=== PATIENT | male | born 1935 | race Caucasian/White ===

== ENCOUNTER → 2019-07-27 | Outpatient (CLI) | payer MEDICARE, OTHER ==
--- NOTE | 2019-07-27 12:46 | ECHOF ---
Referral Reason:R01.1 Cardiac murmur MEASUREMENTS -------- HEIGHT: 160.0 cm WEIGHT: 90.7 kg BP: IVSd: 1.3 cm (0.6 - 1.1) LVIDd: 4.1 cm (3.9 - 5.3) LVPWd: 1.5 cm (0.6 - 1.1) IVSs: 1.9 cm LVIDs: 2.5 cm LVPWs: 1.8 cm LAESV Index (A-L): 28.82 ml/m Ao Diam: 3.0 cm (2.0 - 3.7) AV Cusp: 1.6 cm (1.5 - 2.6) LA Diam: 2.7 cm (2.7 - 3.8) MV EXCURSION: 18.395 mm (> 18.000) MV EF SLOPE: 61 mm/s (70 - 150) EPSS: 2.1 cm MV E Yemi: 0.64 m/s MV DecT: 215 ms MV A Yemi: 0.82 m/s MV E/A Ratio: 0.79 AV maxP.52 mmHg AV meanP.79 mmHg AR PHT: 673 ms RAP: 15.00 mmHg RVSP: 44.89 mmHg TAPSE: 27.20 mm FINDINGS -------- Sinus rhythm. This was a technically good study. The left ventricular size is normal. There is mild concentric left ventricular hypertrophy. Overa ll left ventricular systolic function is normal with, an EF between 55 - 60 %. The diastolic fillin g pattern is normal for the age of the patient 11.29. The right ventricle is normal in size. The right ventricular systolic function is normal. The left atrial size is normal. Normal LA size by volume 22+/-6 ml/m2. The right atrial size is normal. Aortic valve is trileaflet and is mildly thickened. Trace amount of aortic regurgitation. There is mild aortic stenosis present. Peak/mean gradient across the Aortic Valve is 23.52mmHg / 11.79mmH g. The mitral valve is normal. The mitral valve leaflets are mildly thickened. Mild mitral regurgita tion is present. The tricuspid valve appears structurally normal. Mild tricuspid regurgitation present. There is m ild pulmonary hypertension. The right ventricular systolic pressure, as measured by Doppler, is 44. 89mmHg. There is no pulmonic regurgitation present. The aortic root size is normal. The inferior vena cava is mildly dilated. The pulmonary veins were not recorded. There is no pericardial effusion. CONCLUSIONS -------- 1. Sinus rhythm. 2. This was a technically good study. 3. The left ventricular size is normal. 4. There is mild concentric left ventricular hypertrophy. 5. Overall left ventricular systolic function is normal with, an EF between 55 - 60 %. 6. The diastolic filling pattern is normal for the age of the patient 11.29 7. The right ventricle is normal in size. 8. The right ventricular systolic function is normal. 9. The left atrial size is normal. 10. Normal LA size by volume 22+/-6 ml/m2. 11. The right atrial size is normal. 12. Aortic valve is trileaflet and is mildly thickened. 13. Trace amount of aortic regurgitation. 14. There is mild aortic stenosis present. 15. Peak/mean gradient across the Aortic Valve is 23.52mmHg / 11.79mmHg. 16. The mitral valve is normal. 17. The mitral valve leaflets are mildly thickened. 18. Mild mitral regurgitation is present. 19. The tricuspid valve appears structurally normal. 20. Mild tricuspid regurgitation present. 21. There is mild pulmonary hypertension. 22. The right ventricular systolic pressure, as measured by Doppler, is 44.89mmHg. 23. There is no pulmonic regurgitation present. 24. The aortic root size is normal. 25. The inferior vena cava is mildly dilated. 26. The pulmonary veins were not recorded. 27. There is no pericardial effusion. BRUSH HAND: Swapna Black RDCS
== END | disposition home or self-care (01) ==
LOC: RADECHMAIN 11:02
PROVIDERS: ATTEND Family Medicine
DX: I08.1 Rheumatic disorders of both mitral and tricuspid valves (principal); I27.20 Pulmonary hypertension, unspecified
CPT/HCPCS: 93306

== ENCOUNTER 2020-08-02 13:48 | Inpatient (IN) | payer MEDICARE, OTHER ==
--- NOTE | 2020-08-02 14:06 | ED ---
General Adult HPI - General Stated complaint: Chest Pain Time Seen by Provider: 08/02/20 13:57 Source: patient, EMS, RN notes reviewed, old records reviewed Limitations: no limitations - History of Present Illness Initial comments: 85-year-old presenting for evaluation chest discomfort. Patient's had been outside doing some yard work, he developed a substernal chest pressure and pain to his bilateral shoulders. He has no known history of coronary artery disease. He is a nondiabetic. No history of hypertension. He has remote history of tobacco use. He states that about a month ago he had a similar episode to this that was relieved with rest. He went to his primary care physician today and w as given aspirin and nitroglycerin. He was transported to the emergency department with concern for ischemic chest pain. He was given a second nitroglycerin by EMS and has had complete resolution in his symptoms at the time of my evaluation. No cough no dyspnea, no chest pain or chest discomfort at the time my evaluation. He states he was diaphoretic at the time of onset. - Related Data Allergies Allergy/AdvReac Type Severity Reaction Status Date / Time Unable to Assess Allergy Verified 08/02/20 14:00 Review of Systems ROS Statement: Those systems with pertinent positive or pertinent negative responses have been documented in the HPI. ROS Other: All systems not noted in ROS Statement are negative. Past Medical History Past Medical History: Cancer Additional Past Medical History / Comment(s): prostate CA History of Any Multi-Drug Resistant Organisms: None Reported Additional Past Surgical History / Comment(s): prostate removed Past Psychological History: No Psychological Hx Reported Smoking Status: Never smoker Past Alcohol Use History: Occasional Past Drug Use History: None Reported General Exam Limitations: no limitations General appearance: alert, in no apparent distress Head exam: Present: atraumatic, normocephalic Eye exam: Present: normal appearance, PERRL ENT exam: Present: normal exam Neck exam: Present: normal inspection. Absent: tenderness, meningismus Respiratory exam: Present: normal lung sounds bilaterally, respiratory distress Cardiovascular Exam: Present: regular rate, normal rhythm GI/Abdominal exam: Present: soft. Absent: distended, tenderness, guarding, rebound Extremities exam: Present: normal inspection, normal capillary refill. Absent: pedal edema Neurological exam: Present: alert, oriented X3, CN II-XII intact. Absent: motor sensory deficit Psychiatric exam: Present: normal affect, normal mood Skin exam: Present: warm, dry, intact. Absent: cyanosis, diaphoretic Course Vital Signs 08/02/20 08/02/20 13:49 14:51 Pulse Rate 103 H 90 Respiratory 18 18 Rate Blood Pressure 121/66 130/75 O2 Sat by Pulse 98 97 Oximetry - Reevaluation(s) Reevaluation #1: 08/02/20 15:17 Patient reevaluated, chest pain-free, no symptoms. EKG Findings - EKG Comments: EKG Findings:: EKG: Sinus tachycardia with PAC, right bundle branch block, T- wave inversion in the inferior leads, PVC no ST segment elevation. Rate of 105, NH interval 178, QRS duration 146, QTC 507 Medical Decision Making - Medical Decision Making 85 yo male presenting with typical chest pain. EKG showing sinus rhythm with right bundle, ST segment depression, no ST segment elevation. Patient is completely chest pain-free at the time my evaluation. He remains chest pain- free while in the emergency department. Chest x-ray is negative for focal pneumonia, question some Easler atelectasis. Patient has a stable hemoglobin, normal electrolytes, normal kidney function. His initial troponin is 1.9. He does admit to some intermittent episodes of chest pain over the past several months. He has no known history of coronary artery disease. Patient had been given aspirin nitroglycerin by EMS, he started on heparin in the emergency department. He started on a beta michel and statin. I discussed case with cardiology, Dr. Mccullough. As well as admitting physician Dr. Ryan. Echo has been ordered. - Lab Data Result diagrams: 08/02/20 14:10 08/02/20 14:10 Lab Results 08/02/20 08/02/20 08/02/20 Range/Units 14:10 14:10 14:10 WBC 12.3 H (3.8-10.6) k/uL RBC 5.17 (4.30-5.90) m/uL Hgb 16.3 (13.0-17.5) gm/dL Hct 47.5 (39.0-53.0) % MCV 91.9 (80.0-100.0) fL MCH 31.5 (25.0-35.0) pg MCHC 34.3 (31.0-37.0) g/dL RDW 15.8 H (11.5-15.5) % Plt Count 215 (150-450) k/uL Neutrophils % 89 % Lymphocytes % 5 % Monocytes % 5 % Eosinophils % 0 % Basophils % 0 % Neutrophils # 11.0 H (1.3-7.7) k/uL Lymphocytes # 0.6 L (1.0-4.8) k/uL Monocytes # 0.6 (0-1.0) k/uL Eosinophils # 0.0 (0-0.7) k/uL Basophils # 0.0 (0-0.2) k/uL PT 10.4 (9.0-12.0) sec INR 1.0 (<1.2) APTT 25.3 (22.0-30.0) sec Sodium 133 L (137-145) mmol/L Potassium 4.7 (3.5-5.1) mmol/L Chloride 102 (98-107) mmol/L Carbon Dioxide 22 (22-30) mmol/L Anion Gap 9 mmol/L BUN 18 (9-20) mg/dL Creatinine 0.98 (0.66-1.25) mg/dL Est GFR (CKD-EPI)AfAm 81 (>60 ml/min/1.73 sqM) Est GFR (CKD-EPI)NonAf 70 (>60 ml/min/1.73 sqM) Glucose 138 H (74-99) mg/dL Calcium 10.0 (8.4-10.2) mg/dL Magnesium 2.2 (1.6-2.3) mg/dL Total Bilirubin 0.6 (0.2-1.3) mg/dL AST 60 H (17-59) U/L ALT 25 (4-49) U/L Alkaline Phosphatase 69 (38-126) U/L Troponin I (0.000-0.034) ng/mL Total Protein 6.4 (6.3-8.2) g/dL Albumin 4.1 (3.5-5.0) g/dL 08/02/20 Range/Units 14:10 WBC (3.8-10.6) k/uL RBC (4.30-5.90) m/uL Hgb (13.0-17.5) gm/dL Hct (39.0-53.0) % MCV (80.0-100.0) fL MCH (25.0-35.0) pg MCHC (31.0-37.0) g/dL RDW (11.5-15.5) % Plt Count (150-450) k/uL Neutrophils % % Lymphocytes % % Monocytes % % Eosinophils % % Basophils % % Neutrophils # (1.3-7.7) k/uL Lymphocytes # (1.0-4.8) k/uL Monocytes # (0-1.0) k/uL Eosinophils # (0-0.7) k/uL Basophils # (0-0.2) k/uL PT (9.0-12.0) sec INR (<1.2) APTT (22.0-30.0) sec Sodium (137-145) mmol/L Potassium (3.5-5.1) mmol/L Chloride (98-107) mmol/L Carbon Dioxide (22-30) mmol/L Anion Gap mmol/L BUN (9-20) mg/dL Creatinine (0.66-1.25) mg/dL Est GFR (CKD-EPI)AfAm (>60 ml/min/1.73 sqM) Est GFR (CKD-EPI)NonAf (>60 ml/min/1.73 sqM) Glucose (74-99) mg/dL Calcium (8.4-10.2) mg/dL Magnesium (1.6-2.3) mg/dL Total Bilirubin (0.2-1.3) mg/dL AST (17-59) U/L ALT (4-49) U/L Alkaline Phosphatase (38-126) U/L Troponin I 1.910 H* (0.000-0.034) ng/mL Total Protein (6.3-8.2) g/dL Albumin (3.5-5.0) g/dL Critical Care Time Critical Care Time: Yes Total Critical Care Time: 35 Disposition Clinical Impression: Acute non-ST elevation myocardial infarction (NSTEMI) Disposition: ADMITTED IP TO THIS [facility] Condition: Stable Is patient prescribed a controlled substance at d/c from ED?: No Referrals: Henrik Perez MD [Primary Care Provider] - 1-2 days Decision to Admit Reason: Admit from EC Decision Date: 08/02/20 Decision Time: 15:18
[2020-08-02 14:22] LABS: Basophils % (A) 0 %; Eosinophils % (A) 0 %; HCT 47.5 % (39.0-53.0); HGB 16.3 gm/dL (13.0-17.5); Lymphocytes # (A) 0.6 k/uL (1.0-4.8); Lymphocytes % (A) 5 %; MCH 31.5 pg (25.0-35.0); MCHC 34.3 g/dL (31.0-37.0); MCV 91.9 fL (80.0-100.0); Mean Platelet Volume 9.1; Monocytes # (A) 0.6 k/uL (0-1.0); Monocytes % (A) 5 %; Neutrophils % (A) 89 %; Platelet Count 215 k/uL (150-450); RBC 5.17 m/uL (4.30-5.90); RDW 15.8 % (11.5-15.5); WBC 12.3 k/uL (3.8-10.6)
[2020-08-02 14:32] LABS: Partial Thromboplastin Time 25.3 sec (22.0-30.0); Prothrombin Time 10.4 sec (9.0-12.0)
[2020-08-02 14:38] LABS: Albumin 4.1 g/dL (3.5-5.0); Magnesium 2.2 mg/dL (1.6-2.3); Potassium 4.7 mmol/L (3.5-5.1); Total Bilirubin 0.6 mg/dL (0.2-1.3); Total Protein 6.4 g/dL (6.3-8.2)
--- NOTE | 2020-08-02 15:05 | XR ---
EXAMINATION TYPE: XR chest 1V portable DATE OF EXAM: 08/02/2020 CLINICAL HISTORY: Chest pain TECHNIQUE: Portable upright view of the chest COMPARISON: 10/25/2012 chest radiograph FINDINGS: The cardiomediastinal silhouette is within normal limits for size. Pulmonary vasculature i s normal. There is airspace opacity of the right infrahilar lung base. No pleural effusion or pneumot horax. The osseous structures are intact. IMPRESSION: Airspace opacity of the right infrahilar lung base. Findings may represent atelectasis or consolidation.
[2020-08-02] MEDS ORDERED: NITROGLYCERIN OINT 1 INCH/GM PACKET TOPICAL STA (15:09)
[2020-08-02] MEDS ORDERED: HEPARIN SODIUM,PORCINE 5,000 UNIT/ML 1 ML VIAL IV PRN (15:09)
[2020-08-02] MEDS ORDERED: HEPARIN SODIUM,PORCINE 5,000 UNIT/ML 1 ML VIAL IV ONE (15:09)
[2020-08-02] MEDS ORDERED: NITROGLYCERIN SL TABS 0.4 MG TAB SUBLINGUAL PRN (15:13)
[2020-08-02] MEDS ORDERED: MORPHINE SULFATE 2 MG/ML SYRINGE IVP PRN (15:13)
[2020-08-02] MEDS: HEPARIN SOD,PORK IN 0.45% NACL 25,000 UNIT in 0.45% NACL 1 250ML.BAG IV SCH (15:34)
[2020-08-02] MEDS: ATORVASTATIN 40 MG TAB PO SCH (19:57)
[2020-08-02] MEDS: METOPROLOL TARTRATE 25 MG TAB PO SCH (19:57)
--- NOTE | 2020-08-02 22:18 | P.HPIM ---
History of Present Illness H&P Date: 08/02/20 Chief Complaint: Chest pain History of presenting complaint: This is a 85-year-old patient of Dr. Henrik Perez. In rather good health. Patient after breakfast when DrAbby below the lease. Then came back again the lawnmower. Started getting a chest heaviness went up to his arms. Decided to go back in the house. Started forgetting unwell. Symptoms last for 2 hours. No dizziness or lightheadedness. Cobb totally weak and rundown. Clammy perspiration. Decided to come in. No prior cardiac history. Fairly active. Had a similar episode about 2 months ago. Improved with rest. Admitted with unstable angina Review of systems: GEN.: Tired EYES: None HEENT: None NECK: None RESPIRATORY: None CARDIOVASCULAR: [As above GASTROINTESTINAL: None GENITOURINARY: None MUSCULOSKELETAL: None LYMPHATICS: None HEMATOLOGICAL: None PSYCHIATRY: None NEUROLOGICAL: None Past medical history to include: Prostate cancer treated with surgery Social history: Retired salesperson. Lives with his . Drinks beer occasionally. Stopped smoking 10 years ago. Family history: Reviewed, noncontributory to presentation Physical examination: VITAL SIGNS: 97.9, 82, 18, 124/65, 96% room air GENERAL: BMI 25.6, laying in bed, comfortable. EYES: Pupils equal. Conjunctiva normal. HEENT: External appearance of nose and ears normal, oral cavity grossly normal. NECK: JVD not raised; masses not palpable. HEART: First and second heart sounds are normal; no edema. LUNGS: Respiratory rate normal; clear to auscultation. ABDOMEN: Soft, nontender, liver spleen not palpable, no masses palpable. PSYCH: Alert and oriented x3; mood and affect normal. MUSCULAR skeletal: Evidence of OA NEUROLOGICAL: Cranial nerves grossly intact; no facial asymmetry, power and sensation grossly intact. LYMPHATICS: No lymph nodes palpable in the axilla and neck INVESTIGATIONS, reviewed in the clinical context: White count 12.3 hemoglobin 13.3 platelets 215 potassium 4.7 creatinine 0.98 Troponin I 1.9, 12.4, 23.3 EKG tracing personally reviewed by me-sinus rhythm, PVC, ST segment depression from leads V2 through V6 and somein 1 and aVL. Chest x-ray film personally reviewed by me-questionable infiltrate in the right base Assessment: -Acute non-ST elevation myocardial infarction -Leukocytosis from acute IA. No clinical evidence of infection -Mild hyponatremia -IV heparin monitoring Plan: Patient started IV heparin. Aspirin. Lipitor. Lopressor. Cardiology was consulted. For cardiac catheterization. Care was discussed with the patient. Past Medical History Past Medical History: Cancer Additional Past Medical History / Comment(s): prostate CA History of Any Multi-Drug Resistant Organisms: None Reported Additional Past Surgical History / Comment(s): prostate removed Past Anesthesia/Blood Transfusion Reactions: No Reported Reaction Smoking Status: Former smoker - Past Family History Mother Family Medical History: No Reported History Father Family Medical History: No Reported History Medications and Allergies Home Medications Medication Instructions Recorded Confirmed Type Aspirin 324 mg PO ONCE PRN 08/02/20 08/02/20 History Aspirin EC [Ecotrin Low Dose] 81 mg PO DAILY 08/02/20 08/02/20 History Calcium/Vitamin D(Unknown Dose) 1 tab PO DAILY 08/02/20 08/02/20 History Multivitamins, Thera [Multivitamin 1 tab PO DAILY 08/02/20 08/02/20 History (formulary)] Allergies Allergy/AdvReac Type Severity Reaction Status Date / Time doxycycline [From Vibramycin] Allergy Unknown Verified 08/02/20 15:23 Physical Exam Vitals: Vital Signs Temp Pulse Pulse Resp BP BP Pulse Ox 08/02/20 19:59 97.9 F 82 18 124/65 96 08/02/20 17:37 98.0 F 84 18 138/60 95 08/02/20 15:45 76 18 120/69 100 08/02/20 14:51 90 18 130/75 97 08/02/20 13:49 103 H 18 121/66 98 Intake and Output 08/02/20 08/02/20 08/02/20 06:59 14:59 22:59 Intake Total 296 Balance 296 Intake: IV 60 .9@20 60 Oral 236 Other: Voiding Method Toilet Weight 92.986 kg 92.986 kg Results CBC & Chem 7: 08/02/20 14:10 08/02/20 14:10 Labs: Abnormal Lab Results - Last 24 Hours (Table) 08/02/20 08/02/20 08/02/20 Range/Units 14:10 14:10 14:10 WBC 12.3 H (3.8-10.6) k/uL RDW 15.8 H (11.5-15.5) % Neutrophils # 11.0 H (1.3-7.7) k/uL Lymphocytes # 0.6 L (1.0-4.8) k/uL APTT (22.0-30.0) sec Sodium 133 L (137-145) mmol/L Glucose 138 H (74-99) mg/dL AST 60 H (17-59) U/L Troponin I 1.910 H* (0.000-0.034) ng/mL 08/02/20 08/02/20 08/02/20 Range/Units 17:18 20:10 21:15 WBC (3.8-10.6) k/uL RDW (11.5-15.5) % Neutrophils # (1.3-7.7) k/uL Lymphocytes # (1.0-4.8) k/uL APTT 46.9 H (22.0-30.0) sec Sodium (137-145) mmol/L Glucose (74-99) mg/dL AST (17-59) U/L Troponin I 12.400 H* 23.300 H* (0.000-0.034) ng/mL Thrombosis Risk Factor Assmnt - Choose All That Apply Any of the Below Risk Factors Present?: No Each Risk Factor Represents 3 Points: Age 75 years or older Other congenital or acquired thrombophilia - If yes, enter type in comment: No Thrombosis Risk Factor Assessment Total Risk Factor Score: 3 Thrombosis Risk Factor Assessment Level: Moderate Risk
[2020-08-03] MEDS ORDERED: ALPRAZolam 0.25 MG TAB PO PRN (07:27)
[2020-08-03] MEDS ORDERED: ALPRAZolam 0.5 MG TAB PO PRN (07:27)
[2020-08-03] MEDS ORDERED: ATORVASTATIN 80 MG TAB PO STA (07:27)
[2020-08-03] MEDS: ASPIRIN 325 MG TAB PO SCH (07:55)
[2020-08-03] MEDS: METOPROLOL TARTRATE 25 MG TAB PO SCH ×2 (07:55→20:31)
[2020-08-03] MEDS: SODIUM CHLORIDE 0.9% 1,000 ML in EMPTY BAG 1 BAG IV ONE ×2 (07:56→10:26)
[2020-08-03 08:22] LABS: Anisocytosis Slight; Basophils % (A) 0 %; Eosinophils # (A) 0.2 k/uL (0-0.7); Eosinophils % (A) 2 %; HCT 47.5 % (39.0-53.0); HGB 15.8 gm/dL (13.0-17.5); Lymphocytes # (A) 1.8 k/uL (1.0-4.8); Lymphocytes % (A) 20 %; MCH 31.1 pg (25.0-35.0); MCHC 33.2 g/dL (31.0-37.0); MCV 93.7 fL (80.0-100.0); Mean Platelet Volume 9.1; Monocytes # (A) 0.8 k/uL (0-1.0); Monocytes % (A) 9 %; Neutrophils # (A) 6.1 k/uL (1.3-7.7); Neutrophils % (A) 68 %; Platelet Count 231 k/uL (150-450); RBC 5.07 m/uL (4.30-5.90); RDW 17.3 % (11.5-15.5); WBC 9.1 k/uL (3.8-10.6)
[2020-08-03 08:46] LABS: Cholesterol 206 mg/dL (<200); HDL Cholesterol 48 mg/dL (40-60); LDL Cholesterol,Calculated 118 mg/dL (0-99); Triglycerides 199 mg/dL (<150)
[2020-08-03] MEDS ORDERED: IV FLUID CONTINUATION 1,000 ML IV ONE (09:00)
[2020-08-03] MEDS ORDERED: VERAPAMIL 2.5 MG/ML 2 ML AMP ONE (09:01)
[2020-08-03] MEDS ORDERED: LIDOCAINE 1% INJ 10MG/ML (20 ML MDV) ONE (09:02)
[2020-08-03] MEDS ORDERED: MIDAZOLAM 2 MG/2 ML VIAL IV ONE (09:13)
[2020-08-03] MEDS ORDERED: LIDOCAINE 1% INJ 10MG/ML (20 ML MDV) SQ ONE (09:24)
[2020-08-03] MEDS ORDERED: HEPARIN SODIUM 1,000 UN/ML (10ML VL) ONE (09:25)
[2020-08-03] MEDS ORDERED: VERAPAMIL SYRINGE (5 MG/10 ML) INTRAARTER ONE (09:26)
[2020-08-03] MEDS ORDERED: HEPARIN SODIUM 1,000 UN/ML (10ML VL) IV ONE (09:27)
[2020-08-03] MEDS ORDERED: IOPAMIDOL-370 125ML BTL INJ ONE (09:48)
[2020-08-03] MEDS ORDERED: RX INFO: IV CONTRAST WAS GIVEN 1 EACH MISC MISCELLANE PRN (09:59)
--- NOTE | 2020-08-03 10:07 | P.CRDCN ---
History of Present Illness Consult date: 08/03/20 History of present illness: This is a 85-year-old gentleman with no significant past medical history is admitted now with complaints of chest heaviness radiating to both shoulders. He claims about 2 months ago, he had an episode of chest pain that lasted an hour or so but subsided with rest. Yesterday he was working in his lawn when he started having chest heaviness radiating to both arms. There is some sweating . The symptoms lasted about 2 hours and finally he went to see primary care physician who sent him to the hospital. His EKG showed right bundle branch block without any acute ST-T changes. His cardiac enzymes showed elevated troponin of 1.9. Patient was initiated on beta blockers, heparin and nitrates and was admitted to the hospital. Patient remained asymptomatic since admission. However his troponins went up to 25. Patient is advised to have a cardiac catheterization. Further recommendations depend on findings in the cardiac cath. No history of any previous myocardial infarctions Review of Systems As per the chart Past Medical History Past Medical History: Cancer Additional Past Medical History / Comment(s): prostate CA History of Any Multi-Drug Resistant Organisms: None Reported Additional Past Surgical History / Comment(s): prostate removed Past Anesthesia/Blood Transfusion Reactions: No Reported Reaction Smoking Status: Former smoker - Past Family History Mother Family Medical History: No Reported History Father Family Medical History: No Reported History Medications and Allergies Home Medications Medication Instructions Recorded Confirmed Type Aspirin 324 mg PO ONCE PRN 08/02/20 08/02/20 History Aspirin EC [Ecotrin Low Dose] 81 mg PO DAILY 08/02/20 08/02/20 History Calcium/Vitamin D(Unknown Dose) 1 tab PO DAILY 08/02/20 08/02/20 History Multivitamins, Thera [Multivitamin 1 tab PO DAILY 08/02/20 08/02/20 History (formulary)] Allergies Allergy/AdvReac Type Severity Reaction Status Date / Time doxycycline [From Vibramycin] Allergy Unknown Verified 08/02/20 15:23 Physical Exam Vitals: Vital Signs Temp Pulse Pulse Resp BP BP Pulse Ox 08/03/20 08:15 98.0 F 84 18 123/55 98 08/03/20 04:00 97.9 F 66 16 100/50 96 08/02/20 23:09 82 16 111/64 96 08/02/20 19:59 97.9 F 82 18 124/65 96 08/02/20 17:37 98.0 F 84 18 138/60 95 08/02/20 15:45 76 18 120/69 100 08/02/20 14:51 90 18 130/75 97 08/02/20 13:49 103 H 18 121/66 98 Intake and Output 08/02/20 08/03/20 08/03/20 22:59 06:59 14:59 Intake Total 296 80 913.601 Output Total 450 Balance 296 80 463.601 Intake: IV 60 150 .9@20 60 Intake, IV Titration 80 763.601 Amount Heparin Sod,Pork in 0.45% 80 163.601 NaCl 25,000 unit In 0.45 % NaCl 1 250ml.bag @ 10. 75 UNITS/KG/HR 9.996 mls/ hr IV .Q24H [facility] Rx#: [id number] Sodium Chloride 0.9% 1, 600 000 ml In Empty Bag 1 bag @ 1 ML/KG/HR 89.4 mls/hr IV .[id number] ONE Rx#: [id number] Oral 236 Output: Urine 450 Other: Voiding Method Toilet Toilet # Voids 2 1 Weight 92.986 kg 89.4 kg GENERAL EXAM: Patient is alert and oriented and doesn't appear to be in any acute distress HEENT: Normocephalic. Normal reaction of pupils, equal size, normal range of extraocular motion. No erythema or exudates in the throat. NECK: No masses, no nuchal rigidity. CHEST: No chest wall deformity. LUNGS: Equal air entry with no crackles or wheeze. HEART: S1 and S2 normal . Systolic murmur in the aortic area ABDOMEN: No hepatosplenomegaly, normal bowel sounds, no guarding or rigidity. SKIN: No rashes CENTRAL NERVOUS SYSTEM: No focal deficits. EXTREMITIES: No cyanosis, clubbing or edema. Results 08/03/20 07:55 08/02/20 14:10 Cardiac Enzymes 08/02/20 08/02/20 08/02/20 Range/Units 14:10 14:10 17:18 AST 60 H (17-59) U/L Troponin I 1.910 H* 12.400 H* (0.000-0.034) ng/mL 08/02/20 Range/Units 20:10 AST (17-59) U/L Troponin I 23.300 H* (0.000-0.034) ng/mL Coagulation 08/02/20 08/02/20 08/03/20 Range/Units 14:10 21:15 07:55 PT 10.4 (9.0-12.0) sec APTT 25.3 46.9 H 30.8 H (22.0-30.0) sec Lipids 08/03/20 Range/Units 07:55 Triglycerides 199 H (<150) mg/dL Cholesterol 206 H (<200) mg/dL HDL Cholesterol 48 (40-60) mg/dL CBC 08/02/20 08/03/20 Range/Units 14:10 07:55 WBC 12.3 H 9.1 (3.8-10.6) k/uL RBC 5.17 5.07 (4.30-5.90) m/uL Hgb 16.3 15.8 (13.0-17.5) gm/dL Hct 47.5 47.5 (39.0-53.0) % Plt Count 215 231 (150-450) k/uL Comprehensive Metabolic Panel 08/02/20 Range/Units 14:10 Sodium 133 L (137-145) mmol/L Potassium 4.7 (3.5-5.1) mmol/L Chloride 102 (98-107) mmol/L Carbon Dioxide 22 (22-30) mmol/L BUN 18 (9-20) mg/dL Creatinine 0.98 (0.66-1.25) mg/dL Glucose 138 H (74-99) mg/dL Calcium 10.0 (8.4-10.2) mg/dL AST 60 H (17-59) U/L ALT 25 (4-49) U/L Alkaline Phosphatase 69 (38-126) U/L Total Protein 6.4 (6.3-8.2) g/dL Albumin 4.1 (3.5-5.0) g/dL Current Medications Generic Name Dose Route Start Last Admin Trade Name Freq PRN Reason Stop Dose Admin Alprazolam 0.25 mg 08/03/20 07:27 Alprazolam 0.25 Mg Tab PO Q6HR PRN Mild Anxiety Alprazolam 0.5 mg 08/03/20 07:27 Alprazolam 0.5 Mg Tab PO Q6HR PRN Moderate Anxiety Aspirin 325 mg 08/03/20 09:00 08/03/20 07:55 Aspirin 325 Mg Tab PO 325 mg DAILY LESLEE Administration Atorvastatin Calcium 40 mg 08/02/20 21:00 08/02/20 19:57 Atorvastatin 40 Mg Tab PO 40 mg HS LESLEE Administration Heparin Sodium (Porcine) 0 unit 08/02/20 15:09 Heparin Sodium,Porcine 5,000 Unit/Ml 1 Ml Vial IV PER PROTOCOL PRN Low PTT Protocol Heparin Sodium/Sodium Chloride 250 mls @ 9.996 mls/hr 08/02/20 15:15 08/03/20 07:56 25,000 unit/ Sodium Chloride IV 0 units/kg/hr .Q24H LESLEE 0 mls/hr Titration Protocol 10.75 UNITS/KG/HR Sodium Chloride 1,000 ml/ IV 1,000 mls @ 89.4 mls/hr 08/03/20 07:27 08/03/20 07:56 Solution IV 08/03/20 18:38 89.4 mls/hr .[id number] ONE Administration 1 ML/KG/HR Sodium Chloride 1,000 mls @ 50 mls/hr 08/03/20 10:00 Saline 0.9% IV .Q20H LESLEE Metoprolol Tartrate 25 mg 08/02/20 21:00 08/03/20 07:55 Metoprolol Tartrate 25 Mg Tab PO 25 mg BID LESLEE Administration Miscellaneous Information 1 each 08/03/20 09:59 Rx Info: Iv Contrast Was Given 1 Each Misc MISCELLANE 08/05/20 09:59 DAILY PRN Per Protocol Morphine Sulfate 2 mg 08/02/20 15:13 Morphine Sulfate 2 Mg/Ml Syringe IVP Q5M PRN Chest Pain Nitroglycerin 0.4 mg 08/02/20 15:13 Nitroglycerin Sl Tabs 0.4 Mg Tab SUBLINGUAL Q5M PRN Chest Pain Intake and Output 08/02/20 08/03/20 08/03/20 22:59 06:59 14:59 Intake Total 296 80 913.601 Output Total 450 Balance 296 80 463.601 Intake: IV 60 150 .9@20 60 Intake, IV Titration 80 763.601 Amount Heparin Sod,Pork in 0.45% 80 163.601 NaCl 25,000 unit In 0.45 % NaCl 1 250ml.bag @ 10. 75 UNITS/KG/HR 9.996 mls/ hr IV .Q24H [facility] Rx#: [id number] Sodium Chloride 0.9% 1, 600 000 ml In Empty Bag 1 bag @ 1 ML/KG/HR 89.4 mls/hr IV .[id number] ONE Rx#: [id number] Oral 236 Output: Urine 450 Other: Voiding Method Toilet Toilet # Voids 2 1 Weight 92.986 kg 89.4 kg 08/03/20 07:55 08/02/20 14:10 EKG Interpretations (text) Sinus rhythm with a right bundle branch block and nonspecific ST-T changes Assessment and Plan (1) Acute non-ST elevation myocardial infarction (NSTEMI) Current Visit: Yes Status: Acute Code(s): I21.4 - NON-ST ELEVATION (NSTEMI) MYOCARDIAL INFARCTION SNOMED Code(s): 730073135 Plan: Continue current medical therapy. Proceed with cardiac catheterization. Echocardiogram
--- NOTE | 2020-08-03 10:11 | P.CARDCATH ---
Date of Procedure: 08/03/20 Preoperative Diagnosis: Non-STEMI Postoperative Diagnosis: Severe triple-vessel disease Procedure(s) Performed: Left heart catheterization without left ventriculography Description of Procedure: HISTORY: This is a 85-year-old gentleman was admitted to the hospital with a non-STEMI. Troponin went up to 25. Advised to have a cardiac catheterization for definitive diagnosis CONSENT:I have discussed the risks, benefits and alternative therapies for the above-mentioned procedure and for both sedation/analgesia as well as necessary blood product administration, if indicated, as they pertain to this patient. The patient has indicated understanding and acceptance of the risks and procedures discussed. PROCEDURE: Patient was brought to the lab in a fasting state. Patient was given some IV sedation. The right wrist is infiltrated with lidocaine and right radial artery was entered using Seldinger technique. A 6-Maltese catheter was left in place and selective coronary arteriography was performed. Patient tolerated the procedure well. TR band was applied for hemostasis. No immediate complications were noted and patient was transferred to cardiac stepdown unit in a stable condition Conscious Sedation: Versed 0.5mg Fentanyl [] g Duration 22 minutes HEMODYNAMICS: The aortic pressure is about 90 to 100 systolic. The left ventricle end-diastolic pressure is 20-20 5V and there is a mild gradient across the aortic valve of about 10 mm SELECTIVE CORONARY ARTERIOGRAPHY: LEFT MAIN: Short and free of any significant occlusive disease THE LEFT ANTERIOR DESCENDING CORONARY ARTERY: . This is a moderate caliber vessel with a diffuse disease with areas of about 80-90% stenosis involving the proximal and mid segments. There is also diagonal branch which has ostial 95% stenosis THE LEFT CIRCUMFLEX AND IS CORONARY ARTERY: . This is a good caliber vessel with about 95% stenosis in midportion followed by another 80% stenosis. This is off of the first OM branch. There are collaterals to the RCA which is being filled all the way to the proximal portion THE RIGHT CORONARY ARTERY: . This is totally occluded proximally LEFT VENTRICULOGRAPHY: . Not performed FINAL IMPRESSION: , Triple-vessel disease with total occlusion of the RCA with critical lesions involving the proximal and mid LAD and also mid circumflex and the ostium of the diagonal PLAN: Films were reviewed with Dr. Rodas. His felt that we should get surgical opinion regarding bypass surgery. If he were felt to be not a good candidate for surgery, stent placement of the LAD and circumflex to be considered PROGNOSIS: Guarded
[2020-08-03] MEDS: SODIUM CHLORIDE 0.9% 1,000 ML IV SCH (10:27)
[2020-08-03] MEDS ORDERED: MD COMMUNICATION TO PHARMACY 1 EACH MISC PO ONE (10:56)
--- NOTE | 2020-08-03 11:24 | P.GSCN ---
History of Present Illness Consult date: 08/03/20 Reason for Consult: Severe triple vessel coronary artery disease Requesting physician: Lisha Mccullough History of present illness: This is an 85-year-old active gentleman who follows with Dr. Perez on an outpatient basis, but only occasionally. His only previous medical history is prostate cancer with prostatectomy many years ago, and previous tobacco dependence. He has unknown family history as he was not raised by his natural parents. Apparently he has been having intermittent periods of chest heaviness with radiation to both arms with activity and relieved with rest over the last few months. He did present to his primary care approximately a month ago and was started on aspirin and given sublingual nitroglycerin. Yesterday he was doing yard work and again experienced chest heaviness with radiation to both arms, diaphoresis and nausea. He sat down and used his sublingual nitro, however this time the pain did not resolve and so he presented to [facility] emergency room for evaluation. EKG demonstrated sinus tach with PACs and right bundle branch block. Troponins were elevated at 1.9 eventually elevating to 23.3 and he was ruled in for non-STEMI. Chest x-ray demonstrated some a telectasis in the right base. WBC 12.3, hemoglobin 16.3, creatinine 0.98, AST 60. The patient was started on IV heparin and admitted for evaluation and treatment. He was seen by cardiology and was recommended to undergo heart catheterization which was completed today and which demonstrated severe triple- vessel coronary artery disease with proximal and mid LAD stenosis 80-90%, ostial diagonal stenosis 95%, mid circumflex stenosis 95%, and complete occlusion of the proximal right coronary artery. Due to these findings Dr. Vasquez from cardiothoracic surgery was consulted for surgical revascularization recommendations. Review of Systems Review systems was completed and is negative except as noted - Cardiovascular Reports as per HPI, Reports chest pain - Gastrointestinal Reports as per HPI, Reports nausea Past Medical History Past Medical History: Coronary Artery Disease (CAD), Cancer, Hyperlipidemia, Myocardial Infarction ([place]) Additional Past Medical History / Comment(s): prostate CA History of Any Multi-Drug Resistant Organisms: None Reported Past Surgical History: Prostate Surgery, Tonsillectomy Additional Past Surgical History / Comment(s): prostate removed Past Anesthesia/Blood Transfusion Reactions: No Reported Reaction Past Psychological History: No Psychological Hx Reported Smoking Status: Former smoker Past Alcohol Use History: Occasional Additional Past Alcohol Use History / Comment(s): Consumes 3-4 beers a week Past Drug Use History: None Reported - Past Family History Mother Family Medical History: No Reported History Father Family Medical History: No Reported History Additional Family Medical History / Comment(s): Unsure family history as the patient was not raised by his biological parents Medications and Allergies Home Medications Medication Instructions Recorded Confirmed Type Aspirin 324 mg PO ONCE PRN 08/02/20 08/02/20 History Aspirin EC [Ecotrin Low Dose] 81 mg PO DAILY 08/02/20 08/02/20 History Calcium/Vitamin D(Unknown Dose) 1 tab PO DAILY 08/02/20 08/02/20 History Multivitamins, Thera [Multivitamin 1 tab PO DAILY 08/02/20 08/02/20 History (formulary)] Allergies Allergy/AdvReac Type Severity Reaction Status Date / Time doxycycline [From Vibramycin] Allergy Unknown Verified 08/02/20 15:23 Surgical - Exam Vital Signs Pulse Resp BP Pulse Ox 103 H 18 121/66 98 08/02/20 13:49 08/02/20 13:49 08/02/20 13:49 08/02/20 13:49 - General well developed, well nourished, no distress, no pain - Eyes PERRL, normal ocular movement - ENT no hearing loss - Neck no masses, no bruits, trachea midline - Respiratory Lungs sounds clear bilaterally. Respirations even, nonlabored. Currently on room air with oxygen saturation 98%. No chest wall deformities. No cyanosis present. - Cardiovascular S1, S2 present. Regular rate and rhythm, sinus rhythm on telemetry. Palpable peripheral pulses bilaterally. No edema present. No calf pain or tenderness no reji. No varicosities noted. - Abdomen Abdomen: soft, non tender, bowel sounds - Genitourinary Deferred - Rectum Deferred - Integumentary no rash, no growths, no abnormal pigmentation - Neurologic normal coordination, normal sensation - Musculoskeletal normal gait, normal posture - Psychiatric oriented to time, oriented to person, oriented to place, speech is normal, memory intact Results - Labs 08/03/20 07:55 08/02/20 14:10 Abnormal Lab Results - Last 24 Hours (Table) 08/02/20 08/02/20 08/02/20 Range/Units 14:10 14:10 14:10 WBC 12.3 H (3.8-10.6) k/uL RDW 15.8 H (11.5-15.5) % Neutrophils # 11.0 H (1.3-7.7) k/uL Lymphocytes # 0.6 L (1.0-4.8) k/uL APTT (22.0-30.0) sec Sodium 133 L (137-145) mmol/L Glucose 138 H (74-99) mg/dL AST 60 H (17-59) U/L Troponin I 1.910 H* (0.000-0.034) ng/mL Triglycerides (<150) mg/dL Cholesterol (<200) mg/dL LDL Cholesterol, Calc (0-99) mg/dL 08/02/20 08/02/20 08/02/20 Range/Units 17:18 20:10 21:15 WBC (3.8-10.6) k/uL RDW (11.5-15.5) % Neutrophils # (1.3-7.7) k/uL Lymphocytes # (1.0-4.8) k/uL APTT 46.9 H (22.0-30.0) sec Sodium (137-145) mmol/L Glucose (74-99) mg/dL AST (17-59) U/L Troponin I 12.400 H* 23.300 H* (0.000-0.034) ng/mL Triglycerides (<150) mg/dL Cholesterol (<200) mg/dL LDL Cholesterol, Calc (0-99) mg/dL 08/03/20 08/03/20 08/03/20 Range/Units 07:55 07:55 07:55 WBC (3.8-10.6) k/uL RDW 17.3 H (11.5-15.5) % Neutrophils # (1.3-7.7) k/uL Lymphocytes # (1.0-4.8) k/uL APTT 30.8 H (22.0-30.0) sec Sodium (137-145) mmol/L Glucose (74-99) mg/dL AST (17-59) U/L Troponin I (0.000-0.034) ng/mL Triglycerides 199 H (<150) mg/dL Cholesterol 206 H (<200) mg/dL LDL Cholesterol, Calc 118 H (0-99) mg/dL Diabetes panel 08/02/20 08/03/20 Range/Units 14:10 07:55 Sodium 133 L (137-145) mmol/L Potassium 4.7 (3.5-5.1) mmol/L Chloride 102 (98-107) mmol/L Carbon Dioxide 22 (22-30) mmol/L BUN 18 (9-20) mg/dL Creatinine 0.98 (0.66-1.25) mg/dL Glucose 138 H (74-99) mg/dL Calcium 10.0 (8.4-10.2) mg/dL AST 60 H (17-59) U/L ALT 25 (4-49) U/L Alkaline Phosphatase 69 (38-126) U/L Total Protein 6.4 (6.3-8.2) g/dL Albumin 4.1 (3.5-5.0) g/dL Triglycerides 199 H (<150) mg/dL HDL Cholesterol 48 (40-60) mg/dL Calcium panel 08/02/20 Range/Units 14:10 Calcium 10.0 (8.4-10.2) mg/dL Albumin 4.1 (3.5-5.0) g/dL Pituitary panel 08/02/20 Range/Units 14:10 Sodium 133 L (137-145) mmol/L Potassium 4.7 (3.5-5.1) mmol/L Chloride 102 (98-107) mmol/L Carbon Dioxide 22 (22-30) mmol/L BUN 18 (9-20) mg/dL Creatinine 0.98 (0.66-1.25) mg/dL Glucose 138 H (74-99) mg/dL Calcium 10.0 (8.4-10.2) mg/dL Adrenal panel 08/02/20 Range/Units 14:10 Sodium 133 L (137-145) mmol/L Potassium 4.7 (3.5-5.1) mmol/L Chloride 102 (98-107) mmol/L Carbon Dioxide 22 (22-30) mmol/L BUN 18 (9-20) mg/dL Creatinine 0.98 (0.66-1.25) mg/dL Glucose 138 H (74-99) mg/dL Calcium 10.0 (8.4-10.2) mg/dL Total Bilirubin 0.6 (0.2-1.3) mg/dL AST 60 H (17-59) U/L ALT 25 (4-49) U/L Alkaline Phosphatase 69 (38-126) U/L Total Protein 6.4 (6.3-8.2) g/dL Albumin 4.1 (3.5-5.0) g/dL - Imaging Chest x-ray: report reviewed, image reviewed EKG: image reviewed Additional studies: Heart catheterization films reviewed Assessment and Plan Assessment: 1. Multivessel coronary artery disease, non-STEMI this admission 2. Hyperlipidemia, cholesterol 206, LDL 118, triglycerides 199 3. Previous tobacco dependence 4. History of prostate cancer status post prostatectomy Plan: The patient was seen and examined at the bedside. Chart/diagnostics were reviewed. The case was discussed with Dr. Vasquez who will see the patient and review his heart catheterization films. The usual perioperative course of open heart surgery was discussed in detail with the patient and his , risks and benefits were reviewed, all questions were answered. At this point the patient is unsure if he truly want surgery despite knowing the significance of coronary artery disease, however he is agreeable to preoperative testing and evaluation by Dr. Vasquez. Preoperative testing was initiated. Currently the patient is having no pain and is in no distress. Recommend continuing aspirin, statin, beta michel therapy. Heparin IV to be restarted after right radial artery hemostasis. More recommendations to follow once Dr. Vasquez has evaluated the patient and preoperative testing has been completed. Thank you Dr. Mccullough for this consult. We look forward to working with you in the care of your patient Time with Patient: Greater than 30
[2020-08-03 11:40] LABS: Albumin 4.1 g/dL (3.5-5.0); Calcium 10.1 mg/dL (8.4-10.2); Magnesium 2.1 mg/dL (1.6-2.3); Potassium 5.1 mmol/L (3.5-5.1); Total Protein 6.5 g/dL (6.3-8.2)
--- NOTE | 2020-08-03 13:01 | US ---
EXAMINATION TYPE: US carotid duplex BILAT DATE OF EXAM: 08/03/2020 COMPARISON: NONE CLINICAL HISTORY: Pre-Op Cardiac Surgery. Pre-Op EXAM MEASUREMENTS: RIGHT: Peak Systolic Velocity (PSV) cm/sec ----- Right CCA: 60.1 ----- Right ICA: 512.3 ----- Right ECA: 130.7 ICA/CCA ratio: 8.5 RIGHT: End Diastole cm/sec ----- Right CCA: 4.3 ----- Right ICA: 101.9 ----- Right ECA: 0.0 LEFT: Peak Systolic Velocity (PSV) cm/sec ----- Left CCA: 70.2 ----- Left ICA: 66.9 ----- Left ECA: 71.4 ICA/CCA ratio: 1.0 LEFT: End Diastole cm/sec ----- Left CCA: 10.9 ----- Left ICA: 10.9 ----- Left ECA: 0.0 VERTEBRALS (direction of flow): Right Vertebral: Antegrade Left Vertebral: Antegrade Rhythm: Normal Significant stenosis/elevated velocities within right ICA with abnormal ratio report called to willa gonzalez's nurse. IMPRESSION: 1. Markedly abnormal appearance of the right carotid artery ratio suggestive of a severe to critica l stenosis. Correlate clinically. Extensive atherosclerotic plaque. Criteria for Assigning % of Stenosis / Diameter reduction (Estimation based on the indirect measurements of the internal carotid artery velocities (ICA PSV). 1. Normal (no stenosis)=ICA PSV < 125 cm/s: ratio < 2.0: ICA EDV<40 cm/s. 2. Less than 50% stenosis=ICA PSV < 125 cm/s: ratio < 2.0: ICA EDV<40 cm/s. 3. 50 to 69% stenosis=ICA PSV of 125 to 230 cm/s: ration 2.0 ? 4.0: ICA EDV 40-100 cm/s. 4. Greater than 70% stenosis to near occlusion= ICA PSV > 230 cm/s: ratio > 4.0: ICA EDV > 100 cm/s. 5. Near occlusion= ICA PSV velocities may be low or undetectable: variable ratio and ICA EDV. 6. Total occlusion=unable to detect flow.
--- NOTE | 2020-08-03 16:00 | ECHOF ---
Referral Reason:NSTEMI MEASUREMENTS -------- HEIGHT: 190.5 cm WEIGHT: 89.4 kg BP: 100/50 RVIDd: 3.4 cm (< 3.3) IVSd: 1.4 cm (0.6 - 1.1) LVIDd: 5.5 cm (3.9 - 5.3) LVPWd: 1.5 cm (0.6 - 1.1) IVSs: 1.9 cm LVIDs: 4.4 cm LVPWs: 1.8 cm LA Diam: 4.5 cm (2.7 - 3.8) LAESV Index (A-L): 29.64 ml/m Ao Diam: 3.3 cm (2.0 - 3.7) AV Cusp: 1.7 cm (1.5 - 2.6) MV EXCURSION: 20.304 mm (> 18.000) MV EF SLOPE: 60 mm/s (70 - 150) EPSS: 2.9 cm MV E Yemi: 0.92 m/s MV DecT: 200 ms MV A Yemi: 0.91 m/s MV E/A Ratio: 1.01 AV maxP.61 mmHg AV meanP.04 mmHg AR PHT: 519 ms RAP: 5.00 mmHg RVSP: 36.55 mmHg FINDINGS -------- Sinus rhythm. This was a technically good study. The left ventricular size is normal. There is moderate concentric left ventricular hypertrophy. O verall left ventricular systolic function is mild-moderately impaired with, an EF between 40 - 45 %. Apical anterior LV wall motion is hypokinetic. Apical lateral LV wall motion is hypokinetic. The right ventricle is mildly enlarged. LA is midly dilated 29-33ml/m2. The right atrium is normal in size. Interatrial and interventricular septum intact. There is mild aortic valve sclerosis. There is mild aortic regurgitation. There is mild aortic st enosis present. Peak/mean gradient across the Aortic Valve is 16.61mmHg / 7.04mmHg. The mitral valve leaflets are mildly thickened. Mild mitral annular calcification present. Mild m itral regurgitation is present. Mild tricuspid regurgitation present. There is mild pulmonary hypertension. The right ventricular systolic pressure, as measured by Doppler, is 36.55mmHg. The pulmonic valve was not well visualized. The aortic root size is normal. Normal inferior vena cava with normal inspiratory collapse consistent with estimated right atrial pre ssure of 5 mmHg. There is no pericardial effusion. CONCLUSIONS -------- 1. The left ventricular size is normal. 2. There is moderate concentric left ventricular hypertrophy. 3. Overall left ventricular systolic function is mild-moderately impaired with, an EF between 40 - 45 %. 4. Apical anterior LV wall motion is hypokinetic. 5. Apical lateral LV wall motion is hypokinetic. 6. The right ventricle is mildly enlarged. 7. LA is midly dilated 29-33ml/m2. 8. There is mild aortic valve sclerosis. 9. There is mild aortic regurgitation. 10. There is mild aortic stenosis present. 11. Peak/mean gradient across the Aortic Valve is 16.61mmHg / 7.04mmHg. 12. The mitral valve leaflets are mildly thickened. 13. Mild mitral annular calcification present. 14. Mild mitral regurgitation is present. 15. Mild tricuspid regurgitation present. 16. There is mild pulmonary hypertension. 17. The right ventricular systolic pressure, as measured by Doppler, is 36.55mmHg. 18. There is no pericardial effusion. CELLOPHANE BATH MIXER: Sunita Meadows RDCS
[2020-08-03 18:37] LABS: Hepatitis A Antibody IgM Non-Reactive (Non-Reactive); Hepatitis B Core IgM Non-Reactive (Non-Reactive); Hepatitis B Surface Antigen Non-Reactive (Non-Reactive); Hepatitis C IgG Antibody Non-Reactive (Non-Reactive)
[2020-08-03] MEDS: ATORVASTATIN 40 MG TAB PO SCH (20:31)
[2020-08-03] MEDS: HEPARIN SOD,PORK IN 0.45% NACL 25,000 UNIT in 0.45% NACL 1 250ML.BAG IV SCH (20:33)
--- NOTE | 2020-08-03 21:43 | P.PN ---
Progress Note - Text Progress Note Date: 08/03/20 Chief Complaint: Chest pain History of presenting complaint: This is a 85-year-old patient of Dr. Henrik Perez. In rather good health. Patient after breakfast when DrAbby below the lease. Then came back again the lawnmower. Started getting a chest heaviness went up to his arms. Decided to go back in the house. Started forgetting unwell. Symptoms last for 2 hours. No dizziness or lightheadedness. [place] totally weak and rundown. Clammy perspiration. Decided to come in. No prior cardiac history. Fairly active. Had a similar episode about 2 months ago. Improved with rest. Admitted with non-ST elevation MN Today-underwent cardiac catheterization. SIGNIFICANT CAD. Cardiothoracic team consulted. Laying in bed. at the bedside. Currently no chest pain. On IV heparin. Review of systems: Was done for constitutional, cardiovascular, GI, pulmonary. relevant finding as above Active Medications Alprazolam (Alprazolam 0.25 Mg Tab) 0.25 mg PO Q6HR PRN PRN Reason: Mild Anxiety Alprazolam (Alprazolam 0.5 Mg Tab) 0.5 mg PO Q6HR PRN PRN Reason: Moderate Anxiety Aspirin (Aspirin 325 Mg Tab) 325 mg PO DAILY [facility] Last Admin: 08/03/20 07:55 Dose: 325 mg Documented by: Atorvastatin Calcium (Atorvastatin 40 Mg Tab) 40 mg PO HS [facility] Last Admin: 08/03/20 20:31 Dose: 40 mg Documented by: Heparin Sodium (Porcine) (Heparin Sodium,Porcine 5,000 Unit/Ml 1 Ml Vial) 0 unit IV PER PROTOCOL PRN; Protocol PRN Reason: Low PTT Heparin Sodium/Sodium Chloride (25,000 unit/ Sodium Chloride) 250 mls @ 9.996 mls/hr IV .Q24H [facility]; Protocol Last Admin: 08/03/20 20:33 Dose: 10.75 units/kg/hr, 9.996 mls/hr Documented by: Sodium Chloride (Saline 0.9%) 1,000 mls @ 50 mls/hr IV .Q20H [facility] Last Admin: 08/03/20 10:27 Dose: Not Given Documented by: Metoprolol Tartrate (Metoprolol Tartrate 25 Mg Tab) 25 mg PO BID [facility] Last Admin: 08/03/20 20:31 Dose: 25 mg Documented by: Miscellaneous Information (Rx Info: Iv Contrast Was Given 1 Each Misc) 1 each MISCELLANE DAILY PRN PRN Reason: Per Protocol Stop: 08/05/20 09:59 Morphine Sulfate (Morphine Sulfate 2 Mg/Ml Syringe) 2 mg IVP Q5M PRN PRN Reason: Chest Pain Nitroglycerin (Nitroglycerin Sl Tabs 0.4 Mg Tab) 0.4 mg SUBLINGUAL Q5M PRN PRN Reason: Chest Pain Physical examination: VITAL SIGNS: 98, 65, 18, 102/59, 98% room air GENERAL: laying in bed, comfortable. EYES: Pupils equal. Conjunctiva normal. NECK: JVD not raised; masses not palpable. HEART: First and second heart sounds are normal; no edema. LUNGS: Respiratory rate normal; clear to auscultation. ABDOMEN: Soft, nontender, liver spleen not palpable, no masses palpable. PSYCH: Alert and oriented x3; mood and affect normal. MUSCULAR skeletal: Evidence of OA INVESTIGATIONS, reviewed in the clinical context: White count 9.1 hemoglobin 15.8 potassium 5.1 creatinine 1.07 LDL 118 2-D echo-wall motion abnormality, EF 40-45%, moderate concentric LVH Carotid Doppler showing right carotid artery severe to critical stenosis Admission testing White count 12.3 hemoglobin 13.3 platelets 215 potassium 4.7 creatinine 0.98 Troponin I 1.9, 12.4, 23.3 EKG tracing personally reviewed by me-sinus rhythm, PVC, ST segment depression from leads V2 through V6 and somein 1 and aVL. Chest x-ray film personally reviewed by me-questionable infiltrate in the right base Assessment: -Acute non-ST elevation myocardial infarction -Ischemic cardiomyopathy from systolic dysfunction EF 40- 45% -Severe triple-vessel coronary artery disease per cardiac catheterization -Leukocytosis from acute MN. No clinical evidence of infection -Mild hyponatremia -IV heparin monitoring -Significant stenosis of the right carotid artery Plan: Patient remains on IV heparin. Being evaluated by cardiothoracic team. Other medications to continue. Discussed with the patient and .
[2020-08-03 22:41] LABS: Appearance,Urine Clear (Clear); Bilirubin,Urine Negative (Negative); Blood,Urine Negative (Negative); Color,Urine Yellow; Glucose,Urine (UA) Negative (Negative); Ketones,Urine Negative (Negative); Leukocyte Esterase,Urine Small (Negative); Mucus,Urine Rare /hpf; Nitrite,Urine Negative (Negative); Protein,Urine Negative (Negative); RBC,Urine <1 /hpf (0-5); Specific Gravity,Urine 1.026 (1.001-1.035); Squamous Epithelial Cell,Urine <1 /hpf (0-4); Urobilinogen,Urine <2.0 mg/dL (<2.0); WBC,Urine 2 /hpf (0-5)
[2020-08-03 23:29] LABS: Hemoglobin A1C 5.3 % (4.0-6.0)
[2020-08-04 04:09] LABS: Calcium 9.2 mg/dL (8.4-10.2); Potassium 4.3 mmol/L (3.5-5.1)
[2020-08-04 04:52] LABS: Basophils % (A) 0 %; Eosinophils # (A) 0.3 k/uL (0-0.7); Eosinophils % (A) 4 %; HGB 14.3 gm/dL (13.0-17.5); Lymphocytes # (A) 1.9 k/uL (1.0-4.8); Lymphocytes % (A) 26 %; MCH 29.2 pg (25.0-35.0); MCHC 31.7 g/dL (31.0-37.0); Mean Platelet Volume 9.3; Monocytes # (A) 0.6 k/uL (0-1.0); Monocytes % (A) 9 %; Neutrophils # (A) 4.4 k/uL (1.3-7.7); Neutrophils % (A) 59 %; Platelet Count 184 k/uL (150-450); RBC 4.89 m/uL (4.30-5.90); RDW 13.9 % (11.5-15.5); WBC 7.5 k/uL (3.8-10.6)
[2020-08-04] MEDS: ASPIRIN 325 MG TAB PO SCH (07:56)
[2020-08-04] MEDS: METOPROLOL TARTRATE 25 MG TAB PO SCH ×2 (07:56→20:25)
[2020-08-04] MEDS: SODIUM CHLORIDE 0.9% 1,000 ML IV SCH (07:57)
--- NOTE | 2020-08-04 09:39 | P.PN ---
Subjective Progress Note Date: 08/04/20 Principal diagnosis: Multivessel coronary artery disease, non-STEMI this admission, hyperlipidemia discovered this admission, critical right internal carotid artery stenosis per carotid Doppler, ischemic cardiomyopathy with EF 40-45%. Previous medical history of previous tobacco dependence, moderate COPD with preoperative FEV1 59% of predicted, history of prostate cancer status post prostatectomy. The patient is currently ambulating in his room in no acute distress. Denies chest pain or shortness of breath. Remains in normal sinus rhythm and hemodynamically stable. Currently on IV heparin. Was seen and examined yesterday by Dr. Vasquez, patient did have reported critical right internal carotid artery stenosis on carotid Doppler Objective - Vital Signs Vital signs: Vital Signs Temp 97.5 F L 08/04/20 08:00 Pulse 85 08/04/20 08:00 Resp 18 08/04/20 08:00 BP 128/61 08/04/20 08:00 Pulse Ox 96 08/04/20 08:00 Intake & Output 08/03/20 08/04/20 08/04/20 18:59 06:59 18:59 Intake Total 1383.601 275.136 960 Output Total 450 Balance 933.601 275.136 960 Weight 90.8 kg Intake: IV 150 Intake, IV Titration 763.601 75.136 600 Amount Heparin Sod,Pork in 0.45% 163.601 75.136 NaCl 25,000 unit In 0.45 % NaCl 1 250ml.bag @ 10. 75 UNITS/KG/HR 9.996 mls/ hr IV .Q24H [facility] Rx#: [id number] Sodium Chloride 0.9% 1, 600 000 ml @ 50 mls/hr IV . Q20H [facility] Rx#:[id number] Sodium Chloride 0.9% 1, 600 000 ml In Empty Bag 1 bag @ 1 ML/KG/HR 89.4 mls/hr IV .[id number] [facility] Rx#: [id number] Oral 470 200 360 Output: Urine 450 Other: Voiding Method Toilet Toilet # Voids 1 1 - Constitutional General appearance: Present: cooperative, no acute distress - Respiratory Details: Lungs sounds clear bilaterally. Respirations even, nonlabored. Currently on room air with oxygen saturation 96%. Able to achieve 2000 mL on his incentive spirometry. - Cardiovascular Details: S1, S2 present. Regular rate and rhythm, sinus rhythm on telemetry. Palpable peripheral pulses bilaterally. No edema present. No calf pain or tenderness noted. - Gastrointestinal Gastrointestinal Comment(s): Abdomen soft, nontender, nondistended. Active bowel sounds present 4 quad rants. Tolerating diet. - Genitourinary Genitourinary Comment(s): Continues to void - Integumentary Integumentary Comment(s): Skin is warm and dry with evidence of good perfusion - Neurologic Neurologic: Present: CNII-XII intact - Musculoskeletal Musculoskeletal: Present: gait normal, strength equal bilaterally - Psychiatric Psychiatric: Present: A&O x's 3, appropriate affect, intact judgment & insight - Allied health notes Allied health notes reviewed: nursing - Labs CBC & Chem 7: 08/04/20 03:37 08/04/20 03:37 Labs: Abnormal Lab Results - Last 24 Hours (Table) 08/03/20 08/03/20 08/04/20 Range/Units 07:55 Unknown 03:37 APTT (22.0-30.0) sec Sodium 134 L (137-145) mmol/L Glucose 105 H (74-99) mg/dL AST 166 H (17-59) U/L Troponin I (0.000-0.034) ng/mL Ur Leukocyte Esterase Small H (Negative) Urine Mucus Rare H (None) /hpf 08/04/20 08/04/20 Range/Units 03:37 03:37 APTT 36.1 H (22.0-30.0) sec Sodium (137-145) mmol/L Glucose (74-99) mg/dL AST (17-59) U/L Troponin I 8.330 H* (0.000-0.034) ng/mL Ur Leukocyte Esterase (Negative) Urine Mucus (None) /hpf Microbiology - Last 24 Hours (Table) 08/03/20 17:55 Nasal Screen MRSA/MSSA - Preliminary Nasal Swab Assessment and Plan Assessment: 1. Multivessel coronary artery disease, non-STEMI this admission 2. Hyperlipidemia, cholesterol 206, LDL 118, triglycerides 199 3. Critical right internal carotid artery stenosis per carotid Doppler 4. Ischemic cardiomyopathy with EF 40-45% 5. Previous tobacco dependence 6. Moderate COPD with preoperative FEV1 59% of predicted 7. History of prostate cancer status post prostatectomy Plan: 1. We will obtain a CTA of the extra and intracerebral vessels tomorrow to more clearly evaluate carotid stenosis 2. Continue to maximize medical management with aspirin, statin, beta michel therapy 3. Continue preoperative teaching 4. Increase activity, ambulate in hallway as tolerated 5. STS risk score calculated, patient considered high risk, will be discussed with the patient by Dr. Vasquez 6. More recommendations to follow Seen and examined and agree with above Time with Patient: Greater than 30
--- NOTE | 2020-08-04 13:33 | P.PN ---
Subjective This is a pleasant 85-year-old male admitted to the hospital with a non-ST elevated myocardial infarction, peak troponin was 25. He underwent cardiac catheterization yesterday revealing left main free of significant disease, LAD with diffuse disease of 80-90% involving the proximal and mid segments, diagonal branch with an ostial 95% stenosis, circumflex with a 95% mid stenosis followed by an 80% stenosis distally, the RCA is totally occluded proximally. He has been recommended to undergo bypass grafting. The patient is seen and examined sitting up in bed in no acute distress. He has had no symptoms of chest discomfort, shortness of breath, dizziness or palpitations. He has been seen by CT surgery and is currently pending further workup of right carotid stenosis before they can give a full recommendation. Blood pressure 116/69 heart rate 87 afebrile maintaining oxygen saturation on room air. Laboratory data reviewed, CBC unremarkable, sodium 134, potassium 4.3, creatinine 0.99. Currently maintained on aspirin 325 mg daily, atorvastatin 40 mg daily, metoprolol 25 mg twice a day and heparin infusion. Echocardiogram reveals impaired LV systolic function with ejection fraction 40-45%, apical anterior and apical lateral wall motion hypokinesia, mild aortic stenosis with a mean gradient of 7 mmHg, mild MR and mild TR. Carotid Doppler reveals markedly abnormal appearance of the right carotid artery suggestive of severe to critical stenosis. GENERAL: Well-appearing, well-nourished and in no acute distress. NECK: Supple without JVD or thyromegaly. LUNGS: Breath sounds clear to auscultation bilaterally. Respiration equal and unlabored. No wheezes, rales or rhonchi. HEART: Regular rate and rhythm with systolic ejection murmur at the base, no rubs or gallops. S1 and S2 heard. EXTREMITIES: Normal range of motion, no edema. No clubbing or cyanosis. Peripheral pulses intact. ASSESSMENT Acute non-ST elevated myocardial infarction Ischemic cardiomyopathy Dyslipidemia Peripheral vascualr disease Regular alcohol use Former nicotine dependence PLAN Decrease aspirin to 81 mg daily. Increase atorvastatin to 80 mg daily. Initiate small dose of lisinopril 2.5 mg daily and assess for blood pressure tolerance. Continue heparin infusion. Further recommendations to follow based upon clinical course and CT surgery recommendation. Nurse Practitioner note has been reviewed, I agree with a documented findings a nd plan of care. Patient was seen and examined. Objective - Vital Signs Vital signs: Vital Signs Temp 98.1 F 08/04/20 11:29 Pulse 87 08/04/20 11:29 Resp 18 08/04/20 11:29 BP 116/69 08/04/20 11:29 Pulse Ox 97 08/04/20 11:29 Intake & Output 08/03/20 08/04/20 08/04/20 18:59 06:59 18:59 Intake Total 1383.601 548.358 4279.977 Output Total 450 Balance 933.601 788.408 5479.977 Weight 90.8 kg Intake: IV 150 Intake, IV Titration 763.601 75.136 693.977 Amount Heparin Sod,Pork in 0.45% 163.601 75.136 93.977 NaCl 25,000 unit In 0.45 % NaCl 1 250ml.bag @ 10. 75 UNITS/KG/HR 9.996 mls/ hr IV .Q24H [facility] Rx#: [id number] Sodium Chloride 0.9% 1, 600 000 ml @ 50 mls/hr IV . Q20H [facility] Rx#:[id number] Sodium Chloride 0.9% 1, 600 000 ml In Empty Bag 1 bag @ 1 ML/KG/HR 89.4 mls/hr IV .[id number] [facility] Rx#: [id number] Oral 470 200 360 Output: Urine 450 Other: Voiding Method Toilet Toilet # Voids 1 1 - Labs CBC & Chem 7: 08/04/20 03:37 08/04/20 03:37 Labs: Abnormal Lab Results - Last 24 Hours (Table) 08/03/20 08/04/20 08/04/20 Range/Units Unknown 03:37 03:37 APTT (22.0-30.0) sec Sodium 134 L (137-145) mmol/L Troponin I 8.330 H* (0.000-0.034) ng/mL Ur Leukocyte Esterase Small H (Negative) Urine Mucus Rare H (None) /hpf 08/04/20 08/04/20 Range/Units 03:37 10:37 APTT 36.1 H 47.1 H (22.0-30.0) sec Sodium (137-145) mmol/L Troponin I (0.000-0.034) ng/mL Ur Leukocyte Esterase (Negative) Urine Mucus (None) /hpf Microbiology - Last 24 Hours (Table) 08/03/20 17:55 Nasal Screen MRSA/MSSA - Preliminary Nasal Swab
[2020-08-04] MEDS: HEPARIN SOD,PORK IN 0.45% NACL 25,000 UNIT in 0.45% NACL 1 250ML.BAG IV SCH (15:55)
--- NOTE | 2020-08-04 16:08 | P.PN ---
Progress Note - Text Progress Note Date: 08/04/20 Chief Complaint: Chest pain History of presenting complaint: This is a 85-year-old patient of Dr. Henrik Perez. In rather good health. Patient after breakfast when DrAbby below the lease. Then came back again the lawnmower. Started getting a chest heaviness went up to his arms. Decided to go back in the house. Started forgetting unwell. Symptoms last for 2 hours. No dizziness or lightheadedness. Slemp totally weak and rundown. Clammy perspiration. Decided to come in. No prior cardiac history. Fairly active. Had a similar episode about 2 months ago. Improved with rest. Admitted with non-ST elevation IL. Cardiac catheterization showed severe coronary artery disease. Today-laying in bed. On IV heparin. No chest pain. Did tolerate diet. Review of systems: Was done for constitutional, cardiovascular, GI, pulmonary. relevant finding as above Active Medications Alprazolam (Alprazolam 0.25 Mg Tab) 0.25 mg PO Q6HR PRN PRN Reason: Mild Anxiety Alprazolam (Alprazolam 0.5 Mg Tab) 0.5 mg PO Q6HR PRN PRN Reason: Moderate Anxiety Aspirin (Aspirin 81 Mg) 81 mg PO DAILY [facility] Atorvastatin Calcium (Atorvastatin 80 Mg Tab) 80 mg PO HS [facility] Heparin Sodium (Porcine) (Heparin Sodium,Porcine 5,000 Unit/Ml 1 Ml Vial) 0 unit IV PER PROTOCOL PRN; Protocol PRN Reason: Low PTT Heparin Sodium/Sodium Chloride (25,000 unit/ Sodium Chloride) 250 mls @ 9.996 mls/hr IV .Q24H [facility] [place]; Protocol Last Admin: 08/04/20 15:55 Dose: 13.75 units/kg/hr, 12.786 mls/hr Documented by: Sodium Chloride (Saline 0.9%) 1,000 mls @ 50 mls/hr IV .Q20H [facility] [place] Last Admin: 08/04/20 07:57 Dose: 50 mls/hr Documented by: Lisinopril (Lisinopril 2.5 Mg Tab) 2.5 mg PO DAILY [facility] [place] Last Admin: 08/04/20 14:51 Dose: Not Given Documented by: Metoprolol Tartrate (Metoprolol Tartrate 25 Mg Tab) 25 mg PO BID [facility] [place] Last Admin: 08/04/20 07:56 Dose: 25 mg Documented by: Miscellaneous Information (Rx Info: Iv Contrast Was Given 1 Each Misc) 1 each MISCELLANE DAILY PRN PRN Reason: Per Protocol Stop: 08/05/20 09:59 Morphine Sulfate (Morphine Sulfate 2 Mg/Ml Syringe) 2 mg IVP Q5M PRN PRN Reason: Chest Pain Nitroglycerin (Nitroglycerin Sl Tabs 0.4 Mg Tab) 0.4 mg SUBLINGUAL Q5M PRN PRN Reason: Chest Pain Physical examination: VITAL SIGNS: 98, 62, 16, 103/44, 95% room air GENERAL: lpropped up in bed, comfortable. EYES: Pupils equal. Conjunctiva normal. NECK: JVD not raised; masses not palpable. HEART: First and second heart sounds are normal; no edema. LUNGS: Respiratory rate normal; clear to auscultation. ABDOMEN: Soft, nontender, liver spleen not palpable, no masses palpable. PSYCH: Alert and oriented x3; mood and affect normal. MUSCULAR skeletal: Evidence of OA INVESTIGATIONS, reviewed in the clinical context: white count 7.5 hemoglobin 14.3 potassium 4.3 creatinine 0.99 LDL 118 2-D echo-wall motion abnormality, EF 40-45%, moderate concentric LVH Carotid Doppler showing right carotid artery severe to critical stenosis Admission testing White count 12.3 hemoglobin 13.3 platelets 215 potassium 4.7 creatinine 0.98 Troponin I 1.9, 12.4, 23.3 EKG tracing personally reviewed by me-sinus rhythm, PVC, ST segment depression from leads V2 through V6 and somein 1 and aVL. Chest x-ray film personally reviewed by me-questionable infiltrate in the right base Assessment: -Acute non-ST elevation myocardial infarction -Ischemic cardiomyopathy from systolic dysfunction EF 40- 45% -Severe triple-vessel coronary artery disease per cardiac catheterization-being evaluated for cardiothoracic surgery. -Leukocytosis from acute IL. No clinical evidence of infection -Mild hyponatremia -IV heparin monitoring -Significant stenosis of the right carotid artery Plan: continue IV heparin. Being evaluated by cardiothoracic team. CT angiogram of the carotids to evaluate better. Discussed with patient.
[2020-08-04] MEDS: ATORVASTATIN 80 MG TAB PO SCH (20:25)
[2020-08-05 08:18] LABS: Albumin 3.9 g/dL (3.5-5.0); Calcium 9.4 mg/dL (8.4-10.2); Total Protein 6.1 g/dL (6.3-8.2)
[2020-08-05 08:19] LABS: Basophils % (A) 0 %; Eosinophils # (A) 0.3 k/uL (0-0.7); Eosinophils % (A) 3 %; Lymphocytes # (A) 1.6 k/uL (1.0-4.8); Lymphocytes % (A) 18 %; MCH 29.4 pg (25.0-35.0); Mean Platelet Volume 9.7; Monocytes # (A) 0.6 k/uL (0-1.0); Monocytes % (A) 8 %; Neutrophils # (A) 5.9 k/uL (1.3-7.7); Neutrophils % (A) 69 %; Platelet Count 197 k/uL (150-450); RBC 5.11 m/uL (4.30-5.90); RDW 14.1 % (11.5-15.5); WBC 8.5 k/uL (3.8-10.6)
[2020-08-05] MEDS: ASPIRIN 81 MG PO SCH (08:23)
[2020-08-05] MEDS: METOPROLOL TARTRATE 25 MG TAB PO SCH ×2 (08:23→20:12)
--- NOTE | 2020-08-05 09:34 | CT ---
EXAMINATION TYPE: CT angio neck DATE OF EXAM: 08/05/2020 HISTORY: right ICA stenosis on carotid dopplers, preop CABG COMPARISON: Ultrasound carotids 08/03/2020. CT DLP: 537.2 mGycm. Automated Exposure Control for Dose Reduction was Utilized. TECHNIQUE: CTA scan of the neck is performed with IV Contrast, patient injected with 65 mL of Isovue 370, axial images are obtained, coronal and sagittal reformatted images are reviewed. Three-D recons tructed images are created on an independent workstation and reviewed. Stenosis measured utilizing NA SCET criteria. FINDINGS: Carotid/Vascular Structures: Left-sided cartilage with classic branching pattern. There is no visualized aneurysm or dissection of the arteries of the neck. There is calcified plaque at the right carotid bulb, with short segment 72% stenosis of the origin of the right internal carotid artery utilizing NASCET criteria. There is calcified and noncalcified connie que at the left carotid bulb with no significant stenosis. The left vertebral artery at the level of C3 demonstrates 48% stenosis utilizing NASCET criteria, wit h no associated calcified plaque. No significant stenosis of the right vertebral artery. The vertebro basilar system is codominant. Other: Tiny calcification within an otherwise unremarkable right parotid gland. Lung apices demonstra te a few right upper lobe 2 mm pulmonary nodules (401:19). Degenerative changes of the spine. Mastoid air cells are clear. No cervical lymphadenopathy. IMPRESSION: Utilizing NASCET criteria: 1. 72% stenosis of the origin of the right internal carotid artery due to calcified plaque. 2. Stenosis of the left vertebral artery is just below hemodynamically significant cut off at 48%. 3. 2 mm pulmonary nodules of the right upper lobe. Per Fleischner 2017 guidelines, if the patient is low risk no additional follow-up is needed. If the patient is high risk, optional CT scan can be perf ormed in one year.
--- NOTE | 2020-08-05 11:59 | P.PN ---
Subjective This is a pleasant 85-year-old male admitted to the hospital with a non-ST elevated myocardial infarction, peak troponin was 25. He underwent cardiac catheterization yesterday revealing left main free of significant disease, LAD with diffuse disease of 80-90% involving the proximal and mid segments, diagonal branch with an ostial 95% stenosis, circumflex with a 95% mid stenosis followed by an 80% stenosis distally, the RCA is totally occluded proximally. He has been recommended to undergo bypass grafting. The patient is seen and examined sitting up in bed in no acute distress. He has had no symptoms of chest discomfort, shortness of breath, dizziness or palpitations. He has been seen by CT surgery and is currently pending further workup of right carotid stenosis before they can give a full recommendation. Blood pressure 116/69 heart rate 87 afebrile maintaining oxygen saturation on room air. Laboratory data reviewed, CBC unremarkable, sodium 134, potassium 4.3, creatinine 0.99. Currently maintained on aspirin 325 mg daily, atorvastatin 40 mg daily, metoprolol 25 mg twice a day and heparin infusion. Echocardiogram reveals impaired LV systolic function with ejection fraction 40-45%, apical anterior and apical lateral wall motion hypokinesia, mild aortic stenosis with a mean gradient of 7 mmHg, mild MR and mild TR. Carotid Doppler reveals markedly abnormal appearance of the right carotid artery suggestive of severe to critical stenosis. 08/05/2020 Patient is seen and examined sitting up in bed in no acute distress. He denies symptoms of chest pain, shortness of breath, dizziness or palpitations. He un derwent a CT of his neck this morning revealing 72% stenosis of the origin of the right internal carotid artery due to a calcified plaque, stenosis of the left vertebral artery just below hemodynamically significant cut off at 48% and a 2 mm pulmonary nodule at the right upper lobe noted. Blood pressure 143/68 heart rate 78 afebrile maintaining oxygen saturation on room air. Laboratory data reviewed, CBC unremarkable, sodium 135, potassium 4.0, creatinine 0.9. Currently maintained on heparin infusion, atorvastatin 80 mg daily, aspirin 81 mg daily, lisinopril 2.5 mg daily and metoprolol 25 mg twice a day. GENERAL: Well-appearing, well-nourished and in no acute distress. NECK: Supple without JVD or thyromegaly. LUNGS: Breath sounds clear to auscultation bilaterally. Respiration equal and unlabored. No wheezes, rales or rhonchi. HEART: Regular rate and rhythm with systolic ejection murmur at the base, no rubs or gallops. S1 and S2 heard. EXTREMITIES: Normal range of motion, no edema. No clubbing or cyanosis. Peripheral pulses intact. ASSESSMENT Acute non-ST elevated myocardial infarction Ischemic cardiomyopathy Dyslipidemia Peripheral vascualr disease Regular alcohol use Former nicotine dependence PLAN Will await opinion from CT surgery. Continue heparin infusion pending their recommendations. Nurse Practitioner note has been reviewed, I agree with a documented findings and plan of care. Patient was seen and examined. Objective - Vital Signs Vital signs: Vital Signs Temp 97.7 F 08/05/20 04:16 Pulse 78 08/05/20 04:16 Resp 16 08/05/20 04:16 BP 143/68 08/05/20 04:16 Pulse Ox 95 08/05/20 04:16 Intake & Output 08/04/20 08/05/20 08/05/20 18:59 06:59 18:59 Intake Total 1532.366 250 Balance 1532.366 250 Weight 91.6 kg Intake: Intake, IV Titration 752.366 250 Amount Heparin Sod,Pork in 0.45% 152.366 NaCl 25,000 unit In 0.45 % NaCl 1 250ml.bag @ 10. 75 UNITS/KG/HR 9.996 mls/ hr IV .Q24H [facility] Rx#: [id number] Sodium Chloride 0.9% 1, 600 250 000 ml @ 50 mls/hr IV . Q20H [facility] Rx#:[id number] Oral 780 Other: Voiding Method Toilet # Voids 3 1 1 - Labs CBC & Chem 7: 08/05/20 07:27 08/05/20 07:27 Labs: Abnormal Lab Results - Last 24 Hours (Table) 08/04/20 08/05/20 08/05/20 Range/Units 10:37 07:27 07:27 APTT 47.1 H 50.5 H (22.0-30.0) sec Sodium 135 L (137-145) mmol/L Total Protein 6.1 L (6.3-8.2) g/dL Microbiology - Last 24 Hours (Table) 08/03/20 17:55 Nasal Screen MRSA/MSSA - Final Nasal Swab
[2020-08-05] MEDS: SODIUM CHLORIDE 0.9% 1,000 ML IV SCH ×2 (15:26→22:17)
--- NOTE | 2020-08-05 15:41 | CT ---
EXAMINATION TYPE: CT chest wo con DATE OF EXAM: 08/05/2020 COMPARISON: CT of the neck 08/05/2020 HISTORY: eval ascending aorta CT DLP: 550.6 mGycm. Automated Exposure Control for Dose Reduction was Utilized. TECHNIQUE: CT scan of the thorax is performed without IV contrast. FINDINGS: Lack of contrast could compromise sensitivity of the exam. Metallic densities are noted at the aortic root, diameter of the ascending aorta is 4.1 cm. There are coronary calcifications. Proxim al descending aorta is 3.6 cm. LUNGS: The lungs are grossly clear, there is no concerning parenchymal mass or nodule identified, sub pleural nodularity identified in prior CT the right upper lobe again noted, there is motion on the ex am. There are small pleural effusions and associated atelectasis. The tracheobronchial tree is pat ent. MEDIASTINUM: Lack of IV contrast is noted to limit evaluation for mediastinal and especially hilar ad enopathy. There are no definitive greater than 1 cm hilar or mediastinal lymph nodes. No cardiomega ly or pericardial effusion is seen. Pulmonary artery measures 3.1 cm, correlate for pulmonary artery hypertension OTHER: Contrast excretion in the renal collecting systems likely due to prior contrast study, exophyt ic cystic foci present at the level of the right kidney. Low dense focus within the left lobe liver m easures 12 mm and is indeterminate. IMPRESSION: Aortic aneurysm. There are metallic densities present at the aortic root, ascending aorta , probable calcification. Correlate for pulmonary artery hypertension. Small pleural effusions. Addit ional findings above.
--- NOTE | 2020-08-05 16:42 | P.PN ---
<Swapna Velez - Last Filed: 08/05/20 16:41> Subjective Progress Note Date: 08/05/20 Principal diagnosis: Multivessel coronary artery disease, non-STEMI this admission, hyperlipidemia discovered this admission, critical right internal carotid artery stenosis per carotid Doppler, ischemic cardiomyopathy with EF 40-45%. Previous medical history of previous tobacco dependence, moderate COPD with preoperative FEV1 59% of predicted, history of prostate cancer status post prostatectomy. The patient is currently ambulating in his room in no acute distress. Denies chest pain or shortness of breath. Remains in normal sinus rhythm and hemodynamically stable. Currently on IV heparin. Had CTA of the neck this morning demonstrating 72% stenosis at the origin of the right internal carotid artery with heavy plaque calcification Objective - Vital Signs Vital signs: Vital Signs Temp 98.2 F 08/05/20 11:09 Pulse 59 L 08/05/20 11:09 Resp 16 08/05/20 11:09 BP 100/59 08/05/20 11:09 Pulse Ox 97 08/05/20 11:09 Intake & Output 08/04/20 08/05/20 08/05/20 18:59 06:59 18:59 Intake Total 1532.366 250 Balance 1532.366 250 Weight 91.6 kg 91.6 kg Intake: Intake, IV Titration 752.366 250 Amount Heparin Sod,Pork in 0.45% 152.366 NaCl 25,000 unit In 0.45 % NaCl 1 250ml.bag @ 10. 75 UNITS/KG/HR 9.996 mls/ hr IV .Q24H [facility] Rx#: [id number] Sodium Chloride 0.9% 1, 600 250 000 ml @ 50 mls/hr IV . Q20H [facility] Rx#:[id number] Oral 780 Other: Voiding Method Toilet # Voids 3 1 1 - Constitutional General appearance: Present: cooperative, no acute distress - Respiratory Details: Lungs sounds clear bilaterally. Respirations even, nonlabored. Currently on room air with oxygen saturation 96%. Able to achieve 2000 mL on his incentive spirometry. - Cardiovascular Details: S1, S2 present. Regular rate and rhythm, sinus rhythm on telemetry. Palpable peripheral pulses bilaterally. No edema present. No calf pain or tenderness noted. - Gastrointestinal Gastrointestinal Comment(s): Abdomen soft, nontender, nondistended. Active bowel sounds present 4 quadrants. Tolerating diet. - Genitourinary Genitourinary Comment(s): Continues to void - Integumentary Integumentary Comment(s): Skin is warm and dry with evidence of good perfusion - Neurologic Neurologic: Present: CNII-XII intact - Musculoskeletal Musculoskeletal: Present: gait normal, strength equal bilaterally - Psychiatric Psychiatric: Present: A&O x's 3, appropriate affect, intact judgment & insight - Allied health notes Allied health notes reviewed: nursing - Labs CBC & Chem 7: 08/05/20 07:27 08/05/20 07:27 Labs: Abnormal Lab Results - Last 24 Hours (Table) 08/05/20 08/05/20 Range/Units 07:27 07:27 APTT 50.5 H (22.0-30.0) sec Sodium 135 L (137-145) mmol/L Total Protein 6.1 L (6.3-8.2) g/dL Microbiology - Last 24 Hours (Table) 08/03/20 17:55 Nasal Screen MRSA/MSSA - Final Nasal Swab - Imaging and Cardiology CTA of the neck reviewed Assessment and Plan Assessment: 1. Multivessel coronary artery disease, non-STEMI this admission 2. Hyperlipidemia, cholesterol 206, LDL 118, triglycerides 199 3. Critical right internal carotid artery stenosis per carotid Doppler, 72% stenosis at the origin of the right internal carotid artery per CTA of the neck 4. Ischemic cardiomyopathy with EF 40-45% 5. Previous tobacco dependence 6. Moderate COPD with preoperative FEV1 59% of predicted 7. History of prostate cancer status post prostatectomy Plan: 1. CT of chest ordered to eval ascending aorta for clampability 2. Continue to maximize medical management with aspirin, statin, beta michel therapy 3. Continue preoperative teaching 4. Increase activity, ambulate in hallway as tolerated 5. STS risk score calculated, patient considered high risk 6. More recommendations to follow Seen and examined and agree with above Time with Patient: Greater than 30 <Queenie Vasquez - Last Filed: 08/06/20 14:53> Objective - Vital Signs Vital signs: Vital Signs Temp 97.8 F 08/06/20 08:05 Pulse 79 08/06/20 08:05 Resp 18 08/06/20 08:48 BP 116/63 08/06/20 08:05 Pulse Ox 96 08/06/20 04:00 Intake & Output 1008/06/20 08/06/20 18:59 06:59 18:59 Intake Total 530 120 Balance 530 120 Weight 91.6 kg 91.2 kg Intake: IV 40 .9@20 40 Intake, IV Titration 250 Amount Heparin Sod,Pork in 0.45% 250 NaCl 25,000 unit In 0.45 % NaCl 1 250ml.bag @ 10. 75 UNITS/KG/HR 9.996 mls/ hr IV .Q24H [facility] Rx#: [id number] Oral 240 120 Other: Voiding Method Toilet # Voids 1 2 1 # Bowel Movements 0 - Labs CBC & Chem 7: 08/05/20 07:27 08/05/20 07:27 Labs: Abnormal Lab Results - Last 24 Hours (Table) 08/06/20 Range/Units 07:58 APTT 49.2 H (22.0-30.0) sec Assessment and Plan Plan: Significant Ascending Aortic Calcifications precluding clamping. Plan for Off- pump CABG on with increased risk in view of age and atherosclerotic burden . Queenie Vasquez MD
--- NOTE | 2020-08-05 17:14 | P.PN ---
Progress Note - Text Progress Note Date: 08/05/20 Chief Complaint: Chest pain History of presenting complaint: This is a 85-year-old patient of Dr. Henrik Perez. In rather good health. Patient after breakfast when DrAbby below the lease. Then came back again the lawnmower. Started getting a chest heaviness went up to his arms. Decided to go back in the house. Started forgetting unwell. Symptoms last for 2 hours. No dizziness or lightheadedness. [place] totally weak and rundown. Clammy perspiration. Decided to come in. No prior cardiac history. Fairly active. Had a similar episode about 2 months ago. Improved with rest. Admitted with non-ST elevation ME. Cardiac catheterization showed severe coronary artery disease. Today-comfortable. No chest pain or short of breath. at the bedside.. Review of systems: Was done for constitutional, cardiovascular, GI, pulmonary. relevant finding as above Active Medications Alprazolam (Alprazolam 0.25 Mg Tab) 0.25 mg PO Q6HR PRN PRN Reason: Mild Anxiety Alprazolam (Alprazolam 0.5 Mg Tab) 0.5 mg PO Q6HR PRN PRN Reason: Moderate Anxiety Aspirin (Aspirin 81 Mg) 81 mg PO DAILY [facility] Last Admin: 08/05/20 08:23 Dose: 81 mg Documented by: Atorvastatin Calcium (Atorvastatin 80 Mg Tab) 80 mg PO HS [facility] Last Admin: 08/04/20 20:25 Dose: 80 mg Documented by: Heparin Sodium (Porcine) (Heparin Sodium,Porcine 5,000 Unit/Ml 1 Ml Vial) 0 unit IV PER PROTOCOL PRN; Protocol PRN Reason: Low PTT Heparin Sodium/Sodium Chloride (25,000 unit/ Sodium Chloride) 250 mls @ 9.996 mls/hr IV .Q24H [facility]; Protocol Last Admin: 08/04/20 15:55 Dose: 13.75 units/kg/hr, 12.786 mls/hr Documented by: Sodium Chloride (Saline 0.9%) 1,000 mls @ 50 mls/hr IV .Q20H [facility] Last Admin: 08/05/20 15:26 Dose: Not Given Documented by: Lisinopril (Lisinopril 2.5 Mg Tab) 2.5 mg PO DAILY [facility] Last Admin: 08/05/20 08:23 Dose: 2.5 mg Documented by: Metoprolol Tartrate (Metoprolol Tartrate 25 Mg Tab) 25 mg PO BID [facility] Last Admin: 08/05/20 08:23 Dose: 25 mg Documented by: Morphine Sulfate (Morphine Sulfate 2 Mg/Ml Syringe) 2 mg IVP Q5M PRN PRN Reason: Chest Pain Nitroglycerin (Nitroglycerin Sl Tabs 0.4 Mg Tab) 0.4 mg SUBLINGUAL Q5M PRN PRN Reason: Chest Pain Physical examination: VITAL SIGNS: 98.2, 59, 16, 100/59, 97% room air GENERAL: Propped up in bed, comfortable. EYES: Pupils equal. Conjunctiva normal. NECK: JVD not raised; masses not palpable. HEART: First and second heart sounds are normal; no edema. LUNGS: Respiratory rate normal; clear to auscultation. ABDOMEN: Soft, nontender, liver spleen not palpable, no masses palpable. PSYCH: Alert and oriented x3; mood and affect normal. MUSCULAR skeletal: Evidence of OA INVESTIGATIONS, reviewed in the clinical context: White count 8.5 hemoglobin 15 potassium 4 creatinine 0.9 Admission testing White count 12.3 hemoglobin 13.3 platelets 215 potassium 4.7 creatinine 0.98 Troponin I 1.9, 12.4, 23.3 EKG tracing personally reviewed by me-sinus rhythm, PVC, ST segment depression from leads V2 through V6 and somein 1 and aVL. Chest x-ray film personally reviewed by me-questionable infiltrate in the right base LDL 118 2-D echo-wall motion abnormality, EF 40-45%, moderate concentric LVH Carotid Doppler showing right carotid artery severe to critical stenosis Assessment: -Acute non-ST elevation myocardial infarction -Ischemic cardiomyopathy from systolic dysfunction EF 40- 45% -Severe triple-vessel coronary artery disease per cardiac catheterization-being evaluated for cardiothoracic surgery. -Leukocytosis from acute ME. No clinical evidence of infection -Mild hyponatremia -IV heparin monitoring -Significant stenosis of the right carotid artery -Ascending aortic aneurysm 4.1 cm Plan: continue IV heparin. Continue current medication treatment plan. Awake plan from CTS regarding surgery.
[2020-08-05] MEDS: HEPARIN SOD,PORK IN 0.45% NACL 25,000 UNIT in 0.45% NACL 1 250ML.BAG IV SCH (17:27)
[2020-08-05] MEDS: ATORVASTATIN 80 MG TAB PO SCH (20:12)
[2020-08-06] MEDS ORDERED: MD COMMUNICATION TO PHARMACY 1 EACH MISC PO ONE (07:28)
--- NOTE | 2020-08-06 08:41 | P.PN ---
Subjective Progress Note Date: 08/06/20 Principal diagnosis: Multivessel coronary artery disease, non-STEMI this admission, hyperlipidemia discovered this admission, right internal carotid artery stenosis 72% per CTA of the neck, ischemic cardiomyopathy with EF 40-45%. Previous medical history of previous tobacco dependence, moderate COPD with preoperative FEV1 59% of predicted, history of prostate cancer status post prostatectomy. The patient is currently sitting up eating breakfast in no acute distress. Denies chest pain or shortness of breath. Remains in normal sinus rhythm and hemodynamically stable. Currently on IV heparin. Had CTA of the neck demonstrating 72% stenosis at the origin of the right internal carotid artery with heavy plaque calcification. Objective - Vital Signs Vital signs: Vital Signs Temp 97.8 F 08/06/20 08:16 Pulse 79 08/06/20 08:16 Resp 17 08/06/20 08:16 BP 116/63 08/06/20 08:16 Pulse Ox 96 08/06/20 04:00 Intake & Output 08/05/20 08/06/20 08/06/20 18:59 06:59 18:59 Intake Total 530 Balance 530 Weight 91.6 kg 91.2 kg Intake: IV 40 .9@20 40 Intake, IV Titration 250 Amount Heparin Sod,Pork in 0.45% 250 NaCl 25,000 unit In 0.45 % NaCl 1 250ml.bag @ 10. 75 UNITS/KG/HR 9.996 mls/ hr IV .Q24H [facility] Rx#: [id number] Oral 240 Other: Voiding Method Toilet # Voids 1 2 # Bowel Movements 0 - Constitutional General appearance: Present: cooperative, no acute distress - Respiratory Details: Lungs sounds clear bilaterally. Respirations even, nonlabored. Currently on room air with oxygen saturation 96%. Able to achieve 1500 mL on his incentive spirometry. - Cardiovascular Details: S1, S2 present. Regular rate and rhythm, sinus rhythm on telemetry. Palpable peripheral pulses bilaterally. No edema present. No calf pain or tenderness noted. - Gastrointestinal Gastrointestinal Comment(s): Abdomen soft, nontender, nondistended. Active bowel sounds present 4 quadrants. Tolerating diet. - Genitourinary Genitourinary Comment(s): Continues to void - Integumentary Integumentary Comment(s): Skin is warm and dry with evidence of good perfusion - Neurologic Neurologic: Present: CNII-XII intact - Musculoskeletal Musculoskeletal: Present: gait normal, strength equal bilaterally - Psychiatric Psychiatric: Present: A&O x's 3, appropriate affect, intact judgment & insight - Allied health notes Allied health notes reviewed: nursing - Labs CBC & Chem 7: 08/05/20 07:27 08/05/20 07:27 Assessment and Plan Assessment: 1. Multivessel coronary artery disease, non-STEMI this admission 2. Hyperlipidemia, cholesterol 206, LDL 118, triglycerides 199 3. Right internal carotid artery stenosis 72% stenosis at the origin of the right internal carotid artery per CTA of the neck 4. Ischemic cardiomyopathy with EF 40-45% 5. Previous tobacco dependence 6. Moderate COPD with preoperative FEV1 59% of predicted 7. History of prostate cancer status post prostatectomy Plan: 1. CT of chest ordered to eval ascending aorta for clampability-ascending aorta appears unclampable 2. Continue to maximize medical management with aspirin, statin, beta michel therapy, IV heparin 3. Continue preoperative teaching 4. Increase activity, ambulate in hallway as tolerated 5. Our plan is for myocardial revascularization with extracorporeal membrane ox ygenation on standby, left internal mammary artery and endoscopic vein harvesting with intraoperative transesophageal echocardiogram on , 08/08/[address] Vasquez. 6. Pulmonology consulted for preoperative clearance 7. Will complete 5 m walk test. 8. Medical management of other comorbidities per primary care service 9. More recommendations to follow Seen and examined and agree with above Time with Patient: Greater than 30
[2020-08-06] MEDS: ASPIRIN 81 MG PO SCH (09:47)
[2020-08-06] MEDS: METOPROLOL TARTRATE 25 MG TAB PO SCH ×2 (09:48→20:51)
--- NOTE | 2020-08-06 12:17 | P.PN ---
Subjective This is a pleasant 85-year-old male admitted to the hospital with a non-ST elevated myocardial infarction, peak troponin was 25. He underwent cardiac catheterization yesterday revealing left main free of significant disease, LAD with diffuse disease of 80-90% involving the proximal and mid segments, diagonal branch with an ostial 95% stenosis, circumflex with a 95% mid stenosis followed by an 80% stenosis distally, the RCA is totally occluded proximally. He has been recommended to undergo bypass grafting. The patient is seen and examined getting ready to take a shower. He denies chest pain, shortness of breath, dizziness or palpitations. He is scheduled to undergo bypass grafting . Blood pressure 116/63 heart rate 79 afebrile maintaining oxygen saturation on room air. GENERAL: Well-appearing, well-nourished and in no acute distress. NECK: Supple without JVD or thyromegaly. LUNGS: Breath sounds clear to auscultation bilaterally. Respiration equal and unlabored. No wheezes, rales or rhonchi. HEART: Regular rate and rhythm with systolic ejection murmur at the base, no rubs or gallops. S1 and S2 heard. EXTREMITIES: Normal range of motion, no edema. No clubbing or cyanosis. Peripheral pulses intact. ASSESSMENT Acute non-ST elevated myocardial infarction Ischemic cardiomyopathy Dyslipidemia Peripheral vascualr disease Regular alcohol use Former nicotine dependence PLAN Continue current medical regimen. Plan is for bypass grafting on . Nurse Practitioner note has been reviewed, I agree with a documented findings and plan of care. Patient was seen and examined. Objective - Vital Signs Vital signs: Vital Signs Temp 97.8 F 08/06/20 08:05 Pulse 79 08/06/20 08:05 Resp 18 08/06/20 08:48 BP 116/63 08/06/20 08:05 Pulse Ox 96 08/06/20 04:00 Intake & Output 08/05/20 08/06/20 08/06/20 18:59 06:59 18:59 Intake Total 530 120 Balance 530 120 Weight 91.6 kg 91.2 kg Intake: IV 40 .9@20 40 Intake, IV Titration 250 Amount Heparin Sod,Pork in 0.45% 250 NaCl 25,000 unit In 0.45 % NaCl 1 250ml.bag @ 10. 75 UNITS/KG/HR 9.996 mls/ hr IV .Q24H [facility] Rx#: [id number] Oral 240 120 Other: Voiding Method Toilet # Voids 1 2 1 # Bowel Movements 0 - Labs CBC & Chem 7: 08/05/20 07:27 08/05/20 07:27 Labs: Abnormal Lab Results - Last 24 Hours (Table) 08/06/20 Range/Units 07:58 APTT 49.2 H (22.0-30.0) sec
--- NOTE | 2020-08-06 16:30 | CONS ---
CONSULTATION PULMONARY/CRITICAL CARE CONSULTATION: DATE OF SERVICE: 08/06/2020 REASON FOR CONSULTATION: Preoperative pulmonary clearance. This is an 85-year-old male who apparently presented to the emergency room on August 02 complaining of chest pain and chest discomfort. The patient was outside doing some yard work when he developed some substernal chest pressure and pain to his bilateral shoulders. No prior history of coronary artery disease. He is nondiabetic. No history of hypertension. He does have a history of significant tobacco use of more than 60 years. The patient apparently had a similar episode, according to the ER doctor, a month prior which seemed to settle down just with rest. He was transferred to the hospital, arrived via EMS, received aspirin and nitroglycerin, and was evaluated by Cardiology and found to have significant three-vessel coronary artery disease. Hence, surgical consultation and our consultation were initiated. The patient denies any shortness of breath, chest tightness, cough, wheezing or phlegm production. He denies hemoptysis. He states he has no history of any lung issues. He did smoke heavily for many years. ALLERGIES: DOXYCYCLINE. HOME MEDICATIONS: Home medications included multivitamins, calcium and aspirin. SOCIAL HISTORY: Positive for more than 60 years of tobacco use. He quit about 10 years ago or so. He smoked a pack a day at least. Denies a prior history of COPD. He denies any significant alcohol use or illicit drug use. His other medical history includes prostate cancer and prostatectomy. FAMILY HISTORY: Noncontributory. Parents were healthy. REVIEW OF SYSTEMS: CONSTITUTIONAL: Negative. NEUROLOGIC: Negative. HEENT: Negative. CARDIOVASCULAR: Chest pain. PULMONARY: Negative. GI: Negative. : Negative. RHEUMATOLOGIC: Negative. IMMUNOLOGIC: Negative. ENDOCRINOLOGIC: Negative. DERMATOLOGIC: Negative. PHYSICAL EXAMINATION: VITAL SIGNS: Current vital signs include temperature 97.8, heart rate 79, respiratory rate 17, blood pressure 116/63, mean 80, and saturations are 96% to 97% on room air. GENERAL APPEARANCE: Appears in no acute distress. HEENT: Examination is grossly unremarkable. Mucous membranes are moist. No supplemental oxygen. NECK: Supple. Full range of motion. No adenopathy. Neck veins are flat. CARDIOVASCULAR: Examination reveals regular rhythm and rate. Heart rate 79. S1, S2 normal. No S3, S4 or murmur. LUNGS: Lungs reveal mostly clear breath sounds. No wheezes, rhonchi or crackles. ABDOMEN: Soft. Bowel sounds are heard. EXTREMITIES: Intact. No cyanosis, clubbing or edema. SKIN: Without rash. NEUROLOGIC: Neurologic examination is brief but nonfocal. LABS: Reviewed. From August 05, white count 8.5, hemoglobin 15, hematocrit 47.0, platelet count normal. PTT was 49.2. Sodium 135. Potassium, chloride and CO2 all normal. Anion gap normal. BUN and creatinine were normal. His troponin included a troponin level of 23.3 and 8.330. His total cholesterol was 206. His hepatitis serology was negative. His urine was negative. Microbiology is negative. This included a nasal screen for MRSA. The patient had a chest CT that showed aortic aneurysm. There were metallic densities present at the aortic root, ascending aorta, probably calcifications. There may be evidence of pulmonary arterial or hypertension. There were small pleural effusions. Current medications are reviewed. Everything seems to be appropriate. In addition, the patient's lung function was noted. His FEV1 was greater than 2 L. He should do well with surgery. ASSESSMENT: 1. Severe triple-vessel coronary disease, with anticipated bypass grafting on of this week. 2. No evidence of significant chronic obstructive pulmonary disease, even though the patient smoked for more than 60 years, based on bedside spirometry. 3. History of prostate cancer. PLAN: The patient should do well. Today I explained my role in the process. He understands that we would be the ones trying to get him off of life support machine as soon as possible after surgery and also follow along and make sure his lungs are healthy throughout the process. His bedside spirometry showed an FEV1 that was greater than 2 L. His operative risk based on the FEV1 alone would be extremely low to negligible. No additional recommendations are made. MMODL / IJN: [id number] / MTDD
[2020-08-06] MEDS: HEPARIN SOD,PORK IN 0.45% NACL 25,000 UNIT in 0.45% NACL 1 250ML.BAG IV SCH (17:35)
[2020-08-06] MEDS: SODIUM CHLORIDE 0.9% 1,000 ML IV SCH (19:08)
[2020-08-06] MEDS: ATORVASTATIN 80 MG TAB PO SCH (20:51)
[2020-08-06] MEDS: MUPIROCIN 2% OINT 22 GM TUBE TOPICAL SCH (20:51)
--- NOTE | 2020-08-06 23:06 | P.PN ---
Progress Note - Text Progress Note Date: 08/06/20 Chief Complaint: Chest pain History of presenting complaint: This is a 85-year-old patient of Dr. Henrik Perez. In rather good health. Patient after breakfast when DrAbby below the lease. Then came back again the lawnmower. Started getting a chest heaviness went up to his arms. Decided to go back in the house. Started forgetting unwell. Symptoms last for 2 hours. No dizziness or lightheadedness. Bradley totally weak and rundown. Clammy perspiration. Decided to come in. No prior cardiac history. Fairly active. Had a similar episode about 2 months ago. Improved with rest. Admitted with non-ST elevation SC. Cardiac catheterization showed severe coronary artery disease. Today-sitting up. Comfortable. No chest pain or shortness of breath. Tolerating a diet. Awaiting bypass. Review of systems: Was done for constitutional, cardiovascular, GI, pulmonary. relevant finding as above Active Medications Alprazolam (Alprazolam 0.25 Mg Tab) 0.25 mg PO Q6HR PRN PRN Reason: Mild Anxiety Alprazolam (Alprazolam 0.5 Mg Tab) 0.5 mg PO Q6HR PRN PRN Reason: Moderate Anxiety Aspirin (Aspirin 81 Mg) 81 mg PO DAILY [facility] Last Admin: 08/06/20 09:47 Dose: 81 mg Documented by: Aspirin (Aspirin 325 Mg Tab) 325 mg PO ONCE ONE Stop: 08/08/20 05:01 Atorvastatin Calcium (Atorvastatin 80 Mg Tab) 80 mg PO HS [facility] Last Admin: 08/06/20 20:51 Dose: 80 mg Documented by: Atorvastatin Calcium (Atorvastatin 10 Mg Tab) 10 mg PO ONCE ONE Stop: 08/08/20 05:01 Calcium Chloride (Calcium Chloride 100 Mg/Ml 10 Ml Syringe) 1,000 mg IVP ONCE ONE Stop: 08/08/20 05:01 Chlorhexidine Gluconate (Chlorhexidine Gluconate 15 Ml Cup) 15 ml MUCOUS MEM ONCE ONE Stop: 08/08/20 05:01 Heparin Sodium (Porcine) (Heparin Sodium 1,000 Un/Ml (10ml Vl)) 10,000 unit IV ONCE ONE Stop: 08/08/20 05:01 Heparin Sodium (Porcine) (Heparin Sodium,Porcine 30 Ml 1,000 Unit/Ml Vial) 30,000 unit IV ONCE ONE Stop: 08/08/20 05:01 Heparin Sodium (Porcine) (Heparin Sodium,Porcine 30 Ml 1,000 Unit/Ml Vial) 30,000 unit IV ONCE ONE Stop: 08/08/20 05:01 Heparin Sodium (Porcine) (Heparin Sodium,Porcine 30 Ml 1,000 Unit/Ml Vial) 30,000 unit IV ONCE ONE Stop: 08/08/20 05:01 Sodium Chloride (Saline 0.9%) 1,000 mls @ 50 mls/hr IV .Q20H [facility] Last Admin: 08/06/20 19:08 Dose: Not Given Documented by: Heparin Sodium (Porcine) 5,000 (unit/ Sodium Chloride) 501 mls @ 0 mls/hr IV ONCE ONE Stop: 08/08/20 05:01 Protamine Sulfate 250 mg/ IV (Solution) 25 mls @ 0 mls/hr IV ONCE ONE Stop: 08/08/20 05:01 Nitroglycerin/Dextrose 50 mg/ (IV Solution) 250 mls @ 1.5 mls/hr IV .Q24H [facility]; Protocol Albumin Human 50 ml/ IV (Solution) 50 mls @ 100 mls/hr IVPB ONCE ONE Stop: 08/08/20 05:29 Albumin Human 50 ml/ IV (Solution) 50 mls @ 100 mls/hr IVPB ONCE ONE Stop: 08/08/20 05:29 Clevidipine 25 mg/ IV Solution 50 mls @ 2 mls/hr IV .Q24H [facility]; Protocol Phenylephrine HCl 40 mg/ (Sodium Chloride) 254 mls @ 0 mls/hr IV .Q0M ONE; Protocol Stop: 08/08/20 05:01 Albumin Human 500 ml/ IV (Solution) 500 mls @ 250 mls/hr IVPB ONCE ONE Stop: 08/08/20 06:59 Albumin Human 500 ml/ IV (Solution) 500 mls @ 250 mls/hr IVPB ONCE ONE Stop: 08/08/20 06:59 Albumin Human 500 ml/ IV (Solution) 500 mls @ 250 mls/hr IVPB ONCE ONE Stop: 08/08/20 06:59 Albumin Human 500 ml/ IV (Solution) 500 mls @ 250 mls/hr IVPB ONCE ONE Stop: 08/08/20 06:59 Albumin Human 500 ml/ IV (Solution) 500 mls @ 250 mls/hr IVPB ONCE ONE Stop: 08/08/20 06:59 Albumin Human 500 ml/ IV (Solution) 500 mls @ 250 mls/hr IVPB ONCE ONE Stop: 08/08/20 06:59 Norepinephrine Bitartrate 4 mg (/ Sodium Chloride) 254 mls @ 0 mls/hr IV .Q0M [facility] Propofol 1,000 mg/ IV Solution 100 mls @ 0 mls/hr IV .Q0M PRN; Protocol PRN Reason: Per Protocol Lactated Ringer's (Lactated Ringers) 1,000 mls @ 10 mls/hr IV .Q24H [facility] Cefazolin Sodium 2 gm/ Sodium (Chloride) 30 mls @ 60 mls/hr IVPB ONCE ONE Stop: 08/08/20 05:29 Cefazolin Sodium 1,000 mg/ (Sodium Chloride) 1,000 mls @ 999 mls/hr IRRIGATION ONCE ONE Stop: 08/08/20 06:00 Cefazolin Sodium 2,000 mg/ (Sodium Chloride) 30 mls @ 999 mls/hr IVPB ONCE ONE Stop: 08/08/20 05:01 Potassium Chloride 110 meq/Magnesium Sulfate 16 meq/Sodium Bicarbonate 40 ml/Lidocaine HCl 100 mg/ Dextrose /Water 1,109 mls @ 0 mls/hr IV .Q0M [facility] Potassium Chloride 25 meq/Sodium Chloride 27 meq/Magnesium Sulfate 16 meq/Sodium Bicarbonate 40 ml/Lidocaine HCl 100 mg/ Dextrose /Water 1,077.3 mls @ 0 mls/hr IV .Q0M [facility] Tranexamic Acid 2,000 mg/ (Sodium Chloride) 200 mls @ 0 mls/hr IV .Q0M ONE; Protocol Stop: 08/08/20 05:01 Papaverine HCl 360 mg/ Sodium (Chloride) 102 mls @ 0 mls/hr IV ONCE ONE Stop: 08/08/20 05:01 Insulin Human Regular 100 unit (/ Sodium Chloride) 100 mls @ 0 mls/hr IV .Q0M [facility]; Protocol Magnesium Sulfate (Magnesium Sulfate Syg 4.06 Meq/Ml Syringe) 16.24 meq IV ONCE ONE Stop: 08/08/20 05:01 Mannitol (Mannitol 25% 12.5 Gm/50 Ml Vial) 12.5 gm IV ONCE ONE Stop: 08/08/20 05:01 Mannitol (Mannitol 25% 12.5 Gm/50 Ml Vial) 12.5 gm IV ONCE ONE Stop: 08/08/20 05:01 Metoprolol Tartrate (Metoprolol Tartrate 25 Mg Tab) 25 mg PO BID [facility] Last Admin: 08/06/20 20:51 Dose: 25 mg Documented by: Metoprolol Tartrate (Metoprolol Tartrate 12.5 Mg Tab) 12.5 mg PO ONCE ONE Stop: 08/08/20 05:01 Morphine Sulfate (Morphine Sulfate 2 Mg/Ml Syringe) 2 mg IVP Q5M PRN PRN Reason: Chest Pain Mupirocin (Mupirocin 2% Oint 22 Gm Tube) 1 applic TOPICAL BID [facility] Last Admin: 08/06/20 20:51 Dose: 1 applic Documented by: Nitroglycerin (Nitroglycerin Sl Tabs 0.4 Mg Tab) 0.4 mg SUBLINGUAL Q5M PRN PRN Reason: Chest Pain Nitroglycerin/Dextrose (Nitroglycerin-D5w Pmx 25 Mg/250 Ml Btl) 1 mg IV ONCE ONE Stop: 08/08/20 05:01 Phenylephrine HCl (Phenylephrine 10 Mg/Ml Vial) 0 mg IV ONCE ONE Stop: 08/08/20 05:01 Protamine Sulfate (Protamine Sulfate 10 Mg/Ml 25 Ml Vial) 250 mg IV ONCE ONE Stop: 08/08/20 05:01 Sodium Bicarbonate (Sodium Bicarb 8.4% 50 Ml Syr (1 Meq/Ml)) 50 ml IV ONCE ONE Stop: 08/08/20 05:01 Physical examination: VITAL SIGNS: 97.4, 60, 16, 108/55, 97% room air GENERAL: Sitting of the side of the bed, eating his lunch EYES: Pupils equal. Conjunctiva normal. NECK: JVD not raised; masses not palpable. HEART: First and second heart sounds are normal; no edema. LUNGS: Respiratory rate normal; clear to auscultation. ABDOMEN: Soft, nontender, liver spleen not palpable, no masses palpable. PSYCH: Alert and oriented x3; mood and affect normal. MUSCULAR skeletal: Evidence of OA INVESTIGATIONS, reviewed in the clinical context: White count 8.5 hemoglobin 15 potassium 4 creatinine 0.9 COVID 19 P/Cr-not detected Admission testing White count 12.3 hemoglobin 13.3 platelets 215 potassium 4.7 creatinine 0.98 Troponin I 1.9, 12.4, 23.3 EKG tracing personally reviewed by me-sinus rhythm, PVC, ST segment depression from leads V2 through V6 and somein 1 and aVL. Chest x-ray film personally reviewed by me-questionable infiltrate in the right base LDL 118 2-D echo-wall motion abnormality, EF 40-45%, moderate concentric LVH Carotid Doppler showing right carotid artery severe to critical stenosis Assessment: -Acute non-ST elevation myocardial infarction -Ischemic cardiomyopathy from systolic dysfunction EF 40- 45% -Severe triple-vessel coronary artery disease per cardiac catheterization- pending coronary bypass this -Leukocytosis from acute SC. No clinical evidence of infection -Mild hyponatremia -IV heparin monitoring -Significant stenosis of the right carotid artery -Ascending aortic aneurysm 4.1 cm Plan: continue IV heparin. Discussed with the patient and . Continue current medications..
[2020-08-07 08:11] LABS: Anisocytosis Slight; Basophils % (A) 0 %; Eosinophils # (A) 0.2 k/uL (0-0.7); Eosinophils % (A) 2 %; HCT 43.1 % (39.0-53.0); HGB 14.8 gm/dL (13.0-17.5); Lymphocytes # (A) 1.2 k/uL (1.0-4.8); Lymphocytes % (A) 16 %; MCH 32.6 pg (25.0-35.0); MCHC 34.3 g/dL (31.0-37.0); MCV 95.2 fL (80.0-100.0); Mean Platelet Volume 9.7; Monocytes # (A) 0.6 k/uL (0-1.0); Monocytes % (A) 8 %; Neutrophils # (A) 5.4 k/uL (1.3-7.7); Neutrophils % (A) 71 %; Platelet Count 181 k/uL (150-450); RBC 4.53 m/uL (4.30-5.90); RDW 18.7 % (11.5-15.5); WBC 7.6 k/uL (3.8-10.6)
[2020-08-07 08:17] LABS: Albumin 3.9 g/dL (3.5-5.0); Calcium 9.5 mg/dL (8.4-10.2); Magnesium 1.9 mg/dL (1.6-2.3); Potassium 4.4 mmol/L (3.5-5.1); Prothrombin Time 10.7 sec (9.0-12.0); Total Bilirubin 1.2 mg/dL (0.2-1.3); Total Protein 6.2 g/dL (6.3-8.2)
[2020-08-07] MEDS ORDERED: MAGNESIUM SULFATE-D5W PMX 1 GM in DEXTROSE/WATER 1 100ML.BAG IVPB ONE (08:28)
[2020-08-07] MEDS: ASPIRIN 81 MG PO SCH (09:04)
[2020-08-07] MEDS: METOPROLOL TARTRATE 25 MG TAB PO SCH ×2 (09:04→20:51)
[2020-08-07] MEDS: SODIUM CHLORIDE 0.9% 1,000 ML IV SCH (09:08)
--- NOTE | 2020-08-07 09:40 | P.PN ---
Subjective Progress Note Date: 08/07/20 Principal diagnosis: Multivessel coronary artery disease, non-STEMI this admission, hyperlipidemia discovered this admission, right internal carotid artery stenosis 72% per CTA of the neck, ischemic cardiomyopathy with EF 40-45%. Previous medical history of previous tobacco dependence, moderate COPD with preoperative FEV1 59% of predicted, history of prostate cancer status post prostatectomy. The patient is currently sitting up in bed on the cardiac stepdown unit in no acute distress. Denies chest pain or shortness of breath. Remains in normal sinus rhythm and hemodynamically stable. Ambulatory in the hallway without difficulty. No new concerns. Feels ready for surgery tomorrow Objective - Vital Signs Vital signs: Vital Signs Temp 97.9 F 08/07/20 07:25 Pulse 97 08/07/20 07:25 Resp 17 08/07/20 07:25 BP 119/59 08/07/20 07:25 Pulse Ox 93 L 08/07/20 04:00 Intake & Output 08/06/20 08/07/20 08/07/20 18:59 06:59 18:59 Intake Total 600 240 240 Balance 600 240 240 Weight 90.3 kg Intake: Oral 600 240 240 Other: Voiding Method Toilet # Voids 1 2 # Bowel Movements 0 - Constitutional General appearance: Present: cooperative, no acute distress - Respiratory Details: Lungs sounds clear bilaterally. Respirations even, nonlabored. Currently on room air with oxygen saturation 93%. Able to achieve 1500 mL on his incentive spirometry. - Cardiovascular Details: S1, S2 present. Regular rate and rhythm, sinus rhythm on telemetry. Palpable peripheral pulses bilaterally. No edema present. No calf pain or tenderness noted. - Gastrointestinal Gastrointestinal Comment(s): Abdomen soft, nontender, nondistended. Active bowel sounds present 4 quadrants. Tolerating diet. - Genitourinary Genitourinary Comment(s): Continues to void - Integumentary Integumentary Comment(s): Skin is warm and dry with evidence of good perfusion - Neurologic Neurologic: Present: CNII-XII intact - Musculoskeletal Musculoskeletal: Present: gait normal, strength equal bilaterally - Psychiatric Psychiatric: Present: A&O x's 3, appropriate affect, intact judgment & insight - Allied health notes Allied health notes reviewed: nursing - Labs CBC & Chem 7: 08/07/20 07:31 08/07/20 07:31 Labs: Abnormal Lab Results - Last 24 Hours (Table) 08/07/20 08/07/20 08/07/20 Range/Units 07:31 07:31 07:31 RDW 18.7 H (11.5-15.5) % Sodium 136 L (137-145) mmol/L Total Protein 6.2 L (6.3-8.2) g/dL Crossmatch See Detail Assessment and Plan Assessment: 1. Multivessel coronary artery disease, non-STEMI this admission 2. Hyperlipidemia, cholesterol 206, LDL 118, triglycerides 199 3. Right internal carotid artery stenosis 72% stenosis at the origin of the right internal carotid artery per CTA of the neck 4. Ischemic cardiomyopathy with EF 40-45% 5. Previous tobacco dependence 6. Moderate COPD with preoperative FEV1 59% of predicted 7. History of prostate cancer status post prostatectomy Plan: 1. CT of chest ordered to eval ascending aorta for clampability-ascending aorta appears unclampable 2. Continue to maximize medical management with aspirin, statin, beta michel therapy 3. Continue preoperative teaching 4. Increase activity, ambulate in hallway as tolerated 5. Our plan is for myocardial revascularization with extracorporeal membrane oxygenation on , left internal mammary artery and endoscopic vein harvesting with intraoperative transesophageal echocardiogram on , 08/08/[address] Vasquez. 6. 5 m walk test completed by cardiac rehab, #1 5.66 seconds, #2 4.69 seconds, #3 4.56 seconds 7. STS risk score recalculated with latest CTA findings, mortality risk less than previous but still considered moderate to high risk, this was discussed with the patient and his by Dr. Vasquez 8. Medical management of other comorbidities per primary care service 9. More recommendations to follow Seen and examined and agree with above Time with Patient: Greater than 30
--- NOTE | 2020-08-07 10:13 | P.ARTDOP ---
Arterial Doppler LOWER EXTREMITY ARTERIAL DOPPLER: DATE OF SERVICE: 08/03/2020 Reason for study: Preop CABG. Doppler waveforms: Multiphasic bilaterally throughout. Pulse volume recording: []. Pressure gradients: Mild gradient above the ankle on the left. Ankle-brachial indices: Greater than 1 on the right and 0.8 on the left.. Toe brachial indices: 0.65 on the right, 116 on the left Impression: The right side is normal. There may be some mild left SFA disease but perfusion is excellent..
--- NOTE | 2020-08-07 10:14 | P.VSCSTY ---
Greater Saphenous Vein Mapping This is bilateral lower extremity greater saphenous vein mapping. Date of service: 08/03/2020 Vein quality and ultrasound appearance: We see no intraluminal thrombus or wall changes. Vein size groin right : 5.6 x 6.5 groin left: 6.2 x 6.7 High thigh right: 4.8 x 4.5 high thigh left: 5.5 x 4.9 Mid thigh right: 4.4 x 5.0 mid thigh left: 4.4 x 4.6 Above-knee right: 4.8 x 5.4 above- knee left: 5 x 4.8 Below knee right: 3.2 x 4.2 below-knee left: 2.4 x 2.0 Mid calf right: 2.9 x 2.8 mid calf left: 2.9 x 2.8 Ankle right: 2.4 x 2.2 ankle left: 2.5 x 2.1 Impression: Usable bilateral greater saphenous vein.
[2020-08-07] MEDS: MUPIROCIN 2% OINT 22 GM TUBE TOPICAL SCH ×2 (10:16→20:51)
--- NOTE | 2020-08-07 10:35 | P.PN ---
Subjective This is a pleasant 85-year-old male admitted to the hospital with a non-ST elevated myocardial infarction, peak troponin was 25. He underwent cardiac catheterization yesterday revealing left main free of significant disease, LAD with diffuse disease of 80-90% involving the proximal and mid segments, diagonal branch with an ostial 95% stenosis, circumflex with a 95% mid stenosis followed by an 80% stenosis distally, the RCA is totally occluded proximally. He has been recommended to undergo bypass grafting tomorrow. He is seen and examined laying in bed in no acute distress. He has no symptoms of chest pain, shortness of breath, dizziness or palpitations. Blood pressure 119 heart rate 97 afebrile maintaining oxygen saturation on room air. GENERAL: Well-appearing, well-nourished and in no acute distress. NECK: Supple without JVD or thyromegaly. LUNGS: Breath sounds clear to auscultation bilaterally. Respiration equal and unlabored. No wheezes, rales or rhonchi. HEART: Regular rate and rhythm with systolic ejection murmur at the base, no rubs or gallops. S1 and S2 heard. EXTREMITIES: Normal range of motion, no edema. No clubbing or cyanosis. Peripheral pulses intact. ASSESSMENT Acute non-ST elevated myocardial infarction Ischemic cardiomyopathy Dyslipidemia Peripheral vascualr disease Regular alcohol use Former nicotine dependence PLAN Continue current medical regimen. Heparin infusion has been stopped per Dr. Vasquez. Plan is for bypass grafting on . Nurse Practitioner note has been reviewed, I agree with a documented findings and plan of care. Patient was seen and examined. Objective - Vital Signs Vital signs: Vital Signs Temp 97.9 F 08/07/20 07:25 Pulse 97 08/07/20 07:25 Resp 17 08/07/20 07:25 BP 119/59 08/07/20 07:25 Pulse Ox 93 L 08/07/20 04:00 Intake & Output 08/06/20 08/07/20 08/07/20 18:59 06:59 18:59 Intake Total 600 240 240 Balance 600 240 240 Weight 90.3 kg Intake: Oral 600 240 240 Other: Voiding Method Toilet # Voids 1 2 # Bowel Movements 0 - Labs CBC & Chem 7: 08/07/20 07:31 08/07/20 07:31 Labs: Abnormal Lab Results - Last 24 Hours (Table) 08/07/20 08/07/20 08/07/20 Range/Units 07:31 07:31 07:31 RDW 18.7 H (11.5-15.5) % Sodium 136 L (137-145) mmol/L Total Protein 6.2 L (6.3-8.2) g/dL Crossmatch See Detail
--- NOTE | 2020-08-07 13:00 | P.PN ---
Subjective Progress Note Date: 08/07/20 Principal diagnosis: Non-ST segment elevation myocardial infarction The patient is seen today 08/07/2020 in follow-up on the selective care unit. He is awake and alert in no acute distress. Denies any chest pain, palpitations lightheadedness or dizziness. No shortness of breath, cough or congestion. Maintaining good O2 saturation in the 90s on room air. He's been afebrile. Hemodynamically stable. White count 7.6. Hemoglobin 14.8. Sodium 136. Potassium 4.4. Creatinine 0.91. Objective - Vital Signs Vital signs: Vital Signs Temp 97.9 F 08/07/20 07:25 Pulse 97 08/07/20 07:25 Resp 17 08/07/20 07:25 BP 119/59 08/07/20 07:25 Pulse Ox 93 L 08/07/20 04:00 Intake & Output 08/06/20 08/07/20 08/07/20 18:59 06:59 18:59 Intake Total 600 240 240 Balance 600 240 240 Weight 90.3 kg Intake: Oral 600 240 240 Other: Voiding Method Toilet # Voids 1 2 # Bowel Movements 0 - Exam GENERAL EXAM: Alert, active, very pleasant 85-year-old gentleman, on room air, comfortable in no apparent distress. HEAD: Normocephalic. EYES: Normal reaction of pupils, equal size. NOSE: Clear with pink turbinates. THROAT: No erythema or exudates. NECK: No masses, no JVD. CHEST: No chest wall deformity. LUNGS: Equal air entry with no crackles, wheeze, rhonchi or dullness. CVS: S1 and S2 normal with no audible murmur, regular rhythm. ABDOMEN: No hepatosplenomegaly, normal bowel sounds, no guarding or rigidity. SPINE: No scoliosis or deformity SKIN: No rashes CENTRAL NERVOUS SYSTEM: No focal deficits, tone is normal in all 4 extremities. EXTREMITIES: There is no peripheral edema. No clubbing, no cyanosis. Peripheral pulses are intact. - Labs CBC & Chem 7: 08/07/20 07:31 08/07/20 07:31 Labs: Abnormal Lab Results - Last 24 Hours (Table) 08/07/20 08/07/20 08/07/20 Range/Units 07:31 07:31 07:31 RDW 18.7 H (11.5-15.5) % Sodium 136 L (137-145) mmol/L Total Protein 6.2 L (6.3-8.2) g/dL Crossmatch See Detail Assessment and Plan Assessment: 1 Non-ST segment elevation myocardial infarction, multivessel coronary artery disease 2 Ischemic cardiomyopathy, ejection fraction 40-45% 3 Previous history of chronic tobacco dependence 4 Moderate COPD, FEV1 value 59% of predicted 5 Carotid stenosis involving the right internal carotid with 72% stenosis 6 History of prostate cancer status post prostatectomy Plan: The patient was seen and evaluated by Dr. Sloan Plan is for coronary revascularization in the a.m. Again educated regarding the importance of the incentive spirometer Increase activity as tolerated We'll continue to follow and make further recommendations based on his clinical status I, the cosigning physician, performed a history & physical examination of the patient. Lungs sounds are clear. Maintaining good O2 saturations in the 90s on room air. I discussed the assessment and plan of care with my nurse practitioner, Tona Roe. I attest to the above note as dictated by her.
--- NOTE | 2020-08-07 18:46 | P.PN ---
Progress Note - Text Progress Note Date: 08/07/20 Chief Complaint: Chest pain History of presenting complaint: This is a 85-year-old patient of Dr. Henrik Perez. In rather good health. Patient after breakfast when DrAbby below the lease. Then came back again the lawnmower. Started getting a chest heaviness went up to his arms. Decided to go back in the house. Started forgetting unwell. Symptoms last for 2 hours. No dizziness or lightheadedness. [place] totally weak and rundown. Clammy perspiration. Decided to come in. No prior cardiac history. Fairly active. Had a similar episode about 2 months ago. Improved with rest. Admitted with non-ST elevation ME. Cardiac catheterization showed severe coronary artery disease. Today-No new issues. No chest pain. Comfortable. at the bedside. Review of systems: Was done for constitutional, cardiovascular, GI, pulmonary. relevant finding as above Active Medications Alprazolam (Alprazolam 0.25 Mg Tab) 0.25 mg PO Q6HR PRN PRN Reason: Mild Anxiety Alprazolam (Alprazolam 0.5 Mg Tab) 0.5 mg PO Q6HR PRN PRN Reason: Moderate Anxiety Aspirin (Aspirin 81 Mg) 81 mg PO DAILY [facility] Last Admin: 08/07/20 09:04 Dose: 81 mg Documented by: Aspirin (Aspirin 325 Mg Tab) 325 mg PO ONCE ONE Stop: 08/08/20 05:01 Atorvastatin Calcium (Atorvastatin 80 Mg Tab) 80 mg PO HS [facility] Last Admin: 08/06/20 20:51 Dose: 80 mg Documented by: Atorvastatin Calcium (Atorvastatin 10 Mg Tab) 10 mg PO ONCE ONE Stop: 08/08/20 05:01 Calcium Chloride (Calcium Chloride 100 Mg/Ml 10 Ml Syringe) 1,000 mg IVP ONCE ONE Stop: 08/08/20 05:01 Chlorhexidine Gluconate (Chlorhexidine Gluconate 15 Ml Cup) 15 ml MUCOUS MEM ONCE ONE Stop: 08/08/20 05:01 Heparin Sodium (Porcine) (Heparin Sodium 1,000 Un/Ml (10ml Vl)) 10,000 unit IV ONCE ONE Stop: 08/08/20 05:01 Heparin Sodium (Porcine) (Heparin Sodium,Porcine 30 Ml 1,000 Unit/Ml Vial) 30,000 unit IV ONCE ONE Stop: 08/08/20 05:01 Heparin Sodium (Porcine) (Heparin Sodium,Porcine 30 Ml 1,000 Unit/Ml Vial) 30,000 unit IV ONCE ONE Stop: 08/08/20 05:01 Heparin Sodium (Porcine) (Heparin Sodium,Porcine 30 Ml 1,000 Unit/Ml Vial) 30,000 unit IV ONCE ONE Stop: 08/08/20 05:01 Sodium Chloride (Saline 0.9%) 1,000 mls @ 50 mls/hr IV .Q20H [facility] Last Admin: 08/07/20 09:08 Dose: Not Given Documented by: Heparin Sodium (Porcine) 5,000 (unit/ Sodium Chloride) 501 mls @ 0 mls/hr IV ONCE ONE Stop: 08/08/20 05:01 Protamine Sulfate 250 mg/ IV (Solution) 25 mls @ 0 mls/hr IV ONCE ONE Stop: 08/08/20 05:01 Nitroglycerin/Dextrose 50 mg/ (IV Solution) 250 mls @ 1.5 mls/hr IV .Q24H [facility]; Protocol Albumin Human 50 ml/ IV (Solution) 50 mls @ 100 mls/hr IVPB ONCE ONE Stop: 08/08/20 05:29 Albumin Human 50 ml/ IV (Solution) 50 mls @ 100 mls/hr IVPB ONCE ONE Stop: 08/08/20 05:29 Clevidipine 25 mg/ IV Solution 50 mls @ 2 mls/hr IV .Q24H [facility]; Protocol Phenylephrine HCl 40 mg/ (Sodium Chloride) 254 mls @ 0 mls/hr IV .Q0M ONE; Protocol Stop: 08/08/20 05:01 Albumin Human 500 ml/ IV (Solution) 500 mls @ 250 mls/hr IVPB ONCE ONE Stop: 08/08/20 06:59 Albumin Human 500 ml/ IV (Solution) 500 mls @ 250 mls/hr IVPB ONCE ONE Stop: 08/08/20 06:59 Albumin Human 500 ml/ IV (Solution) 500 mls @ 250 mls/hr IVPB ONCE ONE Stop: 08/08/20 06:59 Albumin Human 500 ml/ IV (Solution) 500 mls @ 250 mls/hr IVPB ONCE ONE Stop: 08/08/20 06:59 Albumin Human 500 ml/ IV (Solution) 500 mls @ 250 mls/hr IVPB ONCE ONE Stop: 08/08/20 06:59 Albumin Human 500 ml/ IV (Solution) 500 mls @ 250 mls/hr IVPB ONCE ONE Stop: 08/08/20 06:59 Norepinephrine Bitartrate 4 mg (/ Sodium Chloride) 254 mls @ 0 mls/hr IV .Q0M [facility] Propofol 1,000 mg/ IV Solution 100 mls @ 0 mls/hr IV .Q0M PRN; Protocol PRN Reason: Per Protocol Lactated Ringer's (Lactated Ringers) 1,000 mls @ 10 mls/hr IV .Q24H [facility] Cefazolin Sodium 2 gm/ Sodium (Chloride) 30 mls @ 60 mls/hr IVPB ONCE ONE Stop: 08/08/20 05:29 Cefazolin Sodium 1,000 mg/ (Sodium Chloride) 1,000 mls @ 999 mls/hr IRRIGATION ONCE ONE Stop: 08/08/20 06:00 Cefazolin Sodium 2,000 mg/ (Sodium Chloride) 30 mls @ 999 mls/hr IVPB ONCE ONE Stop: 08/08/20 05:01 Potassium Chloride 110 meq/Magnesium Sulfate 16 meq/Sodium Bicarbonate 40 ml/Lidocaine HCl 100 mg/ Dextrose /Water 1,109 mls @ 0 mls/hr IV .Q0M [facility] Potassium Chloride 25 meq/Sodium Chloride 27 meq/Magnesium Sulfate 16 meq/Sodium Bicarbonate 40 ml/Lidocaine HCl 100 mg/ Dextrose /Water 1,077.3 mls @ 0 mls/hr IV .Q0M [facility] Tranexamic Acid 2,000 mg/ (Sodium Chloride) 200 mls @ 0 mls/hr IV .Q0M ONE; Protocol Stop: 08/08/20 05:01 Papaverine HCl 360 mg/ Sodium (Chloride) 102 mls @ 0 mls/hr IV ONCE ONE Stop: 08/08/20 05:01 Insulin Human Regular 100 unit (/ Sodium Chloride) 100 mls @ 0 mls/hr IV .Q0M [facility]; Protocol Magnesium Sulfate (Magnesium Sulfate Syg 4.06 Meq/Ml Syringe) 16.24 meq IV ONCE ONE Stop: 08/08/20 05:01 Mannitol (Mannitol 25% 12.5 Gm/50 Ml Vial) 12.5 gm IV ONCE ONE Stop: 08/08/20 05:01 Mannitol (Mannitol 25% 12.5 Gm/50 Ml Vial) 12.5 gm IV ONCE ONE Stop: 08/08/20 05:01 Metoprolol Tartrate (Metoprolol Tartrate 25 Mg Tab) 25 mg PO BID [facility] Last Admin: 08/07/20 09:04 Dose: 25 mg Documented by: Metoprolol Tartrate (Metoprolol Tartrate 12.5 Mg Tab) 12.5 mg PO ONCE ONE Stop: 08/08/20 05:01 Mupirocin (Mupirocin 2% Oint 22 Gm Tube) 1 applic TOPICAL BID [facility] Last Admin: 08/07/20 10:16 Dose: 1 applic Documented by: Nitroglycerin (Nitroglycerin Sl Tabs 0.4 Mg Tab) 0.4 mg SUBLINGUAL Q5M PRN PRN Reason: Chest Pain Nitroglycerin/Dextrose (Nitroglycerin-D5w Pmx 25 Mg/250 Ml Btl) 1 mg IV ONCE ONE Stop: 08/08/20 05:01 Phenylephrine HCl (Phenylephrine 10 Mg/Ml Vial) 0 mg IV ONCE ONE Stop: 08/08/20 05:01 Protamine Sulfate (Protamine Sulfate 10 Mg/Ml 25 Ml Vial) 250 mg IV ONCE ONE Stop: 08/08/20 05:01 Sodium Bicarbonate (Sodium Bicarb 8.4% 50 Ml Syr (1 Meq/Ml)) 50 ml IV ONCE ONE Stop: 08/08/20 05:01 Physical examination: VITAL SIGNS: 97.8, 70, 18, 112/52, 96% room air GENERAL: Sitting of the side of the bed, comfortable EYES: Pupils equal. Conjunctiva normal. NECK: JVD not raised; masses not palpable. HEART: First and second heart sounds are normal; no edema. LUNGS: Respiratory rate normal; clear to auscultation. ABDOMEN: Soft, nontender, liver spleen not palpable, no masses palpable. PSYCH: Alert and oriented x3; mood and affect normal. MUSCULAR skeletal: Evidence of OA INVESTIGATIONS, reviewed in the clinical context: White count 7.6 hemoglobin 14.8 potassium 4.4 creatinine 0.91 COVID 19 P/Cr-not detected Admission testing White count 12.3 hemoglobin 13.3 platelets 215 potassium 4.7 creatinine 0.98 Troponin I 1.9, 12.4, 23.3 EKG tracing personally reviewed by me-sinus rhythm, PVC, ST segment depression from leads V2 through V6 and somein 1 and aVL. Chest x-ray film personally reviewed by me-questionable infiltrate in the right base LDL 118 2-D echo-wall motion abnormality, EF 40-45%, moderate concentric LVH Carotid Doppler showing right carotid artery severe to critical stenosis Assessment: -Acute non-ST elevation myocardial infarction -Ischemic cardiomyopathy from systolic dysfunction EF 40- 45% -Severe triple-vessel coronary artery disease per cardiac catheterization- pending coronary bypass this -Leukocytosis from acute ME. No clinical evidence of infection -Mild hyponatremia -IV heparin monitoring -Significant stenosis of the right carotid artery -Ascending aortic aneurysm 4.1 cm Plan: continue IV heparin. . Continue current medications.. Coronary bypass scheduled for tomorrow.
[2020-08-07] MEDS: ATORVASTATIN 80 MG TAB PO SCH (20:51)
[2020-08-08 04:40] LABS: Glucose,Whole Blood 103 mg/dL (75-99)
[2020-08-08] MEDS ORDERED: TRANEXAMIC ACID 2,000 MG in SODIUM CHLORIDE 0.9% 80 ML IV ONE (05:00)
[2020-08-08] MEDS ORDERED: CLEVIDIPINE BUTYRATE 25 MG in EMPTY BAG 1 BAG IV SCH ×2 (05:00→13:44)
[2020-08-08] MEDS ORDERED: ASPIRIN 325 MG TAB PO ONE (05:00)
[2020-08-08] MEDS ORDERED: CALCIUM CHLORIDE 100 MG/ML 10 ML SYRINGE IVP ONE (05:00)
[2020-08-08] MEDS ORDERED: PHENYLEPHRINE 40 MG in SODIUM CHLORIDE 0.9% 250 ML IV ONE (05:00)
[2020-08-08] MEDS ORDERED: SODIUM BICARB 8.4% 50 ML SYR (1 MEQ/ML) IV ONE (05:00)
[2020-08-08] MEDS ORDERED: LACTATED RINGERS 1,000 ML IV SCH (05:00)
[2020-08-08] MEDS ORDERED: ALBUMIN HUMAN 25% 50 ML in EMPTY BAG 1 BAG IVPB ONE (05:00)
[2020-08-08] MEDS ORDERED: DEXTROSE 5% IN WATER 1,000 ML with POTASSIUM CHLORIDE 25 MEQ, SODIUM CHLORIDE 2.5MEQ/ML... IV SCH ×6 (05:00)
[2020-08-08] MEDS ORDERED: PAPAVERINE 360 MG in SODIUM CHLORIDE 0.9% 90 ML IV ONE ×2 (05:00→10:04)
[2020-08-08] MEDS ORDERED: MAGNESIUM SULFATE SYG 4.06 MEQ/ML SYRINGE IV ONE (05:00)
[2020-08-08] MEDS ORDERED: ceFAZolin 2,000 MG in SODIUM CHLORIDE 0.9% 30 ML IVPB ONE (05:00)
[2020-08-08] MEDS ORDERED: NITROGLYCERIN-D5W PMX 25 MG/250 ML BTL IV ONE (05:00)
[2020-08-08] MEDS ORDERED: PROTAMINE SULFATE 10 MG/ML 25 ML VIAL IV ONE (05:00)
[2020-08-08] MEDS ORDERED: ALBUMIN HUMAN 5% 500 ML in EMPTY BAG 1 BAG IVPB ONE ×6 (05:00)
[2020-08-08] MEDS ORDERED: ceFAZolin 2 GM in SODIUM CHLORIDE 0.9% 30 ML IVPB ONE (05:00)
[2020-08-08] MEDS ORDERED: NOREPINEPHRINE 4 MG in SODIUM CHLORIDE 0.9% 250 ML IV SCH (05:00)
[2020-08-08] MEDS ORDERED: MANNITOL 25% 12.5 GM/50 ML VIAL IV ONE ×2 (05:00)
[2020-08-08] MEDS ORDERED: DEXTROSE 5% IN WATER 1,000 ML with POTASSIUM CHLORIDE 110 MEQ, MAGNESIUM SULFATE 16 MEQ... IV SCH ×5 (05:00)
[2020-08-08] MEDS ORDERED: ATORVASTATIN 10 MG TAB PO ONE (05:00)
[2020-08-08] MEDS ORDERED: PHENYLEPHRINE 10 MG/ML VIAL IV ONE (05:00)
[2020-08-08] MEDS ORDERED: CHLORHEXIDINE GLUCONATE 15 ML CUP MUCOUS MEM ONE (05:00)
[2020-08-08] MEDS ORDERED: HEPARIN SODIUM,PORCINE 5,000 UNIT in SODIUM CHLORIDE 0.9% 500 ML 500 ML IV ONE (05:00)
[2020-08-08] MEDS ORDERED: HEPARIN SODIUM 1,000 UN/ML (10ML VL) IV ONE (05:00)
[2020-08-08] MEDS ORDERED: NITROGLYCERIN-D5W PMX 50 MG in DEXTROSE/WATER 1 250ML.BAG IV SCH ×2 (05:00→13:44)
[2020-08-08] MEDS ORDERED: METOPROLOL TARTRATE 12.5 MG TAB PO ONE (05:00)
[2020-08-08] MEDS ORDERED: PROTAMINE SULFATE 250 MG in EMPTY BAG 1 BAG IV ONE (05:00)
[2020-08-08] MEDS ORDERED: ceFAZolin 1,000 MG in SODIUM CHLORIDE 0.9% IRRIGATIO 1,000 ML IRRIGATION ONE (05:00)
[2020-08-08] MEDS ORDERED: INSULIN REGULAR 100 UNIT in SODIUM CHLORIDE 0.9% 100 ML IV SCH ×2 (05:00→14:30)
[2020-08-08] MEDS ORDERED: IV FLUID CONTINUATION 1,000 ML IV ONE (05:48)
[2020-08-08] MEDS ORDERED: NITROGLYCERIN-D5W PMX 50 MG/250 ML BOTTLE IV ONE (07:37)
[2020-08-08] MEDS ORDERED: ceFAZolin 1,000 MG VIAL ONE (07:37)
[2020-08-08] MEDS ORDERED: CALCIUM CHLORIDE 100 MG/ML 10 ML SYRINGE ONE (07:37)
[2020-08-08] MEDS ORDERED: fentaNYL (PF) 50 MCG/ML 2 ML AMP ONE (07:37)
[2020-08-08] MEDS ORDERED: VECURONIUM 10 MG VIAL IV ONE (07:37)
[2020-08-08] MEDS ORDERED: ePHEDrine SULFATE/0.9% NACL/PF 50 MG/5 ML SYRINGE IV ONE (07:37)
[2020-08-08] MEDS ORDERED: AMIODARONE 50 MG/ML 3 ML VIAL IV ONE (07:37)
[2020-08-08] MEDS ORDERED: PHENYLEPHRINE-0.9% NACL SYG 1 MG/10 ML SYRINGE ONE (07:37)
[2020-08-08] MEDS ORDERED: fentaNYL (PF) 50 MCG/ML 50 ML VIAL ONE (07:37)
[2020-08-08] MEDS ORDERED: HEPARIN SODIUM,PORCINE 10,000 UNIT/ML 1 ML VIAL ONE (07:37)
[2020-08-08] MEDS ORDERED: SODIUM CHLORIDE 0.9% IRRIG 1,000 ML BTL IRRIGATION ONE (07:37)
[2020-08-08] MEDS ORDERED: SODIUM CHLORIDE 0.9% 100 ML BAG ONE (07:37)
[2020-08-08] MEDS ORDERED: MIDAZOLAM 2 MG/2 ML VIAL ONE (07:37)
[2020-08-08] MEDS ORDERED: ELECTROLYTE-R (PH 7.4) 1,000 ML IV.SOLN IV ONE (07:37)
[2020-08-08] MEDS ORDERED: PROPOFOL 10 MG/ML 20 ML VIAL IV ONE (07:37)
--- NOTE | 2020-08-08 08:34 | P.ANPRN ---
Procedure Note - Anesthesia - Invasive Line Right Arterial Line Time Out Performed: Yes Date of Procedure: 08/08/20 Time of Procedure: 07:00 Location of Patient: Phase I Preparation: Sterile Prep, Sterile Dressing Arterial Line Location: Radial Ultrasound Used: No Purpose - Visualization and Identification of Vasculature: No Needle Guage: 20 Narrative: Right radial arterial line placement by SALES CONTRACT ADMINISTRATOR Right Central Line Date of Procedure: 08/08/20 Time of Procedure: 07:12 Location of Patient: Phase I Preparation: Sterile Prep, Sterile Dressing Ultrasound Used: Yes Purpose - Visualization and Identification of Vasculature: Yes Needle Guage: 18 Image Stored and Saved: Yes Narrative: Central line placement per sterile protocol utilized. Right IJ identified on u/s and found to be patent. 1% lidocaine 5 ml for local. 18 g needle under u/s guidance into RIJ. Venous blood obtained. Wire passed and visualized on u/s. Catheter over wire w/o difficulty. Sutured in place and dressing applied. Right [place] Alexx Date of Procedure: 08/08/20 Time of Procedure: 07:22 Location of Patient: Phase I Preparation: Sterile Prep, Sterile Dressing Narrative: SWAN had ports flushed and balloon tested. Advanced to 20 cm and balloon inflated. SWAN advanced until RV and then PA waveform obtained. Balloon deflated and SWAN secured at 45 cm
[2020-08-08 09:03] LABS: ABG Base Excess 0.2 mmol/L; ABG Glucose Whole Blood 93 mg/dL (75-99); ABG HCO3 25 mmol/L (21-25); ABG Hematocrit 41 % (34.0-46.0); ABG Lactic Acid Whole Blood 0.9 mmol/L (0.5-1.6); ABG PCO2 42 mmHg (35-45); ABG PH 7.39 (7.35-7.45); ABG PO2 261 mmHg (83-108); ABG Potassium Whole Blood 4.5 mmol/L (3.4-4.5); ABG Sodium Whole Blood 137 mmol/L (135-146); ABG TCO2 27 mmol/L (19-24)
[2020-08-08] MEDS ORDERED: SODIUM CHLORIDE 0.9% 500 ML 500 ML with HEPARIN SODIUM,PORCINE 5,000 UNIT IV ONE ×2 (10:04)
[2020-08-08] MEDS ORDERED: ceFAZolin 1,000 MG in SODIUM CHLORIDE 0.9% 1,000 ML IRRIGATION ONE (10:05)
[2020-08-08 10:48] LABS: ABG Glucose Whole Blood 114 mg/dL (75-99); ABG HCO3 26 mmol/L (21-25); ABG Hematocrit 38 % (34.0-46.0); ABG Oxygen Saturation 98.5 % (94-97); ABG PCO2 64 mmHg (35-45); ABG PH 7.22 (7.35-7.45); ABG PO2 144 mmHg (83-108); ABG Potassium Whole Blood 4.5 mmol/L (3.4-4.5); ABG Sodium Whole Blood 137 mmol/L (135-146); ABG TCO2 28 mmol/L (19-24)
[2020-08-08 11:19] LABS: ABG Base Excess -3.1 mmol/L; ABG Glucose Whole Blood 118 mg/dL (75-99); ABG HCO3 25 mmol/L (21-25); ABG Hematocrit 38 % (34.0-46.0); ABG Lactic Acid Whole Blood 0.9 mmol/L (0.5-1.6); ABG Oxygen Saturation 98.6 % (94-97); ABG PCO2 60 mmHg (35-45); ABG PH 7.23 (7.35-7.45); ABG PO2 145 mmHg (83-108); ABG Potassium Whole Blood 4.4 mmol/L (3.4-4.5); ABG Sodium Whole Blood 138 mmol/L (135-146); ABG TCO2 27 mmol/L (19-24)
[2020-08-08] MEDS ORDERED: AMIODARONE 360 MG in DEXTROSE 5% IN WATER 200 ML IV ONE ×2 (12:00)
[2020-08-08] MEDS ORDERED: AMIODARONE 300 MG in DEXTROSE 5% IN WATER 250 ML IV PRN ×2 (13:44)
[2020-08-08] MEDS ORDERED: BENZOCAINE/MENTHOL LOZENG 1 EACH LOZENGE MUCOUS MEM PRN (13:44)
[2020-08-08] MEDS ORDERED: METOCLOPRAMIDE 5 MG/ML 2 ML VIAL IVP PRN (13:44)
[2020-08-08] MEDS ORDERED: ONDANSETRON 4 MG/2 ML VIAL IVP PRN (13:44)
[2020-08-08] MEDS ORDERED: hydrALAZINE HCL 20 MG/ML 1 ML VIAL IVP PRN (13:44)
[2020-08-08] MEDS ORDERED: Phosphorus Replacement Protoco 1 EACH MISC MISCELLANE PRN (13:44)
[2020-08-08] MEDS ORDERED: AMIODARONE 360 MG in DEXTROSE 5% IN WATER 200 ML IV PRN ×2 (13:44)
[2020-08-08] MEDS ORDERED: Potassium Replacement Protocol 1 EACH MISC MISCELLANE PRN (13:44)
[2020-08-08] MEDS ORDERED: Magnesium Replacement Protocol 1 EACH MISC MISCELLANE PRN (13:44)
[2020-08-08] MEDS ORDERED: CALCIUM GLUCONATE 2 GM in SODIUM CHLORIDE 0.9% 100 ML IVPB PRN (13:44)
[2020-08-08] MEDS ORDERED: MORPHINE SULFATE 2 MG/ML SYRINGE IVP PRN (13:44)
[2020-08-08] MEDS ORDERED: IPRATROPIUM-ALBUTEROL 3 ML NEB INHALATION PRN (13:44)
[2020-08-08] MEDS ORDERED: ALBUMIN HUMAN 5% 250 ML IVPB ONE (13:51)
[2020-08-08] MEDS ORDERED: ASPIRIN 300 MG SUPP RECTAL ONE (14:00)
[2020-08-08] MEDS ORDERED: DEXMEDETOMIDINE/0.9% NACL(PMX) 400 MCG in EMPTY BAG 1 BAG IV SCH (14:00)
[2020-08-08] MEDS: METOPROLOL TARTRATE 25 MG TAB PO SCH ×2 (14:06→20:26)
--- NOTE | 2020-08-08 14:20 | P.ANPRN ---
Procedure Note - Anesthesia - COY Intraop Pre Bypass COY Intraop - Anesthesia Indication: CABG Date of Procedure: 08/08/20 Pre-operative Diagnosis: CAD, MR, AI, Post-operative Diagnosis: Same Surgeon: Queenie Vasquez Left Ventricle: EF 40% Hypokinesis inferior, inferoseptal, anteroseptal and anterior bertrand Ejection Fraction: Other (EF 40%) Regional Wall Motion Abnormalities: Other (Hypokinesis inferior, inferoseptal, anteroseptal and anterior bertrand) Left Ventricle Hypertrophy: Yes R. Ventricle Function: Normal Anatomy: Trileaflet Aortic Stenosis: Mild Aortic Regurgitation: Mild Mitral Stenosis: None Mitral Regurgitation: Mild Tricuspid Stenosis: None Tricuspid Regurgitation: Trace Pulmonic Stenosis: None Pulmonic Regurgitation: None R. Atrial Dilation: No R. Atrial PFO: No L. Atrial Dilation: Yes Aortic Dissection: No Aortic Calcification: Severe Plural Effusion: None - COY Intraop Post Bypass COY Intraop Post Bypass Procedure Performed: Off pumb CABG Left Ventricle: EF 50% Ejection Fraction: Normal Regional Wall Motion Abnormalities: Other (inferior and inferoseptal hypokinesis) R. Ventricle Function: Normal Aortic Valve: Unchanged Mitral Valve: Unchanged Tricuspid: Unchanged Pulmonic: Unchanged Aortic Dissection: No
[2020-08-08 14:38] LABS: Glucose,Whole Blood 129 mg/dL (75-99)
[2020-08-08] MEDS: MILRINONE-D5W PMX 20 MG in DEXTROSE/WATER 1 100ML.BAG IV SCH ×2 (14:40→22:40)
[2020-08-08] MEDS: PHENYLEPHRINE 40 MG in SODIUM CHLORIDE 0.9% 250 ML IV SCH (14:40)
[2020-08-08] MEDS: SODIUM CHLORIDE 0.9% 1,000 ML IV SCH (14:44)
[2020-08-08 15:00] LABS: Albumin 3.7 g/dL (3.5-5.0); Calcium 9.3 mg/dL (8.4-10.2); Magnesium 2.3 mg/dL (1.6-2.3); Potassium 3.9 mmol/L (3.5-5.1); Total Bilirubin 1.2 mg/dL (0.2-1.3); Total Protein 5.4 g/dL (6.3-8.2)
[2020-08-08 15:02] LABS: INR 1.2 (<1.2); Partial Thromboplastin Time 29.4 sec (22.0-30.0); Prothrombin Time 12.3 sec (9.0-12.0)
[2020-08-08 15:03] LABS: Basophils % (A) 0 %; Eosinophils # (A) 0.1 k/uL (0-0.7); Eosinophils % (A) 1 %; HCT 35.5 % (39.0-53.0); Lymphocytes # (A) 1.2 k/uL (1.0-4.8); Lymphocytes % (A) 8 %; MCH 29.3 pg (25.0-35.0); MCV 91.5 fL (80.0-100.0); Mean Platelet Volume 10.5; Monocytes # (A) 0.7 k/uL (0-1.0); Monocytes % (A) 5 %; Neutrophils # (A) 12.5 k/uL (1.3-7.7); Neutrophils % (A) 86 %; Platelet Count 143 k/uL (150-450); RBC 3.88 m/uL (4.30-5.90); RDW 14.1 % (11.5-15.5); WBC 14.6 k/uL (3.8-10.6)
[2020-08-08 15:05] LABS: HGB 11.4 gm/dL (13.0-17.5)
[2020-08-08 15:05] LABS: ABG Base Excess -1.6 mmol/L; ABG HCO3 24 mmol/L (21-25); ABG PCO2 44 mmHg (35-45); ABG PH 7.35 (7.35-7.45); ABG PO2 245 mmHg (83-108); ABG TCO2 25 mmol/L (19-24)
--- NOTE | 2020-08-08 15:05 | XR ---
EXAMINATION TYPE: XR chest 1V portable DATE OF EXAM: 08/08/2020 COMPARISON: 08/02/2020 HISTORY: Postop TECHNIQUE: Single frontal view of the chest is obtained. FINDINGS: ET tube approximately 3 cm above igor. NG tube seen extending into the abdomen. [place] z catheter tip overlying proximal pulmonary outflow tract. No sizable pneumothorax. Diffuse interstit ial pattern with bilateral effusions and consolidation. A questionable left-sided chest tube and medi astinal drain. Postoperative changes noted. IMPRESSION: 1. Postoperative changes with findings suggestive of CHF.
[2020-08-08 15:10] LABS: Allen Test Performed? no
[2020-08-08 15:14] LABS: Glucose,Whole Blood 122 mg/dL (75-99)
[2020-08-08 15:53] LABS: Ionized Calcium 5.2 mg/dL (4.5-5.3)
[2020-08-08] MEDS ORDERED: IPRATROPIUM-ALBUTEROL 3 ML NEB INHALATION SCH (16:00)
[2020-08-08 16:07] LABS: Glucose,Whole Blood 132 mg/dL (75-99)
--- NOTE | 2020-08-08 16:47 | PN ---
PROGRESS NOTE This is a patient who was admitted back on August 02. He came with a pcr-CL-[id number]- elevation myocardial infarction. Catheterization revealed three-vessel coronary artery disease. Today he underwent bypass grafting. He had a 2-vessel bypass. Today is postoperative day number zero. Currently, he is on the SIMV mode rate of 12, tidal volume 600, FiO2 of 50%, PEEP of 5. PSV is 5. His blood gases were 245 for a pO2, 44 for pCO2 and a pH of 7.35. Those gases were done on 100%. The FiO2 was reduced to 50%. In addition, he is on a PEEP of 5. I reviewed his drips. He is on propofol at 20 mcg/kg per minute, saline at 50 mL/hour, nitroglycerin at 5 mcg/minute, Kenny- Synephrine at 0.4 mcg/kg per minute, Primacor 0.2 mcg/kg per minute and insulin drip at [address] Vasquez was the surgeon. He is resting comfortably. I have not had chance to look at the post-OR x-rays yet. PHYSICAL EXAMINATION: VITAL SIGNS: Current vital signs are reviewed. Temperature is 97.7, heart rate 87, respiratory rate is 12, blood pressure 127/76, saturations are 96%. GENERAL APPEARANCE: Appears in no acute distress. Currently sedated on propofol. HEENT: Examination is grossly unremarkable. NECK: Supple. Full range of motion. No adenopathy. CARDIOVASCULAR: Examination reveals distant heart sounds. Heart rate in the mid 70s. S1, S2 normal. LUNGS: A few scattered rhonchi. No wheezes or crackles. ABDOMEN: Soft. Bowel sounds are heard. EXTREMITIES are intact. No cyanosis, clubbing or edema. SKIN: Without rash. NEUROLOGIC: Neurologic examination cannot be adequately assessed. LABS/IMAGING: Reviewed. White count 14.6, hemoglobin 0.4, hematocrit 35.5, platelet count 143,000. PT and INR were 12.3 and 1.2. Blood gases have been noted. Sodium, potassium, chloride and CO2 all normal. Anion gap 8. BUN and creatinine were 18 and 0.95. Most recent glucose was 122, total protein 5.4. Chest x-ray shows an endotracheal tube about 3 cm above the tracheal igor. There is an NG tube. Catheter tips and chest tubes are noted. ASSESSMENT: 1. Postoperative day #0, status post off-pump two-vessel bypass grafting. 2. Routine postoperative ventilator management. 3. History of ipj-KE-gucucxi-elevation myocardial infarction. 4. Multivessel coronary artery disease. 5. Ischemic cardiomyopathy with an ejection fraction of 40% to 45%. 6. Previous history of chronic tobacco dependence. 7. Chronic obstructive pulmonary disease, mild. 8. 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 9. History of prostate cancer, status post prostatectomy. PLAN: The patient is doing well. No additional recommendations are made. Will continue to follow. The FiO2 was reduced from 100% to 50%. Hopefully get the patient moving towards weaning and extubation. He is on a number of drips currently, including propofol at 20 mcg/kg per minute, nitroglycerin at 5 mcg/minute, Kenny-synephrine at 0.4 mcg/kg per minute, Primacor 0.2 mcg/kg per minute, insulin at 1 unit/hour and 0.9 at 50 mL/hour. Additional recommendations and suggestions are forthcoming. Critical care time 30 minutes. MMODL / IJN: [id number] / EMILIA
[2020-08-08 16:55] LABS: ABG Base Excess -2.8 mmol/L; ABG HCO3 24 mmol/L (21-25); ABG Oxygen Saturation 96.9 % (94-97); ABG PCO2 49 mmHg (35-45); ABG PO2 89 mmHg (83-108); ABG TCO2 25 mmol/L (19-24)
[2020-08-08 16:58] LABS: Allen Test Performed? no
[2020-08-08] MEDS: ACETAMINOPHEN IV (For NPO) 1,000 MG in EMPTY BAG 1 BAG IVPB SCH ×2 (17:13→23:03)
[2020-08-08 17:28] LABS: Glucose,Whole Blood 150 mg/dL (75-99)
[2020-08-08] MEDS ORDERED: AMIODARONE 300 MG in DEXTROSE 5% IN WATER 250 ML IV SCH ×2 (18:00)
[2020-08-08 18:16] LABS: Glucose,Whole Blood 149 mg/dL (75-99)
[2020-08-08] MEDS: POTASSIUM CHLORIDE 10 MEQ in WATER FOR INJECTION 1 100ML.BAG IVPB SCH ×2 (18:18→19:43)
[2020-08-08] MEDS: KETOROLAC 15 MG/ML 1 ML VIAL IVP SCH ×2 (18:18→23:27)
[2020-08-08 18:54] LABS: Basophils % (A) 0 %; Eosinophils % (A) 0 %; HCT 33.3 % (39.0-53.0); HGB 10.7 gm/dL (13.0-17.5); Lymphocytes # (A) 0.4 k/uL (1.0-4.8); Lymphocytes % (A) 3 %; MCH 29.7 pg (25.0-35.0); MCHC 32.2 g/dL (31.0-37.0); MCV 92.2 fL (80.0-100.0); Mean Platelet Volume 10.9; Monocytes # (A) 0.6 k/uL (0-1.0); Monocytes % (A) 6 %; Neutrophils # (A) 10.5 k/uL (1.3-7.7); Neutrophils % (A) 90 %; Platelet Count 156 k/uL (150-450); RBC 3.61 m/uL (4.30-5.90); RDW 14.2 % (11.5-15.5); WBC 11.7 k/uL (3.8-10.6)
[2020-08-08 19:07] LABS: Glucose,Whole Blood 138 mg/dL (75-99)
--- NOTE | 2020-08-08 19:44 | OP ---
OPERATIVE REPORT DATE OF SURGERY: 08/08/2020. SURGEON: Dr. Queenie Vasquez. ASSISTANTS: 1. ANNABELLA Worley. 2. Adrianne Corona. 3. ANNABELLA Hogue. PREOPERATIVE DIAGNOSES: 1. Qat-HO-lcosrdusn myocardial infarction. 2. Moderate left ventricular dysfunction. 3. Obesity. 4. Moderate carotid stenosis. 5. Calcified ascending aorta. POSTOPERATIVE DIAGNOSES: 1. Cla-YJ-idgpakojx myocardial infarction. 2. Moderate left ventricular dysfunction. 3. Obesity. 4. Moderate carotid stenosis. 5. Calcified ascending aorta. 6. Very friable tissues. PROCEDURE: 1. Off-pump double coronary artery bypass grafting using the left internal mammary artery to the left anterior descending artery, reverse saphenous vein graft connected to the aorta using the Passport device connected distally to the posterior descending artery. 2. Endoscopic harvesting of the left greater saphenous vein. 3. Intraoperative graft flow measurements using the Confidex-Stim system. 4. Intraoperative transesophageal echocardiogram and epiaortic scanning. INDICATION FOR SURGERY: This patient is an 85-year-old gentleman who presented several days ago and was taken to the bundle tier and labeler and was found to have an occluded RCA collateralized from the left side. He had significant disease in his proximal LAD and moderate disease in the groove circumflex artery beyond the takeoff of the first obtuse marginal artery. His ejection fraction was estimated at around 40%. The patient was cooled off and preoperative testing on duplex ultrasound raised the suspicion of severe right internal carotid artery stenosis. A CTA of the neck was made and that showed that the right ICA stenosis was actually not as severe and estimated at around 70%. However, we completed the test with a CT chest that showed several patchy calcifications of the ascending aorta, precluding any plan for clamping. Plan is to proceed with a beating heart strategy to bypass his LAD, posterior descending artery and distal circumflex artery. The increased risks by STS calculation were discussed with him and his family. They understood it and agreed to proceed. DESCRIPTION OF THE PROCEDURE: With the patient in supine position, right internal jugular [place]-Alexx catheter and right radial arterial line were placed. Cardiac index was 2. PA pressure was 50/20. Subsequently general endotracheal anesthesia was induced uneventfully. A Osorio catheter was inserted. The chest, abdomen and both lower extremities were prepped and draped using ChloraPrep. Ioban was used to cover the skin. Patient received 2 grams of cefazolin intravenously. We started a milrinone drip at this point to improve hemodynamics and help decompress the heart. Transesophageal echocardiogram showed anterior hypokinesia and severe inferior hypokinesia with mild mitral valve regurgitation. The lateral wall had good function. Midline sternotomy was performed and the bone was profusely bleeding and was moderately osteoporotic. The left hemisternum was elevated and left internal mammary artery was harvested in a somewhat skeletonized fashion. The patient was given 5000 units of heparin. The mammary artery was transected distally after being clipped and had an excellent pulsatile flow in it and was around 2 mm in diameter. The left pleura was intentionally opened in this process and was drained with a 19-[place]zer[place] Bucky drain. The right pleura remained intact. In the same setting, the left greater saphenous vein was harvested endoscopically from groin to above the ankle level. The leg incisions were closed over a drain. The vein was repaired on the back table and all the branches tied. The vein appeared to be of reasonable quality, around 4 mm in diameter. Mediastinal fat was transected between 2 ties. Epiaortic scanning confirmed the preoperative findings of severe aortic wall disease. No protruding atheromas. Pericardium was opened in an inverted T-fashion and a pericardial cradle was created. Findings included a calcified aorta and an enlarged heart with visible diffuse calcific coronary artery disease. The Acrobat system along with the Mister/blower were used to perform the surgery on the beating heart. Initial attempt to put an Xpose device on the apex resulted in major sloughing of the epicardial fat, as the tissues were very friable. I used a sling tied to the posterior pericardium for exposure. The patient was given heparin to achieve an AC above 250 seconds. The heparin was supplemented every 20 minutes if needed. The first distal anastomosis was between the left internal mammary artery and the mid to distal aspect of the left anterior descending artery which was opened deep, and the epicardial fat was around 1.7 mm in diameter with wall disease. It accepted a 1.5 mm shunt, had profuse flow in it using Prolene 7-0 in continuous fashion. The mammary veins on either side of the pedicle were affixed to the epicardium. Graft flow measurements at this point revealed excellent flow parameters at 50 mL/minute, pulsatility index of 2.2, and diastolic filling of 78%, showing an excellent functioning graft. At this point, attention was moved to exposing the inferior wall. The patient was very irritable and he had one episode of ventricular fibrillation that required one single DCC and regained stable hemodynamics very quickly with no change in his EKG. The COY had showed improved anterior wall function. We temporized a bit and I gave the patient amiodarone before re-exposing the inferior wall and the PDA which was a diffusely diseased vessel. A spot in its proximal aspect was selected. A piece of vein was measured to length and was loaded on the Passport device and was deployed on the anterior aspect of the very proximal aspect of the aorta where there was a soft wall. That proximal anastomosis was hemostatic. There was excellent flow from the distal end of the vein. Subsequently, the second distal anastomosis between the vein and the posterior descending artery which was opened accepted the 1.5 mm shunt using Prolene 7- 0 in continuous fashion that was performed. Graft flow measurements also revealed excellent parameters. The flow was 163 mL/minute, pulsatility index of 1.2, and diastolic filling of 60%, showing an excellent functioning graft. At this point, the plan was to proceed and see if we could bypass the distal circumflex artery. The sloughed epicardial area over the apex and the upper anterolateral wall was profusely bleeding with venous blood. There was no way we could expose this enlarged heart adequately without endangering and jeopardizing further all this area of friable tissue. With two good functioning grafts to the anterior wall and the inferior wall and a patent first obtuse marginal artery and a potentially stentable main circumflex artery leading to the distal circumflex artery, the decision was made in the circumstances to leave that vessel. With that, half-dose protamine was given. Pericardial fat was approximated over the heart and aorta. Subsequently the sternum was closed using 6 [id number] pineal cables after interposing Fibrillar between the sternal edges. Thorough irrigation with cefazolin followed. The rest of the closure proceeded in layers. COY showed improved anterior and mildly improved inferior wall function. However, there was still some residual inferior hypokinesia. The patient was transferred to the ICU in stable condition on low-dose Primacor and Levophed. His PA pressure was 30/20, mean arterial pressure of 74, normal sinus rhythm at 86 with normal EKG. Patient received 500 mL of Cell Saver blood and did not receive any blood bank product. MMODL / IJN: [id number] / AFTABD
[2020-08-08 20:01] LABS: Glucose,Whole Blood 133 mg/dL (75-99)
[2020-08-08 20:09] LABS: Basophils % (A) 0 %; Eosinophils % (A) 0 %; HCT 32.7 % (39.0-53.0); HGB 10.8 gm/dL (13.0-17.5); Lymphocytes # (A) 0.3 k/uL (1.0-4.8); Lymphocytes % (A) 3 %; MCH 30.2 pg (25.0-35.0); MCV 91.5 fL (80.0-100.0); Monocytes # (A) 0.7 k/uL (0-1.0); Monocytes % (A) 7 %; Neutrophils # (A) 9.2 k/uL (1.3-7.7); Neutrophils % (A) 89 %; Platelet Count 147 k/uL (150-450); RBC 3.57 m/uL (4.30-5.90); WBC 10.4 k/uL (3.8-10.6)
[2020-08-08] MEDS: ALBUMIN HUMAN 5% 250 ML in EMPTY BAG 1 BAG IVPB PRN (20:18)
[2020-08-08] MEDS: ATORVASTATIN 80 MG TAB PO SCH (20:26)
[2020-08-08] MEDS: IPRATROPIUM-ALBUTEROL 3 ML NEB INHALATION SCH ×2 (20:57)
[2020-08-08 21:05] LABS: Glucose,Whole Blood 126 mg/dL (75-99)
[2020-08-08] MEDS: MUPIROCIN 2% OINT 22 GM TUBE NASAL SCH (21:09)
[2020-08-08] MEDS: HEPARIN SODIUM,PORCINE 5,000 UNIT/ML 1 ML VIAL SQ SCH (21:19)
[2020-08-08 22:05] LABS: Glucose,Whole Blood 127 mg/dL (75-99)
[2020-08-08 23:10] LABS: Glucose,Whole Blood 116 mg/dL (75-99)
[2020-08-08 23:57] LABS: Glucose,Whole Blood 115 mg/dL (75-99)
[2020-08-09] MEDS: ALBUMIN HUMAN 5% 250 ML in EMPTY BAG 1 BAG IVPB PRN ×2 (00:55→06:19)
[2020-08-09 01:03] LABS: Glucose,Whole Blood 114 mg/dL (75-99)
[2020-08-09] MEDS ORDERED: HYDROcodone/APAP 5-325MG 1 EACH TAB PO PRN (01:26)
[2020-08-09 01:56] LABS: Glucose,Whole Blood 110 mg/dL (75-99)
[2020-08-09 02:57] LABS: Glucose,Whole Blood 109 mg/dL (75-99)
[2020-08-09] MEDS: HYDROcodone/APAP 5-325MG 1 EACH TAB PO PRN ×2 (03:22→04:07)
[2020-08-09 03:51] LABS: Anisocytosis Slight; Basophils % (A) 0 %; Eosinophils % (A) 0 %; HCT 31.5 % (39.0-53.0); HGB 10.8 gm/dL (13.0-17.5); Lymphocytes # (A) 0.8 k/uL (1.0-4.8); Lymphocytes % (A) 7 %; MCH 31.9 pg (25.0-35.0); MCHC 34.2 g/dL (31.0-37.0); MCV 93.1 fL (80.0-100.0); Mean Platelet Volume 10.7; Monocytes # (A) 0.8 k/uL (0-1.0); Monocytes % (A) 7 %; Neutrophils # (A) 9.6 k/uL (1.3-7.7); Neutrophils % (A) 85 %; Platelet Count 179 k/uL (150-450); RBC 3.39 m/uL (4.30-5.90); RDW 16.7 % (11.5-15.5); WBC 11.3 k/uL (3.8-10.6)
[2020-08-09 03:55] LABS: Ionized Calcium 4.8 mg/dL (4.5-5.3)
[2020-08-09 04:05] LABS: Glucose,Whole Blood 107 mg/dL (75-99)
[2020-08-09 04:15] LABS: Albumin 3.5 g/dL (3.5-5.0); Calcium 8.5 mg/dL (8.4-10.2); Magnesium 1.9 mg/dL (1.6-2.3); Potassium 4.9 mmol/L (3.5-5.1); Total Bilirubin 1.3 mg/dL (0.2-1.3); Total Protein 5.2 g/dL (6.3-8.2)
[2020-08-09] MEDS: PHENYLEPHRINE 40 MG in SODIUM CHLORIDE 0.9% 250 ML IV SCH ×3 (04:33→22:08)
[2020-08-09 05:05] LABS: Glucose,Whole Blood 105 mg/dL (75-99)
[2020-08-09] MEDS: MAGNESIUM SULFATE-D5W PMX 1 GM in DEXTROSE/WATER 1 100ML.BAG IVPB SCH ×2 (05:07→06:14)
[2020-08-09] MEDS: KETOROLAC 15 MG/ML 1 ML VIAL IVP SCH ×4 (05:43→23:20)
[2020-08-09 06:12] LABS: Glucose,Whole Blood 115 mg/dL (75-99)
[2020-08-09 06:58] LABS: Glucose,Whole Blood 124 mg/dL (75-99)
--- NOTE | 2020-08-09 08:19 | XR ---
EXAMINATION TYPE: XR chest 1V portable DATE OF EXAM: 08/09/2020 COMPARISON: Prior chest x-ray 08/08/2020 HISTORY: Postop cardiac surgery, abnormal chest x-ray, extubated TECHNIQUE: Single frontal view of the chest is obtained. FINDINGS: This been interval removal of endotracheal and orogastric tubes. Left-sided chest tube, ri ght jugular central venous catheter remain in place, suspect is a median sternal drain. Heart is enla rged. Lung volumes are low and the patient is rotated. Interstitium is prominent, suspect underlying mixed airspace disease. No evident pneumothorax. IMPRESSION: Expiratory exam, correlate for interstitial edema and congestive failure, atelectasis, d ifficult to exclude pneumonia. Follow-up is suggested.
[2020-08-09 08:43] LABS: Glucose,Whole Blood 118 mg/dL (75-99)
[2020-08-09] MEDS: IPRATROPIUM-ALBUTEROL 3 ML NEB INHALATION SCH ×4 (08:44→20:44)
[2020-08-09 08:45] VITALS: BMI 26.0
[2020-08-09] MEDS ORDERED: PANTOPRAZOLE 40 MG/10 ML VIAL IVP SCH (09:00)
[2020-08-09] MEDS ORDERED: MAGNESIUM HYDROXIDE 2,400 MG/10 ML CUP PO PRN (09:00)
[2020-08-09] MEDS ORDERED: bisacodyL 10 MG SUPP RECTAL PRN (09:00)
--- NOTE | 2020-08-09 09:15 | P.PN ---
Subjective Progress Note Date: 08/09/20 Principal diagnosis: Non-ST segment elevation myocardial infarction The patient is seen today 08/09/2020 in follow-up in the intensive care unit. This is a very pleasant 85-year-old gentleman who was admitted with a non-ST segment elevation myocardial infarction. He is found to have significant coronary artery disease and had undergone an off-pump double coronary artery bypass surgery using the LUCERO to the LAD and reverse saphenous vein graft to the distal posterior descending artery. This is postoperative day #1. He was successfully extubated within 3 hours after leaving the OR. He is currently sitting up in a chair at the bedside. Awake and alert in no acute distress. Maintaining O2 saturation in the 90s on 7 L high flow nasal cannula. He is afebrile. Current blood pressure 121/44, PA pressures 32/17, CVP 15. Chest x- ray reveals evidence of some mild fluid volume overload, atelectasis. He is currently receiving 0.9 normal saline at 50 MLS per hour. He is on Kenny- Synephrine at 0.7 mcg/kg/m. Insulin drip is off. He remains on bronchodilators. Working well with the incentive spirometer. Maintaining a regular rhythm. White count 11.3. Hemoglobin 10.8. Sodium 134. Potassium 4.9. Creatinine 1.13. Objective - Vital Signs Vital signs: Vital Signs Temp 98.6 F 08/09/20 08:00 Pulse 85 08/09/20 08:00 Resp 18 08/09/20 08:00 BP 111/57 08/09/20 08:00 Pulse Ox 94 L 08/09/20 08:00 Intake & Output 08/08/20 08/09/20 08/09/20 18:59 06:59 18:59 Intake Total 6529.086 9961.134 198.21 Output Total 3732 1295 125 Balance -2639.537 249.134 73.21 Weight 94.5 kg 94.5 kg Intake: IV 376 770 150 .9@20 540 100 CO/CI 370 230 50 Intake, IV Titration 716.463 374.134 48.21 Amount ACETAMINOPHEN IV (For NPO 100 ) 1,000 mg In Empty Bag 1 bag @ 400 mls/hr IVPB Q6HR [facility] Rx#:[id number] Albumin Human 5% 250 ml @ 250 0 mls/hr IVPB .[facility] Rx#:[id number] Insulin Regular 100 unit 5.067 7.238 In Sodium Chloride 0.9% 100 ml @ Per Protocol IV .Q0M [facility] Rx#:[id number] Milrinone-D5w Pmx 20 mg 54.990 23.31 In Dextrose/Water 1 100ml .bag @ 0.2 MCG/KG/MIN 5.4 mls/hr IV .[id number] [facility] Rx#:[id number] Nitroglycerin-D5w Pmx 50 24.9 mg In Dextrose/Water 1 250ml.bag @ 5 MCG/MIN 1.5 mls/hr IV .Q24H [facility] Rx#: [id number] Phenylephrine 40 mg In 0.686 161.906 Sodium Chloride 0.9% 250 ml @ 0.7 MCG/KG/MIN 24. 003 mls/hr IV .[id number] [facility] Rx#:[id number] Potassium Chloride 10 meq 100 100 In Water For Injection 1 100ml.bag @ 100 mls/hr IVPB Q1H [facility] Rx#: [id number] Sodium Chloride 0.9% 1, 150 50 000 ml @ 50 mls/hr IV . Q20H [facility] Rx#:[id number] ceFAZolin 2 gm In Sodium 100 Chloride 0.9% 50 ml @ 100 mls/hr IVPB Q8HR [facility] Rx# :[id number] propofoL 1,000 mg In 10.71 Empty Bag 1 bag @ Titrate IV .Q0M [facility] Rx#: [id number] Tube Feeding 400 Output: Chest Tube Drainage 660 870 65 L Plueral 410 620 60 Mediastinal x2 250 250 5 Urine 1872 425 60 Estimated Blood Loss 1200 Other: Voiding Method Indwelling Catheter Indwelling Catheter Indwelling Catheter # Bowel Movements 0 ABP, PAP, CO, CI - Last Documented Arterial Blood Pressure 121/44 Pulmonary Artery Pressure 32/17 Cardiac Output 7.3 Cardiac Index 3.3 - Exam GENERAL EXAM: Alert, very pleasant 85-year-old gentleman, on 7 L high flow nasal cannula, comfortable in no apparent distress. HEAD: Normocephalic. EYES: Normal reaction of pupils, equal size. NOSE: Clear with pink turbinates. THROAT: No erythema or exudates. NECK: No masses, no JVD. CHEST: Sternal dressing dry and intact. Her are in place. Chest tubes secured in place LUNGS: Equal air entry with crackles in the bilateral posterior bases. CVS: S1 and S2 normal with no audible murmur, regular rhythm. ABDOMEN: No hepatosplenomegaly, normal bowel sounds, no guarding or rigidity. SPINE: No scoliosis or deformity SKIN: No rashes CENTRAL NERVOUS SYSTEM: No focal deficits, tone is normal in all 4 extremities. EXTREMITIES: There is trace peripheral edema. No clubbing, no cyanosis. Peripheral pulses are intact. - Labs CBC & Chem 7: 08/09/20 03:50 08/09/20 03:40 Labs: Abnormal Lab Results - Last 24 Hours (Table) 08/07/20 08/08/20 08/08/20 Range/Units 07:31 09:08 10:53 WBC (3.8-10.6) k/uL RBC (4.30-5.90) m/uL Hgb (13.0-17.5) gm/dL Hct (39.0-53.0) % RDW (11.5-15.5) % Plt Count (150-450) k/uL Neutrophils # (1.3-7.7) k/uL Lymphocytes # (1.0-4.8) k/uL PT (9.0-12.0) sec INR (<1.2) ABG pH 7.22 L (7.35-7.45) ABG pCO2 64 H (35-45) mmHg ABG pO2 261 H 144 H (83-108) mmHg ABG HCO3 26 H (21-25) mmol/L ABG Total CO2 27 H 28 H (19-24) mmol/L ABG O2 Saturation 100.0 H 98.5 H (94-97) % ABG Glucose 114 H (75-99) mg/dL Hemoglobin 12.4 L (13.0-17.5) gm/dL Sodium (137-145) mmol/L BUN (9-20) mg/dL Glucose (74-99) mg/dL POC Glucose (mg/dL) (75-99) mg/dL Alkaline Phosphatase (38-126) U/L Total Protein (6.3-8.2) g/dL Arterial Blood Glucose 114 H (75-99) mg/dL Crossmatch See Detail 08/08/20 08/08/20 08/08/20 Range/Units 11:24 14:31 14:31 WBC 14.6 H (3.8-10.6) k/uL RBC 3.88 L (4.30-5.90) m/uL Hgb 11.4 L D (13.0-17.5) gm/dL Hct 35.5 L (39.0-53.0) % RDW (11.5-15.5) % Plt Count 143 L (150-450) k/uL Neutrophils # 12.5 H (1.3-7.7) k/uL Lymphocytes # (1.0-4.8) k/uL PT 12.3 H (9.0-12.0) sec INR 1.2 H (<1.2) ABG pH 7.23 L (7.35-7.45) ABG pCO2 60 H (35-45) mmHg ABG pO2 145 H (83-108) mmHg ABG HCO3 (21-25) mmol/L ABG Total CO2 27 H (19-24) mmol/L ABG O2 Saturation 98.6 H (94-97) % ABG Glucose 118 H (75-99) mg/dL Hemoglobin 12.5 L (13.0-17.5) gm/dL Sodium (137-145) mmol/L BUN (9-20) mg/dL Glucose (74-99) mg/dL POC Glucose (mg/dL) (75-99) mg/dL Alkaline Phosphatase (38-126) U/L Total Protein (6.3-8.2) g/dL Arterial Blood Glucose 118 H (75-99) mg/dL Crossmatch 08/08/20 08/08/20 08/08/20 Range/Units 14:31 14:32 14:57 WBC (3.8-10.6) k/uL RBC (4.30-5.90) m/uL Hgb (13.0-17.5) gm/dL Hct (39.0-53.0) % RDW (11.5-15.5) % Plt Count (150-450) k/uL Neutrophils # (1.3-7.7) k/uL Lymphocytes # (1.0-4.8) k/uL PT (9.0-12.0) sec INR (<1.2) ABG pH (7.35-7.45) ABG pCO2 (35-45) mmHg ABG pO2 245 H (83-108) mmHg ABG HCO3 (21-25) mmol/L ABG Total CO2 25 H (19-24) mmol/L ABG O2 Saturation 100.0 H (94-97) % ABG Glucose (75-99) mg/dL Hemoglobin (13.0-17.5) gm/dL Sodium (137-145) mmol/L BUN (9-20) mg/dL Glucose 128 H (74-99) mg/dL POC Glucose (mg/dL) 129 H (75-99) mg/dL Alkaline Phosphatase (38-126) U/L Total Protein 5.4 L (6.3-8.2) g/dL Arterial Blood Glucose (75-99) mg/dL Crossmatch 08/08/20 08/08/20 08/08/20 Range/Units 15:03 15:56 16:54 WBC (3.8-10.6) k/uL RBC (4.30-5.90) m/uL Hgb (13.0-17.5) gm/dL Hct (39.0-53.0) % RDW (11.5-15.5) % Plt Count (150-450) k/uL Neutrophils # (1.3-7.7) k/uL Lymphocytes # (1.0-4.8) k/uL PT (9.0-12.0) sec INR (<1.2) ABG pH 7.30 L (7.35-7.45) ABG pCO2 49 H (35-45) mmHg ABG pO2 (83-108) mmHg ABG HCO3 (21-25) mmol/L ABG Total CO2 25 H (19-24) mmol/L ABG O2 Saturation (94-97) % ABG Glucose (75-99) mg/dL Hemoglobin (13.0-17.5) gm/dL Sodium (137-145) mmol/L BUN (9-20) mg/dL Glucose (74-99) mg/dL POC Glucose (mg/dL) 122 H 132 H (75-99) mg/dL Alkaline Phosphatase (38-126) U/L Total Protein (6.3-8.2) g/dL Arterial Blood Glucose (75-99) mg/dL Crossmatch 08/08/20 08/08/20 08/08/20 Range/Units 17:22 18:10 18:50 WBC 11.7 H (3.8-10.6) k/uL RBC 3.61 L (4.30-5.90) m/uL Hgb 10.7 L (13.0-17.5) gm/dL Hct 33.3 L (39.0-53.0) % RDW (11.5-15.5) % Plt Count (150-450) k/uL Neutrophils # 10.5 H (1.3-7.7) k/uL Lymphocytes # 0.4 L (1.0-4.8) k/uL PT (9.0-12.0) sec INR (<1.2) ABG pH (7.35-7.45) ABG pCO2 (35-45) mmHg ABG pO2 (83-108) mmHg ABG HCO3 (21-25) mmol/L ABG Total CO2 (19-24) mmol/L ABG O2 Saturation (94-97) % ABG Glucose (75-99) mg/dL Hemoglobin (13.0-17.5) gm/dL Sodium (137-145) mmol/L BUN (9-20) mg/dL Glucose (74-99) mg/dL POC Glucose (mg/dL) 150 H 149 H (75-99) mg/dL Alkaline Phosphatase (38-126) U/L Total Protein (6.3-8.2) g/dL Arterial Blood Glucose (75-99) mg/dL Crossmatch 08/08/20 08/08/20 08/08/20 Range/Units 18:58 19:59 20:00 WBC (3.8-10.6) k/uL RBC 3.57 L (4.30-5.90) m/uL Hgb 10.8 L (13.0-17.5) gm/dL Hct 32.7 L (39.0-53.0) % RDW (11.5-15.5) % Plt Count 147 L (150-450) k/uL Neutrophils # 9.2 H (1.3-7.7) k/uL Lymphocytes # 0.3 L (1.0-4.8) k/uL PT (9.0-12.0) sec INR (<1.2) ABG pH (7.35-7.45) ABG pCO2 (35-45) mmHg ABG pO2 (83-108) mmHg ABG HCO3 (21-25) mmol/L ABG Total CO2 (19-24) mmol/L ABG O2 Saturation (94-97) % ABG Glucose (75-99) mg/dL Hemoglobin (13.0-17.5) gm/dL Sodium (137-145) mmol/L BUN (9-20) mg/dL Glucose (74-99) mg/dL POC Glucose (mg/dL) 138 H 133 H (75-99) mg/dL Alkaline Phosphatase (38-126) U/L Total Protein (6.3-8.2) g/dL Arterial Blood Glucose (75-99) mg/dL Crossmatch 08/08/20 08/08/20 08/08/20 Range/Units 21:02 22:03 23:07 WBC (3.8-10.6) k/uL RBC (4.30-5.90) m/uL Hgb (13.0-17.5) gm/dL Hct (39.0-53.0) % RDW (11.5-15.5) % Plt Count (150-450) k/uL Neutrophils # (1.3-7.7) k/uL Lymphocytes # (1.0-4.8) k/uL PT (9.0-12.0) sec INR (<1.2) ABG pH (7.35-7.45) ABG pCO2 (35-45) mmHg ABG pO2 (83-108) mmHg ABG HCO3 (21-25) mmol/L ABG Total CO2 (19-24) mmol/L ABG O2 Saturation (94-97) % ABG Glucose (75-99) mg/dL Hemoglobin (13.0-17.5) gm/dL Sodium (137-145) mmol/L BUN (9-20) mg/dL Glucose (74-99) mg/dL POC Glucose (mg/dL) 126 H 127 H 116 H (75-99) mg/dL Alkaline Phosphatase (38-126) U/L Total Protein (6.3-8.2) g/dL Arterial Blood Glucose (75-99) mg/dL Crossmatch 08/08/20 08/09/20 08/09/20 Range/Units 23:56 01:01 01:53 WBC (3.8-10.6) k/uL RBC (4.30-5.90) m/uL Hgb (13.0-17.5) gm/dL Hct (39.0-53.0) % RDW (11.5-15.5) % Plt Count (150-450) k/uL Neutrophils # (1.3-7.7) k/uL Lymphocytes # (1.0-4.8) k/uL PT (9.0-12.0) sec INR (<1.2) ABG pH (7.35-7.45) ABG pCO2 (35-45) mmHg ABG pO2 (83-108) mmHg ABG HCO3 (21-25) mmol/L ABG Total CO2 (19-24) mmol/L ABG O2 Saturation (94-97) % ABG Glucose (75-99) mg/dL Hemoglobin (13.0-17.5) gm/dL Sodium (137-145) mmol/L BUN (9-20) mg/dL Glucose (74-99) mg/dL POC Glucose (mg/dL) 115 H 114 H 110 H (75-99) mg/dL Alkaline Phosphatase (38-126) U/L Total Protein (6.3-8.2) g/dL Arterial Blood Glucose (75-99) mg/dL Crossmatch 08/09/20 08/09/20 08/09/20 Range/Units 02:55 03:40 03:50 WBC 11.3 H (3.8-10.6) k/uL RBC 3.39 L (4.30-5.90) m/uL Hgb 10.8 L (13.0-17.5) gm/dL Hct 31.5 L (39.0-53.0) % RDW 16.7 H (11.5-15.5) % Plt Count (150-450) k/uL Neutrophils # 9.6 H (1.3-7.7) k/uL Lymphocytes # 0.8 L (1.0-4.8) k/uL PT (9.0-12.0) sec INR (<1.2) ABG pH (7.35-7.45) ABG pCO2 (35-45) mmHg ABG pO2 (83-108) mmHg ABG HCO3 (21-25) mmol/L ABG Total CO2 (19-24) mmol/L ABG O2 Saturation (94-97) % ABG Glucose (75-99) mg/dL Hemoglobin (13.0-17.5) gm/dL Sodium 134 L (137-145) mmol/L BUN 21 H (9-20) mg/dL Glucose 109 H (74-99) mg/dL POC Glucose (mg/dL) 109 H (75-99) mg/dL Alkaline Phosphatase 36 L (38-126) U/L Total Protein 5.2 L (6.3-8.2) g/dL Arterial Blood Glucose (75-99) mg/dL Crossmatch 08/09/20 08/09/20 08/09/20 Range/Units 04:03 05:03 06:11 WBC (3.8-10.6) k/uL RBC (4.30-5.90) m/uL Hgb (13.0-17.5) gm/dL Hct (39.0-53.0) % RDW (11.5-15.5) % Plt Count (150-450) k/uL Neutrophils # (1.3-7.7) k/uL Lymphocytes # (1.0-4.8) k/uL PT (9.0-12.0) sec INR (<1.2) ABG pH (7.35-7.45) ABG pCO2 (35-45) mmHg ABG pO2 (83-108) mmHg ABG HCO3 (21-25) mmol/L ABG Total CO2 (19-24) mmol/L ABG O2 Saturation (94-97) % ABG Glucose (75-99) mg/dL Hemoglobin (13.0-17.5) gm/dL Sodium (137-145) mmol/L BUN (9-20) mg/dL Glucose (74-99) mg/dL POC Glucose (mg/dL) 107 H 105 H 115 H (75-99) mg/dL Alkaline Phosphatase (38-126) U/L Total Protein (6.3-8.2) g/dL Arterial Blood Glucose (75-99) mg/dL Crossmatch 08/09/20 08/09/20 Range/Units 06:54 08:32 WBC (3.8-10.6) k/uL RBC (4.30-5.90) m/uL Hgb (13.0-17.5) gm/dL Hct (39.0-53.0) % RDW (11.5-15.5) % Plt Count (150-450) k/uL Neutrophils # (1.3-7.7) k/uL Lymphocytes # (1.0-4.8) k/uL PT (9.0-12.0) sec INR (<1.2) ABG pH (7.35-7.45) ABG pCO2 (35-45) mmHg ABG pO2 (83-108) mmHg ABG HCO3 (21-25) mmol/L ABG Total CO2 (19-24) mmol/L ABG O2 Saturation (94-97) % ABG Glucose (75-99) mg/dL Hemoglobin (13.0-17.5) gm/dL Sodium (137-145) mmol/L BUN (9-20) mg/dL Glucose (74-99) mg/dL POC Glucose (mg/dL) 124 H 118 H (75-99) mg/dL Alkaline Phosphatase (38-126) U/L Total Protein (6.3-8.2) g/dL Arterial Blood Glucose (75-99) mg/dL Crossmatch Assessment and Plan Assessment: 1 Non-ST segment elevation myocardial infarction, multivessel coronary artery disease. Status post off-pump coronary artery bypass grafting utilizing a LUCERO to the LAD and a reverse saphenous vein graft to the distal PDA. Postoperative day #1 2 Ischemic cardiomyopathy, ejection fraction 40-45% 3 Previous history of chronic tobacco dependence 4 Moderate COPD, FEV1 value 59% of predicted 5 Carotid stenosis involving the right internal carotid with 72% stenosis 6 History of prostate cancer status post prostatectomy Plan: The patient was seen and evaluated by Dr. Sloan Chest x-ray and labs reviewed, chest tubes remain in place Was successfully extubated yesterday within 3 hours of leaving the OR Again educated regarding the importance of the incentive spirometer Titrate down the FiO2 as tolerated Increase activity as tolerated Continue bronchodilators We'll continue to follow and make further recommendations based on his clinical status Critical care time 36 minutes I, the cosigning physician, performed a history & physical examination of the patient. Lungs sounds with crackles in the bilateral posterior bases. Maintaining good O2 saturations in the 90s on 7 L high flow nasal cannula. I discussed the assessment and plan of care with my nurse practitioner, Tona Roe. I attest to the above note as dictated by her. Time with Patient: Greater than 30
--- NOTE | 2020-08-09 09:36 | P.PN ---
Subjective Progress Note Date: 08/09/20 Principal diagnosis: Multivessel coronary artery disease, calcified ascending aorta, non-STEMI this admission, hyperlipidemia discovered this admission, right internal carotid omayra ry stenosis 72% per CTA of the neck, ischemic cardiomyopathy with EF 40-45%. Past medical history significant for previous tobacco dependence, moderate chronic obstructive pulmonary disease with preoperative FEV1 59% of predicted, obesity, history of prostate cancer status post prostatectomy. POD #1 off pump double coronary artery bypass grafting using the left internal mammary artery to the left anterior descending coronary artery, a reverse greater saphenous vein graft connected to the aorta using the PAS-port device and connected distally to the posterior descending coronary artery. Endoscopic harvesting of the left greater saphenous vein. Intraoperative graft flow measurement using the Medi_Stim system, intraoperative transesophageal echocardiogram and epi-aortic scanning. Postoperative acute blood loss anemia, expected, dilutional. The patient was seen in follow-up today on 08/09/2020 at his bedside in the intensive care unit. He is awake, alert and oriented 3 and is in no acute distress. His night nurse reports that he did have a 2 second episode of vasovagal this morning after an episode of coughing. Currently he denies any complaints of shortness of breath and is complaining of some minimal surgical type pain to his chest tube insertion sites. Current hemodynamics show a cardiac output 7.3, cardiac index 3.3, PA pressures 29/14, CVP 14 mmHg and blood pressure 107/51. Bedside telemetry showing normal sinus rhythm heart rate 80 BPM. Primacor drip remains infusing at 0.1 mcg/kg/m, and Kenny-Synephrine drip is at 0.9 mcg/kg/m. He was successfully extubated at 5:08 PM yesterday 08/08/2020 and current oxygen saturation are 95% on 7 L high flow oxygen. He is achieving 4993-7388 mL on his incentive spirometry with encouragement. T-max temperature in the last 24 hours is 100.2F and is currently 98.6F. Mediastinal and left pleural chest tubes remain in place to low continuous wall suction -20 cm H2O. No air leaks present. Draining thin serosanguineous drainage. Mediastinal chest tubes drained 70 mL output in the last 8 hours and 500 mL output since surgery. Left pleural chest tubes drained 540 mL output in the last 8 hour and 1070 mL output since surgery. The patient's bedside nurse reports that once the patient ambulated this morning developed about 300 mL from his left pleural chest tube. Objective - Vital Signs Vital signs: Vital Signs Temp 98.6 F 08/09/20 08:00 Pulse 85 08/09/20 08:00 Resp 18 08/09/20 08:00 BP 111/57 08/09/20 08:00 Pulse Ox 94 L 08/09/20 08:00 Intake & Output 08/08/20 08/09/20 08/09/20 18:59 06:59 18:59 Intake Total 2736.027 0113.134 198.21 Output Total 3732 1295 125 Balance -2639.537 249.134 73.21 Weight 94.5 kg 94.5 kg Intake: IV 376 770 150 .9@20 540 100 CO/CI 370 230 50 Intake, IV Titration 716.463 374.134 48.21 Amount ACETAMINOPHEN IV (For NPO 100 ) 1,000 mg In Empty Bag 1 bag @ 400 mls/hr IVPB Q6HR [facility] Rx#:[id number] Albumin Human 5% 250 ml @ 250 0 mls/hr IVPB .STK-MED ONE Rx#:[id number] Insulin Regular 100 unit 5.067 7.238 In Sodium Chloride 0.9% 100 ml @ Per Protocol IV .Q0M [facility] Rx#:[id number] Milrinone-D5w Pmx 20 mg 54.990 23.31 In Dextrose/Water 1 100ml .bag @ 0.2 MCG/KG/MIN 5.4 mls/hr IV .[id number] [facility] Rx#:[id number] Nitroglycerin-D5w Pmx 50 24.9 mg In Dextrose/Water 1 250ml.bag @ 5 MCG/MIN 1.5 mls/hr IV .Q24H [facility] Rx#: [id number] Phenylephrine 40 mg In 0.686 161.906 Sodium Chloride 0.9% 250 ml @ 0.7 MCG/KG/MIN 24. 003 mls/hr IV .[id number] [facility] Rx#:[id number] Potassium Chloride 10 meq 100 100 In Water For Injection 1 100ml.bag @ 100 mls/hr IVPB Q1H [facility] Rx#: [id number] Sodium Chloride 0.9% 1, 150 50 000 ml @ 50 mls/hr IV . Q20H [facility] Rx#:[id number] ceFAZolin 2 gm In Sodium 100 Chloride 0.9% 50 ml @ 100 mls/hr IVPB Q8HR [facility] Rx# :[id number] propofoL 1,000 mg In 10.71 Empty Bag 1 bag @ Titrate IV .Q0M [facility] Rx#: [id number] Tube Feeding 400 Output: Chest Tube Drainage 660 870 65 L Plueral 410 620 60 Mediastinal x2 250 250 5 Urine 1872 425 60 Estimated Blood Loss 1200 Other: Voiding Method Indwelling Catheter Indwelling Catheter # Bowel Movements 0 ABP, PAP, CO, CI - Last Documented Arterial Blood Pressure 121/44 Pulmonary Artery Pressure 32/17 Cardiac Output 7.3 Cardiac Index 3.3 - Constitutional General appearance: Present: cooperative, no acute distress, obese - EENT Eyes: Present: PERRLA, normal appearance. Absent: scleral icterus ENT: Present: hearing grossly normal - Neck Details: Neck is supple, no JVD, no lymphadenopathy. - Respiratory Details: Lung sounds essentially clear throughout, diminished to his bilateral bases. No wheezes, rhonchi or crackles. Respirations are symmetrical and nonlabored. Oxygen saturation is 95% on 7 L high flow nasal cannula. Achieving 5957-4818 mL on his incentive spirometry. Mediastinal chest tubes drained 70 mL output in the last 8 hours and 500 mL output since surgery. Left pleural chest tubes drained 540 mL output in the last 8 hour and 1070 mL output since surgery. - Cardiovascular Details: Regular rhythm and rate. S1 and S2 present, negative for S3, gallop or murmur. Sternum is stable. Bedside telemetry showing normal sinus rhythm heart rate 80 BPM. Right IJ cordis and [place]-Alexx catheter in place with current hemodynamic showing a cardiac output of 7.3, cardiac index 3.3, PA pressures 29/14 and CVP 14 mmHg. Right radial arterial line remains in place and functioning. Knee- high ADALID hose and sequential compression devices in place to his bilateral lower extremities. Heart hugger is in place and he is demonstrating appropriate use. - Gastrointestinal Gastrointestinal Comment(s): Abdomen is soft, nontender and nondistended. Hypoactive bowel sounds present in all 4 abdominal quadrants. No guarding or rigidity. No organomegaly appreciated. Tolerating oral intake. - Genitourinary Genitourinary Comment(s): Osorio catheter for accurate I&O. Draining clear pardeep urine with 240 mL output in the last 8 hours. - Integumentary Integumentary Comment(s): Skin is warm and dry. No clubbing or cyanosis is present. Midline sternal incision is clean, dry and approximated. No drainage or redness is present. Dressing is clean, dry and intact. Left lower extremity EVH site is clean, dry and approximated. No drainage or redness present. - Neurologic Neurologic: Present: CNII-XII intact - Musculoskeletal Musculoskeletal: Present: gait normal, generalized weakness, strength equal bilaterally - Psychiatric Psychiatric: Present: A&O x's 3, appropriate affect, intact judgment & insight - Allied health notes Allied health notes reviewed: nursing - Labs CBC & Chem 7: 08/09/20 03:50 08/09/20 03:40 Labs: Abnormal Lab Results - Last 24 Hours (Table) 08/07/20 08/08/20 08/08/20 Range/Units 07:31 09:08 10:53 WBC (3.8-10.6) k/uL RBC (4.30-5.90) m/uL Hgb (13.0-17.5) gm/dL Hct (39.0-53.0) % RDW (11.5-15.5) % Plt Count (150-450) k/uL Neutrophils # (1.3-7.7) k/uL Lymphocytes # (1.0-4.8) k/uL PT (9.0-12.0) sec INR (<1.2) ABG pH 7.22 L (7.35-7.45) ABG pCO2 64 H (35-45) mmHg ABG pO2 261 H 144 H (83-108) mmHg ABG HCO3 26 H (21-25) mmol/L ABG Total CO2 27 H 28 H (19-24) mmol/L ABG O2 Saturation 100.0 H 98.5 H (94-97) % ABG Glucose 114 H (75-99) mg/dL Hemoglobin 12.4 L (13.0-17.5) gm/dL Sodium (137-145) mmol/L BUN (9-20) mg/dL Glucose (74-99) mg/dL POC Glucose (mg/dL) (75-99) mg/dL Alkaline Phosphatase (38-126) U/L Total Protein (6.3-8.2) g/dL Arterial Blood Glucose 114 H (75-99) mg/dL Crossmatch See Detail 08/08/20 08/08/20 08/08/20 Range/Units 11:24 14:31 14:31 WBC 14.6 H (3.8-10.6) k/uL RBC 3.88 L (4.30-5.90) m/uL Hgb 11.4 L D (13.0-17.5) gm/dL Hct 35.5 L (39.0-53.0) % RDW (11.5-15.5) % Plt Count 143 L (150-450) k/uL Neutrophils # 12.5 H (1.3-7.7) k/uL Lymphocytes # (1.0-4.8) k/uL PT 12.3 H (9.0-12.0) sec INR 1.2 H (<1.2) ABG pH 7.23 L (7.35-7.45) ABG pCO2 60 H (35-45) mmHg ABG pO2 145 H (83-108) mmHg ABG HCO3 (21-25) mmol/L ABG Total CO2 27 H (19-24) mmol/L ABG O2 Saturation 98.6 H (94-97) % ABG Glucose 118 H (75-99) mg/dL Hemoglobin 12.5 L (13.0-17.5) gm/dL Sodium (137-145) mmol/L BUN (9-20) mg/dL Glucose (74-99) mg/dL POC Glucose (mg/dL) (75-99) mg/dL Alkaline Phosphatase (38-126) U/L Total Protein (6.3-8.2) g/dL Arterial Blood Glucose 118 H (75-99) mg/dL Crossmatch 08/08/20 08/08/20 08/08/20 Range/Units 14:31 14:32 14:57 WBC (3.8-10.6) k/uL RBC (4.30-5.90) m/uL Hgb (13.0-17.5) gm/dL Hct (39.0-53.0) % RDW (11.5-15.5) % Plt Count (150-450) k/uL Neutrophils # (1.3-7.7) k/uL Lymphocytes # (1.0-4.8) k/uL PT (9.0-12.0) sec INR (<1.2) ABG pH (7.35-7.45) ABG pCO2 (35-45) mmHg ABG pO2 245 H (83-108) mmHg ABG HCO3 (21-25) mmol/L ABG Total CO2 25 H (19-24) mmol/L ABG O2 Saturation 100.0 H (94-97) % ABG Glucose (75-99) mg/dL Hemoglobin (13.0-17.5) gm/dL Sodium (137-145) mmol/L BUN (9-20) mg/dL Glucose 128 H (74-99) mg/dL POC Glucose (mg/dL) 129 H (75-99) mg/dL Alkaline Phosphatase (38-126) U/L Total Protein 5.4 L (6.3-8.2) g/dL Arterial Blood Glucose (75-99) mg/dL Crossmatch 08/08/20 08/08/20 08/08/20 Range/Units 15:03 15:56 16:54 WBC (3.8-10.6) k/uL RBC (4.30-5.90) m/uL Hgb (13.0-17.5) gm/dL Hct (39.0-53.0) % RDW (11.5-15.5) % Plt Count (150-450) k/uL Neutrophils # (1.3-7.7) k/uL Lymphocytes # (1.0-4.8) k/uL PT (9.0-12.0) sec INR (<1.2) ABG pH 7.30 L (7.35-7.45) ABG pCO2 49 H (35-45) mmHg ABG pO2 (83-108) mmHg ABG HCO3 (21-25) mmol/L ABG Total CO2 25 H (19-24) mmol/L ABG O2 Saturation (94-97) % ABG Glucose (75-99) mg/dL Hemoglobin (13.0-17.5) gm/dL Sodium (137-145) mmol/L BUN (9-20) mg/dL Glucose (74-99) mg/dL POC Glucose (mg/dL) 122 H 132 H (75-99) mg/dL Alkaline Phosphatase (38-126) U/L Total Protein (6.3-8.2) g/dL Arterial Blood Glucose (75-99) mg/dL Crossmatch 08/08/20 08/08/20 08/08/20 Range/Units 17:22 18:10 18:50 WBC 11.7 H (3.8-10.6) k/uL RBC 3.61 L (4.30-5.90) m/uL Hgb 10.7 L (13.0-17.5) gm/dL Hct 33.3 L (39.0-53.0) % RDW (11.5-15.5) % Plt Count (150-450) k/uL Neutrophils # 10.5 H (1.3-7.7) k/uL Lymphocytes # 0.4 L (1.0-4.8) k/uL PT (9.0-12.0) sec INR (<1.2) ABG pH (7.35-7.45) ABG pCO2 (35-45) mmHg ABG pO2 (83-108) mmHg ABG HCO3 (21-25) mmol/L ABG Total CO2 (19-24) mmol/L ABG O2 Saturation (94-97) % ABG Glucose (75-99) mg/dL Hemoglobin (13.0-17.5) gm/dL Sodium (137-145) mmol/L BUN (9-20) mg/dL Glucose (74-99) mg/dL POC Glucose (mg/dL) 150 H 149 H (75-99) mg/dL Alkaline Phosphatase (38-126) U/L Total Protein (6.3-8.2) g/dL Arterial Blood Glucose (75-99) mg/dL Crossmatch 08/08/20 08/08/20 08/08/20 Range/Units 18:58 19:59 20:00 WBC (3.8-10.6) k/uL RBC 3.57 L (4.30-5.90) m/uL Hgb 10.8 L (13.0-17.5) gm/dL Hct 32.7 L (39.0-53.0) % RDW (11.5-15.5) % Plt Count 147 L (150-450) k/uL Neutrophils # 9.2 H (1.3-7.7) k/uL Lymphocytes # 0.3 L (1.0-4.8) k/uL PT (9.0-12.0) sec INR (<1.2) ABG pH (7.35-7.45) ABG pCO2 (35-45) mmHg ABG pO2 (83-108) mmHg ABG HCO3 (21-25) mmol/L ABG Total CO2 (19-24) mmol/L ABG O2 Saturation (94-97) % ABG Glucose (75-99) mg/dL Hemoglobin (13.0-17.5) gm/dL Sodium (137-145) mmol/L BUN (9-20) mg/dL Glucose (74-99) mg/dL POC Glucose (mg/dL) 138 H 133 H (75-99) mg/dL Alkaline Phosphatase (38-126) U/L Total Protein (6.3-8.2) g/dL Arterial Blood Glucose (75-99) mg/dL Crossmatch 08/08/20 08/08/20 08/08/20 Range/Units 21:02 22:03 23:07 WBC (3.8-10.6) k/uL RBC (4.30-5.90) m/uL Hgb (13.0-17.5) gm/dL Hct (39.0-53.0) % RDW (11.5-15.5) % Plt Count (150-450) k/uL Neutrophils # (1.3-7.7) k/uL Lymphocytes # (1.0-4.8) k/uL PT (9.0-12.0) sec INR (<1.2) ABG pH (7.35-7.45) ABG pCO2 (35-45) mmHg ABG pO2 (83-108) mmHg ABG HCO3 (21-25) mmol/L ABG Total CO2 (19-24) mmol/L ABG O2 Saturation (94-97) % ABG Glucose (75-99) mg/dL Hemoglobin (13.0-17.5) gm/dL Sodium (137-145) mmol/L BUN (9-20) mg/dL Glucose (74-99) mg/dL POC Glucose (mg/dL) 126 H 127 H 116 H (75-99) mg/dL Alkaline Phosphatase (38-126) U/L Total Protein (6.3-8.2) g/dL Arterial Blood Glucose (75-99) mg/dL Crossmatch 08/08/20 08/09/20 08/09/20 Range/Units 23:56 01:01 01:53 WBC (3.8-10.6) k/uL RBC (4.30-5.90) m/uL Hgb (13.0-17.5) gm/dL Hct (39.0-53.0) % RDW (11.5-15.5) % Plt Count (150-450) k/uL Neutrophils # (1.3-7.7) k/uL Lymphocytes # (1.0-4.8) k/uL PT (9.0-12.0) sec INR (<1.2) ABG pH (7.35-7.45) ABG pCO2 (35-45) mmHg ABG pO2 (83-108) mmHg ABG HCO3 (21-25) mmol/L ABG Total CO2 (19-24) mmol/L ABG O2 Saturation (94-97) % ABG Glucose (75-99) mg/dL Hemoglobin (13.0-17.5) gm/dL Sodium (137-145) mmol/L BUN (9-20) mg/dL Glucose (74-99) mg/dL POC Glucose (mg/dL) 115 H 114 H 110 H (75-99) mg/dL Alkaline Phosphatase (38-126) U/L Total Protein (6.3-8.2) g/dL Arterial Blood Glucose (75-99) mg/dL Crossmatch 08/09/20 08/09/20 08/09/20 Range/Units 02:55 03:40 03:50 WBC 11.3 H (3.8-10.6) k/uL RBC 3.39 L (4.30-5.90) m/uL Hgb 10.8 L (13.0-17.5) gm/dL Hct 31.5 L (39.0-53.0) % RDW 16.7 H (11.5-15.5) % Plt Count (150-450) k/uL Neutrophils # 9.6 H (1.3-7.7) k/uL Lymphocytes # 0.8 L (1.0-4.8) k/uL PT (9.0-12.0) sec INR (<1.2) ABG pH (7.35-7.45) ABG pCO2 (35-45) mmHg ABG pO2 (83-108) mmHg ABG HCO3 (21-25) mmol/L ABG Total CO2 (19-24) mmol/L ABG O2 Saturation (94-97) % ABG Glucose (75-99) mg/dL Hemoglobin (13.0-17.5) gm/dL Sodium 134 L (137-145) mmol/L BUN 21 H (9-20) mg/dL Glucose 109 H (74-99) mg/dL POC Glucose (mg/dL) 109 H (75-99) mg/dL Alkaline Phosphatase 36 L (38-126) U/L Total Protein 5.2 L (6.3-8.2) g/dL Arterial Blood Glucose (75-99) mg/dL Crossmatch 08/09/20 08/09/20 08/09/20 Range/Units 04:03 05:03 06:11 WBC (3.8-10.6) k/uL RBC (4.30-5.90) m/uL Hgb (13.0-17.5) gm/dL Hct (39.0-53.0) % RDW (11.5-15.5) % Plt Count (150-450) k/uL Neutrophils # (1.3-7.7) k/uL Lymphocytes # (1.0-4.8) k/uL PT (9.0-12.0) sec INR (<1.2) ABG pH (7.35-7.45) ABG pCO2 (35-45) mmHg ABG pO2 (83-108) mmHg ABG HCO3 (21-25) mmol/L ABG Total CO2 (19-24) mmol/L ABG O2 Saturation (94-97) % ABG Glucose (75-99) mg/dL Hemoglobin (13.0-17.5) gm/dL Sodium (137-145) mmol/L BUN (9-20) mg/dL Glucose (74-99) mg/dL POC Glucose (mg/dL) 107 H 105 H 115 H (75-99) mg/dL Alkaline Phosphatase (38-126) U/L Total Protein (6.3-8.2) g/dL Arterial Blood Glucose (75-99) mg/dL Crossmatch 08/09/20 08/09/20 Range/Units 06:54 08:32 WBC (3.8-10.6) k/uL RBC (4.30-5.90) m/uL Hgb (13.0-17.5) gm/dL Hct (39.0-53.0) % RDW (11.5-15.5) % Plt Count (150-450) k/uL Neutrophils # (1.3-7.7) k/uL Lymphocytes # (1.0-4.8) k/uL PT (9.0-12.0) sec INR (<1.2) ABG pH (7.35-7.45) ABG pCO2 (35-45) mmHg ABG pO2 (83-108) mmHg ABG HCO3 (21-25) mmol/L ABG Total CO2 (19-24) mmol/L ABG O2 Saturation (94-97) % ABG Glucose (75-99) mg/dL Hemoglobin (13.0-17.5) gm/dL Sodium (137-145) mmol/L BUN (9-20) mg/dL Glucose (74-99) mg/dL POC Glucose (mg/dL) 124 H 118 H (75-99) mg/dL Alkaline Phosphatase (38-126) U/L Total Protein (6.3-8.2) g/dL Arterial Blood Glucose (75-99) mg/dL Crossmatch - Imaging and Cardiology Chest x-ray: report reviewed, image reviewed Assessment and Plan Assessment: 1. Multivessel coronary artery disease, status post double vessel coronary artery bypass grafting surgery 2. Non-STEMI this admission 3. Hyperlipidemia, cholesterol 206, LDL 118, triglycerides 199 4. Right internal carotid artery stenosis 72% stenosis at the origin of the right internal carotid artery per CTA of the neck 5. Ischemic cardiomyopathy with EF 40-45% 6. Previous tobacco dependence 7. Moderate COPD with preoperative FEV1 59% of predicted 8. History of prostate cancer status post prostatectomy Plan: 1. Continue aspirin, statin, Plavix and beta michel. Will increase metoprolol tartrate as tolerated. 2. Wean Kenny-Synephrine drip as tolerated to maintain map greater than 65 mmHg. 3. Wean O2 as tolerated. Encourage incentive spirometry is 10 times every hour while awake. Bronchodilators per pulmonology management. 4. Increase activity, ambulate as tolerated. PT/OT/cardiac rehab consulted. 5. Will monitor daily labs and chest x-rays. Electrolyte replacement protocol. 6. GI/DVT prophylaxis 7. Pain control with current medication regimen. Toradol added for better pain control. 8. Discontinue nitroglycerin drip and Primacor drip. Keep [place]-Alexx catheter in place today and continue to monitor hemodynamics. 9. Insulin management per Dr. Ryan. Patient is not diabetic, preoperative hemoglobin A1c 5.3% 10. Continue chest tubes for another 24 hours. Continue to monitor and record output. 11. Continue Osorio catheter for the 24 hours for strict accurate intake and output. Daily weights. 12. Keep right radial arterial line in place. 13. No diuretics today. 14. More recommendations to follow based on patient's clinical course. Seen and examined and agree with the plan. Time with Patient: Greater than 30
[2020-08-09] MEDS: SODIUM CHLORIDE 0.9% 1,000 ML IV SCH (09:38)
[2020-08-09] MEDS: PANTOPRAZOLE 40 MG TABLET PO SCH (09:45)
[2020-08-09] MEDS: ASPIRIN 325 MG TAB PO SCH (09:45)
[2020-08-09] MEDS: HEPARIN SODIUM,PORCINE 5,000 UNIT/ML 1 ML VIAL SQ SCH ×3 (09:45→23:20)
[2020-08-09] MEDS: MUPIROCIN 2% OINT 22 GM TUBE NASAL SCH ×2 (09:46→20:15)
[2020-08-09] MEDS: CLOPIDOGREL 75 MG TAB PO SCH (09:46)
[2020-08-09] MEDS: METOPROLOL TARTRATE 12.5 MG TAB PO SCH ×2 (09:46→20:15)
[2020-08-09 09:54] LABS: Glucose,Whole Blood 118 mg/dL (75-99)
--- NOTE | 2020-08-09 10:06 | PN ---
PROGRESS NOTE Mr. Garcia underwent aortocoronary bypass surgery yesterday. He has been extubated. He is resting comfortably. He is on a small dose of Milrinone, nitroglycerin and also on some phenylephrine. He is in sinus rhythm, appears to be doing well. Trying to work on his incentive spirometry. He appears to be reasonably stable. S1, S2 heard normally. There is no significant rub. Lungs reveal fair air entry. Abdomen and lower extremity exam unchanged. Plan is to continue supportive care and gradually introduce his home medications including statins. No new specific suggestions at this time. MMODL / IJN: [id number] /
[2020-08-09 10:23] LABS: Glucose,Whole Blood 121 mg/dL (75-99)
[2020-08-09 11:37] LABS: Glucose,Whole Blood 128 mg/dL (75-99)
[2020-08-09 12:23] LABS: Glucose,Whole Blood 129 mg/dL (75-99)
[2020-08-09 12:53] LABS: Glucose,Whole Blood 132 mg/dL (75-99)
[2020-08-09 14:03] LABS: Glucose,Whole Blood 118 mg/dL (75-99)
[2020-08-09 15:04] LABS: Glucose,Whole Blood 135 mg/dL (75-99)
[2020-08-09 15:55] LABS: Glucose,Whole Blood 127 mg/dL (75-99)
[2020-08-09] MEDS ORDERED: FUROSEMIDE 10 MG/ML 2 ML VIAL IV STA (16:19)
[2020-08-09 16:55] LABS: Glucose,Whole Blood 112 mg/dL (75-99)
[2020-08-09 18:12] LABS: Glucose,Whole Blood 125 mg/dL (75-99)
[2020-08-09 18:58] LABS: Glucose,Whole Blood 139 mg/dL (75-99)
[2020-08-09] MEDS: ATORVASTATIN 80 MG TAB PO SCH (20:15)
[2020-08-09] MEDS: SENNOSIDES-DOCUSATE SODIUM 1 EACH TAB PO SCH (20:15)
[2020-08-09 20:21] LABS: Glucose,Whole Blood 137 mg/dL (75-99)
--- NOTE | 2020-08-09 20:36 | P.PN ---
Progress Note - Text Progress Note Date: 08/09/20 Chief Complaint: Chest pain History of presenting complaint: This is a 85-year-old patient of Dr. Henrik Perez. In rather good health. Patient after breakfast when DrAbby below the lease. Then came back again the lawnmower. Started getting a chest heaviness went up to his arms. Decided to go back in the house. Started forgetting unwell. Symptoms last for 2 hours. No dizziness or lightheadedness. [place] totally weak and rundown. Clammy perspiration. Decided to come in. No prior cardiac history. Fairly active. Had a similar episode about 2 months ago. Improved with rest. Admitted with non-ST elevation NM. Cardiac catheterization showed severe coronary artery disease. August 08-underwent coronary bypass. Patient extubated the same evening [id number]-lywgczw was on insulin and Kenny-Synephrine drip. Telemetry shows sinus rhythm. Breathing stable. No chest pain. at the bedside. Review of systems: Was done for constitutional, cardiovascular, GI, pulmonary. relevant finding as above Active Medications Hydrocodone Bitart/Acetaminophen (Hydrocodone/Apap 5-325mg 1 Each Tab) 2 each PO Q4HR PRN PRN Reason: Severe Pain Hydrocodone Bitart/Acetaminophen (Hydrocodone/Apap 5-325mg 1 Each Tab) 1 each PO Q4HR PRN PRN Reason: Moderate Pain Last Admin: 08/09/20 04:07 Dose: 1 each Documented by: Albuterol/Ipratropium (Ipratropium-Albuterol 3 Ml Neb) 3 ml INHALATION RT-Q2H PRN PRN Reason: Shortness Of Breath Or Wheezing Albuterol/Ipratropium (Ipratropium-Albuterol 3 Ml Neb) 3 ml INHALATION RT-QID [facility] Last Admin: 08/09/20 16:46 Dose: 3 ml Documented by: Aspirin (Aspirin 325 Mg Tab) 325 mg PO DAILY [facility] Last Admin: 08/09/20 09:45 Dose: 325 mg Documented by: Atorvastatin Calcium (Atorvastatin 80 Mg Tab) 80 mg PO HS [facility] Last Admin: 08/09/20 20:15 Dose: 80 mg Documented by: Benzocaine/Menthol (Benzocaine/Menthol Lozeng 1 Each Lozenge) 1 each MUCOUS MEM Q2H PRN PRN Reason: Sore Throat Bisacodyl (Bisacodyl 10 Mg Supp) 10 mg RECTAL DAILY PRN PRN Reason: Constipation Clopidogrel Bisulfate (Clopidogrel 75 Mg Tab) 75 mg PO DAILY [facility] Last Admin: 08/09/20 09:46 Dose: 75 mg Documented by: Heparin Sodium (Porcine) (Heparin Sodium,Porcine 5,000 Unit/Ml 1 Ml Vial) 5,000 unit SQ Q8HR [facility] Last Admin: 08/09/20 16:01 Dose: 5,000 unit Documented by: Hydralazine HCl (Hydralazine Hcl 20 Mg/Ml 1 Ml Vial) 10 mg IVP Q1H PRN PRN Reason: Blood Pressure - High Amiodarone HCl 150 mg/ (Dextrose/Water) 103 mls @ 618 mls/hr IV .Q10M PRN; Protocol PRN Reason: A.FIB/FLUTTER Amiodarone HCl 360 mg/ (Dextrose/Water) 200 mls @ 33.333 mls/hr IV .Q6H PRN; Protocol PRN Reason: A.FIB/FLUTTER Amiodarone HCl 300 mg/ (Dextrose/Water) 250 mls @ 25 mls/hr IV .Q10H PRN; Protocol PRN Reason: A.FIB/FLUTTER Albumin Human 250 ml/ IV (Solution) 250 mls @ 250 mls/hr IVPB Q1HR PRN PRN Reason: For Volume Stop: 08/10/20 13:45 Last Admin: 08/09/20 06:19 Dose: 250 mls/hr Documented by: Calcium Gluconate 2 gm/ Sodium (Chloride) 120 mls @ 100 mls/hr IVPB ONCE PRN PRN Reason: Ionized Calcium less than 4.4 Stop: 08/11/20 13:45 Insulin Human Regular 100 unit (/ Sodium Chloride) 101 mls @ 0 mls/hr IV .Q0M [facility]; Protocol Last Titration: 08/09/20 15:07 Dose: 0.5 units/hr, 0.505 mls/hr Documented by: Sodium Chloride (Saline 0.9%) 1,000 mls @ 50 mls/hr IV .Q20H [facility] Last Admin: 08/09/20 09:38 Dose: Not Given Documented by: Phenylephrine HCl 40 mg/ (Sodium Chloride) 254 mls @ 24.003 mls/hr IV .[id number] [facility]; Protocol Last Titration: 08/09/20 15:00 Dose: 0 mcg/kg/min, 0 mls/hr Documented by: Ketorolac Tromethamine (Ketorolac 15 Mg/Ml 1 Ml Vial) 15 mg IVP Q6HR [facility] Stop: 08/11/20 15:06 Last Admin: 08/09/20 18:15 Dose: 15 mg Documented by: Magnesium Hydroxide (Magnesium Hydroxide 2,400 Mg/10 Ml Cup) 2,400 mg PO BID PRN PRN Reason: Constipation Metoclopramide HCl (Metoclopramide 5 Mg/Ml 2 Ml Vial) 10 mg IVP Q4H PRN PRN Reason: Nausea And Vomiting Metoprolol Tartrate (Metoprolol Tartrate 12.5 Mg Tab) 12.5 mg PO BID [facility] Last Admin: 08/09/20 20:15 Dose: 12.5 mg Documented by: Miscellaneous Information (Potassium Replacement Protocol 1 Each Misc) 1 each MISCELLANE DAILY PRN; Protocol PRN Reason: Per Protocol Miscellaneous Information (Magnesium Replacement Protocol 1 Each Misc) 1 each MISCELLANE DAILY PRN; Protocol PRN Reason: Per Protocol Miscellaneous Information (Phosphorus Replacement Protoco 1 Each Misc) 1 each MISCELLANE DAILY PRN; Protocol PRN Reason: Per Protocol Mupirocin (Mupirocin 2% Oint 22 Gm Tube) 1 applic NASAL BID [facility] Stop: 08/11/20 21:01 Last Admin: 08/09/20 20:15 Dose: 1 applic Documented by: Ondansetron HCl (Ondansetron 4 Mg/2 Ml Vial) 4 mg IVP Q6HR PRN PRN Reason: Nausea And Vomiting Last Admin: 08/08/20 17:11 Dose: 4 mg Documented by: Pantoprazole Sodium (Pantoprazole 40 Mg Tablet) 40 mg PO AC-BRKFST [facility] Last Admin: 08/09/20 09:45 Dose: 40 mg Documented by: Senna/Docusate Sodium (Sennosides-Docusate Sodium 1 Each Tab) 2 each PO HS [facility] Last Admin: 08/09/20 20:15 Dose: 2 each Documented by: Sodium Chloride (Sodium Chloride 0.9% Flush 10 Ml Syringe) 10 ml IV BID [facility] Last Admin: 08/09/20 20:15 Dose: 10 ml Documented by: Physical examination: VITAL SIGNS: 99.1, 79, 19, 105/45, 95% on 4 L GENERAL: Laying in bed, awake EYES: Pupils equal. Conjunctiva normal. NECK: JVD not raised; masses not palpable. CHEST wall: Chest tubes in place HEART: First and second heart sounds are normal; no edema. LUNGS: Respiratory rate increased; decreased breath sounds. ABDOMEN: Soft, nontender, liver spleen not palpable, no masses palpable. Osorio catheter PSYCH: Alert and oriented x3; mood and affect normal. MUSCULAR skeletal: Evidence of OA INVESTIGATIONS, reviewed in the clinical context: White count 11.3 hemoglobin 10.8 platelets 179 51.13 COVID 19 P/Cr-not detected Admission testing White count 12.3 hemoglobin 13.3 platelets 215 potassium 4.7 creatinine 0.98 Troponin I 1.9, 12.4, 23.3 EKG tracing personally reviewed by me-sinus rhythm, PVC, ST segment depression from leads V2 through V6 and somein 1 and aVL. Chest x-ray film personally reviewed by me-questionable infiltrate in the right base LDL 118 2-D echo-wall motion abnormality, EF 40-45%, moderate concentric LVH Carotid Doppler showing right carotid artery severe to critical stenosis Assessment: -Acute non-ST elevation myocardial infarction -Ischemic cardiomyopathy from systolic dysfunction EF 40- 45% -Severe triple-vessel coronary artery disease per cardiac catheterization- pending coronary bypass this -Leukocytosis from acute NM. No clinical evidence of infection -Mild hyponatremia -IV heparin monitoring -Significant stenosis of the right carotid artery -Ascending aortic aneurysm 4.1 cm -Coronary bypass in August 08 Plan: Currently patient is on insulin and Kenny-Synephrine drip. Other medications to continue. Care was discussed with the patient and at the bedside. Encouraged to use incentive spirometry
[2020-08-09 22:22] LABS: Glucose,Whole Blood 134 mg/dL (75-99)
[2020-08-09] MEDS: DEXTROSE 5% IN WATER 100 ML with AMIODARONE 150 MG IV PRN (22:59)
[2020-08-10 00:55] LABS: Glucose,Whole Blood 116 mg/dL (75-99)
[2020-08-10 02:53] LABS: Glucose,Whole Blood 129 mg/dL (75-99)
[2020-08-10 04:05] LABS: Basophils % (A) 0 %; Eosinophils # (A) 0.1 k/uL (0-0.7); Eosinophils % (A) 1 %; HCT 32.6 % (39.0-53.0); HGB 10.8 gm/dL (13.0-17.5); Lymphocytes # (A) 0.9 k/uL (1.0-4.8); Lymphocytes % (A) 8 %; MCH 30.6 pg (25.0-35.0); MCHC 33.2 g/dL (31.0-37.0); MCV 92.4 fL (80.0-100.0); Monocytes # (A) 0.8 k/uL (0-1.0); Monocytes % (A) 8 %; Neutrophils # (A) 8.3 k/uL (1.3-7.7); Neutrophils % (A) 80 %; Platelet Count 139 k/uL (150-450); RBC 3.53 m/uL (4.30-5.90); RDW 14.5 % (11.5-15.5); WBC 10.4 k/uL (3.8-10.6)
[2020-08-10 04:15] LABS: Albumin 3.1 g/dL (3.5-5.0); Calcium 8.6 mg/dL (8.4-10.2); Potassium 4.6 mmol/L (3.5-5.1); Total Bilirubin 2.1 mg/dL (0.2-1.3); Total Protein 4.9 g/dL (6.3-8.2)
[2020-08-10 04:55] LABS: Glucose,Whole Blood 127 mg/dL (75-99)
[2020-08-10] MEDS: SODIUM CHLORIDE 0.9% 1,000 ML IV SCH (05:42)
[2020-08-10] MEDS: KETOROLAC 15 MG/ML 1 ML VIAL IVP SCH (05:43)
[2020-08-10] MEDS: PANTOPRAZOLE 40 MG TABLET PO SCH (06:38)
[2020-08-10 06:43] LABS: Glucose,Whole Blood 117 mg/dL (75-99)
[2020-08-10] MEDS ORDERED: ACETAMINOPHEN TAB 500 MG TAB PO PRN (07:00)
[2020-08-10] MEDS: IPRATROPIUM-ALBUTEROL 3 ML NEB INHALATION SCH ×4 (07:33→20:09)
[2020-08-10 08:21] LABS: ABG Base Excess -4.6 mmol/L; ABG HCO3 21 mmol/L (21-25); ABG Oxygen Saturation 96.5 % (94-97); ABG PCO2 37 mmHg (35-45); ABG PH 7.36 (7.35-7.45); ABG PO2 82 mmHg (83-108); ABG TCO2 22 mmol/L (19-24)
--- NOTE | 2020-08-10 08:27 | XR ---
EXAMINATION TYPE: XR chest 1V portable DATE OF EXAM: 08/10/2020 CLINICAL HISTORY: Post Operative Cardiac Surgery. TECHNIQUE: Portable frontal view of the chest. COMPARISON: 08/09/2020 chest radiograph FINDINGS: Sternotomy wires. Right internal jugular [place]-Alexx catheter, mediastinal drain, and left-s ided chest tube remain. Cardiomegaly. There is moderately improved appearance of pulmonary edema and pulmonary vascular congestion versus 08/09/2020. Small bilateral pleural effusions. No pneumothorax. Degenerative changes of the shoulders and spine. IMPRESSION: 1. Moderately improved appearance of pulmonary edema and pulmonary vascular congestion versus 020. 2. Small bilateral pleural effusions.
[2020-08-10 08:34] LABS: ABG Base Excess -2.8 mmol/L; ABG HCO3 23 mmol/L (21-25); ABG Oxygen Saturation 49.2 % (94-97); ABG PCO2 43 mmHg (35-45); ABG PH 7.34 (7.35-7.45); ABG TCO2 24 mmol/L (19-24)
--- NOTE | 2020-08-10 08:39 | PN ---
PROGRESS NOTE Mr. Garcia underwent aortocoronary bypass surgery and he has been extubated fairly quickly. He feels well this morning. Last night, he went into atrial fib with a rapid ventricular rate and then had some bradycardic spells. He probably has some conduction system disease with tachy-leyda phenomena. He is on amiodarone drip. He is back in sinus rhythm, making decent urine output. He is resting comfortably. Has not slept, so he may be a little delirious with this, but appears to answer questions appropriately. Breathing is good. Vital signs stable. There is JVD 1 cm. No carotid bruit. S1, S2 with a short systolic murmur is audible. Lungs reveal improved air entry. I am recommending that we should be cautious with the beta michel administration. I will reduce the Lopressor to 12.5 mg in the morning only. Continue amiodarone drip for now and continue incentive spirometry and pulmonary toilet. MMODL / IJN: [id number] /
[2020-08-10 08:41] LABS: Glucose,Whole Blood 135 mg/dL (75-99)
[2020-08-10] MEDS: AMIODARONE 200 MG TAB PO SCH ×2 (09:50→20:10)
[2020-08-10] MEDS: ASPIRIN 325 MG TAB PO SCH (09:50)
[2020-08-10] MEDS: HEPARIN SODIUM,PORCINE 5,000 UNIT/ML 1 ML VIAL SQ SCH ×2 (09:50→17:29)
[2020-08-10] MEDS: CLOPIDOGREL 75 MG TAB PO SCH (09:51)
[2020-08-10] MEDS: METOPROLOL TARTRATE 12.5 MG TAB PO SCH ×2 (09:51→20:10)
[2020-08-10] MEDS: MUPIROCIN 2% OINT 22 GM TUBE NASAL SCH ×2 (09:52→20:11)
[2020-08-10] MEDS ORDERED: DEXTROSE 5% IN WATER 100 ML with AMIODARONE 150 MG IV ONE ×2 (11:30→12:45)
[2020-08-10] MEDS: PHENYLEPHRINE 40 MG in SODIUM CHLORIDE 0.9% 250 ML IV SCH ×2 (11:59→19:27)
--- NOTE | 2020-08-10 11:59 | P.PN ---
Subjective Progress Note Date: 08/10/20 Principal diagnosis: Multivessel coronary artery disease, calcified ascending aorta, non-STEMI this admission, hyperlipidemia discovered this admission, right internal carotid omayra ry stenosis 72% per CTA of the neck, ischemic cardiomyopathy with EF 40-45%. Past medical history significant for previous tobacco dependence, moderate chronic obstructive pulmonary disease with preoperative FEV1 59% of predicted, obesity, history of prostate cancer status post prostatectomy. POD #2 off pump double coronary artery bypass grafting using the left internal mammary artery to the left anterior descending coronary artery, a reverse greater saphenous vein graft connected to the aorta using the PAS-port device and connected distally to the posterior descending coronary artery. Endoscopic harvesting of the left greater saphenous vein. Intraoperative graft flow measurement using the Medi_Stim system, intraoperative transesophageal echocardiogram and epi-aortic scanning. Postoperative acute blood loss anemia, expected, dilutional. The patient was seen in follow-up today on 08/10/2020 at his bedside in the intensive care unit. He is awake, alert and oriented 3 and is in no apparent acute distress. Currently he denies any complaints of pain or shortness of breath. His night nurse reports that he went into atrial fibrillation early this morning and is currently in normal sinus rhythm heart rate 75 BPM. Amiodarone drip was started per protocol and is currently infusing at 0.5 mg/m. He remains hemodynamically stable and is currently on no inotropic or pressor support. [place]-Alexx catheter remains in place with current hemodynamic showing a cardiac output 4.4, cardiac index 2.0, PA pressures 34/17 and CVP 14 mmHg. His T-max temperature in the last 24 hours is 100.0F. Oxygen saturation are 95% on 4 L nasal cannula and he is achieving 2513-1868 mL on his incentive spirometry. Mediastinal and left pleural chest tubes remain in place to low continuous wall suction -20 cm H2O. No air leak is present. Mediastinal chest tubes drained 90 mL output in the last 8 hours and 280 mL output in the last 24 hours. Left pleural chest tube drained 130 mL output in the last 8 hours and 480 mL output in the last 24 hours. Objective - Vital Signs Vital signs: Vital Signs Temp 98.1 F 08/10/20 08:00 Pulse 80 08/10/20 09:00 Resp 23 08/10/20 09:00 BP 114/51 10/24/20 09:00 Pulse Ox 93 L 08/10/20 09:00 Intake & Output 08/09/20 08/10/20 08/10/20 18:59 06:59 18:59 Intake Total 3059.279 614.949 190 Output Total 1215 1325 325 Balance 1844.279 -710.051 -135 Weight 94.5 kg 95.1 kg Intake: IV 760 610 190 .9@20 650 550 150 CO/CI 110 60 40 Intake, IV Titration 199.279 4.949 Amount Insulin Regular 100 unit 1.279 4.949 In Sodium Chloride 0.9% 100 ml @ Per Protocol IV .Q0M [facility] Rx#:[id number] Milrinone-D5w Pmx 20 mg 23.31 In Dextrose/Water 1 100ml .bag @ 0.2 MCG/KG/MIN 5.4 mls/hr IV .[id number] [facility] Rx#:[id number] Nitroglycerin-D5w Pmx 50 24.9 mg In Dextrose/Water 1 250ml.bag @ 5 MCG/MIN 1.5 mls/hr IV .Q24H [facility] Rx#: [id number] Phenylephrine 40 mg In 149.790 Sodium Chloride 0.9% 250 ml @ 0.7 MCG/KG/MIN 24. 003 mls/hr IV .[id number] [facility] Rx#:[id number] Oral 2100 Output: Chest Tube Drainage 270 350 130 L Plueral 170 200 90 Mediastinal x2 100 150 40 Urine 945 975 195 Other: Voiding Method Indwelling Catheter Indwelling Catheter ABP, PAP, CO, CI - Last Documented Arterial Blood Pressure 137/43 Pulmonary Artery Pressure 27/14 Cardiac Output 4.4 Cardiac Index 2 - Constitutional General appearance: Present: cooperative, no acute distress, obese - EENT Eyes: Present: PERRLA, normal appearance. Absent: scleral icterus ENT: Present: hearing grossly normal - Neck Details: Neck is supple, no JVD, no lymphadenopathy. - Respiratory Details: Lung sounds essentially clear to his bilateral upper lobes, few scattered crackles to his right lower lobe, diminished to his bilateral bases. No wheezes or rhonchi. Respirations are symmetrical and nonlabored. Oxygen saturation is 95% on 4 L nasal cannula. Achieving 1252 1500 mL on his incentive spirometry with much encouragement. Mediastinal and left pleural chest tubes remain in p lace to low continuous wall suction -20 cm H2O. No air leak is present. Mediastinal chest tubes drained 90 mL output in the last 8 hours and 280 mL output in the last 24 hours. Left pleural chest tube drained 130 mL output in the last 8 hours and 480 mL output in the last 24 hours. - Cardiovascular Details: Regular rhythm and rate. S1 and S2 present, negative for S3, gallop or murmur. Sternum is stable. Bedside telemetry showing normal sinus rhythm heart rate 75 BPM. No edema present. Knee-high ADALID hose and sequential compression devices in place to his bilateral lower extremities. Heart hugger is in place and he is demonstrating appropriate use. Right IJ [place]-Alexx catheter in place with current hemodynamic showing a cardiac output of 4.4, cardiac index 2.0, PA pressures 34/17, and CVP 14 mmHg. Amiodarone drip infusing at 0.5 mg/m. - Gastrointestinal Gastrointestinal Comment(s): Abdomen is soft, nontender and nondistended. Hypoactive bowel sounds present in all 4 abdominal quadrants. No guarding or rigidity. No megaly appreciated. Passing flatus. Tolerating oral intake. - Genitourinary Genitourinary Comment(s): Osorio catheter for accurate I&O. Draining clear yellow urine. 700 mL output in the last 8 hours. - Integumentary Integumentary Comment(s): Skin is warm and dry. No clubbing or cyanosis is present. Midline sternal incision is clean, dry and approximated. No drainage or redness is present. Dressing is clean, dry and intact. Left leg EVH site is clean, dry and approximated. No drainage or redness is present. Dressing is clean, dry and intact. - Neurologic Neurologic: Present: CNII-XII intact - Musculoskeletal Musculoskeletal: Present: gait normal, generalized weakness, strength equal bilaterally - Psychiatric Psychiatric: Present: A&O x's 3, appropriate affect, intact judgment & insight - Allied health notes Allied health notes reviewed: nursing - Labs CBC & Chem 7: 08/10/20 03:55 08/10/20 03:55 Labs: Abnormal Lab Results - Last 24 Hours (Table) 08/09/20 08/09/20 08/09/20 Range/Units 09:42 10:12 11:25 RBC (4.30-5.90) m/uL Hgb (13.0-17.5) gm/dL Hct (39.0-53.0) % Plt Count (150-450) k/uL Neutrophils # (1.3-7.7) k/uL Lymphocytes # (1.0-4.8) k/uL ABG pH (7.35-7.45) ABG pO2 (83-108) mmHg ABG O2 Saturation (94-97) % Sodium (137-145) mmol/L Carbon Dioxide (22-30) mmol/L BUN (9-20) mg/dL Creatinine (0.66-1.25) mg/dL Glucose (74-99) mg/dL POC Glucose (mg/dL) 118 H 121 H 128 H (75-99) mg/dL Total Bilirubin (0.2-1.3) mg/dL AST (17-59) U/L Total Protein (6.3-8.2) g/dL Albumin (3.5-5.0) g/dL 08/09/20 08/09/20 08/09/20 Range/Units 12:12 12:51 14:01 RBC (4.30-5.90) m/uL Hgb (13.0-17.5) gm/dL Hct (39.0-53.0) % Plt Count (150-450) k/uL Neutrophils # (1.3-7.7) k/uL Lymphocytes # (1.0-4.8) k/uL ABG pH (7.35-7.45) ABG pO2 (83-108) mmHg ABG O2 Saturation (94-97) % Sodium (137-145) mmol/L Carbon Dioxide (22-30) mmol/L BUN (9-20) mg/dL Creatinine (0.66-1.25) mg/dL Glucose (74-99) mg/dL POC Glucose (mg/dL) 129 H 132 H 118 H (75-99) mg/dL Total Bilirubin (0.2-1.3) mg/dL AST (17-59) U/L Total Protein (6.3-8.2) g/dL Albumin (3.5-5.0) g/dL 08/09/20 08/09/20 08/09/20 Range/Units 15:01 15:53 16:53 RBC (4.30-5.90) m/uL Hgb (13.0-17.5) gm/dL Hct (39.0-53.0) % Plt Count (150-450) k/uL Neutrophils # (1.3-7.7) k/uL Lymphocytes # (1.0-4.8) k/uL ABG pH (7.35-7.45) ABG pO2 (83-108) mmHg ABG O2 Saturation (94-97) % Sodium (137-145) mmol/L Carbon Dioxide (22-30) mmol/L BUN (9-20) mg/dL Creatinine (0.66-1.25) mg/dL Glucose (74-99) mg/dL POC Glucose (mg/dL) 135 H 127 H 112 H (75-99) mg/dL Total Bilirubin (0.2-1.3) mg/dL AST (17-59) U/L Total Protein (6.3-8.2) g/dL Albumin (3.5-5.0) g/dL 08/09/20 08/09/20 08/09/20 Range/Units 18:11 18:56 20:20 RBC (4.30-5.90) m/uL Hgb (13.0-17.5) gm/dL Hct (39.0-53.0) % Plt Count (150-450) k/uL Neutrophils # (1.3-7.7) k/uL Lymphocytes # (1.0-4.8) k/uL ABG pH (7.35-7.45) ABG pO2 (83-108) mmHg ABG O2 Saturation (94-97) % Sodium (137-145) mmol/L Carbon Dioxide (22-30) mmol/L BUN (9-20) mg/dL Creatinine (0.66-1.25) mg/dL Glucose (74-99) mg/dL POC Glucose (mg/dL) 125 H 139 H 137 H (75-99) mg/dL Total Bilirubin (0.2-1.3) mg/dL AST (17-59) U/L Total Protein (6.3-8.2) g/dL Albumin (3.5-5.0) g/dL 08/09/20 08/10/20 08/10/20 Range/Units 22:20 00:54 02:51 RBC (4.30-5.90) m/uL Hgb (13.0-17.5) gm/dL Hct (39.0-53.0) % Plt Count (150-450) k/uL Neutrophils # (1.3-7.7) k/uL Lymphocytes # (1.0-4.8) k/uL ABG pH (7.35-7.45) ABG pO2 (83-108) mmHg ABG O2 Saturation (94-97) % Sodium (137-145) mmol/L Carbon Dioxide (22-30) mmol/L BUN (9-20) mg/dL Creatinine (0.66-1.25) mg/dL Glucose (74-99) mg/dL POC Glucose (mg/dL) 134 H 116 H 129 H (75-99) mg/dL Total Bilirubin (0.2-1.3) mg/dL AST (17-59) U/L Total Protein (6.3-8.2) g/dL Albumin (3.5-5.0) g/dL 08/10/20 08/10/20 08/10/20 Range/Units 03:55 03:55 04:53 RBC 3.53 L (4.30-5.90) m/uL Hgb 10.8 L (13.0-17.5) gm/dL Hct 32.6 L (39.0-53.0) % Plt Count 139 L (150-450) k/uL Neutrophils # 8.3 H (1.3-7.7) k/uL Lymphocytes # 0.9 L (1.0-4.8) k/uL ABG pH (7.35-7.45) ABG pO2 (83-108) mmHg ABG O2 Saturation (94-97) % Sodium 129 L (137-145) mmol/L Carbon Dioxide 19 L (22-30) mmol/L BUN 31 H (9-20) mg/dL Creatinine 1.36 H (0.66-1.25) mg/dL Glucose 126 H (74-99) mg/dL POC Glucose (mg/dL) 127 H (75-99) mg/dL Total Bilirubin 2.1 H (0.2-1.3) mg/dL AST 80 H (17-59) U/L Total Protein 4.9 L (6.3-8.2) g/dL Albumin 3.1 L (3.5-5.0) g/dL 08/10/20 08/10/20 08/10/20 Range/Units 06:42 08:15 08:25 RBC (4.30-5.90) m/uL Hgb (13.0-17.5) gm/dL Hct (39.0-53.0) % Plt Count (150-450) k/uL Neutrophils # (1.3-7.7) k/uL Lymphocytes # (1.0-4.8) k/uL ABG pH 7.34 L (7.35-7.45) ABG pO2 82 L 29 L* (83-108) mmHg ABG O2 Saturation 49.2 L (94-97) % Sodium (137-145) mmol/L Carbon Dioxide (22-30) mmol/L BUN (9-20) mg/dL Creatinine (0.66-1.25) mg/dL Glucose (74-99) mg/dL POC Glucose (mg/dL) 117 H (75-99) mg/dL Total Bilirubin (0.2-1.3) mg/dL AST (17-59) U/L Total Protein (6.3-8.2) g/dL Albumin (3.5-5.0) g/dL 08/10/20 Range/Units 08:40 RBC (4.30-5.90) m/uL Hgb (13.0-17.5) gm/dL Hct (39.0-53.0) % Plt Count (150-450) k/uL Neutrophils # (1.3-7.7) k/uL Lymphocytes # (1.0-4.8) k/uL ABG pH (7.35-7.45) ABG pO2 (83-108) mmHg ABG O2 Saturation (94-97) % Sodium (137-145) mmol/L Carbon Dioxide (22-30) mmol/L BUN (9-20) mg/dL Creatinine (0.66-1.25) mg/dL Glucose (74-99) mg/dL POC Glucose (mg/dL) 135 H (75-99) mg/dL Total Bilirubin (0.2-1.3) mg/dL AST (17-59) U/L Total Protein (6.3-8.2) g/dL Albumin (3.5-5.0) g/dL - Imaging and Cardiology Chest x-ray: report reviewed, image reviewed Assessment and Plan Assessment: 1. Multivessel coronary artery disease, status post double vessel coronary artery bypass grafting surgery 2. Non-STEMI this admission 3. Hyperlipidemia, cholesterol 206, LDL 118, triglycerides 199 4. Right internal carotid artery stenosis 72% stenosis at the origin of the right internal carotid artery per CTA of the neck 5. Ischemic cardiomyopathy with EF 40-45% 6. Previous tobacco dependence 7. Moderate COPD with preoperative FEV1 59% of predicted 8. History of prostate cancer status post prostatectomy Plan: 1. Continue aspirin, statin, Plavix and beta michel. Will increase metoprolol tartrate as tolerated. 2. Draw a stat arterial blood gas and mixed venous. Send for stat lactic acid level. 3. Wean O2 as tolerated. Encourage incentive spirometry is 10 times every hour while awake. Bronchodilators per pulmonology management. 4. Increase activity, ambulate as tolerated. PT/OT/cardiac rehab following. 5. Will monitor daily labs and chest x-rays. Electrolyte replacement protocol. 6. GI/DVT prophylaxis 7. Pain control with current medication regimen. Toradol has been discontinued due to his BUN of 31 and creatinine 1.36. 8. Keep [place]-Alexx catheter in place today and continue to monitor hemodynamics. 9. Insulin management per Dr. Ryan. Patient is not diabetic, preoperative hemoglobin A1c 5.3% 10. We will remove his mediastinal chest tubes and keep his left pleural chest tube to low continuous wall suction -20 cm H2O. Continue to monitor and record output. 11. Continue Osorio catheter for the 24 hours for strict accurate intake and output. Daily weights. 12. Keep right radial arterial line in place. 13. No diuretics today. 14. Continue amiodarone drip until current bag is finished. We will start amiodarone 400 mg by mouth twice a day. 15. More recommendations to follow based on patient's clinical course. Seen and examined and agree with the plan. Time with Patient: Greater than 30
[2020-08-10 12:04] LABS: Glucose,Whole Blood 143 mg/dL (75-99)
--- NOTE | 2020-08-10 12:46 | P.PN ---
Subjective Progress Note Date: 08/10/20 Principal diagnosis: Non-ST segment elevation myocardial infarction The patient is seen today 08/09/2020 in follow-up in the intensive care unit. This is a very pleasant 85-year-old gentleman who was admitted with a non-ST segment elevation myocardial infarction. He is found to have significant coronary artery disease and had undergone an off-pump double coronary artery bypass surgery using the LUCERO to the LAD and reverse saphenous vein graft to the distal posterior descending artery. This is postoperative day #1. He was successfully extubated within 3 hours after leaving the OR. He is currently sitting up in a chair at the bedside. Awake and alert in no acute distress. Maintaining O2 saturation in the 90s on 7 L high flow nasal cannula. He is afebrile. Current blood pressure 121/44, PA pressures 32/17, CVP 15. Chest x- ray reveals evidence of some mild fluid volume overload, atelectasis. He is currently receiving 0.9 normal saline at 50 MLS per hour. He is on Kenny- Synephrine at 0.7 mcg/kg/m. Insulin drip is off. He remains on bronchodilators. Working well with the incentive spirometer. Maintaining a regular rhythm. White count 11.3. Hemoglobin 10.8. Sodium 134. Potassium 4.9. Creatinine 1.13. The patient is seen today 08/10/2020 in follow-up in the intensive care unit. Postoperative day #2. He is currently sitting up in a chair at the bedside. Awake and alert in no acute distress. He is currently on 4 L/m per nasal cannula and maintaining O2 saturation in the 90s. He did have issues with atrial fibrillation last evening. He is on amiodarone drip at 0.5 mg/m. 0.9 normal saline at 50 mL per hour. Idamay-Alexx catheter remains in place. Cardiac output 4.4. Cardiac index 2.0. PA pressures 34/17 with a CVP of 14. Arterial blood gases revealed a PaO2 of 82, pCO2 37, pH 7.36. Chest x-ray reveals improved appearance of the pulmonary edema and pulmonary vascular congestion compared to yesterday's chest x-ray. Small bilateral pleural effusions. Chest tubes remain in place to the left chest and mediastinum. White count 10.4. Hemoglobin 10.8. Platelet count 139,000. Sodium 129. Potassium 4.6. Creatinine 1.36. Objective - Vital Signs Vital signs: Vital Signs Temp 98.1 F 08/10/20 08:00 Pulse 130 H 08/10/20 11:33 Resp 25 H 08/10/20 11:00 BP 114/51 08/10/20 11:00 Pulse Ox 95 08/10/20 11:00 Intake & Output 08/09/20 08/10/20 08/10/20 18:59 06:59 18:59 Intake Total 3059.279 614.949 390 Output Total 1215 1325 485 Balance 1844.279 -710.051 -95 Weight 94.5 kg 95.1 kg Intake: IV 760 610 390 .9@20 650 550 250 CO/CI 110 60 40 miodarone bolus 100 Intake, IV Titration 199.279 4.949 Amount Insulin Regular 100 unit 1.279 4.949 In Sodium Chloride 0.9% 100 ml @ Per Protocol IV .Q0M [facility] Rx#:[id number] Milrinone-D5w Pmx 20 mg 23.31 In Dextrose/Water 1 100ml .bag @ 0.2 MCG/KG/MIN 5.4 mls/hr IV .[id number] [facility] Rx#:[id number] Nitroglycerin-D5w Pmx 50 24.9 mg In Dextrose/Water 1 250ml.bag @ 5 MCG/MIN 1.5 mls/hr IV .Q24H [facility] Rx#: [id number] Phenylephrine 40 mg In 149.790 Sodium Chloride 0.9% 250 ml @ 0.7 MCG/KG/MIN 24. 003 mls/hr IV .[id number] [facility] Rx#:[id number] Oral 2100 Output: Chest Tube Drainage 270 350 170 L Plueral 170 200 110 Mediastinal x2 100 150 60 Urine 945 975 315 Other: Voiding Method Indwelling Catheter Indwelling Catheter ABP, PAP, CO, CI - Last Documented Arterial Blood Pressure 141/48 Pulmonary Artery Pressure 34/20 Cardiac Output 4.4 Cardiac Index 2 - Exam GENERAL EXAM: Alert, very pleasant 85-year-old gentleman, on 4 L nasal cannula, up in a chair at the bedside, comfortable in no apparent distress. HEAD: Normocephalic. EYES: Normal reaction of pupils, equal size. NOSE: Clear with pink turbinates. THROAT: No erythema or exudates. NECK: Idamay-Alexx catheter in place to right IJ. No masses, no JVD. CHEST: Sternal dressing dry and intact. Heart Hugger in place. Chest tubes secured in place LUNGS: Equal air entry with crackles in the bilateral posterior bases. CVS: S1 and S2 normal with no audible murmur, regular rhythm. ABDOMEN: No hepatosplenomegaly, normal bowel sounds, no guarding or rigidity. SPINE: No scoliosis or deformity SKIN: No rashes CENTRAL NERVOUS SYSTEM: No focal deficits, tone is normal in all 4 extremities. EXTREMITIES: There is trace peripheral edema. No clubbing, no cyanosis. Peripheral pulses are intact. - Labs CBC & Chem 7: 08/10/20 03:55 08/10/20 03:55 Labs: Abnormal Lab Results - Last 24 Hours (Table) 08/09/20 08/09/20 08/09/20 Range/Units 12:51 14:01 15:01 RBC (4.30-5.90) m/uL Hgb (13.0-17.5) gm/dL Hct (39.0-53.0) % Plt Count (150-450) k/uL Neutrophils # (1.3-7.7) k/uL Lymphocytes # (1.0-4.8) k/uL ABG pH (7.35-7.45) ABG pO2 (83-108) mmHg ABG O2 Saturation (94-97) % Sodium (137-145) mmol/L Carbon Dioxide (22-30) mmol/L BUN (9-20) mg/dL Creatinine (0.66-1.25) mg/dL Glucose (74-99) mg/dL POC Glucose (mg/dL) 132 H 118 H 135 H (75-99) mg/dL Total Bilirubin (0.2-1.3) mg/dL AST (17-59) U/L Total Protein (6.3-8.2) g/dL Albumin (3.5-5.0) g/dL 08/09/20 08/09/20 08/09/20 Range/Units 15:53 16:53 18:11 RBC (4.30-5.90) m/uL Hgb (13.0-17.5) gm/dL Hct (39.0-53.0) % Plt Count (150-450) k/uL Neutrophils # (1.3-7.7) k/uL Lymphocytes # (1.0-4.8) k/uL ABG pH (7.35-7.45) ABG pO2 (83-108) mmHg ABG O2 Saturation (94-97) % Sodium (137-145) mmol/L Carbon Dioxide (22-30) mmol/L BUN (9-20) mg/dL Creatinine (0.66-1.25) mg/dL Glucose (74-99) mg/dL POC Glucose (mg/dL) 127 H 112 H 125 H (75-99) mg/dL Total Bilirubin (0.2-1.3) mg/dL AST (17-59) U/L Total Protein (6.3-8.2) g/dL Albumin (3.5-5.0) g/dL 08/09/20 08/09/20 08/09/20 Range/Units 18:56 20:20 22:20 RBC (4.30-5.90) m/uL Hgb (13.0-17.5) gm/dL Hct (39.0-53.0) % Plt Count (150-450) k/uL Neutrophils # (1.3-7.7) k/uL Lymphocytes # (1.0-4.8) k/uL ABG pH (7.35-7.45) ABG pO2 (83-108) mmHg ABG O2 Saturation (94-97) % Sodium (137-145) mmol/L Carbon Dioxide (22-30) mmol/L BUN (9-20) mg/dL Creatinine (0.66-1.25) mg/dL Glucose (74-99) mg/dL POC Glucose (mg/dL) 139 H 137 H 134 H (75-99) mg/dL Total Bilirubin (0.2-1.3) mg/dL AST (17-59) U/L Total Protein (6.3-8.2) g/dL Albumin (3.5-5.0) g/dL 08/10/20 08/10/20 08/10/20 Range/Units 00:54 02:51 03:55 RBC 3.53 L (4.30-5.90) m/uL Hgb 10.8 L (13.0-17.5) gm/dL Hct 32.6 L (39.0-53.0) % Plt Count 139 L (150-450) k/uL Neutrophils # 8.3 H (1.3-7.7) k/uL Lymphocytes # 0.9 L (1.0-4.8) k/uL ABG pH (7.35-7.45) ABG pO2 (83-108) mmHg ABG O2 Saturation (94-97) % Sodium (137-145) mmol/L Carbon Dioxide (22-30) mmol/L BUN (9-20) mg/dL Creatinine (0.66-1.25) mg/dL Glucose (74-99) mg/dL POC Glucose (mg/dL) 116 H 129 H (75-99) mg/dL Total Bilirubin (0.2-1.3) mg/dL AST (17-59) U/L Total Protein (6.3-8.2) g/dL Albumin (3.5-5.0) g/dL 08/10/20 08/10/20 08/10/20 Range/Units 03:55 04:53 06:42 RBC (4.30-5.90) m/uL Hgb (13.0-17.5) gm/dL Hct (39.0-53.0) % Plt Count (150-450) k/uL Neutrophils # (1.3-7.7) k/uL Lymphocytes # (1.0-4.8) k/uL ABG pH (7.35-7.45) ABG pO2 (83-108) mmHg ABG O2 Saturation (94-97) % Sodium 129 L (137-145) mmol/L Carbon Dioxide 19 L (22-30) mmol/L BUN 31 H (9-20) mg/dL Creatinine 1.36 H (0.66-1.25) mg/dL Glucose 126 H (74-99) mg/dL POC Glucose (mg/dL) 127 H 117 H (75-99) mg/dL Total Bilirubin 2.1 H (0.2-1.3) mg/dL AST 80 H (17-59) U/L Total Protein 4.9 L (6.3-8.2) g/dL Albumin 3.1 L (3.5-5.0) g/dL 08/10/20 08/10/20 08/10/20 Range/Units 08:15 08:25 08:40 RBC (4.30-5.90) m/uL Hgb (13.0-17.5) gm/dL Hct (39.0-53.0) % Plt Count (150-450) k/uL Neutrophils # (1.3-7.7) k/uL Lymphocytes # (1.0-4.8) k/uL ABG pH 7.34 L (7.35-7.45) ABG pO2 82 L 29 L* (83-108) mmHg ABG O2 Saturation 49.2 L (94-97) % Sodium (137-145) mmol/L Carbon Dioxide (22-30) mmol/L BUN (9-20) mg/dL Creatinine (0.66-1.25) mg/dL Glucose (74-99) mg/dL POC Glucose (mg/dL) 135 H (75-99) mg/dL Total Bilirubin (0.2-1.3) mg/dL AST (17-59) U/L Total Protein (6.3-8.2) g/dL Albumin (3.5-5.0) g/dL 08/10/20 Range/Units 12:03 RBC (4.30-5.90) m/uL Hgb (13.0-17.5) gm/dL Hct (39.0-53.0) % Plt Count (150-450) k/uL Neutrophils # (1.3-7.7) k/uL Lymphocytes # (1.0-4.8) k/uL ABG pH (7.35-7.45) ABG pO2 (83-108) mmHg ABG O2 Saturation (94-97) % Sodium (137-145) mmol/L Carbon Dioxide (22-30) mmol/L BUN (9-20) mg/dL Creatinine (0.66-1.25) mg/dL Glucose (74-99) mg/dL POC Glucose (mg/dL) 143 H (75-99) mg/dL Total Bilirubin (0.2-1.3) mg/dL AST (17-59) U/L Total Protein (6.3-8.2) g/dL Albumin (3.5-5.0) g/dL Assessment and Plan Assessment: 1 Non-ST segment elevation myocardial infarction, multivessel coronary artery disease. Status post off-pump coronary artery bypass grafting utilizing a LUCERO to the LAD and a reverse saphenous vein graft to the distal PDA. Postoperative day #2 2 Ischemic cardiomyopathy, ejection fraction 40-45% 3 Previous history of chronic tobacco dependence 4 Moderate COPD, FEV1 value 59% of predicted 5 Carotid stenosis involving the right internal carotid with 72% stenosis 6 History of prostate cancer status post prostatectomy 7 Episode of atrial fibrillation requiring initiation of amiodarone drip, and expected outcome of surgery 8 Acute renal failure Plan: The patient was seen and evaluated by Dr. Sloan Chest x-ray and labs reviewed, chest tubes remain in place Again educated regarding the importance of the incentive spirometer Titrate down the FiO2 as tolerated Increase activity as tolerated Continue bronchodilators We'll continue to follow and make further recommendations based on his clinical status Critical care time 35 minutes I, the cosigning physician, performed a history & physical examination of the patient. Lungs sounds with crackles in the bilateral posterior bases. Maintaining good O2 saturations in the 90s on 4 L high flow nasal cannula. I discussed the assessment and plan of care with my nurse practitioner, Tona Roe. I attest to the above note as dictated by her.
[2020-08-10 13:43] LABS: ABG Base Excess -5.6 mmol/L; ABG HCO3 19 mmol/L (21-25); ABG Oxygen Saturation 96.2 % (94-97); ABG PCO2 32 mmHg (35-45); ABG PH 7.39 (7.35-7.45); ABG PO2 79 mmHg (83-108); ABG TCO2 20 mmol/L (19-24); Allen Test Performed? Yes
[2020-08-10 13:50] LABS: ABG HCO3 23 mmol/L (21-25); ABG Oxygen Saturation 39.3 % (94-97); ABG PCO2 41 mmHg (35-45); ABG PH 7.35 (7.35-7.45); ABG TCO2 24 mmol/L (19-24); Allen Test Performed? Yes
[2020-08-10 13:52] LABS: ABG PO2 26 mmHg (83-108)
[2020-08-10] MEDS ORDERED: MILRINONE-D5W PMX 20 MG in DEXTROSE/WATER 1 100ML.BAG IV SCH (14:15)
[2020-08-10] MEDS: MILRINONE-D5W PMX 20 MG in DEXTROSE/WATER 1 100ML.BAG IV SCH ×2 (14:23→22:05)
[2020-08-10 15:30] LABS: ABG Base Excess -3.3 mmol/L; ABG HCO3 22 mmol/L (21-25); ABG Oxygen Saturation 60.8 % (94-97); ABG PCO2 38 mmHg (35-45); ABG PH 7.37 (7.35-7.45); ABG TCO2 23 mmol/L (19-24); Allen Test Performed? Yes
[2020-08-10 15:32] LABS: ABG PO2 34 mmHg (83-108)
--- NOTE | 2020-08-10 15:50 | P.PN ---
Subjective 85-year-old patient of Dr. Henrik Perez. In rather good health. Patient after breakfast when DrAbby below the lease. Then came back again the lawnmower. Started getting a chest heaviness went up to his arms. Decided to go back in the house. Started forgetting unwell. Symptoms last for 2 hours. No dizziness or lightheadedness. [place] totally weak and rundown. Clammy perspiration. Decided to come in. No prior cardiac history. Fairly active. Had a similar episode about 2 months ago. Improved with rest. Admitted with non-ST elevation IA. Cardiac catheterization showed severe coronary artery disease. August 08-underwent coronary bypass. Patient extubated the same evening [id number] was on insulin and Kenny-Synephrine drip. Telemetry shows sinus rhythm. Breathing stable. No chest pain. at the bedside. 08/10/2020 Patient is having a repeat echocardiogram patient in any of around 40-45% patient had low-grade fevers which is being monitored but no further workup is being done at this time. She is mildly hyponatremic secondary to he received yesterday Lasix was held at this time. Patient is transitioned to subcutaneous insulin sliding scale. Patient still has a mediastinal chest tube with a significant drainage patient is presently on amiodarone drip for atrial fibrillation. Constitutional: Denied any fatigue denied any fever. Cardio vascular: denied any chest pain, palpitations Gastrointestinal denied any nausea vomiting Pulmonary: Denied any shortness of breath cough Neurologic denied any new focal deficits All inpatient medications were reviewed and appropriate changes in these medications as dictated in the interval history and assessment and plan. Objective - Vital Signs Vital signs: Vital Signs Temp 98.1 F 08/10/20 08:00 Pulse 80 08/10/20 15:00 Resp 30 H 08/10/20 15:00 BP 104/57 08/10/20 14:00 Pulse Ox 91 L 08/10/20 15:00 Intake & Output 08/09/20 08/10/20 08/10/20 18:59 06:59 18:59 Intake Total 3059.279 614.949 590 Output Total 1215 1325 620 Balance 1844.279 -710.051 -30 Weight 94.5 kg 95.1 kg Intake: IV 760 610 590 .9@20 650 550 390 CO/CI 110 60 100 miodarone bolus 100 Intake, IV Titration 199.279 4.949 Amount Insulin Regular 100 unit 1.279 4.949 In Sodium Chloride 0.9% 100 ml @ Per Protocol IV .Q0M [facility] Rx#:[id number] Milrinone-D5w Pmx 20 mg 23.31 In Dextrose/Water 1 100ml .bag @ 0.2 MCG/KG/MIN 5.4 mls/hr IV .[id number] [facility] Rx#:[id number] Nitroglycerin-D5w Pmx 50 24.9 mg In Dextrose/Water 1 250ml.bag @ 5 MCG/MIN 1.5 mls/hr IV .Q24H [facility] Rx#: [id number] Phenylephrine 40 mg In 149.790 Sodium Chloride 0.9% 250 ml @ 0.7 MCG/KG/MIN 24. 003 mls/hr IV .[id number] [facility] Rx#:[id number] Oral 2100 Output: Chest Tube Drainage 270 350 180 L Plueral 170 200 120 Mediastinal x2 100 150 60 Urine 945 975 440 Other: Voiding Method Indwelling Catheter Indwelling Catheter # Bowel Movements 0 ABP, PAP, CO, CI - Last Documented Arterial Blood Pressure 148/54 Pulmonary Artery Pressure 38/24 Cardiac Output 5.9 Cardiac Index 2.7 - Exam PHYSICAL EXAMINATION: GENERAL: The patient is alert and oriented x3, not in any acute distress. Well developed, well nourished. HEENT: Pupils are round and equally reacting to light. EOMI. No scleral icterus. No conjunctival pallor. Normocephalic, atraumatic. No pharyngeal erythema. No thyromegaly. CARDIOVASCULAR: S1 and S2 present. No murmurs, rubs, or gallops. Patient has a mediastinal chest tube PULMONARY: Chest is clear to auscultation, no wheezing or crackles. ABDOMEN: Soft, nontender, nondistended, normoactive bowel sounds. No palpable organomegaly. MUSCULOSKELETAL: No joint swelling or deformity. EXTREMITIES: No cyanosis, clubbing, or pedal edema. NEUROLOGICAL: Gross neurological examination did not reveal any focal deficits. SKIN: No rashes. - Labs CBC & Chem 7: 08/10/20 03:55 08/10/20 03:55 Labs: Abnormal Lab Results - Last 24 Hours (Table) 10/23/20 10/23/20 10/23/20 Range/Units 15:53 16:53 18:11 RBC (4.30-5.90) m/uL Hgb (13.0-17.5) gm/dL Hct (39.0-53.0) % Plt Count (150-450) k/uL Neutrophils # (1.3-7.7) k/uL Lymphocytes # (1.0-4.8) k/uL ABG pH (7.35-7.45) ABG pCO2 (35-45) mmHg ABG pO2 (83-108) mmHg ABG HCO3 (21-25) mmol/L ABG O2 Saturation (94-97) % Sodium (137-145) mmol/L Carbon Dioxide (22-30) mmol/L BUN (9-20) mg/dL Creatinine (0.66-1.25) mg/dL Glucose (74-99) mg/dL POC Glucose (mg/dL) 127 H 112 H 125 H (75-99) mg/dL Total Bilirubin (0.2-1.3) mg/dL AST (17-59) U/L Total Protein (6.3-8.2) g/dL Albumin (3.5-5.0) g/dL 08/09/20 08/09/20 08/09/20 Range/Units 18:56 20:20 22:20 RBC (4.30-5.90) m/uL Hgb (13.0-17.5) gm/dL Hct (39.0-53.0) % Plt Count (150-450) k/uL Neutrophils # (1.3-7.7) k/uL Lymphocytes # (1.0-4.8) k/uL ABG pH (7.35-7.45) ABG pCO2 (35-45) mmHg ABG pO2 (83-108) mmHg ABG HCO3 (21-25) mmol/L ABG O2 Saturation (94-97) % Sodium (137-145) mmol/L Carbon Dioxide (22-30) mmol/L BUN (9-20) mg/dL Creatinine (0.66-1.25) mg/dL Glucose (74-99) mg/dL POC Glucose (mg/dL) 139 H 137 H 134 H (75-99) mg/dL Total Bilirubin (0.2-1.3) mg/dL AST (17-59) U/L Total Protein (6.3-8.2) g/dL Albumin (3.5-5.0) g/dL 08/10/20 08/10/20 08/10/20 Range/Units 00:54 02:51 03:55 RBC 3.53 L (4.30-5.90) m/uL Hgb 10.8 L (13.0-17.5) gm/dL Hct 32.6 L (39.0-53.0) % Plt Count 139 L (150-450) k/uL Neutrophils # 8.3 H (1.3-7.7) k/uL Lymphocytes # 0.9 L (1.0-4.8) k/uL ABG pH (7.35-7.45) ABG pCO2 (35-45) mmHg ABG pO2 (83-108) mmHg ABG HCO3 (21-25) mmol/L ABG O2 Saturation (94-97) % Sodium (137-145) mmol/L Carbon Dioxide (22-30) mmol/L BUN (9-20) mg/dL Creatinine (0.66-1.25) mg/dL Glucose (74-99) mg/dL POC Glucose (mg/dL) 116 H 129 H (75-99) mg/dL Total Bilirubin (0.2-1.3) mg/dL AST (17-59) U/L Total Protein (6.3-8.2) g/dL Albumin (3.5-5.0) g/dL 08/10/20 08/10/20 08/10/20 Range/Units 03:55 04:53 06:42 RBC (4.30-5.90) m/uL Hgb (13.0-17.5) gm/dL Hct (39.0-53.0) % Plt Count (150-450) k/uL Neutrophils # (1.3-7.7) k/uL Lymphocytes # (1.0-4.8) k/uL ABG pH (7.35-7.45) ABG pCO2 (35-45) mmHg ABG pO2 (83-108) mmHg ABG HCO3 (21-25) mmol/L ABG O2 Saturation (94-97) % Sodium 129 L (137-145) mmol/L Carbon Dioxide 19 L (22-30) mmol/L BUN 31 H (9-20) mg/dL Creatinine 1.36 H (0.66-1.25) mg/dL Glucose 126 H (74-99) mg/dL POC Glucose (mg/dL) 127 H 117 H (75-99) mg/dL Total Bilirubin 2.1 H (0.2-1.3) mg/dL AST 80 H (17-59) U/L Total Protein 4.9 L (6.3-8.2) g/dL Albumin 3.1 L (3.5-5.0) g/dL 08/10/20 08/10/20 08/10/20 Range/Units 08:15 08:25 08:40 RBC (4.30-5.90) m/uL Hgb (13.0-17.5) gm/dL Hct (39.0-53.0) % Plt Count (150-450) k/uL Neutrophils # (1.3-7.7) k/uL Lymphocytes # (1.0-4.8) k/uL ABG pH 7.34 L (7.35-7.45) ABG pCO2 (35-45) mmHg ABG pO2 82 L 29 L* (83-108) mmHg ABG HCO3 (21-25) mmol/L ABG O2 Saturation 49.2 L (94-97) % Sodium (137-145) mmol/L Carbon Dioxide (22-30) mmol/L BUN (9-20) mg/dL Creatinine (0.66-1.25) mg/dL Glucose (74-99) mg/dL POC Glucose (mg/dL) 135 H (75-99) mg/dL Total Bilirubin (0.2-1.3) mg/dL AST (17-59) U/L Total Protein (6.3-8.2) g/dL Albumin (3.5-5.0) g/dL 08/10/20 08/10/20 08/10/20 Range/Units 12:03 13:41 13:48 RBC (4.30-5.90) m/uL Hgb (13.0-17.5) gm/dL Hct (39.0-53.0) % Plt Count (150-450) k/uL Neutrophils # (1.3-7.7) k/uL Lymphocytes # (1.0-4.8) k/uL ABG pH (7.35-7.45) ABG pCO2 32 L (35-45) mmHg ABG pO2 79 L 26 L* (83-108) mmHg ABG HCO3 19 L (21-25) mmol/L ABG O2 Saturation 39.3 L (94-97) % Sodium (137-145) mmol/L Carbon Dioxide (22-30) mmol/L BUN (9-20) mg/dL Creatinine (0.66-1.25) mg/dL Glucose (74-99) mg/dL POC Glucose (mg/dL) 143 H (75-99) mg/dL Total Bilirubin (0.2-1.3) mg/dL AST (17-59) U/L Total Protein (6.3-8.2) g/dL Albumin (3.5-5.0) g/dL 08/10/20 Range/Units 15:29 RBC (4.30-5.90) m/uL Hgb (13.0-17.5) gm/dL Hct (39.0-53.0) % Plt Count (150-450) k/uL Neutrophils # (1.3-7.7) k/uL Lymphocytes # (1.0-4.8) k/uL ABG pH (7.35-7.45) ABG pCO2 (35-45) mmHg ABG pO2 34 L* (83-108) mmHg ABG HCO3 (21-25) mmol/L ABG O2 Saturation 60.8 L (94-97) % Sodium (137-145) mmol/L Carbon Dioxide (22-30) mmol/L BUN (9-20) mg/dL Creatinine (0.66-1.25) mg/dL Glucose (74-99) mg/dL POC Glucose (mg/dL) (75-99) mg/dL Total Bilirubin (0.2-1.3) mg/dL AST (17-59) U/L Total Protein (6.3-8.2) g/dL Albumin (3.5-5.0) g/dL Assessment and Plan Plan: -Acute non-ST elevation myocardial infarction -Ischemic cardiomyopathy from systolic dysfunction EF 40- 45% -Severe triple-vessel coronary artery disease per cardiac catheterization- pending coronary bypass this -Leukocytosis from acute IA. No clinical evidence of infection -Mild hyponatremia -IV heparin monitoring -Significant stenosis of the right carotid artery -Ascending aortic aneurysm 4.1 cm -Coronary bypass in August 08 Plan: She is currently on an amiodarone drip and he with the chest to workup for fever as per primary service. Patient will be transitioned to sliding scale insulin.
--- NOTE | 2020-08-10 17:00 | ECHOF ---
Referral Reason:low cardiac indexes MEASUREMENTS -------- HEIGHT: 160.0 cm WEIGHT: 94.8 kg BP: RVIDd: 3.0 cm (< 3.3) IVSd: 1.1 cm (0.6 - 1.1) LVIDd: 6.0 cm (3.9 - 5.3) LVPWd: 1.7 cm (0.6 - 1.1) IVSs: 1.6 cm LVIDs: 5.4 cm LVPWs: 1.6 cm LA Diam: 4.8 cm (2.7 - 3.8) LAESV Index (A-L): 38.71 ml/m Ao Diam: 3.1 cm (2.0 - 3.7) AV Cusp: 2.0 cm (1.5 - 2.6) LA Diam: 4.9 cm (2.7 - 3.8) MV EXCURSION: 25.597 mm (> 18.000) MV EF SLOPE: 104 mm/s (70 - 150) EPSS: 1.5 cm MV E Yemi: 0.56 m/s MV DecT: 118 ms MV A Yemi: 0.45 m/s MV E/A Ratio: 1.24 RAP: 15.00 mmHg RVSP: 40.88 mmHg FINDINGS -------- Undetermined rhythm. Echo done 08/03/20: Pt had CABG x 2. 08/08/20. The left ventricular size is normal. Left ventricular wall thickness is normal. Overall left vent ricular systolic function is severely impaired with, an EF between 20 - 25 %. Anteroapical and septal and inferoapical hypokinesia noted. The right ventricle is normal in size. The left atrium is moderately dilated. LA is moderately dilated 34-39 ml/m2 The right atrial size is normal. There is mild aortic regurgitation. Mild mitral regurgitation is present. Moderate tricuspid regurgitation present. There is mild pulmonary hypertension. There is no pulmonic regurgitation present. The aortic root size is normal. There is no pericardial effusion. CONCLUSIONS -------- 1. Echo done 08/03/20: Pt had CABG x 2. 08/08/20. 2. The left ventricular size is normal. 3. Left ventricular wall thickness is normal. 4. Overall left ventricular systolic function is severely impaired with, an EF between 20 - 25 %. 5. The right ventricle is normal in size. 6. The left atrium is moderately dilated. 7. LA is moderately dilated 34-39 ml/m2 8. The right atrial size is normal. 9. There is mild aortic regurgitation. 10. Mild mitral regurgitation is present. 11. Moderate tricuspid regurgitation present. 12. There is mild pulmonary hypertension. 13. There is no pulmonic regurgitation present. 14. The aortic root size is normal. 15. There is no pericardial effusion. LABORER OPERATOR: Lucie Kim RDCS
[2020-08-10 17:12] LABS: Glucose,Whole Blood 110 mg/dL (75-99)
[2020-08-10] MEDS: HYDROcodone/APAP 5-325MG 1 EACH TAB PO PRN (17:30)
[2020-08-10] MEDS: INSULIN ASPART (NovoLOG) 100 UNIT/ML VIAL SQ SCH ×2 (17:37→20:59)
[2020-08-10] MEDS: SENNOSIDES-DOCUSATE SODIUM 1 EACH TAB PO SCH (20:10)
[2020-08-10] MEDS: ATORVASTATIN 80 MG TAB PO SCH (20:10)
[2020-08-10] MEDS: DEXTROSE 5% IN WATER 100 ML with AMIODARONE 150 MG IV PRN (20:51)
[2020-08-10 21:00] LABS: Glucose,Whole Blood 147 mg/dL (75-99)
[2020-08-11] MEDS: HEPARIN SODIUM,PORCINE 5,000 UNIT/ML 1 ML VIAL SQ SCH ×3 (00:32→16:39)
[2020-08-11 05:35] LABS: Anisocytosis Moderate; Basophils % (A) 0 %; Eosinophils # (A) 0.1 k/uL (0-0.7); Eosinophils % (A) 1 %; HGB 9.9 gm/dL (13.0-17.5); Lymphocytes # (A) 0.8 k/uL (1.0-4.8); Lymphocytes % (A) 8 %; MCH 32.9 pg (25.0-35.0); MCHC 35.3 g/dL (31.0-37.0); MCV 93.4 fL (80.0-100.0); Mean Platelet Volume 11.5; Monocytes # (A) 0.7 k/uL (0-1.0); Monocytes % (A) 6 %; Neutrophils # (A) 8.4 k/uL (1.3-7.7); Neutrophils % (A) 82 %; Platelet Count 149 k/uL (150-450); RDW 20.6 % (11.5-15.5); WBC 10.2 k/uL (3.8-10.6)
[2020-08-11] MEDS: SODIUM CHLORIDE 0.9% 1,000 ML IV SCH (05:35)
[2020-08-11] MEDS: PHENYLEPHRINE 40 MG in SODIUM CHLORIDE 0.9% 250 ML IV SCH ×2 (05:36→14:33)
[2020-08-11 05:47] LABS: Albumin 2.8 g/dL (3.5-5.0); Calcium 8.6 mg/dL (8.4-10.2); Potassium 4.4 mmol/L (3.5-5.1); Total Bilirubin 1.9 mg/dL (0.2-1.3); Total Protein 4.6 g/dL (6.3-8.2)
[2020-08-11] MEDS: IPRATROPIUM-ALBUTEROL 3 ML NEB INHALATION SCH ×4 (06:04→19:08)
[2020-08-11] MEDS: MILRINONE-D5W PMX 20 MG in DEXTROSE/WATER 1 100ML.BAG IV SCH ×2 (06:30→22:18)
[2020-08-11] MEDS: PANTOPRAZOLE 40 MG TABLET PO SCH (06:31)
[2020-08-11] MEDS: INSULIN ASPART (NovoLOG) 100 UNIT/ML VIAL SQ SCH ×4 (06:31→20:37)
--- NOTE | 2020-08-11 07:28 | XR ---
EXAMINATION TYPE: XR chest 1V DATE OF EXAM: 08/11/2020 CLINICAL HISTORY: Difficulty breathing progress study. Postopen cardiac surgery study. TECHNIQUE: Single AP portable upright view of the chest is obtained. COMPARISON: Chest x-ray from one day earlier and older studies. FINDINGS: Redemonstration of right internal jugular Isaban-Alexx catheter retracted slightly in the int erval. Overlying sternal wires and mediastinal clips redemonstrated. Less well seen mediastinal drain age catheters. Stable left basilar chest tube. Persisting cardiomegaly with atherosclerotic thoracic aorta. Persistent small to tiny bilateral pleur al effusions. Patchy bibasilar atelectasis and/or infiltrates. No pneumothorax seen bilaterally. Osse ous structures are intact. IMPRESSION: Chronic changes and cardiomegaly with multiple tiny bilateral pleural effusions and patch y bibasilar atelectasis and/or infiltrates. No pneumothorax with left-sided chest tube in place. No s ignificant change from one day earlier.
[2020-08-11] MEDS: AMIODARONE 200 MG TAB PO SCH ×2 (08:45→20:36)
[2020-08-11] MEDS: MUPIROCIN 2% OINT 22 GM TUBE NASAL SCH ×2 (08:46→20:36)
[2020-08-11] MEDS: ASPIRIN 325 MG TAB PO SCH (08:46)
[2020-08-11] MEDS: CLOPIDOGREL 75 MG TAB PO SCH (08:46)
[2020-08-11] MEDS ORDERED: FUROSEMIDE 10 MG/ML 2 ML VIAL IV STA (08:59)
[2020-08-11] MEDS ORDERED: METOPROLOL TARTRATE 25 MG TAB PO SCH ×2 (09:00)
--- NOTE | 2020-08-11 09:38 | P.PN ---
Subjective Progress Note Date: 08/11/20 Principal diagnosis: Multivessel coronary artery disease, calcified ascending aorta, non-STEMI this admission, hyperlipidemia discovered this admission, right internal carotid omayra ry stenosis 72% per CTA of the neck, ischemic cardiomyopathy with EF 40-45%. Past medical history significant for previous tobacco dependence, moderate chronic obstructive pulmonary disease with preoperative FEV1 59% of predicted, obesity, history of prostate cancer status post prostatectomy. POD #3 off pump double coronary artery bypass grafting using the left internal mammary artery to the left anterior descending coronary artery, a reverse greater saphenous vein graft connected to the aorta using the PAS-port device and connected distally to the posterior descending coronary artery. Endoscopic harvesting of the left greater saphenous vein. Intraoperative graft flow measurement using the Smash BucketStim system, intraoperative transesophageal echocardiogram and epi-aortic scanning. Postoperative acute blood loss anemia, expected, dilutional. Postoperative hyponatremia, unexpected, possibly dilutional. Postoperative elevation transaminase enzymes, unexpected The patient was seen in follow-up today on 08/11/2020 at his bedside in the intensive care unit. He is sitting up to the bedside chair and is awake, alert and oriented 3 and is in no apparent acute distress. Currently he denies any complaints of pain or shortness of breath. The patient reports he feels much improved today. His night nurse reports that he had one episode of atrial fibrillation early this morning which was self-limiting. Currently his bedside monitor shows normal sinus rhythm heart rate 96. Current hemodynamics show cardiac output 7.1, cardiac index 3.2, PA pressures 25/14 and a CVP of 10 mmHg. Yesterday afternoon the patient dropped his cardiac index to 1.5 and was started on Primacor drip at 0.3 mcg/kg/m, which he remains on Primacor drip 0.3 mcg/kg/m at this time. Oxygen saturation surgeon 94% on 4 L nasal cannula and he is achieving 6234-3872 mL on his incentive spirometry with encouragement. He is complaining of a productive cough with tenacious enriquez colored sputum. T-max temperature in the last 24 hours was 100.6F. Left pleural chest tube remains in place to low continuous wall suction -20 cm H2O. No air leak is present. Draining thin serosanguineous drainage with 60 mL output in the last 8 hours and 320 L output in the last 24 hours. A 2-D echocardiogram was completed yesterday at his bedside which demonstrated an overall left ventricular systolic function to be severely impaired with an ejection fraction between 20 and 25%, mild aortic valve regurgitation, mild mitral valve regurgitation and moderate tricuspid valve regurgitation. There is no pericardial effusion demonstrated. Objective - Vital Signs Vital signs: Vital Signs Temp 98.6 F 08/11/20 08:00 Pulse 98 08/11/20 08:00 Resp 29 H 08/11/20 08:00 BP 120/82 08/11/20 08:00 Pulse Ox 94 L 08/11/20 08:00 Intake & Output 08/10/20 08/11/20 08/11/20 18:59 06:59 18:59 Intake Total 650 536.942 68 Output Total 820 925 110 Balance -170 -388.058 -42 Weight 96.2 kg Intake: IV 650 399 68 .9@20 450 240 40 CO/CI 100 60 10 miodarone bolus 100 pressure bag 99 18 Intake, IV Titration 137.942 Amount Milrinone-D5w Pmx 20 mg 137.942 In Dextrose/Water 1 100ml .bag @ 0.3 MCG/KG/MIN 8. 559 mls/hr IV .[id number] [facility] Rx#:[id number] Output: Chest Tube Drainage 250 130 10 L Plueral 190 130 10 Mediastinal x2 60 Urine 570 795 100 Other: Voiding Method Indwelling Catheter Indwelling Catheter Indwelling Catheter # Bowel Movements 0 ABP, PAP, CO, CI - Last Documented Arterial Blood Pressure 144/48 Pulmonary Artery Pressure 25/11 Cardiac Output 7.1 Cardiac Index 3.2 - Constitutional General appearance: Present: average body habitus, cooperative, no acute distress - EENT Eyes: Present: PERRLA, normal appearance. Absent: scleral icterus ENT: Present: hearing grossly normal - Neck Details: Neck is supple, no JVD. No lymphadenopathy. - Respiratory Details: Lung sounds essentially clear to his bilateral upper lobes, few scattered crackles and diminished to his bilateral bases. No wheezes or rhonchi. Respirations are symmetrical and nonlabored. Oxygen saturation is 94% on 4 L nasal cannula. Achieving 2504-2642 mL on his incentive spirometry. Left pleural chest tube remains in place to low continuous wall suction -20 cm H2O. No air leak is present. Draining thin serosanguineous drainage was 60 mL output in the last 8 hours, and 320 mL output in the last 24 hours. - Cardiovascular Details: Regular rhythm and rate. S1 and S2 present, negative for S3, gallop or murmur. Sternum is stable. Bedside telemetry showing normal sinus rhythm heart rate 96 BPM. No edema present. Knee-high ADALID hose and sequential compression devices in place to his bilateral lower extremities. Heart hugger is in place and he is demonstrating appropriate use. Right IJ Cordis and [place]-Alexx catheter in place with current hemodynamic showing a cardiac output of 7.1, cardiac index 3.2, PA pressures 25/14, and a CVP of 10 mmHg. - Gastrointestinal Gastrointestinal Comment(s): Abdomen is soft, nontender and nondistended. Hypoactive bowel sounds present in all 4 abdominal quadrants. No guarding or rigidity. No organomegaly appreciated. Tolerating oral intake. Passing flatus. - Genitourinary Genitourinary Comment(s): Osorio catheter for accurate I&O. Draining clear yellow urine. 520 mL output in the last 8 hours. - Integumentary Integumentary Comment(s): Skin is warm and dry. No clubbing or cyanosis is present. Midline sternal incision is clean, dry and approximated. No drainage or redness is present. Dressing is clean, dry and intact. Left leg EVH site is clean, dry and approximated. No drainage redness is present. - Neurologic Neurologic: Present: CNII-XII intact - Musculoskeletal Musculoskeletal: Present: gait normal, generalized weakness, strength equal bilaterally - Psychiatric Psychiatric: Present: A&O x's 3, appropriate affect, intact judgment & insight - Allied health notes Allied health notes reviewed: nursing - Labs CBC & Chem 7: 08/11/20 05:20 08/11/20 05:20 Labs: Abnormal Lab Results - Last 24 Hours (Table) 08/10/20 08/10/20 08/10/20 Range/Units 12:03 13:41 13:48 RBC (4.30-5.90) m/uL Hgb (13.0-17.5) gm/dL Hct (39.0-53.0) % RDW (11.5-15.5) % Plt Count (150-450) k/uL Neutrophils # (1.3-7.7) k/uL Lymphocytes # (1.0-4.8) k/uL ABG pCO2 32 L (35-45) mmHg ABG pO2 79 L 26 L* (83-108) mmHg ABG HCO3 19 L (21-25) mmol/L ABG O2 Saturation 39.3 L (94-97) % Sodium (137-145) mmol/L Carbon Dioxide (22-30) mmol/L BUN (9-20) mg/dL Creatinine (0.66-1.25) mg/dL Glucose (74-99) mg/dL POC Glucose (mg/dL) 143 H (75-99) mg/dL Total Bilirubin (0.2-1.3) mg/dL AST (17-59) U/L ALT (4-49) U/L Total Protein (6.3-8.2) g/dL Albumin (3.5-5.0) g/dL 08/10/20 08/10/20 08/10/20 Range/Units 15:29 17:10 20:59 RBC (4.30-5.90) m/uL Hgb (13.0-17.5) gm/dL Hct (39.0-53.0) % RDW (11.5-15.5) % Plt Count (150-450) k/uL Neutrophils # (1.3-7.7) k/uL Lymphocytes # (1.0-4.8) k/uL ABG pCO2 (35-45) mmHg ABG pO2 34 L* (83-108) mmHg ABG HCO3 (21-25) mmol/L ABG O2 Saturation 60.8 L (94-97) % Sodium (137-145) mmol/L Carbon Dioxide (22-30) mmol/L BUN (9-20) mg/dL Creatinine (0.66-1.25) mg/dL Glucose (74-99) mg/dL POC Glucose (mg/dL) 110 H 147 H (75-99) mg/dL Total Bilirubin (0.2-1.3) mg/dL AST (17-59) U/L ALT (4-49) U/L Total Protein (6.3-8.2) g/dL Albumin (3.5-5.0) g/dL 08/11/20 08/11/20 Range/Units 05:20 05:20 RBC 3.00 L (4.30-5.90) m/uL Hgb 9.9 L (13.0-17.5) gm/dL Hct 28.0 L (39.0-53.0) % RDW 20.6 H (11.5-15.5) % Plt Count 149 L (150-450) k/uL Neutrophils # 8.4 H (1.3-7.7) k/uL Lymphocytes # 0.8 L (1.0-4.8) k/uL ABG pCO2 (35-45) mmHg ABG pO2 (83-108) mmHg ABG HCO3 (21-25) mmol/L ABG O2 Saturation (94-97) % Sodium 127 L (137-145) mmol/L Carbon Dioxide 21 L (22-30) mmol/L BUN 32 H (9-20) mg/dL Creatinine 1.27 H (0.66-1.25) mg/dL Glucose 106 H (74-99) mg/dL POC Glucose (mg/dL) (75-99) mg/dL Total Bilirubin 1.9 H (0.2-1.3) mg/dL AST 254 H (17-59) U/L ALT 259 H (4-49) U/L Total Protein 4.6 L (6.3-8.2) g/dL Albumin 2.8 L (3.5-5.0) g/dL - Imaging and Cardiology Chest x-ray: report reviewed, image reviewed 2-D echocardiogram results reviewed. Assessment and Plan Assessment: 1. Multivessel coronary artery disease, status post double vessel coronary artery bypass grafting surgery 2. Non-STEMI this admission 3. Hyperlipidemia, cholesterol 206, LDL 118, triglycerides 199 4. Right internal carotid artery stenosis 72% stenosis at the origin of the right internal carotid artery per CTA of the neck 5. Ischemic cardiomyopathy with EF 40-45% 6. Previous tobacco dependence 7. Moderate COPD with preoperative FEV1 59% of predicted 8. History of prostate cancer status post prostatectomy 9. Postoperative acute blood loss anemia, expected, dilutional 10. Postoperative hyponatremia, unexpected, possibly dilutional 11. Postoperative elevation of his transaminase enzymes, unexpected Plan: 1. Continue aspirin, statin, Lipitor has been decreased to 40 mg by mouth daily, Plavix and beta michel. Will increase metoprolol tartrate to 25 mg by mouth daily at 9 AM and metoprolol tartrate 12.5 mg by mouth daily at bedtime. We will continue to increase his beta michel as tolerated. 2. Decrease Primacor drip to 0.2 mcg/kg/m. Continue to monitor hemodynamics, keep [place]-Alexx catheter in place. 3. Wean O2 as tolerated. Encourage incentive spirometry is 10 times every hour while awake. Bronchodilators per pulmonology management. 4. Increase activity, ambulate as tolerated. PT/OT/cardiac rehab following. 5. Will monitor daily labs and chest x-rays. Electrolyte replacement protocol. 6. GI/DVT prophylaxis 7. Pain control with current medication regimen. Continue to Toradol, BUN is 32 and creatinine 1.27 today. 8. Remove left pleural chest tube. 9. Insulin management per Dr. Ryan. Patient is not diabetic, preoperative hemoglobin A1c 5.3% 10. Discontinue Osorio catheter, continue to record accurate I's and O's. Bladder scan every 6 hours and when necessary postvoid residuals. If greater than 300 mL postvoid residual please straight cath. 11. Lasix 20 mg IV 1 now. 12. Continue amiodarone 400 mg by mouth twice a day for atrial fibrillation p rophylaxis. We will continue to monitor his AST and ALT. 13. No diuretics today. 14. Send sputum for Gram stain and culture and sensitivity. T-max temperature was 100.6F in the last 24 hours. Coughing tenacious enriquez sputum. 15. Continue the 1500 mL fluid restriction in 24 hours, the patient's sodium level is 127 today. 16. More recommendations to follow based on patient's clinical course. Nurse practitioner note has been reviewed by the physician. Signing provider agrees with the above documented findings, assessment and plan of care. Time with Patient: Greater than 30
[2020-08-11 09:41] LABS: ABG PO2 29 mmHg (83-108)
--- NOTE | 2020-08-11 10:13 | PN ---
PROGRESS NOTE This is 85-year-old gentleman status post bypass surgery. Yesterday had episode of hypotension, low indices and the echo revealed ejection fraction in the 25% to 30% range. However, this morning, he looks and feels better. Cardiac indices are excellent. I believe the low indices were related to an episode when he had tachycardia followed by an episode of bradycardia. However, he is in sinus rhythm, 96 beats per minute. I am recommending that we can increase the metoprolol tartrate to 25 mg b.i.d. continue current medications and repeat a limited echo tomorrow to see how his LV function is. He has anteroapical septal hypokinesia. Vitals are stable today. Renal output is decent. S1-S2 heard normally. Short systolic murmur noted. Lungs reveal improved air entry. MMODL / IJN: [id number] /
--- NOTE | 2020-08-11 10:24 | P.PN ---
Subjective Progress Note Date: 08/11/20 Principal diagnosis: Non-ST segment elevation myocardial infarction The patient is seen today 08/09/2020 in follow-up in the intensive care unit. This is a very pleasant 85-year-old gentleman who was admitted with a non-ST segment elevation myocardial infarction. He is found to have significant coronary artery disease and had undergone an off-pump double coronary artery bypass surgery using the LUCERO to the LAD and reverse saphenous vein graft to the distal posterior descending artery. This is postoperative day #1. He was successfully extubated within 3 hours after leaving the OR. He is currently sitting up in a chair at the bedside. Awake and alert in no acute distress. Maintaining O2 saturation in the 90s on 7 L high flow nasal cannula. He is afebrile. Current blood pressure 121/44, PA pressures 32/17, CVP 15. Chest x- ray reveals evidence of some mild fluid volume overload, atelectasis. He is currently receiving 0.9 normal saline at 50 MLS per hour. He is on Kenny- Synephrine at 0.7 mcg/kg/m. Insulin drip is off. He remains on bronchodilators. Working well with the incentive spirometer. Maintaining a regular rhythm. White count 11.3. Hemoglobin 10.8. Sodium 134. Potassium 4.9. Creatinine 1.13. The patient is seen today 08/10/2020 in follow-up in the intensive care unit. Postoperative day #2. He is currently sitting up in a chair at the bedside. Awake and alert in no acute distress. He is currently on 4 L/m per nasal cannula and maintaining O2 saturation in the 90s. He did have issues with atrial fibrillation last evening. He is on amiodarone drip at 0.5 mg/m. 0.9 normal saline at 50 mL per hour. [place]-Alexx catheter remains in place. Cardiac output 4.4. Cardiac index 2.0. PA pressures 34/17 with a CVP of 14. Arterial blood gases revealed a PaO2 of 82, pCO2 37, pH 7.36. Chest x-ray reveals improved appearance of the pulmonary edema and pulmonary vascular congestion compared to yesterday's chest x-ray. Small bilateral pleural effusions. Chest tubes remain in place to the left chest and mediastinum. White count 10.4. Hemoglobin 10.8. Platelet count 139,000. Sodium 129. Potassium 4.6. Creatinine 1.36. The patient is seen today 08/11/2020 in follow-up in the intensive care unit. Postoperative day #3. He is awake and alert in no acute distress. Currently sitting up in a chair at the bedside. He is maintaining O2 saturation in the 90s on 4 L high flow nasal cannula. Chest x-ray reveals chronic changes and cardiomegaly with multiple tiny bilateral pleural effusions and patchy bibasilar atelectasis/infiltrates. Left-sided chest tube remains in place to low continuous wall suction. No air leak noted. Remains on bronchodilators. Utilizing the incentive spirometer and pulling approximately 1-1.5 L. Current hemodynamics reveal a cardiac output of 7.1, cardiac index 2.2. PA pressures 25/14. CVP of 11. Yesterday the patient had dropped his cardiac index to 1.5 and was initiated on Primacor currently at 0.2 mcg/kg/m. He has a 0.9 normal sinus at 20. Repeat echocardiogram revealed a severely impaired left ventricular systolic function with ejection fraction 20-25%. Previous echocardiogram with ejection fraction 40-45%. Lasix 20 mg IVP 1 today. White count 10.2. Hemoglobin 9.9. Platelet count 149. Sodium 127. Potassium 4.4. Creatinine 1.27. AST 254. ALT 259. Objective - Vital Signs Vital signs: Vital Signs Temp 98.6 F 08/11/20 08:00 Pulse 96 08/11/20 10:00 Resp 36 H 08/11/20 10:00 BP 124/53 08/11/20 10:00 Pulse Ox 94 L 08/11/20 10:00 Intake & Output 08/10/20 08/11/20 08/11/20 18:59 06:59 18:59 Intake Total 650 536.942 127.398 Output Total 820 925 220 Balance -170 -388.058 -92.602 Weight 96.2 kg Intake: IV 650 399 106 .9@20 450 240 60 CO/CI 100 60 10 miodarone bolus 100 pressure bag 99 36 Intake, IV Titration 137.942 21.398 Amount Milrinone-D5w Pmx 20 mg 137.942 21.398 In Dextrose/Water 1 100ml .bag @ 0.2 MCG/KG/MIN 5. 706 mls/hr IV .[id number] [facility] Rx#:[id number] Output: Chest Tube Drainage 250 130 20 L Plueral 190 130 20 Mediastinal x2 60 Urine 570 795 200 Other: Voiding Method Indwelling Catheter Indwelling Catheter Indwelling Catheter # Bowel Movements 0 ABP, PAP, CO, CI - Last Documented Arterial Blood Pressure 147/39 Pulmonary Artery Pressure 28/15 Cardiac Output 7.1 Cardiac Index 3.2 - Exam GENERAL EXAM: Alert, very pleasant 85-year-old gentleman, on 4 L nasal cannula, up in a chair at the bedside, comfortable in no apparent distress. HEAD: Normocephalic. EYES: Normal reaction of pupils, equal size. NOSE: Clear with pink turbinates. THROAT: No erythema or exudates. NECK: [place]-Alexx catheter in place to right IJ. No masses, no JVD. CHEST: Sternal dressing dry and intact. Heart Hugger in place. Left Chest tube secured in place to wall suction LUNGS: Equal air entry with crackles in the bilateral posterior bases. CVS: S1 and S2 normal with no audible murmur, regular rhythm. ABDOMEN: No hepatosplenomegaly, normal bowel sounds, no guarding or rigidity. SPINE: No scoliosis or deformity SKIN: No rashes CENTRAL NERVOUS SYSTEM: No focal deficits, tone is normal in all 4 extremities. EXTREMITIES: There is trace peripheral edema. No clubbing, no cyanosis. Peripheral pulses are intact. - Labs CBC & Chem 7: 08/11/20 05:20 08/11/20 05:20 Labs: Abnormal Lab Results - Last 24 Hours (Table) 08/10/20 08/10/20 08/10/20 Range/Units 08:25 12:03 13:41 RBC (4.30-5.90) m/uL Hgb (13.0-17.5) gm/dL Hct (39.0-53.0) % RDW (11.5-15.5) % Plt Count (150-450) k/uL Neutrophils # (1.3-7.7) k/uL Lymphocytes # (1.0-4.8) k/uL ABG pCO2 32 L (35-45) mmHg ABG pO2 29 L* 79 L (83-108) mmHg ABG HCO3 19 L (21-25) mmol/L ABG O2 Saturation (94-97) % Sodium (137-145) mmol/L Carbon Dioxide (22-30) mmol/L BUN (9-20) mg/dL Creatinine (0.66-1.25) mg/dL Glucose (74-99) mg/dL POC Glucose (mg/dL) 143 H (75-99) mg/dL Total Bilirubin (0.2-1.3) mg/dL AST (17-59) U/L ALT (4-49) U/L Total Protein (6.3-8.2) g/dL Albumin (3.5-5.0) g/dL 08/10/20 08/10/20 08/10/20 Range/Units 13:48 15:29 17:10 RBC (4.30-5.90) m/uL Hgb (13.0-17.5) gm/dL Hct (39.0-53.0) % RDW (11.5-15.5) % Plt Count (150-450) k/uL Neutrophils # (1.3-7.7) k/uL Lymphocytes # (1.0-4.8) k/uL ABG pCO2 (35-45) mmHg ABG pO2 26 L* 34 L* (83-108) mmHg ABG HCO3 (21-25) mmol/L ABG O2 Saturation 39.3 L 60.8 L (94-97) % Sodium (137-145) mmol/L Carbon Dioxide (22-30) mmol/L BUN (9-20) mg/dL Creatinine (0.66-1.25) mg/dL Glucose (74-99) mg/dL POC Glucose (mg/dL) 110 H (75-99) mg/dL Total Bilirubin (0.2-1.3) mg/dL AST (17-59) U/L ALT (4-49) U/L Total Protein (6.3-8.2) g/dL Albumin (3.5-5.0) g/dL 08/10/20 08/11/20 08/11/20 Range/Units 20:59 05:20 05:20 RBC 3.00 L (4.30-5.90) m/uL Hgb 9.9 L (13.0-17.5) gm/dL Hct 28.0 L (39.0-53.0) % RDW 20.6 H (11.5-15.5) % Plt Count 149 L (150-450) k/uL Neutrophils # 8.4 H (1.3-7.7) k/uL Lymphocytes # 0.8 L (1.0-4.8) k/uL ABG pCO2 (35-45) mmHg ABG pO2 (83-108) mmHg ABG HCO3 (21-25) mmol/L ABG O2 Saturation (94-97) % Sodium 127 L (137-145) mmol/L Carbon Dioxide 21 L (22-30) mmol/L BUN 32 H (9-20) mg/dL Creatinine 1.27 H (0.66-1.25) mg/dL Glucose 106 H (74-99) mg/dL POC Glucose (mg/dL) 147 H (75-99) mg/dL Total Bilirubin 1.9 H (0.2-1.3) mg/dL AST 254 H (17-59) U/L ALT 259 H (4-49) U/L Total Protein 4.6 L (6.3-8.2) g/dL Albumin 2.8 L (3.5-5.0) g/dL Assessment and Plan Assessment: 1 Non-ST segment elevation myocardial infarction, multivessel coronary artery disease. Status post off-pump coronary artery bypass grafting utilizing a LUCERO to the LAD and a reverse saphenous vein graft to the distal PDA. Postoperative day #2 2 Ischemic cardiomyopathy, ejection fraction 40-45% preoperatively. Echocardiogram performed yesterday secondary drop in cardiac index revealed ejec tion fraction 20-25%. Currently on Primacor drip 3 Previous history of chronic tobacco dependence 4 Moderate COPD, FEV1 value 59% of predicted 5 Carotid stenosis involving the right internal carotid with 72% stenosis 6 History of prostate cancer status post prostatectomy 7 Episode of atrial fibrillation requiring initiation of amiodarone drip, and expected outcome of surgery 8 Acute renal failure Plan: The patient was seen and evaluated by Dr. Sloan Chest x-ray and labs reviewed, chest tube remain in place Echocardiogram reviewed, ejection fraction decreased at 20-25% Currently on Primacor drip Working well with the incentive spirometer Titrate down the FiO2 as tolerated Increase activity as tolerated Continue bronchodilators We'll continue to follow and make further recommendations based on his clinical status I, the cosigning physician, performed a history & physical examination of the patient. Lungs sounds with crackles in the bilateral posterior bases. Maintaining good O2 saturations in the 90s on 4 L high flow nasal cannula. I discussed the assessment and plan of care with my nurse practitioner, Tona Roe. I attest to the above note as dictated by her.
[2020-08-11 12:11] LABS: Glucose,Whole Blood 117 mg/dL (75-99)
--- NOTE | 2020-08-11 15:39 | P.PN ---
Subjective 85-year-old patient of Dr. Henrik Perez. In rather good health. Patient after breakfast when DrAbby below the lease. Then came back again the lawnmower. Started getting a chest heaviness went up to his arms. Decided to go back in the house. Started forgetting unwell. Symptoms last for 2 hours. No dizziness or lightheadedness. [place] totally weak and rundown. Clammy perspiration. Decided to come in. No prior cardiac history. Fairly active. Had a similar episode about 2 months ago. Improved with rest. Admitted with non-ST elevation MA. Cardiac catheterization showed severe coronary artery disease. August 08-underwent coronary bypass. Patient extubated the same evening Reihl-UOF-[id number] was on insulin and Kenny-Synephrine drip. Telemetry shows sinus rhythm. Breathing stable. No chest pain. at the bedside. 08/10/2020 Patient is having a repeat echocardiogram patient in any of around 40-45% patient had low-grade fevers which is being monitored but no further workup is being done at this time. She is mildly hyponatremic secondary to he received yesterday Lasix was held at this time. Patient is transitioned to subcutaneous insulin sliding scale. Patient still has a mediastinal chest tube with a significant drainage patient is presently on amiodarone drip for atrial fibrillation. 08/11/2020 Patient's blood sugars are fairly well controlled at this time. Patient is hyponatremic a piece to have hypervolemic hyponatremia patient is still on milrinone patient appears to have hepatic condition leading to elevated liver enzymes. Patient's serum sodium is 127 and platelets will be closely monitored. Megestrol chest tube was pulled out. Patient is off amiodarone drip and is on oral amiodarone at this time. Constitutional: Denied any fatigue denied any fever. Cardio vascular: denied any chest pain, palpitations Gastrointestinal denied any nausea vomiting Pulmonary: Denied any shortness of breath cough Neurologic denied any new focal deficits All inpatient medications were reviewed and appropriate changes in these medications as dictated in the interval history and assessment and plan. Objective - Vital Signs Vital signs: Vital Signs Temp 98.6 F 08/11/20 08:00 Pulse 90 08/11/20 15:24 Resp 22 08/11/20 14:00 BP 104/58 08/11/20 14:00 Pulse Ox 95 08/11/20 15:24 Intake & Output 08/10/20 08/11/20 08/11/20 18:59 06:59 18:59 Intake Total 650 536.942 203.398 Output Total 783 820 8801 Balance -170 -388.058 -966.602 Weight 96.2 kg Intake: IV 650 399 182 .9@20 450 240 100 CO/CI 100 60 10 miodarone bolus 100 pressure bag 99 72 Intake, IV Titration 137.942 21.398 Amount Milrinone-D5w Pmx 20 mg 137.942 21.398 In Dextrose/Water 1 100ml .bag @ 0.2 MCG/KG/MIN 5. 706 mls/hr IV .[id number] [facility] Rx#:[id number] Output: Chest Tube Drainage 250 130 20 L Plueral 190 130 20 Mediastinal x2 60 Urine 644 502 0542 Other: Voiding Method Indwelling Catheter Indwelling Catheter Indwelling Catheter # Bowel Movements 0 ABP, PAP, CO, CI - Last Documented Arterial Blood Pressure 141/42 Pulmonary Artery Pressure 22/10 Cardiac Output 4.4 Cardiac Index 2 - Exam PHYSICAL EXAMINATION: GENERAL: The patient is alert and oriented x3, not in any acute distress. Well developed, well nourished. HEENT: Pupils are round and equally reacting to light. EOMI. No scleral icterus. No conjunctival pallor. Normocephalic, atraumatic. No pharyngeal erythema. No thyromegaly. CARDIOVASCULAR: S1 and S2 present. No murmurs, rubs, or gallops. PULMONARY: Chest is clear to auscultation, no wheezing or crackles. ABDOMEN: Soft, nontender, nondistended, normoactive bowel sounds. No palpable organomegaly. MUSCULOSKELETAL: No joint swelling or deformity. EXTREMITIES: No cyanosis, clubbing, or pedal edema. NEUROLOGICAL: Gross neurological examination did not reveal any focal deficits. SKIN: No rashes. - Labs CBC & Chem 7: 08/11/20 05:20 08/11/20 05:20 Labs: Abnormal Lab Results - Last 24 Hours (Table) 08/10/20 08/10/20 08/10/20 Range/Units 08:25 17:10 20:59 RBC (4.30-5.90) m/uL Hgb (13.0-17.5) gm/dL Hct (39.0-53.0) % RDW (11.5-15.5) % Plt Count (150-450) k/uL Neutrophils # (1.3-7.7) k/uL Lymphocytes # (1.0-4.8) k/uL ABG pO2 29 L* (83-108) mmHg Sodium (137-145) mmol/L Carbon Dioxide (22-30) mmol/L BUN (9-20) mg/dL Creatinine (0.66-1.25) mg/dL Glucose (74-99) mg/dL POC Glucose (mg/dL) 110 H 147 H (75-99) mg/dL Total Bilirubin (0.2-1.3) mg/dL AST (17-59) U/L ALT (4-49) U/L Total Protein (6.3-8.2) g/dL Albumin (3.5-5.0) g/dL 08/11/20 08/11/20 08/11/20 Range/Units 05:20 05:20 12:09 RBC 3.00 L (4.30-5.90) m/uL Hgb 9.9 L (13.0-17.5) gm/dL Hct 28.0 L (39.0-53.0) % RDW 20.6 H (11.5-15.5) % Plt Count 149 L (150-450) k/uL Neutrophils # 8.4 H (1.3-7.7) k/uL Lymphocytes # 0.8 L (1.0-4.8) k/uL ABG pO2 (83-108) mmHg Sodium 127 L (137-145) mmol/L Carbon Dioxide 21 L (22-30) mmol/L BUN 32 H (9-20) mg/dL Creatinine 1.27 H (0.66-1.25) mg/dL Glucose 106 H (74-99) mg/dL POC Glucose (mg/dL) 117 H (75-99) mg/dL Total Bilirubin 1.9 H (0.2-1.3) mg/dL AST 254 H (17-59) U/L ALT 259 H (4-49) U/L Total Protein 4.6 L (6.3-8.2) g/dL Albumin 2.8 L (3.5-5.0) g/dL Microbiology - Last 24 Hours (Table) 08/11/20 08:30 Gram Stain - Preliminary Sputum Sputum Culture - Preliminary Assessment and Plan Plan: -Acute non-ST elevation myocardial infarction -Ischemic cardiomyopathy from systolic dysfunction EF 40- 45% -Severe triple-vessel coronary artery disease per cardiac catheterization- pending coronary bypass this -Leukocytosis from acute MA. No clinical evidence of infection -Mild hyponatremia -IV heparin monitoring -Significant stenosis of the right carotid artery -Ascending aortic aneurysm 4.1 cm -Coronary bypass in August 08 Plan: this is presently Imodium and amiodarone received 1 dose of Lasix monitor lites closely continue subcutaneous as needed insulin.
[2020-08-11 16:38] LABS: Glucose,Whole Blood 99 mg/dL (75-99)
[2020-08-11 20:36] LABS: Glucose,Whole Blood 120 mg/dL (75-99)
[2020-08-11] MEDS: ATORVASTATIN 40 MG TAB PO SCH (20:36)
[2020-08-11] MEDS: SENNOSIDES-DOCUSATE SODIUM 1 EACH TAB PO SCH (20:36)
[2020-08-11] MEDS ORDERED: METOPROLOL TARTRATE 12.5 MG TAB PO SCH (21:00)
[2020-08-12] MEDS: HEPARIN SODIUM,PORCINE 5,000 UNIT/ML 1 ML VIAL SQ SCH ×3 (00:11→17:03)
[2020-08-12] MEDS: PHENYLEPHRINE 40 MG in SODIUM CHLORIDE 0.9% 250 ML IV SCH (04:05)
[2020-08-12 05:57] LABS: Albumin 2.8 g/dL (3.5-5.0); Calcium 8.9 mg/dL (8.4-10.2); Potassium 4.4 mmol/L (3.5-5.1); Total Bilirubin 1.5 mg/dL (0.2-1.3); Total Protein 4.8 g/dL (6.3-8.2)
[2020-08-12 06:10] LABS: Anisocytosis Moderate; Basophils % (A) 0 %; Eosinophils # (A) 0.1 k/uL (0-0.7); Eosinophils % (A) 1 %; HCT 29.2 % (39.0-53.0); Lymphocytes # (A) 0.7 k/uL (1.0-4.8); Lymphocytes % (A) 7 %; MCHC 34.4 g/dL (31.0-37.0); MCV 93.1 fL (80.0-100.0); Mean Platelet Volume 10.6; Monocytes # (A) 0.9 k/uL (0-1.0); Monocytes % (A) 9 %; Neutrophils # (A) 7.7 k/uL (1.3-7.7); Neutrophils % (A) 79 %; Platelet Count 175 k/uL (150-450); RBC 3.14 m/uL (4.30-5.90); RDW 20.7 % (11.5-15.5); WBC 9.8 k/uL (3.8-10.6)
[2020-08-12] MEDS: SODIUM CHLORIDE 0.9% 1,000 ML IV SCH (06:31)
[2020-08-12] MEDS: PANTOPRAZOLE 40 MG TABLET PO SCH (06:31)
[2020-08-12] MEDS: INSULIN ASPART (NovoLOG) 100 UNIT/ML VIAL SQ SCH ×4 (06:32→20:46)
[2020-08-12] MEDS ORDERED: FUROSEMIDE 10 MG/ML 2 ML VIAL IV STA (07:38)
[2020-08-12] MEDS: IPRATROPIUM-ALBUTEROL 3 ML NEB INHALATION SCH ×4 (07:54→19:39)
[2020-08-12] MEDS: AMIODARONE 200 MG TAB PO SCH ×2 (08:00→20:45)
[2020-08-12] MEDS: CLOPIDOGREL 75 MG TAB PO SCH (08:00)
[2020-08-12] MEDS: METOPROLOL TARTRATE 25 MG TAB PO SCH ×2 (08:00→20:45)
[2020-08-12] MEDS: ASPIRIN 325 MG TAB PO SCH (08:00)
--- NOTE | 2020-08-12 08:06 | XR ---
EXAMINATION TYPE: XR chest 1V DATE OF EXAM: 08/12/2020 CLINICAL HISTORY: post op CABG. TECHNIQUE: Portable frontal view of the chest. COMPARISON: 08/11/2020 chest radiograph FINDINGS: Sternotomy wires and right internal jugular [place]-Alexx catheter redemonstrated. Cardiomegaly . Persistent tiny bilateral pleural effusions and bibasilar airspace opacities. No pneumothorax seen. The osseous structures are intact. IMPRESSION: Unchanged cardiomegaly and tiny bilateral pleural effusions.
[2020-08-12] MEDS ORDERED: DEXTROSE 5% IN WATER 100 ML with AMIODARONE 150 MG IV ONE (08:43)
--- NOTE | 2020-08-12 11:26 | ECHOF ---
Referral Reason:post op low indexes MEASUREMENTS -------- HEIGHT: 182.9 cm WEIGHT: 96.6 kg BP: FINDINGS -------- Sinus rhythm. Pt had cabg x 2 08/09/20, Limited echo 08/10/20. Overall left ventricular systolic function is moderate-severely impaired with, an EF between 30 - 35 %. Compared to the previous study, there appears to be improvement in the wall motion in the anteri or wall and lateral wall. Inferior wall and septum appear to be hypokinetic There is no pericardial effusion. CONCLUSIONS -------- 1. Sinus rhythm. 2. Overall left ventricular systolic function is moderate-severely impaired with, an EF between 30 - 35 %. 3. Compared to the previous study, there appears to be improvement in the wall motion in the anterior wall and lateral wall. Inferior wall and septum appear to be hypokinetic 4. There is no pericardial effusion. CNS: Lucie Kim RDCS
--- NOTE | 2020-08-12 11:50 | P.PN ---
Subjective Progress Note Date: 08/12/20 This is a pleasant 85 year old gentleman who presented to the hospital with a non-ST elevation myocardial infarction. He underwent off-pump double coronary artery bypass grafting surgery using a LUCERO to the LAD and reverse saphenous vein graft to the distal posterior descending artery. Today is postoperative day 4. Patient was seen and examined in the intensive care unit, sitting up in the chair bedside. Awake and alert in no acute distress. Remaining in normal sinus rhythm although the patient did have some atrial fibrillation through the night last night. The IV amiodarone has been discontinued and patient is currently on by mouth amiodarone. He still is on milrinone drip at 0.1 mcg/kg/m. Blood pressure 134/40, heart rate in the 90s, 96% on 4 L of oxygen. White blood cell count 9.8, hemoglobin 10.0, platelet count 175. Sodium 1:30, potassium 4.4, BUN 29, creatinine 1.1. Total bilirubin 1.5 AST 141 ALT 219 alk phos 136. Objective - Vital Signs Vital signs: Vital Signs Temp 98 F 08/12/20 08:00 Pulse 165 H 08/12/20 09:00 Resp 31 H 08/12/20 09:00 BP 102/52 08/12/20 09:00 Pulse Ox 95 08/12/20 09:00 Intake & Output 08/11/20 08/12/20 08/12/20 18:59 06:59 18:59 Intake Total 459.398 593.89 87 Output Total 1170 1200 200 Balance -710.602 -606.11 -113 Weight 97 kg Intake: IV 318 368 87 .9@20 180 240 60 CO/CI 30 20 pressure bag 108 108 27 Intake, IV Titration 21.398 75.89 Amount Milrinone-D5w Pmx 20 mg 21.398 75.89 In Dextrose/Water 1 100ml .bag @ 0.1 MCG/KG/MIN 2. 853 mls/hr IV .Q24H [facility] Rx#:[id number] Oral 120 150 Output: Chest Tube Drainage 20 L Plueral 20 Urine 1150 1200 200 Other: Voiding Method Indwelling Catheter Urinal Urinal ABP, PAP, CO, CI - Last Documented Arterial Blood Pressure 135/43 Pulmonary Artery Pressure 27/15 Cardiac Output 7.4 Cardiac Index 3.4 - Exam GENERAL EXAM: Alert, very pleasant 85-year-old gentleman, on 4 L nasal cannula, up in a chair at the bedside, comfortable in no apparent distress. HEAD: Normocephalic. EYES: Normal reaction of pupils, equal size. NOSE: Clear with pink turbinates. THROAT: No erythema or exudates. NECK: [place]-Alexx catheter in place to right IJ. No masses, no JVD. CHEST: Sternal dressing dry and intact. Heart Hugger in place. Left Chest tube secured in place to wall suction LUNGS: Equal air entry with crackles in the bilateral posterior bases. CVS: S1 and S2 normal with no audible murmur, regular rhythm. ABDOMEN: No hepatosplenomegaly, normal bowel sounds, no guarding or rigidity. SPINE: No scoliosis or deformity SKIN: No rashes CENTRAL NERVOUS SYSTEM: No focal deficits, tone is normal in all 4 extremities. EXTREMITIES: There is trace peripheral edema. No clubbing, no cyanosis. Peripheral pulses are intact. - Labs CBC & Chem 7: 08/12/20 05:03 08/12/20 05:03 Labs: Abnormal Lab Results - Last 24 Hours (Table) 08/11/20 08/11/20 08/12/20 Range/Units 12:09 20:35 05:03 RBC (4.30-5.90) m/uL Hgb (13.0-17.5) gm/dL Hct (39.0-53.0) % RDW (11.5-15.5) % Lymphocytes # (1.0-4.8) k/uL Sodium 130 L (137-145) mmol/L BUN 29 H (9-20) mg/dL Glucose 103 H (74-99) mg/dL POC Glucose (mg/dL) 117 H 120 H (75-99) mg/dL Total Bilirubin 1.5 H (0.2-1.3) mg/dL AST 141 H (17-59) U/L ALT 219 H (4-49) U/L Alkaline Phosphatase 136 H (38-126) U/L Total Protein 4.8 L (6.3-8.2) g/dL Albumin 2.8 L (3.5-5.0) g/dL 08/12/20 Range/Units 05:03 RBC 3.14 L (4.30-5.90) m/uL Hgb 10.0 L (13.0-17.5) gm/dL Hct 29.2 L (39.0-53.0) % RDW 20.7 H (11.5-15.5) % Lymphocytes # 0.7 L (1.0-4.8) k/uL Sodium (137-145) mmol/L BUN (9-20) mg/dL Glucose (74-99) mg/dL POC Glucose (mg/dL) (75-99) mg/dL Total Bilirubin (0.2-1.3) mg/dL AST (17-59) U/L ALT (4-49) U/L Alkaline Phosphatase (38-126) U/L Total Protein (6.3-8.2) g/dL Albumin (3.5-5.0) g/dL Microbiology - Last 24 Hours (Table) 08/11/20 08:30 Gram Stain - Preliminary Sputum Sputum Culture - Preliminary Assessment and Plan Plan: Assessment and plan: #1 Non-ST segment elevation myocardial infarction, multivessel coronary artery disease. Status post off-pump coronary artery bypass grafting utilizing a LUCERO to the LAD and a reverse saphenous vein graft to the distal PDA. Postoperative day #4 #2 Ischemic cardiomyopathy, ejection fraction 40-45% preoperatively. Echocardiogram performed yesterday secondary drop in cardiac index revealed ejection fraction 20-25%. Currently on Primacor drip #3 Previous history of chronic tobacco dependence #4 Moderate COPD, FEV1 value 59% of predicted #5 Carotid stenosis involving the right internal carotid with 72% stenosis #6 History of prostate cancer status post prostatectomy #7 paroxysmal atrial fibrillation, currently on by mouth amiodarone Plan From cardiology's perspective, we will recommend to initiate the patient on EMEKA inhibitor when okay with cardiothoracic surgery. Patient is weaning down on the milrinone drip. Patient had episodes of atrial fibrillation through the night last night as well, he may require anticoagulation. DNP note has been reviewed, I agree with a documented findings and plan of care. Patient was seen and examined.
[2020-08-12 11:55] LABS: Glucose,Whole Blood 121 mg/dL (75-99)
--- NOTE | 2020-08-12 12:31 | P.PN ---
Subjective Progress Note Date: 08/12/20 This is a very pleasant 85-year-old gentleman who was admitted with a non-ST segment elevation myocardial infarction. He is found to have significant coronary artery disease and had undergone an off-pump double coronary artery bypass surgery using the LUCERO to the LAD and reverse saphenous vein graft to the distal posterior descending artery. This is postoperative day #1. He was successfully extubated within 3 hours after leaving the OR. He is currently sitting up in a chair at the bedside. Awake and alert in no acute distress. Maintaining O2 saturation in the 90s on 7 L high flow nasal cannula. He is afebrile. Current blood pressure 121/44, PA pressures 32/17, CVP 15. Chest x- ray reveals evidence of some mild fluid volume overload, atelectasis. He is currently receiving 0.9 normal saline at 50 MLS per hour. He is on Kenny- Synephrine at 0.7 mcg/kg/m. Insulin drip is off. He remains on bronchodilators. Working well with the incentive spirometer. Maintaining a regular rhythm. White count 11.3. Hemoglobin 10.8. Sodium 134. Potassium 4.9. Creatinine 1.13. The patient is seen today 08/10/2020 in follow-up in the intensive care unit. Postoperative day #2. He is currently sitting up in a chair at the bedside. Awake and alert in no acute distress. He is currently on 4 L/m per nasal cannula and maintaining O2 saturation in the 90s. He did have issues with atrial fibrillation last evening. He is on amiodarone drip at 0.5 mg/m. 0.9 normal saline at 50 mL per hour. [place]-Alexx catheter remains in place. Cardiac output 4.4. Cardiac index 2.0. PA pressures 34/17 with a CVP of 14. Arterial blood gases revealed a PaO2 of 82, pCO2 37, pH 7.36. Chest x-ray reveals imp roved appearance of the pulmonary edema and pulmonary vascular congestion compared to yesterday's chest x-ray. Small bilateral pleural effusions. Chest tubes remain in place to the left chest and mediastinum. White count 10.4. Hemoglobin 10.8. Platelet count 139,000. Sodium 129. Potassium 4.6. Creatinine 1.36. The patient is seen today 08/11/2020 in follow-up in the intensive care unit. Postoperative day #3. He is awake and alert in no acute distress. Currently sitting up in a chair at the bedside. He is maintaining O2 saturation in the 90s on 4 L high flow nasal cannula. Chest x-ray reveals chronic changes and cardiomegaly with multiple tiny bilateral pleural effusions and patchy bibasilar atelectasis/infiltrates. Left-sided chest tube remains in place to low continuous wall suction. No air leak noted. Remains on bronchodilators. Utilizing the incentive spirometer and pulling approximately 1-1.5 L. Current hemodynamics reveal a cardiac output of 7.1, cardiac index 2.2. PA pressures 25/14. CVP of 11. Yesterday the patient had dropped his cardiac index to 1.5 and was initiated on Primacor currently at 0.2 mcg/kg/m. He has a 0.9 normal sinus at 20. Repeat echocardiogram revealed a severely impaired left ventricular systolic function with ejection fraction 20-25%. Previous echocardiogram with ejection fraction 40-45%. Lasix 20 mg IVP 1 today. White count 10.2. Hemoglobin 9.9. Platelet count 149. Sodium 127. Potassium 4.4. Creatinine 1.27. AST 254. ALT 259. On 08/12/2020, the patient is postop day #4. The patient still having issues with his cardiac rhythm. He is having on and off episodes of atrial fibrillation with rapid ventricle response. He was given 2 boluses of amiodarone overnight and the third bolus will be given today. The patient will also need anticoagulation. The patient is currently on 2 L of oxygen by nasal cannula with a pulse of 94%. The patient was on Primacor running at 0.2 g per KG per minute and the dose was reduced down to 0.1 g. His cardiac output has been adequate with adequate cardiac index and the patient has his [place]-Alexx catheter in place and this will be kept in place and the patient is being weaned off the milrinone and the patient will have a follow-up echocardiogram today. He has adequate urine output. BUN is at 29 with a creatinine of 1.1. He is afebrile. Surgical wound is dry clean and intact. His CVP is at 17 with a PA pressures of 35/22 and the patient was given a dose of Lasix today. IV fluids running at 20 mL an hour. Cardiac output is at 7.4 with an index of 3.4. The patient is awake and alert and following commands and answering questions and is also ambulating. Objective - Vital Signs Vital signs: Vital Signs Temp 99.0 F 08/12/20 04:00 Pulse 94 08/12/20 08:06 Resp 31 H 08/12/20 07:00 BP 122/59 08/12/20 07:00 Pulse Ox 96 08/12/20 08:07 Intake & Output 08/11/20 08/12/20 08/12/20 18:59 06:59 18:59 Intake Total 459.398 593.89 58 Output Total 1170 1200 0 Balance -710.602 -606.11 58 Weight 97 kg Intake: IV 318 368 58 .9@20 180 240 40 CO/CI 30 20 pressure bag 108 108 18 Intake, IV Titration 21.398 75.89 Amount Milrinone-D5w Pmx 20 mg 21.398 75.89 In Dextrose/Water 1 100ml .bag @ 0.1 MCG/KG/MIN 2. 853 mls/hr IV .Q24H [facility] Rx#:[id number] Oral 120 150 Output: Chest Tube Drainage 20 L Plueral 20 Urine 1150 1200 0 Other: Voiding Method Indwelling Catheter Urinal Urinal ABP, PAP, CO, CI - Last Documented Arterial Blood Pressure 146/45 Pulmonary Artery Pressure 24/13 Cardiac Output 7.9 Cardiac Index 3.6 - Exam GENERAL EXAM: Alert, very pleasant 85-year-old gentleman, on 4 L nasal cannula, up in a chair at the bedside, comfortable in no apparent distress. HEAD: Normocephalic. EYES: Normal reaction of pupils, equal size. NOSE: Clear with pink turbinates. THROAT: No erythema or exudates. NECK: [place]-Alexx catheter in place to right IJ. No masses, no JVD. CHEST: Sternal dressing dry and intact. Heart Hugger in place. Left Chest tube secured in place to wall suction LUNGS: Equal air entry with crackles in the bilateral posterior bases. CVS: S1 and S2 normal with no audible murmur, regular rhythm. The patient is having runs of atrial fibrillation with rapid ventricular response alternating with a normal sinus rhythm. ABDOMEN: No hepatosplenomegaly, normal bowel sounds, no guarding or rigidity. SPINE: No scoliosis or deformity SKIN: No rashes CENTRAL NERVOUS SYSTEM: No focal deficits, tone is normal in all 4 extremities. EXTREMITIES: There is trace peripheral edema. No clubbing, no cyanosis. Peripheral pulses are intact. - Labs CBC & Chem 7: 08/12/20 05:03 08/12/20 05:03 Labs: Abnormal Lab Results - Last 24 Hours (Table) 08/10/20 08/11/20 08/11/20 Range/Units 08:25 12:09 20:35 RBC (4.30-5.90) m/uL Hgb (13.0-17.5) gm/dL Hct (39.0-53.0) % RDW (11.5-15.5) % Lymphocytes # (1.0-4.8) k/uL ABG pO2 29 L* (83-108) mmHg Sodium (137-145) mmol/L BUN (9-20) mg/dL Glucose (74-99) mg/dL POC Glucose (mg/dL) 117 H 120 H (75-99) mg/dL Total Bilirubin (0.2-1.3) mg/dL AST (17-59) U/L ALT (4-49) U/L Alkaline Phosphatase (38-126) U/L Total Protein (6.3-8.2) g/dL Albumin (3.5-5.0) g/dL 08/12/20 08/12/20 Range/Units 05:03 05:03 RBC 3.14 L (4.30-5.90) m/uL Hgb 10.0 L (13.0-17.5) gm/dL Hct 29.2 L (39.0-53.0) % RDW 20.7 H (11.5-15.5) % Lymphocytes # 0.7 L (1.0-4.8) k/uL ABG pO2 (83-108) mmHg Sodium 130 L (137-145) mmol/L BUN 29 H (9-20) mg/dL Glucose 103 H (74-99) mg/dL POC Glucose (mg/dL) (75-99) mg/dL Total Bilirubin 1.5 H (0.2-1.3) mg/dL AST 141 H (17-59) U/L ALT 219 H (4-49) U/L Alkaline Phosphatase 136 H (38-126) U/L Total Protein 4.8 L (6.3-8.2) g/dL Albumin 2.8 L (3.5-5.0) g/dL Microbiology - Last 24 Hours (Table) 08/11/20 08:30 Gram Stain - Preliminary Sputum Sputum Culture - Preliminary Assessment and Plan Plan: 1 Non-ST segment elevation myocardial infarction, multivessel coronary artery disease. Status post off-pump coronary artery bypass grafting utilizing a LUCERO to the LAD and a reverse saphenous vein graft to the distal PDA. Postoperative day #4 2 Ischemic cardiomyopathy, ejection fraction 40-45% preoperatively. Echocardiogram performed post op secondary drop in cardiac index revealed ejection fraction 20-25%. Treated with Primacor drip. The patient's cardiac index is up to 3.4 with an output of 7.4. The patient has a wean of the milrinone drip which is currently down to 0.1 g per KG per minute. The patient is having a follow-up echocardiogram to reevaluate the LV function. 3 Episode of atrial fibrillation requiring initiation of amiodarone drip, and expected outcome of surgery, the patient is still having runs of atrial fibrillation. The patient is on amiodarone. A bolus of amiodarone IV 150 mg we'll be given and the patient will be kept on oral amiodarone maintenance 400 mg by mouth twice a day. The patient will be kept also metoprolol 25 mg by mouth twice a day. Monitor cardiac index. Monitor cardiac output. Monitor left ventricle ejection fraction and the patient is having another echocardiogram done today. Meanwhile, the patient is producing adequate amount of urine output and the patient is hemodynamically stable on no pressors. Lasix is being given to keep him in a negative fluid balance. 4 Moderate COPD, FEV1 value 59% of predicted 5 Carotid stenosis involving the right internal carotid with 72% stenosis 6 History of prostate cancer status post prostatectomy 7 . History of smoking 8 Acute renal failure, improving and creatinine is down to 1.1 9 Acute Hyponatremia, improving and the sodium level is also on the rise. 10 Abnormal LFTS, transaminitis Plan Agree on weaning the milrinone dose and this will hopefully help with rate control in terms of atrial fibrillation Amiodarone 150 mg IV bolus Continue oral amiodarone 400 mg by mouth twice a day and metoprolol 25 mg twice a day Monitor cardiac output and index Monitor urine output Start the patient on anticoagulation and I will advise Eliquis 2.5 mg by mouth twice a day in conjunction with aspirin and Plavix. Repeat echocardiogram him a limited study to reevaluate LV function Chest x-ray from today shows small pleural effusions we'll continue to follow
--- NOTE | 2020-08-12 13:25 | P.PN ---
Subjective 85-year-old patient of Dr. Henrik Perez. In rather good health. Patient after breakfast when DrAbby below the lease. Then came back again the lawnmower. Started getting a chest heaviness went up to his arms. Decided to go back in the house. Started forgetting unwell. Symptoms last for 2 hours. No dizziness or lightheadedness. [place] totally weak and rundown. Clammy perspiration. Decided to come in. No prior cardiac history. Fairly active. Had a similar episode about 2 months ago. Improved with rest. Admitted with non-ST elevation [place]. Cardiac catheterization showed severe coronary artery disease. August 08-underwent coronary bypass. Patient extubated the same evening [id number]-cem[facility] was on insulin and Kenny-Synephrine drip. Telemetry shows sinus rhythm. Breathing stable. No chest pain. at the bedside. 08/10/2020 Patient is having a repeat echocardiogram patient in any of around 40-45% patient had low-grade fevers which is being monitored but no further workup is being done at this time. She is mildly hyponatremic secondary to he received yesterday Lasix was held at this time. Patient is transitioned to subcutaneous insulin sliding scale. Patient still has a mediastinal chest tube with a significant drainage patient is presently on amiodarone drip for atrial fibrillation. 08/11/2020 Patient's blood sugars are fairly well controlled at this time. Patient is hyponatremic a piece to have hypervolemic hyponatremia patient is still on milrinone patient appears to have hepatic condition leading to elevated liver enzymes. Patient's serum sodium is 127 and platelets will be closely monitored. Megestrol chest tube was pulled out. Patient is off amiodarone drip and is on oral amiodarone at this time. 08/12/2020 Patient's hyponatremia improved at this time. Patient's Lasix heart failure improved as well. Patient otherwise clinically doing much better today. Constitutional: Denied any fatigue denied any fever. Cardio vascular: denied any chest pain, palpitations Gastrointestinal denied any nausea vomiting Pulmonary: Denied any shortness of breath cough Neurologic denied any new focal deficits All inpatient medications were reviewed and appropriate changes in these medications as dictated in the interval history and assessment and plan. Objective - Vital Signs Vital signs: Vital Signs Temp 99.7 F H 08/12/20 12:00 Pulse 75 10/26/20 12:08 Resp 20 08/12/20 12:00 BP 111/56 08/12/20 12:00 Pulse Ox 95 08/12/20 12:00 Intake & Output 08/11/20 08/12/20 08/12/20 18:59 06:59 18:59 Intake Total 459.398 593.89 165 Output Total 1170 1200 700 Balance -710.602 -606.11 -535 Weight 97 kg Intake: IV 318 368 165 .9@20 180 240 120 CO/CI 30 20 pressure bag 108 108 45 Intake, IV Titration 21.398 75.89 Amount Milrinone-D5w Pmx 20 mg 21.398 75.89 In Dextrose/Water 1 100ml .bag @ 0.1 MCG/KG/MIN 2. 853 mls/hr IV .Q[facility]H [facility] Rx#:[id number] Oral 120 150 Output: Chest Tube Drainage 20 L Plueral 20 Urine 1150 1200 700 Other: Voiding Method Indwelling Catheter Urinal Urinal ABP, PAP, CO, CI - Last Documented Arterial Blood Pressure 137/45 Pulmonary Artery Pressure 28/14 Cardiac Output 4.4 Cardiac Index 2 - Labs CBC & Chem 7: 08/12/20 05:03 08/12/20 05:03 Labs: Abnormal Lab Results - Last 24 Hours (Table) 08/11/20 08/12/20 08/12/20 Range/Units 20:35 05:03 05:03 RBC 3.14 L (4.30-5.90) m/uL Hgb 10.0 L (13.0-17.5) gm/dL Hct 29.2 L (39.0-53.0) % RDW 20.7 H (11.5-15.5) % Lymphocytes # 0.7 L (1.0-4.8) k/uL Sodium 130 L (137-145) mmol/L BUN 29 H (9-20) mg/dL Glucose 103 H (74-99) mg/dL POC Glucose (mg/dL) 120 H (75-99) mg/dL Total Bilirubin 1.5 H (0.2-1.3) mg/dL AST 141 H (17-59) U/L ALT 219 H (4-49) U/L Alkaline Phosphatase 136 H (38-126) U/L Total Protein 4.8 L (6.3-8.2) g/dL Albumin 2.8 L (3.5-5.0) g/dL 08/12/20 Range/Units 11:53 RBC (4.30-5.90) m/uL Hgb (13.0-17.5) gm/dL Hct (39.0-53.0) % RDW (11.5-15.5) % Lymphocytes # (1.0-4.8) k/uL Sodium (137-145) mmol/L BUN (9-20) mg/dL Glucose (74-99) mg/dL POC Glucose (mg/dL) 121 H (75-99) mg/dL Total Bilirubin (0.2-1.3) mg/dL AST (17-59) U/L ALT (4-49) U/L Alkaline Phosphatase (38-126) U/L Total Protein (6.3-8.2) g/dL Albumin (3.5-5.0) g/dL Microbiology - Last 24 Hours (Table) 08/11/20 08:30 Gram Stain - Preliminary Sputum Sputum Culture - Preliminary
--- NOTE | 2020-08-12 13:27 | P.PN ---
Subjective 85-year-old patient of Dr. Henrik Perez. In rather good health. Patient after breakfast when DrAbby below the lease. Then came back again the lawnmower. Started getting a chest heaviness went up to his arms. Decided to go back in the house. Started forgetting unwell. Symptoms last for 2 hours. No dizziness or lightheadedness. [place] totally weak and rundown. Clammy perspiration. Decided to come in. No prior cardiac history. Fairly active. Had a similar episode about 2 months ago. Improved with rest. Admitted with non-ST elevation [place]. Cardiac catheterization showed severe coronary artery disease. August 08-underwent coronary bypass. Patient extubated the same evening [id number] was on insulin and Kenny-Synephrine drip. Telemetry shows sinus rhythm. Breathing stable. No chest pain. at the bedside. 08/10/2020 Patient is having a repeat echocardiogram patient in any of around 40-45% patient had low-grade fevers which is being monitored but no further workup is being done at this time. She is mildly hyponatremic secondary to he received yesterday Lasix was held at this time. Patient is transitioned to subcutaneous insulin sliding scale. Patient still has a mediastinal chest tube with a significant drainage patient is presently on amiodarone drip for atrial fibrillation. 08/11/2020 Patient's blood sugars are fairly well controlled at this time. Patient is hyponatremic a piece to have hypervolemic hyponatremia patient is still on milrinone patient appears to have hepatic condition leading to elevated liver enzymes. Patient's serum sodium is 127 and platelets will be closely monitored. Megestrol chest tube was pulled out. Patient is off amiodarone drip and is on oral amiodarone at this time. 08/12/2020 Patient's hyponatremia improved at this time. Patient's Lasix heart failure improved as well. Patient otherwise clinically doing much better today. Constitutional: Denied any fatigue denied any fever. Cardio vascular: denied any chest pain, palpitations Gastrointestinal denied any nausea vomiting Pulmonary: Denied any shortness of breath cough Neurologic denied any new focal deficits All inpatient medications were reviewed and appropriate changes in these medications as dictated in the interval history and assessment and plan. Objective - Vital Signs Vital signs: Vital Signs Temp 99.7 F H 08/12/20 12:00 Pulse 75 10/26/20 12:08 Resp 20 08/12/20 12:00 BP 111/56 08/12/20 12:00 Pulse Ox 95 08/12/20 12:00 Intake & Output 08/11/20 08/12/20 08/12/20 18:59 06:59 18:59 Intake Total 459.398 593.89 165 Output Total 1170 1200 700 Balance -710.602 -606.11 -535 Weight 97 kg Intake: IV 318 368 165 .9@20 180 240 120 CO/CI 30 20 pressure bag 108 108 45 Intake, IV Titration 21.398 75.89 Amount Milrinone-D5w Pmx 20 mg 21.398 75.89 In Dextrose/Water 1 100ml .bag @ 0.1 MCG/KG/MIN 2. 853 mls/hr IV .Q24H [facility] Rx#:[id number] Oral 120 150 Output: Chest Tube Drainage 20 L Plueral 20 Urine 1150 1200 700 Other: Voiding Method Indwelling Catheter Urinal Urinal ABP, PAP, CO, CI - Last Documented Arterial Blood Pressure 137/45 Pulmonary Artery Pressure 28/14 Cardiac Output 4.4 Cardiac Index 2 - Exam PHYSICAL EXAMINATION: GENERAL: The patient is alert and oriented x3, not in any acute distress. Well developed, well nourished. HEENT: Pupils are round and equally reacting to light. EOMI. No scleral icterus. No conjunctival pallor. Normocephalic, atraumatic. No pharyngeal erythema. No thyromegaly. CARDIOVASCULAR: S1 and S2 present. No murmurs, rubs, or gallops. PULMONARY: Chest is clear to auscultation, no wheezing or crackles. ABDOMEN: Soft, nontender, nondistended, normoactive bowel sounds. No palpable organomegaly. MUSCULOSKELETAL: No joint swelling or deformity. EXTREMITIES: No cyanosis, clubbing, or pedal edema. NEUROLOGICAL: Gross neurological examination did not reveal any focal deficits. SKIN: No rashes. - Labs CBC & Chem 7: 08/12/20 05:03 08/12/20 05:03 Labs: Abnormal Lab Results - Last 24 Hours (Table) 08/11/20 08/12/20 08/12/20 Range/Units 20:35 05:03 05:03 RBC 3.14 L (4.30-5.90) m/uL Hgb 10.0 L (13.0-17.5) gm/dL Hct 29.2 L (39.0-53.0) % RDW 20.7 H (11.5-15.5) % Lymphocytes # 0.7 L (1.0-4.8) k/uL Sodium 130 L (137-145) mmol/L BUN 29 H (9-20) mg/dL Glucose 103 H (74-99) mg/dL POC Glucose (mg/dL) 120 H (75-99) mg/dL Total Bilirubin 1.5 H (0.2-1.3) mg/dL AST 141 H (17-59) U/L ALT 219 H (4-49) U/L Alkaline Phosphatase 136 H (38-126) U/L Total Protein 4.8 L (6.3-8.2) g/dL Albumin 2.8 L (3.5-5.0) g/dL 08/12/20 Range/Units 11:53 RBC (4.30-5.90) m/uL Hgb (13.0-17.5) gm/dL Hct (39.0-53.0) % RDW (11.5-15.5) % Lymphocytes # (1.0-4.8) k/uL Sodium (137-145) mmol/L BUN (9-20) mg/dL Glucose (74-99) mg/dL POC Glucose (mg/dL) 121 H (75-99) mg/dL Total Bilirubin (0.2-1.3) mg/dL AST (17-59) U/L ALT (4-49) U/L Alkaline Phosphatase (38-126) U/L Total Protein (6.3-8.2) g/dL Albumin (3.5-5.0) g/dL Microbiology - Last 24 Hours (Table) 08/11/20 08:30 Gram Stain - Preliminary Sputum Sputum Culture - Preliminary Assessment and Plan Plan: -Acute non-ST elevation myocardial infarction -Ischemic cardiomyopathy from systolic dysfunction EF 40- 45% -Severe triple-vessel coronary artery disease per cardiac catheterization- pending coronary bypass this -Leukocytosis from acute AK. No clinical evidence of infection -Mild hyponatremia -IV heparin monitoring -Significant stenosis of the right carotid artery -Ascending aortic aneurysm 4.1 cm -Coronary bypass in August 08 Plan: Serum sodium improved with the Lasix patient overall clinically doing better compared to yesterday.
--- NOTE | 2020-08-12 16:48 | P.PN ---
Subjective Progress Note Date: 08/12/20 Principal diagnosis: Multivessel coronary artery disease, calcified ascending aorta, non-STEMI this admission, hyperlipidemia discovered this admission, right internal carotid omayra ry stenosis 72% per CTA of the neck, ischemic cardiomyopathy with EF 40-45%. Past medical history significant for previous tobacco dependence, moderate chronic obstructive pulmonary disease with preoperative FEV1 59% of predicted, obesity, history of prostate cancer status post prostatectomy. POD #4 off pump double coronary artery bypass grafting using the left internal mammary artery to the left anterior descending coronary artery, a reverse greater saphenous vein graft connected to the aorta using the PAS-port device and connected distally to the posterior descending coronary artery. Endoscopic harvesting of the left greater saphenous vein. Intraoperative graft flow measurement using the [employer] system, intraoperative transesophageal echocardiogram and epi-aortic scanning. Postoperative acute blood loss anemia, expected, dilutional. Postoperative hyponatremia, unexpected, possibly dilutional. Postoperative elevation transaminase enzymes, unexpected. The patient was seen in follow-up today on 08/12/2020 at his bedside in the intensive care unit. He is sitting up to the bedside chair and is awake, alert and oriented 3 and is in no apparent acute distress. Currently he denies any complaints of pain or shortness of breath. Oxygen saturations are 96% on 2 L nasal cannula. He is achieving 1500 mL on his incentive spirometry with much encouragement. Bedside telemetry currently showing normal sinus rhythm heart rate 89 BPM. His left pleural chest tube was removed without incident yesterday. A chest x-ray was completed this morning and the report shows cardiomegaly and tiny bilateral pleural effusions. Lab results were reviewed this morning and his sodium is trending up and is 130 today and his AST is trending down 219 as well as the ALT which is 219 today. Current hemodynamics are showing a cardiac output of 7.9, cardiac index 3.6, PA pressures 22/10 and a CVP of 9 mmHg. Primacor drip is infusing at 0.2 mcg/kg/m. His night nurse reports that he had an episode of atrial fibrillation with RVR last evening which started around 8:30 and was self-limiting and converted to normal sinus rhythm around 11 PM. Objective - Vital Signs Vital signs: Vital Signs Temp 99.0 F 08/12/20 04:00 Pulse 94 08/12/20 08:06 Resp 31 H 08/12/20 07:00 BP 122/59 08/12/20 07:00 Pulse Ox 96 08/12/20 08:07 Intake & Output 08/11/20 08/12/20 08/12/20 18:59 06:59 18:59 Intake Total 459.398 593.89 58 Output Total 1170 1200 0 Balance -710.602 -606.11 58 Weight 97 kg Intake: IV 318 368 58 .9@20 180 240 40 CO/CI 30 20 pressure bag 108 108 18 Intake, IV Titration 21.398 75.89 Amount Milrinone-D5w Pmx 20 mg 21.398 75.89 In Dextrose/Water 1 100ml .bag @ 0.1 MCG/KG/MIN 2. 853 mls/hr IV .Q24H [facility] Rx#:[id number] Oral 120 150 Output: Chest Tube Drainage 20 L Plueral 20 Urine 1150 1200 0 Other: Voiding Method Indwelling Catheter Urinal Urinal ABP, PAP, CO, CI - Last Documented Arterial Blood Pressure 146/45 Pulmonary Artery Pressure 24/13 Cardiac Output 7.9 Cardiac Index 3.6 - Constitutional General appearance: Present: cooperative, no acute distress, obese - EENT Eyes: Present: PERRLA, normal appearance. Absent: scleral icterus ENT: Present: hearing grossly normal - Neck Details: Neck is supple, no JVD, no lymphadenopathy. - Respiratory Details: Lung sounds essentially clear to his bilateral upper lobes, few scattered crackles to his bilateral bases. Respirations are symmetrical and nonlabored. No wheezes or rhonchi. Oxygen saturation is 94% on 2 L nasal cannula. Achieving 1500 mL on his incentive spirometry. - Cardiovascular Details: Regular rhythm and rate. S1 and S2 present, negative for S3, gallop or murmur. Sternum stable. No edema present. Bedside telemetry showing normal sinus rhythm heart rate 89 BPM. Knee-high ADALID hose and sequential compression devices in place to his bilateral lower extremities. Heart hugger is in place and is demonstrating appropriate use. - Gastrointestinal Gastrointestinal Comment(s): Abdomen is soft, nontender and nondistended. Active bowel sounds present in all 4 abdominal quadrants. No guarding or rigidity. No organomegaly appreciated. Passing flatus. Tolerating oral intake. - Genitourinary Genitourinary Comment(s): Continues to void. 1.2 L of urine output in the last 8 hours. - Integumentary Integumentary Comment(s): Skin is warm and dry. No clubbing or cyanosis is present. Midline sternal incision is clean, dry and approximated. No drainage or redness is present. Left lower extremity EVH site clean, dry and approximated. No drainage or redness is present. - Neurologic Neurologic: Present: CNII-XII intact - Musculoskeletal Musculoskeletal: Present: gait normal, generalized weakness, strength equal bilaterally - Psychiatric Psychiatric: Present: A&O x's 3, appropriate affect, intact judgment & insight - Allied health notes Allied health notes reviewed: nursing - Labs CBC & Chem 7: 08/12/20 05:03 08/12/20 05:03 Labs: Abnormal Lab Results - Last 24 Hours (Table) 08/10/20 08/11/20 08/11/20 Range/Units 08:25 12:09 20:35 RBC (4.30-5.90) m/uL Hgb (13.0-17.5) gm/dL Hct (39.0-53.0) % RDW (11.5-15.5) % Lymphocytes # (1.0-4.8) k/uL ABG pO2 29 L* (83-108) mmHg Sodium (137-145) mmol/L BUN (9-20) mg/dL Glucose (74-99) mg/dL POC Glucose (mg/dL) 117 H 120 H (75-99) mg/dL Total Bilirubin (0.2-1.3) mg/dL AST (17-59) U/L ALT (4-49) U/L Alkaline Phosphatase (38-126) U/L Total Protein (6.3-8.2) g/dL Albumin (3.5-5.0) g/dL 08/12/20 08/12/20 Range/Units 05:03 05:03 RBC 3.14 L (4.30-5.90) m/uL Hgb 10.0 L (13.0-17.5) gm/dL Hct 29.2 L (39.0-53.0) % RDW 20.7 H (11.5-15.5) % Lymphocytes # 0.7 L (1.0-4.8) k/uL ABG pO2 (83-108) mmHg Sodium 130 L (137-145) mmol/L BUN 29 H (9-20) mg/dL Glucose 103 H (74-99) mg/dL POC Glucose (mg/dL) (75-99) mg/dL Total Bilirubin 1.5 H (0.2-1.3) mg/dL AST 141 H (17-59) U/L ALT 219 H (4-49) U/L Alkaline Phosphatase 136 H (38-126) U/L Total Protein 4.8 L (6.3-8.2) g/dL Albumin 2.8 L (3.5-5.0) g/dL Microbiology - Last 24 Hours (Table) 08/11/20 08:30 Gram Stain - Preliminary Sputum Sputum Culture - Preliminary - Imaging and Cardiology Chest x-ray: report reviewed, image reviewed Assessment and Plan Assessment: 1. Multivessel coronary artery disease, status post double vessel coronary artery bypass grafting surgery 2. Non-STEMI this admission 3. Hyperlipidemia, cholesterol 206, LDL 118, triglycerides 199 4. Right internal carotid artery stenosis 72% stenosis at the origin of the right internal carotid artery per CTA of the neck 5. Ischemic cardiomyopathy with EF 40-45% 6. Previous tobacco dependence 7. Moderate COPD with preoperative FEV1 59% of predicted 8. History of prostate cancer status post prostatectomy 9. Postoperative acute blood loss anemia, expected, dilutional 10. Postoperative hyponatremia, unexpected, possibly dilutional 11. Postoperative elevation of his transaminase enzymes, unexpected, trending down Plan: 1. Continue aspirin, statin, Lipitor has been decreased to 40 mg by mouth daily, Plavix and beta michel. Will increase metoprolol tartrate to 25 mg by mouth twice a day. We will continue to increase his beta michel as tolerated. 2. Decrease Primacor drip to 0.1 mcg/kg/m. Continue to monitor hemodynamics, keep Kress-Alexx catheter in place while on Primacor drip. 3. Wean O2 as tolerated. Encourage incentive spirometry is 10 times every hour while awake. Bronchodilators per pulmonology management. 4. Increase activity as tolerated, ambulate as tolerated. PT/OT/cardiac rehab following. 5. Will monitor daily labs and chest x-rays. Electrolyte replacement protocol. 6. GI/DVT prophylaxis 7. Pain control with current medication regimen. [place] discontinued. 8. Lasix 20 mg IV 1 now. 9. Insulin management per Dr. Ryan. Patient is not diabetic, preoperative hemoglobin A1c 5.3% 10. Continue amiodarone 400 mg by mouth twice a day for atrial fibrillation prophylaxis. We will continue to monitor his AST and ALT which are trending down. 11. Will follow Gram stain and C&S sputum, preliminary results show rare WBCs, rare epithelial cells and few gram-positive cocci in clusters. 12. Continue the 1500 mL fluid restriction in 24 hours, the patient's sodium level is 130 today. 13. More recommendations to follow based on patient's clinical course. Nurse practitioner note has been reviewed by the physician. Signing provider agrees with the above documented findings, assessment and plan of care. Time with Patient: Greater than 30
[2020-08-12 17:00] LABS: Glucose,Whole Blood 109 mg/dL (75-99)
[2020-08-12] MEDS: MILRINONE-D5W PMX 20 MG in DEXTROSE/WATER 1 100ML.BAG IV SCH (17:02)
[2020-08-12 20:43] LABS: Glucose,Whole Blood 118 mg/dL (75-99)
[2020-08-12] MEDS: ATORVASTATIN 40 MG TAB PO SCH (20:45)
[2020-08-12] MEDS: lisinopriL 5 MG TAB PO SCH (20:45)
[2020-08-12] MEDS: SENNOSIDES-DOCUSATE SODIUM 1 EACH TAB PO SCH (20:45)
[2020-08-13] MEDS: HEPARIN SODIUM,PORCINE 5,000 UNIT/ML 1 ML VIAL SQ SCH (00:43)
[2020-08-13 04:28] LABS: MCH 30.4 pg (25.0-35.0); MCHC 33.5 g/dL (31.0-37.0); MCV 90.8 fL (80.0-100.0); Mean Platelet Volume 10.2; Platelet Count 208 k/uL (150-450); RDW 14.6 % (11.5-15.5); WBC 8.7 k/uL (3.8-10.6)
[2020-08-13 04:50] LABS: Albumin 2.8 g/dL (3.5-5.0); Calcium 8.8 mg/dL (8.4-10.2); Potassium 4.1 mmol/L (3.5-5.1); Total Bilirubin 1.4 mg/dL (0.2-1.3); Total Protein 4.8 g/dL (6.3-8.2)
[2020-08-13] MEDS: METOPROLOL TARTRATE 25 MG TAB PO SCH ×3 (06:55→21:18)
[2020-08-13] MEDS: INSULIN ASPART (NovoLOG) 100 UNIT/ML VIAL SQ SCH ×4 (06:56→20:18)
[2020-08-13] MEDS: lisinopriL 5 MG TAB PO SCH (07:24)
[2020-08-13] MEDS: SODIUM CHLORIDE 0.9% 1,000 ML IV SCH (07:25)
[2020-08-13] MEDS ORDERED: FUROSEMIDE 10 MG/ML 2 ML VIAL IV STA (07:32)
[2020-08-13] MEDS: IPRATROPIUM-ALBUTEROL 3 ML NEB INHALATION SCH ×4 (07:48→19:52)
--- NOTE | 2020-08-13 08:20 | P.PN ---
Subjective Progress Note Date: 08/13/20 Principal diagnosis: Multivessel coronary artery disease, calcified ascending aorta, non-STEMI this admission, hyperlipidemia discovered this admission, right internal carotid omayra ry stenosis 72% per CTA of the neck, ischemic cardiomyopathy with EF 40-45%. Past medical history significant for previous tobacco dependence, moderate chronic obstructive pulmonary disease with preoperative FEV1 59% of predicted, obesity, history of prostate cancer status post prostatectomy. POD #5 off pump double coronary artery bypass grafting using the left internal mammary artery to the left anterior descending coronary artery, a reverse greater saphenous vein graft connected to the aorta using the PAS-port device and connected distally to the posterior descending coronary artery. Endoscopic harvesting of the left greater saphenous vein. Intraoperative graft flow measurement using the [employer] system, intraoperative transesophageal echocardiogram and epi-aortic scanning. Postoperative acute blood loss anemia, expected, dilutional. Postoperative hyponatremia, unexpected, possibly dilutional. Postoperative elevation transaminase enzymes, unexpected. The patient was seen in follow-up today on 08/13/2020 at his bedside in the intensive care unit. He is sitting up to the bedside chair and is awake, alert and oriented 3 and is in no apparent acute distress. Currently he denies any complaints of pain or shortness of breath. Oxygen saturations are 95% on 2 L nasal cannula. He is achieving 1500 mL on his incentive spirometry with much encouragement. Bedside telemetry currently showing normal sinus rhythm heart rate 84 BPM. Lab results were reviewed this morning and his sodium is 130, AST 118, ALT which is 202, BUN 25 and creatinine 1.06. Current hemodynamics are showing a cardiac output of 4.8, cardiac index 2.2, PA pressures 34/11 and a CVP of 18 mmHg. Primacor drip is infusing at 0.1 mcg/kg/m. No further episodes of atrial fibrillation reported. Sputum Gram stain and C&S preliminary results show rare WBCs, rare epithelial cells and few gram-positive cocci in clusters. His T-max temperature in the last 24 hours is 99.7F. The patient reports that he has been ambulating in the intensive care unit hallway with minimal assistance from nursing staff and physical therapy staff. Objective - Vital Signs Vital signs: Vital Signs Temp 98.8 F 08/13/20 04:00 Pulse 72 08/13/20 08:01 Resp 26 H 08/13/20 07:00 BP 114/89 08/13/20 06:00 Pulse Ox 95 08/13/20 07:00 Intake & Output 08/12/20 08/13/20 08/13/20 18:59 06:59 18:59 Intake Total 921 891.704 52 Output Total 1175 850 0 Balance -254 41.704 52 Weight 100 kg Intake: IV 421 312 52 .9@20 240 240 40 CO/CI 100 pressure bag 81 72 12 Intake, IV Titration 100 39.704 Amount Milrinone-D5w Pmx 20 mg 100 39.704 In Dextrose/Water 1 100ml .bag @ 0.1 MCG/KG/MIN 2. 853 mls/hr IV .Q24H [facility] Rx#:[id number] Oral 400 540 Output: Urine 1175 850 0 Other: Voiding Method Urinal Bedside Commode Bedside Commode # Voids 1 1 # Bowel Movements 1 ABP, PAP, CO, CI - Last Documented Arterial Blood Pressure 150/38 Pulmonary Artery Pressure 16/4 Cardiac Output 4.8 Cardiac Index 2.2 - Constitutional General appearance: Present: cooperative, no acute distress, obese - EENT Eyes: Present: PERRLA, normal appearance. Absent: scleral icterus ENT: Present: hearing grossly normal - Neck Details: Neck supple, no JVD, no lymphadenopathy. - Respiratory Details: Lung sounds with few scattered crackles throughout, diminished to his bilateral bases. No wheezes or rhonchi. Respirations are symmetrical and nonlabored. Oxygen saturation 95% on 2 L nasal cannula. Achieving 1500 mL on his incentive spirometry. - Cardiovascular Details: Regular rhythm and rate. S1 and S2 present, negative for S3, gallop or murmur. Sternum is stable. Right IJ Cordis and [place]-Alexx catheter in place with current hemodynamic showing a cardiac output of 4.8, cardiac index 2.2, PA pressure 34/11 and CVP 18 mmHg. SVR currently 1049. Knee-high ADALID hose and sequential compression devices in place to his bilateral lower extremities. Heart hugger is in place and he is demonstrating appropriate use. Bedside telemetry showing normal sinus rhythm heart rate 84 BPM. - Gastrointestinal Gastrointestinal Comment(s): Abdomen is soft, nontender and nondistended. Active bowel sounds present in all 4 abdominal quadrants. No guarding or rigidity. No organomegaly appreciated. Bowel movement this morning. Tolerating oral intake. - Genitourinary Genitourinary Comment(s): Continues to void. 450 mL of urine output in the last 8 hours. - Integumentary Integumentary Comment(s): Skin is warm and dry. No clubbing or cyanosis is present. Midline sternal incision is clean, dry and approximated. No drainage or redness is present. Dressing is clean, dry and intact. Left lower extremity EVH site is clean, dry and approximated. No drainage or redness is present. - Neurologic Neurologic: Present: CNII-XII intact - Musculoskeletal Musculoskeletal: Present: gait normal, generalized weakness, strength equal bilaterally - Psychiatric Psychiatric: Present: A&O x's 3, appropriate affect, intact judgment & insight - Allied health notes Allied health notes reviewed: nursing - Labs CBC & Chem 7: 08/13/20 04:20 08/13/20 04:20 Labs: Abnormal Lab Results - Last 24 Hours (Table) 08/12/20 08/12/20 08/12/20 Range/Units 11:53 16:58 20:42 RBC (4.30-5.90) m/uL Hgb (13.0-17.5) gm/dL Hct (39.0-53.0) % Sodium (137-145) mmol/L BUN (9-20) mg/dL Glucose (74-99) mg/dL POC Glucose (mg/dL) 121 H 109 H 118 H (75-99) mg/dL Total Bilirubin (0.2-1.3) mg/dL AST (17-59) U/L ALT (4-49) U/L Alkaline Phosphatase (38-126) U/L Total Protein (6.3-8.2) g/dL Albumin (3.5-5.0) g/dL 08/13/20 08/13/20 Range/Units 04:20 04:20 RBC 3.30 L (4.30-5.90) m/uL Hgb 10.0 L (13.0-17.5) gm/dL Hct 30.0 L (39.0-53.0) % Sodium 130 L (137-145) mmol/L BUN 25 H (9-20) mg/dL Glucose 104 H (74-99) mg/dL POC Glucose (mg/dL) (75-99) mg/dL Total Bilirubin 1.4 H (0.2-1.3) mg/dL AST 118 H (17-59) U/L ALT 202 H (4-49) U/L Alkaline Phosphatase 163 H (38-126) U/L Total Protein 4.8 L (6.3-8.2) g/dL Albumin 2.8 L (3.5-5.0) g/dL - Imaging and Cardiology Chest x-ray: report reviewed, image reviewed Assessment and Plan Assessment: 1. Multivessel coronary artery disease, status post double vessel coronary artery bypass grafting surgery 2. Non-STEMI this admission 3. Hyperlipidemia, cholesterol 206, LDL 118, triglycerides 199 4. Right internal carotid artery stenosis 72% stenosis at the origin of the right internal carotid artery per CTA of the neck 5. Ischemic cardiomyopathy with EF 40-45% 6. Previous tobacco dependence 7. Moderate COPD with preoperative FEV1 59% of predicted 8. History of prostate cancer status post prostatectomy 9. Postoperative acute blood loss anemia, expected, dilutional 10. Postoperative hyponatremia, unexpected, possibly dilutional 11. Postoperative elevation of his transaminase enzymes, unexpected, trending down Plan: 1. Continue aspirin, statin, Lipitor has been decreased to 40 mg by mouth daily, Plavix and beta michel. Will increase metoprolol tartrate to 25 mg by mouth 3 times a day. We will continue to increase his beta michel as tolerated. 2. Discontinue Primacor drip. Lisinopril 5 mg by mouth daily was added for afterload reduction. 3. Wean O2 as tolerated. Encourage incentive spirometry is 10 times every hour while awake. Bronchodilators per pulmonology management. 4. Increase activity as tolerated, ambulate as tolerated. PT/OT/cardiac rehab following. 5. Will monitor daily labs and chest x-rays. Electrolyte replacement protocol. 6. GI/DVT prophylaxis 7. Pain control with current medication regimen. 8. Lasix 20 mg IV 1 now. 9. Insulin management per Dr. Ryan. Patient is not diabetic, preoperative hemoglobin A1c 5.3% 10. Continue amiodarone 400 mg by mouth twice a day for atrial fibrillation prophylaxis. We will continue to monitor his AST and ALT which are trending down. 11. Will follow Gram stain and C&S sputum, preliminary results show rare WBCs, rare epithelial cells and few gram-positive cocci in clusters. 12. Continue the 1500 mL fluid restriction in 24 hours, the patient's sodium level is 130 today. 13. First postoperative shower today. 14. May need to be fitted for a LifeVest prior to discharge as his repeat echo showed an overall left ventricular systolic function to be moderate to severely impaired with an ejection fraction between 30 and 35%. 15. Remove right IJ Cordis and [place]-Alexx catheter today. 16. We will start Eliquis 2.5 mg by mouth twice a day for anticoagulation today. Decrease aspirin to 81 mg by mouth daily. 17. More recommendations to follow based on patient's clinical course. Nurse practitioner note has been reviewed by the physician. Signing provider agrees with the above documented findings, assessment and plan of care.
--- NOTE | 2020-08-13 08:42 | XR ---
EXAMINATION TYPE: XR chest 2V DATE OF EXAM: 08/13/2020 COMPARISON: Prior chest x-ray 08/12/2020 HISTORY: Postop coronary artery bypass graft TECHNIQUE: Frontal and lateral views of the chest are obtained. FINDINGS: Right jugular central venous catheter is again noted and is stable, patient is post median sternotomy. Heart remains enlarged. There are overlying artifacts. No evident pneumothorax. There is persistent blunting of the costophrenic angles. Aorta is dense. Some improvement in aeration is note d within the lungs. IMPRESSION: Improved aeration. Small basilar effusions. Cardiomegaly.
[2020-08-13] MEDS: PANTOPRAZOLE 40 MG TABLET PO SCH (08:45)
[2020-08-13] MEDS: CLOPIDOGREL 75 MG TAB PO SCH (08:45)
[2020-08-13] MEDS: AMIODARONE 200 MG TAB PO SCH ×2 (08:45→20:26)
[2020-08-13] MEDS: ASPIRIN 81 MG PO SCH (08:45)
[2020-08-13] MEDS ORDERED: METOPROLOL TARTRATE 25 MG TAB PO SCH (09:00)
--- NOTE | 2020-08-13 09:44 | P.PN ---
Subjective Progress Note Date: 08/13/20 This is a pleasant 85 year old gentleman who presented to the hospital with a non-ST elevation myocardial infarction. He underwent off-pump double coronary artery bypass grafting surgery using a LUCERO to the LAD and reverse saphenous vein graft to the distal posterior descending artery. Today is postoperative day 4. Patient was seen and examined in the intensive care unit, sitting up in the chair bedside. Awake and alert in no acute distress. Remaining in normal sinus rhythm although the patient did have some atrial fibrillation through the night last night. The IV amiodarone has been discontinued and patient is currently on by mouth amiodarone. He still is on milrinone drip at 0.1 mcg/kg/m. Blood pressure 134/40, heart rate in the 90s, 96% on 4 L of oxygen. White blood cell count 9.8, hemoglobin 10.0, platelet count 175. Sodium 1:30, potassium 4.4, BUN 29, creatinine 1.1. Total bilirubin 1.5 AST 141 ALT 219 alk phos 136. 08/13/2020 Patient seen and examined this morning in the intensive care unit. Sitting up in his chair at bedside, he had just recently walked the length of the hallway. He is alert and oriented, no acute distress. Denies any chest discomfort or d ifficulty in breathing. He is achieving 1500 on his incentive spirometry. Remaining in normal sinus rhythm with a heart rate in the 80s. Blood cell count 8.7, hemoglobin 10.0, platelet count 208. Sodium 130, potassium 4.0, BUN 25 and creatinine 1.0. Current hemodynamics are showing a cardiac output of 4.8, cardiac index 2.2, PA pressures 34/11 and a CVP of 18. Primacor drip continues to be infusing at 0.1 mics per kilogram per minute. Objective - Vital Signs Vital signs: Vital Signs Temp 99.0 F 08/13/20 08:00 Pulse 72 08/13/20 08:01 Resp 32 H 08/13/20 08:00 BP 114/89 08/13/20 06:00 Pulse Ox 99 08/13/20 08:00 Intake & Output 08/12/20 08/13/20 08/13/20 18:59 06:59 18:59 Intake Total 921 891.704 52 Output Total 1175 850 0 Balance -254 41.704 52 Weight 100 kg Intake: IV 421 312 52 .9@20 240 240 40 CO/CI 100 pressure bag 81 72 12 Intake, IV Titration 100 39.704 Amount Milrinone-D5w Pmx 20 mg 100 39.704 In Dextrose/Water 1 100ml .bag @ 0.1 MCG/KG/MIN 2. 853 mls/hr IV .Q24H [facility] Rx#:[id number] Oral 400 540 Output: Urine 1175 850 0 Other: Voiding Method Urinal Bedside Commode Bedside Commode # Voids 1 1 # Bowel Movements 1 ABP, PAP, CO, CI - Last Documented Arterial Blood Pressure 128/43 Pulmonary Artery Pressure 27/9 Cardiac Output 7.9 Cardiac Index 3.6 - Exam GENERAL EXAM: Alert, very pleasant 85-year-old gentleman, on 4 L nasal cannula, up in a chair at the bedside, comfortable in no apparent distress. HEAD: Normocephalic. EYES: Normal reaction of pupils, equal size. NOSE: Clear with pink turbinates. THROAT: No erythema or exudates. NECK: [place]-Alexx catheter in place to right IJ. No masses, no JVD. CHEST: Sternal dressing dry and intact. Heart Hugger in place. Left Chest tube secured in place to wall suction LUNGS: Equal air entry with crackles in the bilateral posterior bases. CVS: S1 and S2 normal with no audible murmur, regular rhythm. ABDOMEN: No hepatosplenomegaly, normal bowel sounds, no guarding or rigidity. SPINE: No scoliosis or deformity SKIN: No rashes CENTRAL NERVOUS SYSTEM: No focal deficits, tone is normal in all 4 extremities. EXTREMITIES: There is trace peripheral edema. No clubbing, no cyanosis. Peripheral pulses are intact. - Labs CBC & Chem 7: 08/13/20 04:20 08/13/20 04:20 Labs: Abnormal Lab Results - Last 24 Hours (Table) 08/12/20 08/12/20 08/12/20 Range/Units 11:53 16:58 20:42 RBC (4.30-5.90) m/uL Hgb (13.0-17.5) gm/dL Hct (39.0-53.0) % Sodium (137-145) mmol/L BUN (9-20) mg/dL Glucose (74-99) mg/dL POC Glucose (mg/dL) 121 H 109 H 118 H (75-99) mg/dL Total Bilirubin (0.2-1.3) mg/dL AST (17-59) U/L ALT (4-49) U/L Alkaline Phosphatase (38-126) U/L Total Protein (6.3-8.2) g/dL Albumin (3.5-5.0) g/dL 08/13/20 08/13/20 Range/Units 04:20 04:20 RBC 3.30 L (4.30-5.90) m/uL Hgb 10.0 L (13.0-17.5) gm/dL Hct 30.0 L (39.0-53.0) % Sodium 130 L (137-145) mmol/L BUN 25 H (9-20) mg/dL Glucose 104 H (74-99) mg/dL POC Glucose (mg/dL) (75-99) mg/dL Total Bilirubin 1.4 H (0.2-1.3) mg/dL AST 118 H (17-59) U/L ALT 202 H (4-49) U/L Alkaline Phosphatase 163 H (38-126) U/L Total Protein 4.8 L (6.3-8.2) g/dL Albumin 2.8 L (3.5-5.0) g/dL Assessment and Plan Plan: Assessment and plan: #1 Non-ST segment elevation myocardial infarction, multivessel coronary artery disease. Status post off-pump coronary artery bypass grafting utilizing a LUCERO to the LAD and a reverse saphenous vein graft to the distal PDA. Postoperative day #4 #2 Ischemic cardiomyopathy, ejection fraction 40-45% preoperatively. Echocardiogram performed yesterday secondary drop in cardiac index revealed ejection fraction 20-25%. Currently on Primacor drip #3 Previous history of chronic tobacco dependence #4 Moderate COPD, FEV1 value 59% of predicted #5 Carotid stenosis involving the right internal carotid with 72% stenosis #6 History of prostate cancer status post prostatectomy #7 paroxysmal atrial fibrillation, currently on by mouth amiodarone Plan From cardiology's perspective, we'll recommend to continue the patient on his current medications. He's also been encouraged regarding the use of his incentive spirometer. DNP note has been reviewed, I agree with a documented findings and plan of care. Patient was seen and examined.
[2020-08-13] MEDS: APIXABAN 2.5 MG TABLET PO SCH ×2 (11:19→20:26)
[2020-08-13] MEDS ORDERED: DEXTROSE 5% IN WATER 100 ML with AMIODARONE 150 MG IV ONE (11:30)
--- NOTE | 2020-08-13 11:41 | P.PN ---
Subjective 85-year-old patient of Dr. Henrik Perez. In rather good health. Patient after breakfast when DrAbby below the lease. Then came back again the lawnmower. Started getting a chest heaviness went up to his arms. Decided to go back in the house. Started forgetting unwell. Symptoms last for 2 hours. No dizziness or lightheadedness. [place] totally weak and rundown. Clammy perspiration. Decided to come in. No prior cardiac history. Fairly active. Had a similar episode about 2 months ago. Improved with rest. Admitted with non-ST elevation [place]. Cardiac catheterization showed severe coronary artery disease. August 08-underwent coronary bypass. Patient extubated the same evening [id number] was on insulin and Kenny-Synephrine drip. Telemetry shows sinus rhythm. Breathing stable. No chest pain. at the bedside. 08/10/2020 Patient is having a repeat echocardiogram patient in any of around 40-45% patient had low-grade fevers which is being monitored but no further workup is being done at this time. She is mildly hyponatremic secondary to he received yesterday Lasix was held at this time. Patient is transitioned to subcutaneous insulin sliding scale. Patient still has a mediastinal chest tube with a significant drainage patient is presently on amiodarone drip for atrial fibrillation. 08/11/2020 Patient's blood sugars are fairly well controlled at this time. Patient is hyponatremic a piece to have hypervolemic hyponatremia patient is still on milrinone patient appears to have hepatic condition leading to elevated liver enzymes. Patient's serum sodium is 127 and platelets will be closely monitored. Megestrol chest tube was pulled out. Patient is off amiodarone drip and is on oral amiodarone at this time. 08/12/2020 Patient's hyponatremia improved at this time. Patient's Lasix heart failure improved as well. Patient otherwise clinically doing much better today. 08/13/2020 Patient's serum sodium remained stable patient still has bibasilar crackles. [place]-Alexx catheter was removed. Constitutional: Denied any fatigue denied any fever. Cardio vascular: denied any chest pain, palpitations Gastrointestinal denied any nausea vomiting Pulmonary: Denied any shortness of breath cough Neurologic denied any new focal deficits All inpatient medications were reviewed and appropriate changes in these m edications as dictated in the interval history and assessment and plan. Objective - Vital Signs Vital signs: Vital Signs Temp 99.0 F 08/13/20 08:00 Pulse 72 08/13/20 10:00 Resp 31 H 08/13/20 10:00 BP 106/61 08/13/20 09:00 Pulse Ox 96 08/13/20 10:00 Intake & Output 08/12/20 08/13/20 08/13/20 18:59 06:59 18:59 Intake Total 921 891.704 152 Output Total 1175 850 0 Balance -254 41.704 152 Weight 100 kg Intake: IV 421 312 52 .9@20 240 240 40 CO/CI 100 pressure bag 81 72 12 Intake, IV Titration 100 39.704 Amount Milrinone-D5w Pmx 20 mg 100 39.704 In Dextrose/Water 1 100ml .bag @ 0.1 MCG/KG/MIN 2. 853 mls/hr IV .Q24H [facility] Rx#:[id number] Oral 400 540 100 Output: Urine 1175 850 0 Other: Voiding Method Urinal Bedside Commode Bedside Commode # Voids 1 1 # Bowel Movements 1 ABP, PAP, CO, CI - Last Documented Arterial Blood Pressure 128/43 Pulmonary Artery Pressure 21/6 Cardiac Output 4.8 Cardiac Index 2.2 - Exam PHYSICAL EXAMINATION: GENERAL: The patient is alert and oriented x3, not in any acute distress. Well developed, well nourished. HEENT: Pupils are round and equally reacting to light. EOMI. No scleral icterus. No conjunctival pallor. Normocephalic, atraumatic. No pharyngeal erythema. No thyromegaly. CARDIOVASCULAR: S1 and S2 present. No murmurs, rubs, or gallops. PULMONARY: Bibasilar crackles on exam ABDOMEN: Soft, nontender, nondistended, normoactive bowel sounds. No palpable organomegaly. MUSCULOSKELETAL: No joint swelling or deformity. EXTREMITIES: No cyanosis, clubbing, or pedal edema. NEUROLOGICAL: Gross neurological examination did not reveal any focal deficits. SKIN: No rashes. - Labs CBC & Chem 7: 08/13/20 04:20 08/13/20 04:20 Labs: Abnormal Lab Results - Last 24 Hours (Table) 08/12/20 08/12/20 08/12/20 Range/Units 11:53 16:58 20:42 RBC (4.30-5.90) m/uL Hgb (13.0-17.5) gm/dL Hct (39.0-53.0) % Sodium (137-145) mmol/L BUN (9-20) mg/dL Glucose (74-99) mg/dL POC Glucose (mg/dL) 121 H 109 H 118 H (75-99) mg/dL Total Bilirubin (0.2-1.3) mg/dL AST (17-59) U/L ALT (4-49) U/L Alkaline Phosphatase (38-126) U/L Total Protein (6.3-8.2) g/dL Albumin (3.5-5.0) g/dL 08/13/20 08/13/20 Range/Units 04:20 04:20 RBC 3.30 L (4.30-5.90) m/uL Hgb 10.0 L (13.0-17.5) gm/dL Hct 30.0 L (39.0-53.0) % Sodium 130 L (137-145) mmol/L BUN 25 H (9-20) mg/dL Glucose 104 H (74-99) mg/dL POC Glucose (mg/dL) (75-99) mg/dL Total Bilirubin 1.4 H (0.2-1.3) mg/dL AST 118 H (17-59) U/L ALT 202 H (4-49) U/L Alkaline Phosphatase 163 H (38-126) U/L Total Protein 4.8 L (6.3-8.2) g/dL Albumin 2.8 L (3.5-5.0) g/dL Microbiology - Last 24 Hours (Table) 08/11/20 08:30 Gram Stain - Final Sputum Sputum Culture - Final Assessment and Plan Plan: -Acute non-ST elevation myocardial infarction -Ischemic cardiomyopathy from systolic dysfunction EF 40- 45% -Severe triple-vessel coronary artery disease patient is status post CABG clinically doing well at this time. Patient chest tubes are out. -Leukocytosis from acute [place]. No clinical evidence of infection -Mild hyponatremia: Hypervolemic hyponatremia secondary to heart failure patient is receiving Lasix and this is being managed by cardiothoracic surgery -IV heparin monitoring -Significant stenosis of the right carotid artery -Ascending aortic aneurysm 4.1 cm -Coronary bypass in August 08 Plan: Serum sodium improved with the Lasix patient overall clinically doing better compared to yesterday.
[2020-08-13 12:01] LABS: Glucose,Whole Blood 120 mg/dL (75-99)
--- NOTE | 2020-08-13 13:23 | P.PN ---
Subjective Progress Note Date: 08/13/20 This is a very pleasant 85-year-old gentleman who was admitted with a non-ST segment elevation myocardial infarction. He is found to have significant coronary artery disease and had undergone an off-pump double coronary artery bypass surgery using the LUCERO to the LAD and reverse saphenous vein graft to the distal posterior descending artery. This is postoperative day #1. He was successfully extubated within 3 hours after leaving the OR. He is currently sitting up in a chair at the bedside. Awake and alert in no acute distress. Maintaining O2 saturation in the 90s on 7 L high flow nasal cannula. He is afebrile. Current blood pressure 121/44, PA pressures 32/17, CVP 15. Chest x- ray reveals evidence of some mild fluid volume overload, atelectasis. He is currently receiving 0.9 normal saline at 50 MLS per hour. He is on Kenny- Synephrine at 0.7 mcg/kg/m. Insulin drip is off. He remains on bronchodilators. Working well with the incentive spirometer. Maintaining a regular rhythm. White count 11.3. Hemoglobin 10.8. Sodium 134. Potassium 4.9. Creatinine 1.13. The patient is seen today 08/10/2020 in follow-up in the intensive care unit. Postoperative day #2. He is currently sitting up in a chair at the bedside. Awake and alert in no acute distress. He is currently on 4 L/m per nasal cannula and maintaining O2 saturation in the 90s. He did have issues with atrial fibrillation last evening. He is on amiodarone drip at 0.5 mg/m. 0.9 normal saline at 50 mL per hour. [place]-Alexx catheter remains in place. Cardiac output 4.4. Cardiac index 2.0. PA pressures 34/17 with a CVP of 14. Arterial blood gases revealed a PaO2 of 82, pCO2 37, pH 7.36. Chest x-ray reveals imp roved appearance of the pulmonary edema and pulmonary vascular congestion compared to yesterday's chest x-ray. Small bilateral pleural effusions. Chest tubes remain in place to the left chest and mediastinum. White count 10.4. Hemoglobin 10.8. Platelet count 139,000. Sodium 129. Potassium 4.6. Creatinine 1.36. The patient is seen today 08/11/2020 in follow-up in the intensive care unit. Postoperative day #3. He is awake and alert in no acute distress. Currently sitting up in a chair at the bedside. He is maintaining O2 saturation in the 90s on 4 L high flow nasal cannula. Chest x-ray reveals chronic changes and cardiomegaly with multiple tiny bilateral pleural effusions and patchy bibasilar atelectasis/infiltrates. Left-sided chest tube remains in place to low continuous wall suction. No air leak noted. Remains on bronchodilators. Utilizing the incentive spirometer and pulling approximately 1-1.5 L. Current hemodynamics reveal a cardiac output of 7.1, cardiac index 2.2. PA pressures 25/14. CVP of 11. Yesterday the patient had dropped his cardiac index to 1.5 and was initiated on Primacor currently at 0.2 mcg/kg/m. He has a 0.9 normal sinus at 20. Repeat echocardiogram revealed a severely impaired left ventricular systolic function with ejection fraction 20-25%. Previous echocardiogram with ejection fraction 40-45%. Lasix 20 mg IVP 1 today. White count 10.2. Hemoglobin 9.9. Platelet count 149. Sodium 127. Potassium 4.4. Creatinine 1.27. AST 254. ALT 259. On 08/12/2020, the patient is postop day #4. The patient still having issues with his cardiac rhythm. He is having on and off episodes of atrial fibrillation with rapid ventricle response. He was given 2 boluses of amiodarone overnight and the third bolus will be given today. The patient will also need anticoagulation. The patient is currently on 2 L of oxygen by nasal cannula with a pulse of 94%. The patient was on Primacor running at 0.2 g per KG per minute and the dose was reduced down to 0.1 g. His cardiac output has been adequate with adequate cardiac index and the patient has his [place]-Alexx catheter in place and this will be kept in place and the patient is being weaned off the milrinone and the patient will have a follow-up echocardiogram today. He has adequate urine output. BUN is at 29 with a creatinine of 1.1. He is afebrile. Surgical wound is dry clean and intact. His CVP is at 17 with a PA pressures of 35/22 and the patient was given a dose of Lasix today. IV fluids running at 20 mL an hour. Cardiac output is at 7.4 with an index of 3.4. The patient is awake and alert and following commands and answering questions and is also ambulating. 08/13/2020, the patient is doing well. The patient is using incentive spirometer. He is pulling approximately 1500. The patient is off milrinone for now and the patient is maintaining a good cardiac output. Hemodynamically stable. No hypotension. Cardiac rhythm is back to sinus. He is on 2 L of oxygen by nasal cannula with a pulse is 96%. This surgical wound site is dry clean and intact. The [place]-Alexx catheter will be removed today. The chest x- ray showing small bilateral pleural effusion and lung bases. These are postsurgical changes. No other acute abdominal masses are noted. The patient was started on Eliquis for long-term and to coagulation regarding his proximal atrial fibrillation. He is also on accommodation of aspirin and Plavix. In terms of his hemodynamics, his cardiac index is at 2.2 with an output of 4.8. PA pressures are 34/11. His CVP is 18. Earlier this morning, he was on Primacor drip that was discontinued. His rhythm is sinus as mentioned. He is afebrile. He is emanating in intensive care units. Objective - Vital Signs Vital signs: Vital Signs Temp 98.7 F 08/13/20 12:00 Pulse 77 08/13/20 12:00 Resp 33 H 08/13/20 12:00 BP 131/66 08/13/20 12:00 Pulse Ox 94 L 08/13/20 12:00 Intake & Output 08/12/20 08/13/20 08/13/20 18:59 06:59 18:59 Intake Total 921 891.704 202 Output Total 1175 850 0 Balance -254 41.704 202 Weight 100 kg Intake: IV 421 312 102 .9@20 240 240 40 CO/CI 100 50 pressure bag 81 72 12 Intake, IV Titration 100 39.704 Amount Milrinone-D5w Pmx 20 mg 100 39.704 In Dextrose/Water 1 100ml .bag @ 0.1 MCG/KG/MIN 2. 853 mls/hr IV .Q24H L[facility]LEE Rx#:[id number] Oral 400 540 100 Output: Urine 1175 850 0 Other: Voiding Method Urinal Bedside Commode Bedside Commode # Voids 1 1 # Bowel Movements 1 ABP, PAP, CO, CI - Last Documented Arterial Blood Pressure 128/43 Pulmonary Artery Pressure 21/6 Cardiac Output 4.8 Cardiac Index 2.2 - Exam - Constitutional General appearance: Present: cooperative, no acute distress, obese - EENT Eyes: Present: PERRLA, normal appearance. Absent: scleral icterus ENT: Present: hearing grossly normal - Neck Details: Neck supple, no JVD, no lymphadenopathy. - Respiratory Details: Lung sounds with few scattered crackles throughout, diminished to his bilateral bases. No wheezes or rhonchi. Respirations are symmetrical and nonlabored. Oxygen saturation 95% on 2 L nasal cannula. Achieving 1500 mL on his incentive spirometry. - Cardiovascular Details: Regular rhythm and rate. S1 and S2 present, negative for S3, gallop or murmur. Sternum is stable. Right IJ Cordis and [place]-Alexx catheter in place with current hemodynamic showing a cardiac output of 4.8, cardiac index 2.2, PA pressure 34/11 and CVP 18 mmHg. SVR currently 1049. Knee-high ADALID hose and sequential compression devices in place to his bilateral lower extremities. Heart hugger is in place and he is demonstrating appropriate use. Bedside telemetry showing normal sinus rhythm heart rate 84 BPM. - Gastrointestinal Gastrointestinal Comment(s): Abdomen is soft, nontender and nondistended. Active bowel sounds present in all 4 abdominal quadrants. No guarding or rigidity. No organomegaly appreciated. Bowel movement this morning. Tolerating oral intake. - Genitourinary Genitourinary Comment(s): Continues to void. 450 mL of urine output in the last 8 hours. - Integumentary Integumentary Comment(s): Skin is warm and dry. No clubbing or cyanosis is present. Midline sternal incision is clean, dry and approximated. No drainage or redness is present. Dressing is clean, dry and intact. Left lower extremity EVH site is clean, dry and approximated. No drainage or redness is present. - Neurologic Neurologic: Present: CNII-XII intact - Musculoskeletal Musculoskeletal: Present: gait normal, generalized weakness, strength equal bilaterally - Psychiatric Psychiatric: Present: A&O x's 3, appropriate affect, intact judgment & insight - Labs CBC & Chem 7: 08/13/20 04:20 08/13/20 04:20 Labs: Abnormal Lab Results - Last 24 Hours (Table) 08/12/20 08/12/20 08/13/20 Range/Units 16:58 20:42 04:20 RBC 3.30 L (4.30-5.90) m/uL Hgb 10.0 L (13.0-17.5) gm/dL Hct 30.0 L (39.0-53.0) % Sodium (137-145) mmol/L BUN (9-20) mg/dL Glucose (74-99) mg/dL POC Glucose (mg/dL) 109 H 118 H (75-99) mg/dL Total Bilirubin (0.2-1.3) mg/dL AST (17-59) U/L ALT (4-49) U/L Alkaline Phosphatase (38-126) U/L Total Protein (6.3-8.2) g/dL Albumin (3.5-5.0) g/dL 08/13/20 08/13/20 Range/Units 04:20 12:00 RBC (4.30-5.90) m/uL Hgb (13.0-17.5) gm/dL Hct (39.0-53.0) % Sodium 130 L (137-145) mmol/L BUN 25 H (9-20) mg/dL Glucose 104 H (74-99) mg/dL POC Glucose (mg/dL) 120 H (75-99) mg/dL Total Bilirubin 1.4 H (0.2-1.3) mg/dL AST 118 H (17-59) U/L ALT 202 H (4-49) U/L Alkaline Phosphatase 163 H (38-126) U/L Total Protein 4.8 L (6.3-8.2) g/dL Albumin 2.8 L (3.5-5.0) g/dL Microbiology - Last 24 Hours (Table) 08/11/20 08:30 Gram Stain - Final Sputum Sputum Culture - Final Assessment and Plan Plan: 1 Non-ST segment elevation myocardial infarction, multivessel coronary artery disease. Status post off-pump coronary artery bypass grafting utilizing a LUCERO to the LAD and a reverse saphenous vein graft to the distal PDA. Postoperative day #5 2 Ischemic cardiomyopathy, ejection fraction 40-45% preoperatively. Echocardiogram performed post op secondary drop in cardiac index revealed ejection fraction 20-25%. Treated with Primacor drip. The most recent cardiac index of 2.2. Echocardiogram was repeated yesterday and the patient ejection fraction was in the order of 30-35%. 3 Episode of atrial fibrillation requiring initiation of amiodarone drip, and expected outcome of surgery, the patient is still having runs of atrial fibrillation. The patient is on amiodarone. The patient is also on metoprolol 25 mg by mouth 3 times a day. The patient was started on long-term and to coagulation with Eliquis 2.5 mg by mouth twice a day. Cardiac rhythm is sinus for now. 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 10 Abnormal LFTS, transaminitis Plan Discontinue the Primacor Monitor hemodynamics Continue amiodarone 400 mg by mouth twice a day and metoprolol 25 mg 3 times a day in addition to Eliquis 2.5 mg twice a day LV function was noted and the patient is an ejection fraction of 30-35% Chest x-ray from today was noted Overall poor status is stable and the patient is using incentive spirometer The patient is currently on 2 L of oxygen by nasal cannula with a pulse is 94- 96% Continue activity and ambulation Remove the Haxtun-Alexx catheter We'll continue to follow
[2020-08-13 17:02] LABS: Glucose,Whole Blood 115 mg/dL (75-99)
[2020-08-13 20:19] LABS: Glucose,Whole Blood 125 mg/dL (75-99)
[2020-08-13] MEDS: ATORVASTATIN 40 MG TAB PO SCH (20:26)
[2020-08-13] MEDS: SENNOSIDES-DOCUSATE SODIUM 1 EACH TAB PO SCH (20:26)
[2020-08-14] MEDS: SODIUM CHLORIDE 0.9% 1,000 ML IV SCH ×2 (01:17→11:40)
[2020-08-14 04:13] LABS: Anisocytosis Moderate; HCT 31.6 % (39.0-53.0); MCH 32.9 pg (25.0-35.0); MCHC 34.8 g/dL (31.0-37.0); MCV 94.5 fL (80.0-100.0); Mean Platelet Volume 9.4; Platelet Count 249 k/uL (150-450); RBC 3.34 m/uL (4.30-5.90); RDW 21.3 % (11.5-15.5); WBC 9.9 k/uL (3.8-10.6)
[2020-08-14 04:38] LABS: Albumin 2.9 g/dL (3.5-5.0); Calcium 8.9 mg/dL (8.4-10.2); Potassium 4.2 mmol/L (3.5-5.1); Total Bilirubin 1.3 mg/dL (0.2-1.3); Total Protein 5.1 g/dL (6.3-8.2)
[2020-08-14] MEDS: DEXTROSE 5% IN WATER 100 ML with AMIODARONE 150 MG IV PRN (05:33)
[2020-08-14] MEDS: METOPROLOL TARTRATE 25 MG TAB PO SCH (06:19)
[2020-08-14] MEDS: INSULIN ASPART (NovoLOG) 100 UNIT/ML VIAL SQ SCH ×3 (06:35→17:55)
[2020-08-14 06:36] LABS: Glucose,Whole Blood 100 mg/dL (75-99)
[2020-08-14] MEDS: PANTOPRAZOLE 40 MG TABLET PO SCH (06:38)
--- NOTE | 2020-08-14 07:37 | XR ---
EXAMINATION TYPE: XR chest 1V portable DATE OF EXAM: 08/14/2020 CLINICAL HISTORY: Difficulty breathing progress study. Postoperative CABG progress study. TECHNIQUE: Single AP portable upright view of the chest is obtained. COMPARISON: Chest x-ray from one day earlier and older studies. FINDINGS: Interval removal of right internal jugular [place]-Alexx catheter. Post-CABG changes with medi astinal clips and wires redemonstrated. Stable cardiomegaly with atherosclerotic thoracic aorta. Back ground chronic changes with bibasilar opacities. Multilevel spurring of the spine. No pneumothorax no reji. IMPRESSION: Cardiomegaly and chronic parenchymal changes with small bilateral pleural effusions and b ibasilar acute infiltrate and/or atelectasis are all redemonstrated. Latter finding slightly more pro minent versus one day earlier.
[2020-08-14] MEDS: IPRATROPIUM-ALBUTEROL 3 ML NEB INHALATION SCH ×4 (08:12→19:30)
--- NOTE | 2020-08-14 08:19 | P.PN ---
Subjective Progress Note Date: 08/14/20 Principal diagnosis: Multivessel coronary artery disease, non-STEMI this admission, hyperlipidemia discovered this admission, right internal carotid artery stenosis 72% per CTA of the neck, ischemic cardiomyopathy with EF 40-45%. Previous medical history of previous tobacco dependence, moderate COPD with preoperative FEV1 59% of predicted, history of prostate cancer status post prostatectomy. POD #6 off-pump double coronary artery bypass grafting using the left internal mammary artery to the left anterior descending coronary artery, reverse greater saphenous vein graft connected to the aorta using the Passport device and connected distally to the posterior descending coronary artery. Endoscopic harvesting of the left greater saphenous vein from the groin to above the ankle level. Intraoperative graft flow measurements using the MD Revolutionstim system, intraoperative transesophageal echocardiogram and epi-aortic scanning Postoperative acute blood loss anemia, expected, dilutional. Postoperative hyponatremia, unexpected, possibly dilutional. Postoperative elevation transaminase enzymes, unexpected. Postoperative paroxysmal atrial fibrillation, unexpected the potential outcome of surgery The patient is currently sitting up in a recliner in the intensive care unit in no acute distress. Denies chest pain or shortness of breath, only complaint is lack of sleep. Currently in normal sinus rhythm and hemodynamically stable, did have two episodes last night of atrial fibrillation, continues on amiodarone and Lopressor, was started on Eliquis yesterday. All lines and tubes have been discontinued. Patient had first and shower yesterday. He has been walking in the hallway but does remain a bit. Objective - Vital Signs Vital signs: Vital Signs Temp 98.9 F 08/14/20 04:00 Pulse 62 08/14/20 07:00 Resp 15 08/14/20 07:00 BP 121/77 08/14/20 07:00 Pulse Ox 96 08/14/20 07:00 Intake & Output 08/13/20 08/14/20 08/14/20 18:59 06:59 18:59 Intake Total 752 470 Output Total 0 850 0 Balance 752 -380 0 Weight 99.7 kg Intake: IV 102 80 .9@20 40 80 CO/CI 50 pressure bag 12 Oral 650 390 Output: Urine 0 850 0 Other: Voiding Method Bedside Commode Bedside Commode # Voids 1 # Bowel Movements 1 ABP, PAP, CO, CI - Last Documented Arterial Blood Pressure 128/43 Pulmonary Artery Pressure 21/6 Cardiac Output 4.8 Cardiac Index 2.2 - Constitutional General appearance: Present: cooperative, no acute distress - Respiratory Details: Lungs sounds diminished bilaterally. Respirations even, nonlabored. He was on 1 L cannula this morning with oxygen saturation 94%, 90-92% on room air. Able to achieve 1250 mL on his incentive spirometry. Strong cough with clear to light yellow sputum. - Cardiovascular Details: S1, S2 present. Regular rate and rhythm, sinus rhythm on telemetry. Sternum stable. Palpable peripheral pulses bilaterally. No edema present. No calf pain or tenderness noted. Heart hugger in place with patient demonstrating appropriate use. Antiembolism stockings, SCDs present. - Gastrointestinal Gastrointestinal Comment(s): Abdomen soft, nontender, nondistended. Active bowel sounds 4 quadrants. Tolerating diet. Positive bowel movement - Genitourinary Genitourinary Comment(s): Continues to void clear, yellow urine - Integumentary Integumentary Comment(s): Skin is warm dry without visible effusion. Anterior chest incision well approximated and covered with dry intact dressing. Left lower extremity EVH site well approximated without any drainage or redness. - Neurologic Neurologic: Present: CNII-XII intact - Musculoskeletal Musculoskeletal: Present: gait normal, generalized weakness, strength equal bi laterally - Psychiatric Psychiatric: Present: A&O x's 3, appropriate affect, intact judgment & insight - Allied health notes Allied health notes reviewed: nursing - Labs CBC & Chem 7: 08/14/20 03:56 08/14/20 03:56 Labs: Abnormal Lab Results - Last 24 Hours (Table) 08/13/20 08/13/20 08/13/20 Range/Units 12:00 17:01 20:17 RBC (4.30-5.90) m/uL Hgb (13.0-17.5) gm/dL Hct (39.0-53.0) % RDW (11.5-15.5) % Sodium (137-145) mmol/L Carbon Dioxide (22-30) mmol/L BUN (9-20) mg/dL Glucose (74-99) mg/dL POC Glucose (mg/dL) 120 H 115 H 125 H (75-99) mg/dL AST (17-59) U/L ALT (4-49) U/L Alkaline Phosphatase (38-126) U/L Total Protein (6.3-8.2) g/dL Albumin (3.5-5.0) g/dL 08/14/20 08/14/20 08/14/20 Range/Units 03:56 03:56 06:34 RBC 3.34 L (4.30-5.90) m/uL Hgb 11.0 L (13.0-17.5) gm/dL Hct 31.6 L (39.0-53.0) % RDW 21.3 H (11.5-15.5) % Sodium 130 L (137-145) mmol/L Carbon Dioxide 21 L (22-30) mmol/L BUN 30 H (9-20) mg/dL Glucose 101 H (74-99) mg/dL POC Glucose (mg/dL) 100 H (75-99) mg/dL AST 110 H (17-59) U/L ALT 169 H (4-49) U/L Alkaline Phosphatase 179 H (38-126) U/L Total Protein 5.1 L (6.3-8.2) g/dL Albumin 2.9 L (3.5-5.0) g/dL Microbiology - Last 24 Hours (Table) 08/11/20 08:30 Gram Stain - Final Sputum Sputum Culture - Final - Imaging and Cardiology Chest x-ray: report reviewed, image reviewed Assessment and Plan Assessment: 1. Multivessel coronary artery disease, non-STEMI this admission, status post 2 vessel CABG 2. Hyperlipidemia, cholesterol 206, LDL 118, triglycerides 199 3. Right internal carotid artery stenosis 72% stenosis at the origin of the right internal carotid artery per CTA of the neck 4. Ischemic cardiomyopathy with EF 40-45% 5. Previous tobacco dependence 6. Moderate COPD with preoperative FEV1 59% of predicted 7. History of prostate cancer status post prostatectomy 8. Postoperative acute blood loss anemia, expected, dilutional 9. Postoperative hyponatremia, unexpected, possibly dilutional 10. Postoperative elevation of his transaminase enzymes, unexpected Plan: 1. Continue low-dose aspirin, statin, Lipitor, Plavix, EMEKA inhibitor and beta michel. Will increase beta michel as tolerated. 2. Continue amiodarone 400 mg by mouth twice a day for atrial fibrillation prophylaxis. Continue Eliquis for anticoagulation 3. Wean O2 as tolerated. Encourage incentive spirometry is 10 times every hour while awake. Bronchodilators per pulmonology management. Sputum culture negative 4. Increase activity as tolerated, ambulate as tolerated. PT/OT/cardiac rehab following. 5. Will monitor daily labs and chest x-rays. Electrolyte replacement protocol. 6. GI/DVT prophylaxis 7. Pain control with current medication regimen. 8. Continue the 1500 mL fluid restriction in 24 hours 9. Insulin management per Dr. Ryan. Patient is not diabetic, preoperative hemoglobin A1c 5.3% 10. Patient to be fitted today for a LifeVest is most recent echo demonstrates moderate to severely impaired left ventricular systolic function, EF 30-35% 11. Transfer orders placed 43 S. cardiac stepdown unit. May transfer when bed available 12. Discharge planning in progress anticipate discharge to home with home care in the next 24-48 hours Time with Patient: Greater than 30
[2020-08-14] MEDS: ASPIRIN 81 MG PO SCH ×2 (09:01→11:39)
[2020-08-14] MEDS: lisinopriL 5 MG TAB PO SCH (09:01)
[2020-08-14] MEDS: AMIODARONE 200 MG TAB PO SCH ×2 (09:01→19:52)
[2020-08-14] MEDS: CLOPIDOGREL 75 MG TAB PO SCH (09:01)
[2020-08-14] MEDS: APIXABAN 2.5 MG TABLET PO SCH ×2 (09:01→21:10)
[2020-08-14] MEDS: HEPARIN SODIUM,PORCINE 5,000 UNIT/ML 1 ML VIAL SQ SCH (11:32)
[2020-08-14] MEDS: MUPIROCIN 2% OINT 22 GM TUBE TOPICAL SCH (11:39)
--- NOTE | 2020-08-14 11:40 | P.PN ---
Subjective Progress Note Date: 08/14/20 This is a pleasant 85 year old gentleman who presented to the hospital with a non-ST elevation myocardial infarction. He underwent off-pump double coronary artery bypass grafting surgery using a LUCERO to the LAD and reverse saphenous vein graft to the distal posterior descending artery. Today is postoperative day 4. Patient was seen and examined in the intensive care unit, sitting up in the chair bedside. Awake and alert in no acute distress. Remaining in normal sinus rhythm although the patient did have some atrial fibrillation through the night last night. The IV amiodarone has been discontinued and patient is currently on by mouth amiodarone. He still is on milrinone drip at 0.1 mcg/kg/m. Blood pressure 134/40, heart rate in the 90s, 96% on 4 L of oxygen. White blood cell count 9.8, hemoglobin 10.0, platelet count 175. Sodium 1:30, potassium 4.4, BUN 29, creatinine 1.1. Total bilirubin 1.5 AST 141 ALT 219 alk phos 136. 08/13/2020 Patient seen and examined this morning in the intensive care unit. Sitting up in his chair at bedside, he had just recently walked the length of the hallway. He is alert and oriented, no acute distress. Denies any chest discomfort or d ifficulty in breathing. He is achieving 1500 on his incentive spirometry. Remaining in normal sinus rhythm with a heart rate in the 80s. Blood cell count 8.7, hemoglobin 10.0, platelet count 208. Sodium 130, potassium 4.0, BUN 25 and creatinine 1.0. Current hemodynamics are showing a cardiac output of 4.8, cardiac index 2.2, PA pressures 34/11 and a CVP of 18. Primacor drip continues to be infusing at 0.1 mics per kilogram per minute. 08/14/2020 Patient seen and examined in the intensive care unit, postop day 6 of off-pump double coronary artery bypass grafting surgery using a LUCERO to the LAD, reverse greater saphenous vein graft connected to the aorta using the passport device and connected distally to the posterior descending coronary artery. Patient was sitting up in his recliner this morning, he had a Arnold ambulated in the hallway this morning. Denies any chest discomfort or shortness of breath. Patient complains of feeling extremely tired today more so than yesterday. Had 2 episodes of atrial fibrillation with rapid ventricular response through the night last night, he received IV amiodarone boluses. At the time of her examination this morning he is currently in a normal sinus rhythm. Blood pressure 112/60 with a heart rate in the 70s, 96% on room air. White blood cell count 9.9, hemoglobin 11, platelet count 249. Sodium 1:30, potassium 4.2, BUN 30, creatinine 1.1. Objective - Vital Signs Vital signs: Vital Signs Temp 97.5 F L 08/14/20 11:14 Pulse 71 08/14/20 11:14 Resp 18 08/14/20 11:14 BP 112/55 08/14/20 11:14 Pulse Ox 96 08/14/20 11:14 Intake & Output 08/13/20 08/14/20 08/14/20 18:59 06:59 18:59 Intake Total 752 470 240 Output Total 0 850 0 Balance 752 -380 240 Weight 99.7 kg Intake: IV 102 80 .9@20 40 80 CO/CI 50 pressure bag 12 Oral 650 390 240 Output: Urine 0 850 0 Other: Voiding Method Bedside Commode Bedside Commode Bedside Commode # Voids 1 # Bowel Movements 1 ABP, PAP, CO, CI - Last Documented Arterial Blood Pressure 128/43 Pulmonary Artery Pressure 21/6 Cardiac Output 4.8 Cardiac Index 2.2 - Exam GENERAL EXAM: Alert, very pleasant 85-year-old gentleman, on 4 L nasal cannula, up in a chair at the bedside, comfortable in no apparent distress. HEAD: Normocephalic. EYES: Normal reaction of pupils, equal size. NOSE: Clear with pink turbinates. THROAT: No erythema or exudates. NECK: Aurora-Alexx catheter in place to right IJ. No masses, no JVD. CHEST: Sternal dressing dry and intact. Heart Hugger in place. Left Chest tube secured in place to wall suction LUNGS: Clear to auscultation CVS: S1 and S2 normal with no audible murmur, regular rhythm. ABDOMEN: No hepatosplenomegaly, normal bowel sounds, no guarding or rigidity. SPINE: No scoliosis or deformity SKIN: No rashes CENTRAL NERVOUS SYSTEM: No focal deficits, tone is normal in all 4 extremities. EXTREMITIES: There is trace peripheral edema. No clubbing, no cyanosis. Peripheral pulses are intact. - Labs CBC & Chem 7: 08/14/20 03:56 08/14/20 03:56 Labs: Abnormal Lab Results - Last 24 Hours (Table) 08/13/20 08/13/20 08/13/20 Range/Units 12:00 17:01 20:17 RBC (4.30-5.90) m/uL Hgb (13.0-17.5) gm/dL Hct (39.0-53.0) % RDW (11.5-15.5) % Sodium (137-145) mmol/L Carbon Dioxide (22-30) mmol/L BUN (9-20) mg/dL Glucose (74-99) mg/dL POC Glucose (mg/dL) 120 H 115 H 125 H (75-99) mg/dL AST (17-59) U/L ALT (4-49) U/L Alkaline Phosphatase (38-126) U/L Total Protein (6.3-8.2) g/dL Albumin (3.5-5.0) g/dL 08/14/20 08/14/20 08/14/20 Range/Units 03:56 03:56 06:34 RBC 3.34 L (4.30-5.90) m/uL Hgb 11.0 L (13.0-17.5) gm/dL Hct 31.6 L (39.0-53.0) % RDW 21.3 H (11.5-15.5) % Sodium 130 L (137-145) mmol/L Carbon Dioxide 21 L (22-30) mmol/L BUN 30 H (9-20) mg/dL Glucose 101 H (74-99) mg/dL POC Glucose (mg/dL) 100 H (75-99) mg/dL AST 110 H (17-59) U/L ALT 169 H (4-49) U/L Alkaline Phosphatase 179 H (38-126) U/L Total Protein 5.1 L (6.3-8.2) g/dL Albumin 2.9 L (3.5-5.0) g/dL Microbiology - Last 24 Hours (Table) 08/11/20 08:30 Gram Stain - Final Sputum Sputum Culture - Final Assessment and Plan Plan: Assessment and plan: #1 Non-ST segment elevation myocardial infarction, multivessel coronary artery disease. Status post off-pump coronary artery bypass grafting utilizing a LUCERO to the LAD and a reverse saphenous vein graft to the distal PDA. Postoperative day #6 #2 Ischemic cardiomyopathy, ejection fraction 40-45% preoperatively. Echocardi ogram performed yesterday secondary drop in cardiac index revealed ejection fraction 20-25%. Currently on Primacor drip #3 Previous history of chronic tobacco dependence #4 Moderate COPD, FEV1 value 59% of predicted #5 Carotid stenosis involving the right internal carotid with 72% stenosis #6 History of prostate cancer status post prostatectomy #7 paroxysmal atrial fibrillation, currently on by mouth amiodarone Plan Patient had a repeat echocardiogram with Doppler study performed, limited study to assess LV function, revealed an ejection fraction of 30-35%. Patient also has a right bundle branch block pattern, had postoperative congestive heart failure, no ventricular arrhythmias noted on the monitor. He will be fitted with a LifeVest at the time of discharge from the hospital. Cardiology's recommendation would be to start the patient on Aldactone, decrease the EMEKA inhibitor dose to 2-1/2 if necessary, and maximize the patient's beta michel dose to 50 mg twice a day. Patient is at risk for inappropriate shocks because of episodes of rapid atrial fibrillation, therefore maximizing the beta michel in this patient is essential. He will be transferred to the stepdown unit today. DNP note has been reviewed, I agree with a documented findings and plan of care. Patient was seen and examined.
[2020-08-14 12:07] LABS: Glucose,Whole Blood 103 mg/dL (75-99)
--- NOTE | 2020-08-14 14:22 | P.PN ---
Subjective Progress Note Date: 08/14/20 This is a very pleasant 85-year-old gentleman who was admitted with a non-ST segment elevation myocardial infarction. He is found to have significant coronary artery disease and had undergone an off-pump double coronary artery bypass surgery using the LUCERO to the LAD and reverse saphenous vein graft to the distal posterior descending artery. This is postoperative day #1. He was successfully extubated within 3 hours after leaving the OR. He is currently sitting up in a chair at the bedside. Awake and alert in no acute distress. Maintaining O2 saturation in the 90s on 7 L high flow nasal cannula. He is afebrile. Current blood pressure 121/44, PA pressures 32/17, CVP 15. Chest x- ray reveals evidence of some mild fluid volume overload, atelectasis. He is currently receiving 0.9 normal saline at 50 MLS per hour. He is on Kenny- Synephrine at 0.7 mcg/kg/m. Insulin drip is off. He remains on bronchodilators. Working well with the incentive spirometer. Maintaining a regular rhythm. White count 11.3. Hemoglobin 10.8. Sodium 134. Potassium 4.9. Creatinine 1.13. The patient is seen today 08/10/2020 in follow-up in the intensive care unit. Postoperative day #2. He is currently sitting up in a chair at the bedside. Awake and alert in no acute distress. He is currently on 4 L/m per nasal cannula and maintaining O2 saturation in the 90s. He did have issues with atrial fibrillation last evening. He is on amiodarone drip at 0.5 mg/m. 0.9 normal saline at 50 mL per hour. Horatio-Alexx catheter remains in place. Cardiac output 4.4. Cardiac index 2.0. PA pressures 34/17 with a CVP of 14. Arterial blood gases revealed a PaO2 of 82, pCO2 37, pH 7.36. Chest x-ray reveals imp roved appearance of the pulmonary edema and pulmonary vascular congestion compared to yesterday's chest x-ray. Small bilateral pleural effusions. Chest tubes remain in place to the left chest and mediastinum. White count 10.4. Hemoglobin 10.8. Platelet count 139,000. Sodium 129. Potassium 4.6. Creatinine 1.36. The patient is seen today 08/11/2020 in follow-up in the intensive care unit. Postoperative day #3. He is awake and alert in no acute distress. Currently sitting up in a chair at the bedside. He is maintaining O2 saturation in the 90s on 4 L high flow nasal cannula. Chest x-ray reveals chronic changes and cardiomegaly with multiple tiny bilateral pleural effusions and patchy bibasilar atelectasis/infiltrates. Left-sided chest tube remains in place to low continuous wall suction. No air leak noted. Remains on bronchodilators. Utilizing the incentive spirometer and pulling approximately 1-1.5 L. Current hemodynamics reveal a cardiac output of 7.1, cardiac index 2.2. PA pressures 25/14. CVP of 11. Yesterday the patient had dropped his cardiac index to 1.5 and was initiated on Primacor currently at 0.2 mcg/kg/m. He has a 0.9 normal sinus at 20. Repeat echocardiogram revealed a severely impaired left ventricular systolic function with ejection fraction 20-25%. Previous echocardiogram with ejection fraction 40-45%. Lasix 20 mg IVP 1 today. White count 10.2. Hemoglobin 9.9. Platelet count 149. Sodium 127. Potassium 4.4. Creatinine 1.27. AST 254. ALT 259. On 08/12/2020, the patient is postop day #4. The patient still having issues with his cardiac rhythm. He is having on and off episodes of atrial fibrillation with rapid ventricle response. He was given 2 boluses of amiodarone overnight and the third bolus will be given today. The patient will also need anticoagulation. The patient is currently on 2 L of oxygen by nasal cannula with a pulse of 94%. The patient was on Primacor running at 0.2 g per KG per minute and the dose was reduced down to 0.1 g. His cardiac output has been adequate with adequate cardiac index and the patient has his Horatio-Alexx catheter in place and this will be kept in place and the patient is being weaned off the milrinone and the patient will have a follow-up echocardiogram today. He has adequate urine output. BUN is at 29 with a creatinine of 1.1. He is afebrile. Surgical wound is dry clean and intact. His CVP is at 17 with a PA pressures of 35/22 and the patient was given a dose of Lasix today. IV fluids running at 20 mL an hour. Cardiac output is at 7.4 with an index of 3.4. The patient is awake and alert and following commands and answering questions and is also ambulating. 08/13/2020, the patient is doing well. The patient is using incentive spirometer. He is pulling approximately 1500. The patient is off milrinone for now and the patient is maintaining a good cardiac output. Hemodynamically stable. No hypotension. Cardiac rhythm is back to sinus. He is on 2 L of oxygen by nasal cannula with a pulse is 96%. This surgical wound site is dry clean and intact. The Horatio-Alexx catheter will be removed today. The chest x- ray showing small bilateral pleural effusion and lung bases. These are postsurgical changes. No other acute abdominal masses are noted. The patient was started on Eliquis for long-term and to coagulation regarding his proximal atrial fibrillation. He is also on accommodation of aspirin and Plavix. In terms of his hemodynamics, his cardiac index is at 2.2 with an output of 4.8. PA pressures are 34/11. His CVP is 18. Earlier this morning, he was on Primacor drip that was discontinued. His rhythm is sinus as mentioned. He is afebrile. He is emanating in intensive care units. Ancillary 2019 and seeing the patient for a follow-up. The patient doing well. A bit tired and more fatigued compared to yesterday. Horatio-Alexx catheter is minimal. Chest tubes are out. Chest x-ray shows no acute abnormalities. The patient's hemoglobin is at 11.0 with a white cell count of 9.9. Cardiac rhythm is still alternating between sinus and episodes of atrial fibrillation. The patient is on metoprolol. The patient on Eliquis in addition to a combination of aspirin and Plavix. No signs of any bleeding. A showing some cardiomegaly and chronic parenchymal changes small bilateral pleural effusions. Objective - Vital Signs Vital signs: Vital Signs Temp 97.5 F L 08/14/20 11:14 Pulse 71 08/14/20 11:14 Resp 18 08/14/20 11:14 BP 112/55 08/14/20 11:14 Pulse Ox 96 08/14/20 11:14 Intake & Output 08/13/20 08/14/20 08/14/20 18:59 06:59 18:59 Intake Total 752 470 630 Output Total 0 850 0 Balance 752 -380 630 Weight 99.7 kg Intake: IV 102 80 .9@20 40 80 CO/CI 50 pressure bag 12 Oral 650 390 630 Output: Urine 0 850 0 Other: Voiding Method Bedside Commode Bedside Commode Bedside Commode # Voids 1 # Bowel Movements 1 ABP, PAP, CO, CI - Last Documented Arterial Blood Pressure 128/43 Pulmonary Artery Pressure 21/6 Cardiac Output 4.8 Cardiac Index 2.2 - Exam - Constitutional General appearance: Present: cooperative, no acute distress, obese - EENT Eyes: Present: PERRLA, normal appearance. Absent: scleral icterus ENT: Present: hearing grossly normal - Neck Details: Neck supple, no JVD, no lymphadenopathy. - Respiratory Details: Lung sounds with few scattered crackles throughout, diminished to his bilateral bases. No wheezes or rhonchi. Respirations are symmetrical and nonlabored. Oxygen saturation 95% on 2 L nasal cannula. Achieving 1500 mL on his incentive spirometry. - Cardiovascular Details: Cardiac exam revealed the PMI to be normally situated and sized. The rhythm was regular and no extrasystoles were noted during several minutes of auscultation. The first and second heart sounds were normal and physiologic splitting of the second heart sound was noted. There were no murmurs, rubs, clicks, or gallops. Sternum stable clean and intact. The patient was seen in sinus rhythm. However, I also witnessed episode of atrial fibrillation with a controlled rate. - Gastrointestinal Gastrointestinal Comment(s): Abdomen is soft, nontender and nondistended. Active bowel sounds present in all 4 abdominal quadrants. No guarding or rigidity. No organomegaly appreciated. Bowel movement this morning. Tolerating oral intake. - Genitourinary Genitourinary Comment(s): Continues to void. Adequately and has an adequate urine output. - Integumentary Integumentary Comment(s): Skin is warm and dry. No clubbing or cyanosis is present. Midline sternal incision is clean, dry and approximated. No drainage or redness is present. D ressing is clean, dry and intact. Left lower extremity EVH site is clean, dry and approximated. No drainage or redness is present. - Neurologic Neurologic: Present: CNII-XII intact - Musculoskeletal Musculoskeletal: Present: gait normal, generalized weakness, strength equal bilaterally - Psychiatric Psychiatric: Present: A&O x's 3, appropriate affect, intact judgment & insight - Labs CBC & Chem 7: 08/14/20 03:56 08/14/20 03:56 Labs: Abnormal Lab Results - Last 24 Hours (Table) 08/13/20 08/13/20 08/14/20 Range/Units 17:01 20:17 03:56 RBC 3.34 L (4.30-5.90) m/uL Hgb 11.0 L (13.0-17.5) gm/dL Hct 31.6 L (39.0-53.0) % RDW 21.3 H (11.5-15.5) % Sodium (137-145) mmol/L Carbon Dioxide (22-30) mmol/L BUN (9-20) mg/dL Glucose (74-99) mg/dL POC Glucose (mg/dL) 115 H 125 H (75-99) mg/dL AST (17-59) U/L ALT (4-49) U/L Alkaline Phosphatase (38-126) U/L Total Protein (6.3-8.2) g/dL Albumin (3.5-5.0) g/dL 08/14/20 08/14/20 08/14/20 Range/Units 03:56 06:34 12:05 RBC (4.30-5.90) m/uL Hgb (13.0-17.5) gm/dL Hct (39.0-53.0) % RDW (11.5-15.5) % Sodium 130 L (137-145) mmol/L Carbon Dioxide 21 L (22-30) mmol/L BUN 30 H (9-20) mg/dL Glucose 101 H (74-99) mg/dL POC Glucose (mg/dL) 100 H 103 H (75-99) mg/dL AST 110 H (17-59) U/L ALT 169 H (4-49) U/L Alkaline Phosphatase 179 H (38-126) U/L Total Protein 5.1 L (6.3-8.2) g/dL Albumin 2.9 L (3.5-5.0) g/dL Microbiology - Last 24 Hours (Table) 08/11/20 08:30 Gram Stain - Final Sputum Sputum Culture - Final Assessment and Plan Plan: 1 Non-ST segment elevation myocardial infarction, multivessel coronary artery disease. Status post off-pump coronary artery bypass grafting utilizing a LUCERO to the LAD and a reverse saphenous vein graft to the distal PDA. Postoperative day #6 2 Ischemic cardiomyopathy, ejection fraction 40-45% preoperatively. Echocardiogram performed post op secondary drop in cardiac index revealed ejection fraction 20-25%. . Echocardiogram was repeated yesterday and the patient ejection fraction was in the order of 30-35%. The patient is currently off inotropes. The patient was taken off Primacor. 3 paroxysmal atrial fibrillation, rate controlled and the patient is currently on long-term anticoagulation. 4 Moderate COPD, FEV1 value 59% of predicted 5 Carotid stenosis involving the right internal carotid with 72% stenosis 6 History of prostate cancer status post prostatectomy 7 History of smoking 8 Acute renal failure, improved 9 Acute Hyponatremia, recovered 10 Abnormal LFTS, transaminitis Plan Continue supportive care Continue amiodarone Continue metoprolol and long-term and ventilation with Eliquis Continue aspirin and Plavix Patient is on room air oxygen Chest x-ray was noted Horatio-Alexx catheter removed Physical therapy Chance for the patient to cardiac floor for further monitoring
[2020-08-14] MEDS: SPIRONOLACTONE 25 MG TAB PO SCH (15:47)
[2020-08-14] MEDS ORDERED: ATROPINE SULFATE 0.1 MG/ML 10ML SYRINGE ONE (16:55)
[2020-08-14 16:56] LABS: Glucose,Whole Blood 102 mg/dL (75-99)
[2020-08-14] MEDS: METOPROLOL TARTRATE 50 MG TAB PO SCH (19:52)
[2020-08-14 20:43] LABS: Glucose,Whole Blood 115 mg/dL (75-99)
[2020-08-14] MEDS: ATORVASTATIN 40 MG TAB PO SCH (21:10)
[2020-08-14] MEDS: SENNOSIDES-DOCUSATE SODIUM 1 EACH TAB PO SCH (21:10)
[2020-08-15] MEDS: INSULIN ASPART (NovoLOG) 100 UNIT/ML VIAL SQ SCH ×2 (00:14→06:06)
--- NOTE | 2020-08-15 01:01 | P.PN ---
Subjective Progress Note Date: 08/14/20 Principal diagnosis: -Severe triple-vessel coronary artery disease patient is status post CABG 85-year-old patient of Dr. Henrik Perez. In rather good health. Patient after breakfast when DrAbby below the lease. Then came back again the lawnmower. Started getting a chest heaviness went up to his arms. Decided to go back in the house. Started forgetting unwell. Symptoms last for 2 hours. No dizziness or lightheadedness. [place] totally weak and rundown. Clammy perspiration. Decided to come in. No prior cardiac history. Fairly active. Had a similar episode about 2 months ago. Improved with rest. Admitted with non-ST elevation [place]. Cardiac catheterization showed severe coronary artery disease. August 08-underwent coronary bypass. Patient extubated the same evening [id number] was on insulin and Kenny-Synephrine drip. Telemetry shows sinus rhythm. Breathing stable. No chest pain. at the bedside. 08/10/2020 Patient is having a repeat echocardiogram patient in any of around 40-45% patient had low-grade fevers which is being monitored but no further workup is being done at this time. She is mildly hyponatremic secondary to he received yesterday Lasix was held at this time. Patient is transitioned to subcutaneous insulin sliding scale. Patient still has a mediastinal chest tube with a significant drainage patient is presently on amiodarone drip for atrial fibrillation. 08/11/2020 Patient's blood sugars are fairly well controlled at this time. Patient is hyponatremic a piece to have hypervolemic hyponatremia patient is still on milr inone patient appears to have hepatic condition leading to elevated liver enzymes. Patient's serum sodium is 127 and platelets will be closely monitored. Megestrol chest tube was pulled out. Patient is off amiodarone drip and is on oral amiodarone at this time. 08/12/2020 Patient's hyponatremia improved at this time. Patient's Lasix heart failure improved as well. Patient otherwise clinically doing much better today. 08/13/2020 Patient's serum sodium remained stable patient still has bibasilar crackles. Fleming-Alexx catheter was removed. 08/14/2020 Patient is transferred to cardiac unit. Currently lying in the bed comfortably. LifeVest is being fitted. Patient denied any complaints of chest pain or shortness of breath. Chest x-ray showed cardiomegaly and chronic parenchymal changes with small bilateral pleural effusions and bibasilar acute infiltrates/atelectasis are also demonstrated. Laboratory data showed WBC 9.9, hemoglobin 11.0 and platelets 249 Sodium 130, potassium 4.2, bicarb is 21, BUN 30 and creatinine 1.15 AST 110, ALT 169 and alk phos 179 and albumin 2.9 Current medications reviewed. Constitutional: Denied any fatigue denied any fever. Cardio vascular: denied any chest pain, palpitations Gastrointestinal denied any nausea vomiting Pulmonary: Denied any shortness of breath cough Neurologic denied any new focal deficits All inpatient medications were reviewed and appropriate changes in these medications as dictated in the interval history and assessment and plan. Objective - Vital Signs Vital signs: Vital Signs Temp 97.5 F L 08/14/20 15:43 Pulse 74 08/14/20 15:43 Resp 16 08/14/20 15:43 BP 118/53 08/14/20 15:43 Pulse Ox 94 L 08/14/20 15:43 Intake & Output 08/13/20 08/14/20 08/14/20 18:59 06:59 18:59 Intake Total 752 470 630 Output Total 0 850 450 Balance 752 -380 180 Weight 99.7 kg Intake: IV 102 80 .9@20 40 80 CO/CI 50 pressure bag 12 Oral 650 390 630 Output: Urine 0 850 450 Other: Voiding Method Bedside Commode Bedside Commode Bedside Commode # Voids 1 1 # Bowel Movements 1 ABP, PAP, CO, CI - Last Documented Arterial Blood Pressure 128/43 Pulmonary Artery Pressure 21/6 Cardiac Output 4.8 Cardiac Index 2.2 - Exam PHYSICAL EXAMINATION: GENERAL: The patient is alert and oriented x3, not in any acute distress. Well developed, well nourished. HEENT: Pupils are round and equally reacting to light. EOMI. No scleral icterus. No conjunctival pallor. Normocephalic, atraumatic. No pharyngeal erythema. No thyromegaly. CARDIOVASCULAR: S1 and S2 present. No murmurs, rubs, or gallops. PULMONARY: Bibasilar crackles on exam ABDOMEN: Soft, nontender, nondistended, normoactive bowel sounds. No palpable organomegaly. MUSCULOSKELETAL: No joint swelling or deformity. EXTREMITIES: No cyanosis, clubbing, or pedal edema. NEUROLOGICAL: Gross neurological examination did not reveal any focal deficits. SKIN: No rashes. - Labs CBC & Chem 7: 08/14/20 03:56 08/14/20 03:56 Labs: Abnormal Lab Results - Last 24 Hours (Table) 08/13/20 08/13/20 08/14/20 Range/Units 17:01 20:17 03:56 RBC 3.34 L (4.30-5.90) m/uL Hgb 11.0 L (13.0-17.5) gm/dL Hct 31.6 L (39.0-53.0) % RDW 21.3 H (11.5-15.5) % Sodium (137-145) mmol/L Carbon Dioxide (22-30) mmol/L BUN (9-20) mg/dL Glucose (74-99) mg/dL POC Glucose (mg/dL) 115 H 125 H (75-99) mg/dL AST (17-59) U/L ALT (4-49) U/L Alkaline Phosphatase (38-126) U/L Total Protein (6.3-8.2) g/dL Albumin (3.5-5.0) g/dL 08/14/20 08/14/20 08/14/20 Range/Units 03:56 06:34 12:05 RBC (4.30-5.90) m/uL Hgb (13.0-17.5) gm/dL Hct (39.0-53.0) % RDW (11.5-15.5) % Sodium 130 L (137-145) mmol/L Carbon Dioxide 21 L (22-30) mmol/L BUN 30 H (9-20) mg/dL Glucose 101 H (74-99) mg/dL POC Glucose (mg/dL) 100 H 103 H (75-99) mg/dL AST 110 H (17-59) U/L ALT 169 H (4-49) U/L Alkaline Phosphatase 179 H (38-126) U/L Total Protein 5.1 L (6.3-8.2) g/dL Albumin 2.9 L (3.5-5.0) g/dL Assessment and Plan Assessment: -Acute non-ST elevation myocardial infarction -Ischemic cardiomyopathy from systolic dysfunction EF 40- 45% -Severe triple-vessel coronary artery disease patient is status post CABG clinically doing well at this time. Patient chest tubes are out. -Leukocytosis from acute [place]. No clinical evidence of infection -Mild hyponatremia: Hypervolemic hyponatremia secondary to heart failure patient is receiving Lasix and this is being managed by cardiothoracic surgery -IV heparin monitoring -Significant stenosis of the right carotid artery -Ascending aortic aneurysm 4.1 cm -Coronary bypass in August 08 Time with Patient: Greater than 30
[2020-08-15 01:32] LABS: Glucose,Whole Blood 114 mg/dL (75-99)
[2020-08-15 05:56] LABS: Glucose,Whole Blood 101 mg/dL (75-99)
[2020-08-15] MEDS: PANTOPRAZOLE 40 MG TABLET PO SCH (06:19)
[2020-08-15] MEDS: IPRATROPIUM-ALBUTEROL 3 ML NEB INHALATION SCH ×2 (07:53→10:55)
[2020-08-15 08:54] VITALS: PULSE 69; RESP 17; TEMP 98.2
--- NOTE | 2020-08-15 08:55 | XR ---
EXAMINATION TYPE: XR chest 2V DATE OF EXAM: 08/15/2020 COMPARISON: 08/14/2020 HISTORY: 85-year-old male post cardiac surgery TECHNIQUE: PA and lateral views FINDINGS: Electronic devices project over the mid and lower chest on both sides. Median sternotomy wires and po st-CABG clips. Heart mildly enlarged. Diffuse interstitial density. Some improving aeration at the marielos ng bases but with persistent trace left effusion and mild patchy left basilar opacity. IMPRESSION: 1. Mild cardiomegaly persists. 2. Improving aeration at the lung bases with residual small left effusion with adjacent patchy opacit y, likely atelectasis.
[2020-08-15] MEDS: APIXABAN 2.5 MG TABLET PO SCH (08:56)
[2020-08-15] MEDS: ASPIRIN 81 MG PO SCH (08:56)
[2020-08-15] MEDS: METOPROLOL TARTRATE 50 MG TAB PO SCH (08:56)
[2020-08-15] MEDS: CLOPIDOGREL 75 MG TAB PO SCH (08:56)
[2020-08-15] MEDS: SPIRONOLACTONE 25 MG TAB PO SCH (08:57)
[2020-08-15] MEDS: AMIODARONE 200 MG TAB PO SCH (08:57)
--- NOTE | 2020-08-15 09:11 | P.PN ---
Subjective Progress Note Date: 08/15/20 Principal diagnosis: Multivessel coronary artery disease, non-STEMI this admission, hyperlipidemia discovered this admission, right internal carotid artery stenosis 72% per CTA of the neck, ischemic cardiomyopathy with EF 40-45%. Previous medical history of previous tobacco dependence, moderate COPD with preoperative FEV1 59% of predicted, history of prostate cancer status post prostatectomy. POD #7 off-pump double coronary artery bypass grafting using the left internal mammary artery to the left anterior descending coronary artery, reverse greater saphenous vein graft connected to the aorta using the Passport device and connected distally to the posterior descending coronary artery. Endoscopic harvesting of the left greater saphenous vein from the groin to above the ankle level. Intraoperative graft flow measurements using the [employer] system, intraoperative transesophageal echocardiogram and epi-aortic scanning Postoperative acute blood loss anemia, expected, dilutional. Postoperative hyponatremia, unexpected, possibly dilutional. Postoperative elevation transaminase enzymes, unexpected. Postoperative paroxysmal atrial fibrillation, unexpected but potential outcome of surgery Postoperative acute on chronic systolic heart failure with reduced ejection fraction 30-35%, unexpected The patient is currently sitting up in a recliner on the cardiac stepdown unit in no acute distress. Denies chest pain or shortness of breath, states he did get some sleep last night. Currently in normal sinus rhythm and hemodynamically stable, did have episode of atrial fibrillation last night, however he has had no more atrial fibrillation since increased dose of Lopressor given last night. Continues on oral amiodarone, Lopressor, Eliquis as well as Aldactone started yesterday. He was fitted for a LifeVest yesterday. He has been walking in the hallway without difficulty. No new concerns, feels ready to go home. Objective - Vital Signs Vital signs: Vital Signs Temp 98.2 F 08/15/20 08:00 Pulse 69 08/15/20 08:00 Resp 17 08/15/20 08:00 BP 104/51 08/15/20 08:00 Pulse Ox 92 L 08/15/20 08:00 Intake & Output 08/14/20 08/15/20 08/15/20 18:59 06:59 18:59 Intake Total 650 260 Output Total 450 300 Balance 200 -40 Weight 98.3 kg Intake: IV 20 10 Invasive Line 8 20 10 Oral 630 250 Output: Urine 450 300 Other: Voiding Method Bedside Commode Bedside Commode # Voids 1 2 ABP, PAP, CO, CI - Last Documented Arterial Blood Pressure 128/43 Pulmonary Artery Pressure 21/6 Cardiac Output 4.8 Cardiac Index 2.2 - Constitutional General appearance: Present: cooperative, no acute distress - Respiratory Details: Lungs sounds diminished bilaterally. Respirations even, nonlabored. Currently on room air with oxygen saturation 92-93%. Able to achieve 1250 mL on his incentive spirometry. Strong cough with clear to light yellow sputum. - Cardiovascular Details: S1, S2 present. Regular rate and rhythm, sinus rhythm on telemetry. Sternum stable. LifeVest in place. Palpable peripheral pulses bilaterally. No edema present. No calf pain or tenderness noted. Heart hugger in place with patient demonstrating appropriate use. Antiembolism stockings, SCDs present. - Gastrointestinal Gastrointestinal Comment(s): Abdomen soft, nontender, nondistended. Active bowel sounds 4 quadrants. Tolerating diet. Positive bowel movement - Genitourinary Genitourinary Comment(s): Continues to void clear, yellow urine - Integumentary Integumentary Comment(s): Skin is warm dry with evidence of good perfusion. Anterior chest incision well approximated and covered with dry intact dressing. Left lower extremity EVH site well approximated without any drainage or redness. - Neurologic Neurologic: Present: CNII-XII intact - Musculoskeletal Musculoskeletal: Present: gait normal, strength equal bilaterally - Psychiatric Psychiatric: Present: A&O x's 3, appropriate affect, intact judgment & insight - Allied health notes Allied health notes reviewed: nursing - Labs CBC & Chem 7: 08/14/20 03:56 08/14/20 03:56 Labs: Abnormal Lab Results - Last 24 Hours (Table) 08/14/20 08/14/20 08/14/20 Range/Units 12:05 16:55 20:40 POC Glucose (mg/dL) 103 H 102 H 115 H (75-99) mg/dL 08/15/20 08/15/20 Range/Units 01:30 05:55 POC Glucose (mg/dL) 114 H 101 H (75-99) mg/dL - Imaging and Cardiology Chest x-ray: report reviewed, image reviewed Assessment and Plan Assessment: 1. Multivessel coronary artery disease, non-STEMI this admission, status post 2 vessel CABG 2. Hyperlipidemia, cholesterol 206, LDL 118, triglycerides 199 3. Right internal carotid artery stenosis 72% stenosis at the origin of the right internal carotid artery per CTA of the neck 4. Ischemic cardiomyopathy with EF 40-45% 5. Previous tobacco dependence 6. Moderate COPD with preoperative FEV1 59% of predicted 7. History of prostate cancer status post prostatectomy 8. Postoperative acute blood loss anemia, expected, dilutional 9. Postoperative hyponatremia, unexpected, possibly dilutional 10. Postoperative elevation of his transaminase enzymes, unexpected 11. Postoperative paroxysmal atrial fibrillation, unexpected but potential outcome of surgery 12. Postoperative acute on chronic systolic heart failure with reduced ejection fraction 30-35%, unexpected Plan: 1. Continue low-dose aspirin, statin, Lipitor, Plavix, EMEKA inhibitor, Aldactone and beta michel. Will increase beta michel as tolerated. 2. Continue amiodarone 400 mg by mouth twice a day for atrial fibrillation prophylaxis with tapered dose over the next few weeks. Continue Eliquis for anticoagulation 3. Encourage incentive spirometry is 10 times every hour while awake. Bronchodilators per pulmonology management. Sputum culture negative 4. Increase activity as tolerated, ambulate as tolerated. PT/OT/cardiac rehab following. 5. GI/DVT prophylaxis 6. Pain control with current medication regimen. 7. Continue LifeVest for 3 months. Patient to follow up for repeat echocardiogram in 3 months to determine need for permanent ICD 8. Discharge planning in progress, anticipate discharge to home with home care this afternoon. Follow-up appointments made Time with Patient: Greater than 30
[2020-08-15 09:42] LABS: HGB 11.7 gm/dL (13.0-17.5); Hypochromasia Slight; MCH 30.1 pg (25.0-35.0); MCHC 32.4 g/dL (31.0-37.0); Platelet Count 387 k/uL (150-450); RBC 3.87 m/uL (4.30-5.90); RDW 14.3 % (11.5-15.5); WBC 12.4 k/uL (3.8-10.6)
[2020-08-15 09:48] LABS: Calcium 9.4 mg/dL (8.4-10.2); Potassium 4.3 mmol/L (3.5-5.1); Total Bilirubin 1.4 mg/dL (0.2-1.3); Total Protein 5.1 g/dL (6.3-8.2)
--- NOTE | 2020-08-15 11:40 | P.PN ---
Subjective This is a pleasant 85-year-old male admitted to the hospital with a non-ST elevated myocardial infarction, peak troponin was 25. He underwent cardiac catheterization yesterday revealing left main free of significant disease, LAD with diffuse disease of 80-90% involving the proximal and mid segments, diagonal branch with an ostial 95% stenosis, circumflex with a 95% mid stenosis followed by an 80% stenosis distally, the RCA is totally occluded proximally. He is post-op day #7 coronary artery bypass surgery with LUCERO to LAD, reverse SVG to the aorta and connected distally to the posterior descending coronary artery. He is seen and examined sitting up in the chair. He has just taken a shower. Continues to complain of very minimal shortness of breath with activity however greatly improved by day today. He denies symptoms of chest pain, dizziness. He states last night he had an episode of atrial fibrillation with rapid ventricular response. Currently maintained on amiodarone 400 mg twice a day, Eliquis 2.5 mg twice a day, aspirin 81 mg daily, atorvastatin 40 mg daily, Plavix 75 mg daily, lisinopril 2.5 mg daily, Lopressor 50 mg twice a day and Aldactone 12.5 mg daily. Laboratory data reviewed, WBC 12.4, hemoglobin 1 1.7, platelets 387, sodium 1:30, potassium 4.3, creatinine 1.17. Chest x-ray this morning reveals cardiomegaly, improving aeration of the lung basis with residual small left pleural effusion. GENERAL: Well-appearing, well-nourished and in no acute distress. NECK: Supple without JVD or thyromegaly. LUNGS: Bibasilar rales. Tachyneic at times but respiration equal and unlabored. HEART: Regular rate and rhythm with systolic ejection murmur at the base, no rubs or gallops. S1 and S2 heard. Heart hugger and Life Vest in place. EXTREMITIES: Normal range of motion, no edema. No clubbing or cyanosis. Peripheral pulses intact. ASSESSMENT Acute non-ST elevated myocardial infarction Coronary artery disease s/p bypass grafting Paroxysmal atrial fibrillation on long-term anticoagulation with episodes of rapid ventricular response Ischemic cardiomyopathy Dyslipidemia Peripheral vascualr disease Regular alcohol use Former nicotine dependence PLAN Hemodynamically stable. Life Vest in place. Follow up with Dr. Mccullough in the office in 1-week. He will need a repeat echocardiogram in the office in 6 weeks. Nurse Practitioner note has been reviewed, I agree with a documented findings and plan of care. Patient was seen and examined. Objective - Vital Signs Vital signs: Vital Signs Temp 98.2 F 08/15/20 08:00 Pulse 69 08/15/20 08:00 Resp 17 08/15/20 08:00 BP 104/51 08/15/20 08:00 Pulse Ox 92 L 08/15/20 08:00 Intake & Output 08/14/20 08/15/20 08/15/20 18:59 06:59 18:59 Intake Total 650 260 Output Total 450 300 300 Balance 200 -40 -300 Weight 98.3 kg Intake: IV 20 10 Invasive Line 8 20 10 Oral 630 250 Output: Urine 450 300 300 Other: Voiding Method Bedside Commode Bedside Commode Bedside Commode # Voids 1 2 1 ABP, PAP, CO, CI - Last Documented Arterial Blood Pressure 128/43 Pulmonary Artery Pressure 21/6 Cardiac Output 4.8 Cardiac Index 2.2 - Labs CBC & Chem 7: 08/15/20 08:03 08/15/20 08:03 Labs: Abnormal Lab Results - Last 24 Hours (Table) 08/14/20 08/14/20 08/14/20 Range/Units 12:05 16:55 20:40 WBC (3.8-10.6) k/uL RBC (4.30-5.90) m/uL Hgb (13.0-17.5) gm/dL Hct (39.0-53.0) % Sodium (137-145) mmol/L BUN (9-20) mg/dL Glucose (74-99) mg/dL POC Glucose (mg/dL) 103 H 102 H 115 H (75-99) mg/dL Total Bilirubin (0.2-1.3) mg/dL ALT (4-49) U/L Alkaline Phosphatase (38-126) U/L Total Protein (6.3-8.2) g/dL Albumin (3.5-5.0) g/dL 08/15/20 08/15/20 08/15/20 Range/Units 01:30 05:55 08:03 WBC 12.4 H (3.8-10.6) k/uL RBC 3.87 L (4.30-5.90) m/uL Hgb 11.7 L (13.0-17.5) gm/dL Hct 36.0 L (39.0-53.0) % Sodium (137-145) mmol/L BUN (9-20) mg/dL Glucose (74-99) mg/dL POC Glucose (mg/dL) 114 H 101 H (75-99) mg/dL Total Bilirubin (0.2-1.3) mg/dL ALT (4-49) U/L Alkaline Phosphatase (38-126) U/L Total Protein (6.3-8.2) g/dL Albumin (3.5-5.0) g/dL 08/15/20 Range/Units 08:03 WBC (3.8-10.6) k/uL RBC (4.30-5.90) m/uL Hgb (13.0-17.5) gm/dL Hct (39.0-53.0) % Sodium 130 L (137-145) mmol/L BUN 31 H (9-20) mg/dL Glucose 127 H (74-99) mg/dL POC Glucose (mg/dL) (75-99) mg/dL Total Bilirubin 1.4 H (0.2-1.3) mg/dL ALT 118 H (4-49) U/L Alkaline Phosphatase 138 H (38-126) U/L Total Protein 5.1 L (6.3-8.2) g/dL Albumin 3.0 L (3.5-5.0) g/dL
[2020-08-15 12:04] VITALS: BP 91/56
--- NOTE | 2020-08-15 13:54 | P.PN ---
Subjective Progress Note Date: 08/15/20 Principal diagnosis: Non-ST elevated AL, CAD This is a very pleasant 85-year-old gentleman who was admitted with a non-ST segment elevation myocardial infarction. He is found to have significant coronary artery disease and had undergone an off-pump double coronary artery bypass surgery using the LUCERO to the LAD and reverse saphenous vein graft to the distal posterior descending artery. This is postoperative day #1. He was successfully extubated within 3 hours after leaving the OR. He is currently sitting up in a chair at the bedside. Awake and alert in no acute distress. Maintaining O2 saturation in the 90s on 7 L high flow nasal cannula. He is afebrile. Current blood pressure 121/44, PA pressures 32/17, CVP 15. Chest x- ray reveals evidence of some mild fluid volume overload, atelectasis. He is currently receiving 0.9 normal saline at 50 MLS per hour. He is on Kenny- Synephrine at 0.7 mcg/kg/m. Insulin drip is off. He remains on bronchodilators. Working well with the incentive spirometer. Maintaining a regular rhythm. White count 11.3. Hemoglobin 10.8. Sodium 134. Potassium 4.9. Creatinine 1.13. The patient is seen today 08/10/2020 in follow-up in the intensive care unit. Postoperative day #2. He is currently sitting up in a chair at the bedside. Awake and alert in no acute distress. He is currently on 4 L/m per nasal cannula and maintaining O2 saturation in the 90s. He did have issues with atrial fibrillation last evening. He is on amiodarone drip at 0.5 mg/m. 0.9 normal saline at 50 mL per hour. [place]-Alexx catheter remains in place. Cardiac output 4.4. Cardiac index 2.0. PA pressures 34/17 with a CVP of 14. Arterial blood gases revealed a PaO2 of 82, pCO2 37, pH 7.36. Chest x-ray reveals improved appearance of the pulmonary edema and pulmonary vascular congestion compared to yesterday's chest x-ray. Small bilateral pleural effusions. Chest tubes remain in place to the left chest and mediastinum. White count 10.4. Hemoglobin 10.8. Platelet count 139,000. Sodium 129. Potassium 4.6. Creatinine 1.36. The patient is seen today 08/11/2020 in follow-up in the intensive care unit. Postoperative day #3. He is awake and alert in no acute distress. Currently sitting up in a chair at the bedside. He is maintaining O2 saturation in the 90s on 4 L high flow nasal cannula. Chest x-ray reveals chronic changes and cardiomegaly with multiple tiny bilateral pleural effusions and patchy bibasilar atelectasis/infiltrates. Left-sided chest tube remains in place to low continuous wall suction. No air leak noted. Remains on bronchodilators. Utilizing the incentive spirometer and pulling approximately 1-1.5 L. Current hemodynamics reveal a cardiac output of 7.1, cardiac index 2.2. PA pressures 25/14. CVP of 11. Yesterday the patient had dropped his cardiac index to 1.5 and was initiated on Primacor currently at 0.2 mcg/kg/m. He has a 0.9 normal sinus at 20. Repeat echocardiogram revealed a severely impaired left ventricular systolic function with ejection fraction 20-25%. Previous echocardiogram with ejection fraction 40-45%. Lasix 20 mg IVP 1 today. White count 10.2. Hemoglobin 9.9. Platelet count 149. Sodium 127. Potassium 4.4. Creatinine 1.27. AST 254. ALT 259. On 08/12/2020, the patient is postop day #4. The patient still having issues with his cardiac rhythm. He is having on and off episodes of atrial fibrillation with rapid ventricle response. He was given 2 boluses of amiodarone overnight and the third bolus will be given today. The patient will also need anticoagulation. The patient is currently on 2 L of oxygen by nasal cannula with a pulse of 94%. The patient was on Primacor running at 0.2 g per KG per minute and the dose was reduced down to 0.1 g. His cardiac output has been adequate with adequate cardiac index and the patient has his [place]-Alexx ca theter in place and this will be kept in place and the patient is being weaned off the milrinone and the patient will have a follow-up echocardiogram today. He has adequate urine output. BUN is at 29 with a creatinine of 1.1. He is afebrile. Surgical wound is dry clean and intact. His CVP is at 17 with a PA pressures of 35/22 and the patient was given a dose of Lasix today. IV fluids running at 20 mL an hour. Cardiac output is at 7.4 with an index of 3.4. The patient is awake and alert and following commands and answering questions and is also ambulating. 08/13/2020, the patient is doing well. The patient is using incentive spirometer. He is pulling approximately 1500. The patient is off milrinone for now and the patient is maintaining a good cardiac output. Hemodynamically stable. No hypotension. Cardiac rhythm is back to sinus. He is on 2 L of oxygen by nasal cannula with a pulse is 96%. This surgical wound site is dry clean and intact. The [place]-Alexx catheter will be removed today. The chest x- ray showing small bilateral pleural effusion and lung bases. These are postsurgical changes. No other acute abdominal masses are noted. The patient was started on Eliquis for long-term and to coagulation regarding his proximal atrial fibrillation. He is also on accommodation of aspirin and Plavix. In terms of his hemodynamics, his cardiac index is at 2.2 with an output of 4.8. PA pressures are 34/11. His CVP is 18. Earlier this morning, he was on Primacor drip that was discontinued. His rhythm is sinus as mentioned. He is afebrile. He is emanating in intensive care units. Ancillary 2019 and seeing the patient for a follow-up. The patient doing w ell. A bit tired and more fatigued compared to yesterday. [place]-Alexx catheter is minimal. Chest tubes are out. Chest x-ray shows no acute abnormalities. The patient's hemoglobin is at 11.0 with a white cell count of 9.9. Cardiac rhythm is still alternating between sinus and episodes of atrial fibrillation. The patient is on metoprolol. The patient on Eliquis in addition to a combination of aspirin and Plavix. No signs of any bleeding. A showing some cardiomegaly and chronic parenchymal changes small bilateral pleural effusions. On 08/15/2020 patient seen in follow-up on selective care unit, awake and alert, in no acute distress doing well, denies any shortness of breath, room air pulse ox is 92%, hemodynamically patient is stable, afebrile. His chest x-ray shows mild cardiomegaly and improving aeration of the lung bases with residual small left pleural effusion with adjacent patchy opacity related to atelectasis. Today's labs have been reviewed, white blood cell count is 12.4, hemoglobin is 11.7, sodium is 1:30, the rest of the electrolytes are within normal limits, BUN is 31 creatinine is 1.17. LFTs are improving. Eliquis was started for paroxysmal atrial fibrillation Objective - Vital Signs Vital signs: Vital Signs Temp 98.2 F 08/15/20 08:00 Pulse 69 08/15/20 08:00 Resp 17 08/15/20 08:00 BP 91/56 08/15/20 12:00 Pulse Ox 92 L 08/15/20 08:00 Intake & Output 08/14/20 08/15/20 08/15/20 18:59 06:59 18:59 Intake Total 650 260 Output Total 450 300 300 Balance 200 -40 -300 Weight 98.3 kg Intake: IV 20 10 Invasive Line 8 20 10 Oral 630 250 Output: Urine 450 300 300 Other: Voiding Method Bedside Commode Bedside Commode Bedside Commode # Voids 1 2 1 ABP, PAP, CO, CI - Last Documented Arterial Blood Pressure 128/43 Pulmonary Artery Pressure 21/6 Cardiac Output 4.8 Cardiac Index 2.2 - Exam GENERAL EXAM: Alert, very pleasant, 85-year-old white male on room air, with a pulse ox 92% comfortable in no apparent distress. HEAD: Normocephalic/atraumatic. EYES: Normal reaction of pupils, equal size. Conjunctiva pink, sclera white. NOSE: Clear with pink turbinates. THROAT: No erythema or exudates. NECK: No masses, no JVD, no thyroid enlargement, no adenopathy. CHEST: No chest wall deformity. Symmetrical expansion. Midsternal incision is clean dry and intact, chest tube sites are clean dry and intact, covered with surgical dressings LUNGS: Equal air entry with no crackles, wheeze, rhonchi or dullness. CVS: Regular rate and rhythm, normal S1 and S2, no gallops, no murmurs, no rubs ABDOMEN: Soft, nontender. No hepatosplenomegaly, normal bowel sounds, no guarding or rigidity. EXTREMITIES: No clubbing, no edema, no cyanosis, 2+ pulses and upper and lower extremities. MUSCULOSKELETAL: Muscle strength and tone normal. SPINE: No scoliosis or deformity SKIN: No rashes CENTRAL NERVOUS SYSTEM: Alert and oriented -3. No focal deficits, tone is n ormal in all 4 extremities. PSYCHIATRIC: Alert and oriented -3. Appropriate affect. Intact judgment and insight. - Labs CBC & Chem 7: 08/15/20 08:03 08/15/20 08:03 Labs: Abnormal Lab Results - Last 24 Hours (Table) 08/14/20 08/14/20 08/15/20 Range/Units 16:55 20:40 01:30 WBC (3.8-10.6) k/uL RBC (4.30-5.90) m/uL Hgb (13.0-17.5) gm/dL Hct (39.0-53.0) % Sodium (137-145) mmol/L BUN (9-20) mg/dL Glucose (74-99) mg/dL POC Glucose (mg/dL) 102 H 115 H 114 H (75-99) mg/dL Total Bilirubin (0.2-1.3) mg/dL ALT (4-49) U/L Alkaline Phosphatase (38-126) U/L Total Protein (6.3-8.2) g/dL Albumin (3.5-5.0) g/dL 08/15/20 08/15/20 08/15/20 Range/Units 05:55 08:03 08:03 WBC 12.4 H (3.8-10.6) k/uL RBC 3.87 L (4.30-5.90) m/uL Hgb 11.7 L (13.0-17.5) gm/dL Hct 36.0 L (39.0-53.0) % Sodium 130 L (137-145) mmol/L BUN 31 H (9-20) mg/dL Glucose 127 H (74-99) mg/dL POC Glucose (mg/dL) 101 H (75-99) mg/dL Total Bilirubin 1.4 H (0.2-1.3) mg/dL ALT 118 H (4-49) U/L Alkaline Phosphatase 138 H (38-126) U/L Total Protein 5.1 L (6.3-8.2) g/dL Albumin 3.0 L (3.5-5.0) g/dL Assessment and Plan Plan: Assessment: 1 Non-ST segment elevation myocardial infarction, multivessel coronary artery disease. Status post off-pump coronary artery bypass grafting utilizing a LUCERO to the LAD and a reverse saphenous vein graft to the distal PDA. Postoperative day #7 2 Ischemic cardiomyopathy, ejection fraction 40-45% preoperatively. Echocardiogram performed post op secondary drop in cardiac index revealed ej ection fraction 20-25%. . Echocardiogram was repeated yesterday and the patient ejection fraction was in the order of 30-35%. The patient is currently off inotropes. The patient was taken off Primacor. 3 paroxysmal atrial fibrillation, rate controlled and the patient is currently on long-term anticoagulation. 4 Moderate COPD, FEV1 value 59% of predicted 5 Carotid stenosis involving the right internal carotid with 72% stenosis 6 History of prostate cancer status post prostatectomy 7 History of smoking 8 Acute renal failure, improved 9 Acute Hyponatremia, recovered 10 Abnormal LFTS, transaminitis Plan: Continue encouraging deep breathing and coughing, rate control medications and anticoagulation per cardiology, and cardiothoracic surgery, today's chest x-ray has been reviewed, showing small pleural effusions and atelectasis. Patient is on room air, he is tolerating elevation, no acute events overnight, discharge home is pending for today, will need outpatient follow-up with Dr. Sloan in the office in one to 2 weeks I performed a history & physical examination of the patient and discussed their management with my nurse practitioner, Kaylynn Cabezas. I reviewed the nurse practitioner's note and agree with the documented findings and plan of care. Lung sounds are positive for diminished breath sounds. The findings and the impression was discussed with the patient. I attest to the documentation by the nurse practitioner. Time with Patient: Less than 30
--- NOTE | 2020-08-15 14:34 | CDI ---
Documentation Clarification Form Date: 08/15/2020 01:59:29 PM From: Maggie Moyer Phone: Admit Date: 08/02/2020 03:13:00 PM Patient Name: Murtaza Garcia Visit Number: [id number] Discharge Date: 08/15/2020 01:34:00 PM ATTENTION: The Clinical Documentation Specialists (CDI) and [facility] Coding Staff appreciate your assistance in clarifying documentation. Please respond to the clarification below the line at the bottom and electronically sign. The CDI & [facility] Coding staff will review the response and follow-up if needed. Please note: Queries are made part of the Legal Health Record. If you have any questions, please contact the author of this message via ITS. Dr. Queenie Vasquez Conflicting documentation has been found in the medical record. Please provide the most clinical appropriate diagnosis for this patient. 08/13 -08/15 Attending: Postoperative paroxysmal atrial fibrillation, an unexpected but potential outcome of surgery. 08/10-08/13 Pulmonary: Episodes of atrial fibrillation, requiring initiation of Amiodarone drip, and expected outcome of surgery History/Risk Factors: Non-STEMI (this admission) Right internal carotid artery stenosis, COPD, Clinical Indicators: 85-year-old male who present on 08/02 with chest pain and ruled in for NSTEMI. He had a cardiac catheterization on 07/18, found triple- vessel disease. 08/08 Off-pump double coronary artery bypass grafting. 08/09@ 23:20 the patient went into atrial fib with rapid ventricular rate, heart rate 133 respiratory rate 29. Treatment: ICU/Telemetry monitoring Amiodarone drip changed to 400 mg po bid Metoprolol 25 mg po tid Eliquis 2.5 mg po bid ECHO: EF of 30-35 % In your opinion, what is the most clinically appropriate diagnosis for this patient? Postoperative paroxysmal atrial fibrillation, unexpected but potential outcome of surgery Postoperative paroxysmal atrial fibrillation, expected outcome of surgery. Other explanation of clinical findings Unable to determine (no explanation for clinical findings) (Last Revision: January 2018) potential post-op outcome, unexpected MTDD
--- NOTE | 2020-08-15 15:00 | P.DS ---
Providers Date of admission: 08/02/20 15:13 Expected date of discharge: 08/15/20 Attending physician: Queenie Vasquez Consults: 08/02/20 15:13 Consult Physician Urgent Consulting Provider: Lisha Mccullough Consult Reason/Comments: NSTEMI Do you want consulting provider notified?: Already Contacted 08/03/20 10:02 Consult Physician Urgent Consulting Provider: Queenie Vasquez Consult Reason/Comments: 3 vessel disease CABG Do you want consulting provider notified?: Yes 08/06/20 07:28 Consult Physician Routine Consulting Provider: Jd Sloan Consult Reason/Comments: preop cabg Do you want consulting provider notified?: Yes Consult to Anesthesia Routine Consulting Provider: Anesthesia,Services Consult Reason/Comments: Cardiac Surgery Pre-Op 08/08/20 13:44 Consult Physician Routine Consulting Provider: Irwin Ryan Consult Reason/Comments: med mgmt Do you want consulting provider notified?: Already Contacted Primary care physician: Henrik Perez [place] Course: FINAL DIAGNOSIS: 1. Multivessel coronary artery disease, non-STEMI this admission 2. Hyperlipidemia, cholesterol 206, LDL 118, triglycerides 199 3. Right internal carotid artery stenosis 72% at the origin of the right internal carotid artery 4. Ischemic cardiomyopathy with EF 40-45% 5. Previous tobacco dependence 6. Moderate COPD with preoperative FEV1 59% of predicted 7. History of prostate cancer status post prostatectomy 8. Postoperative acute blood loss anemia, expected, dilutional 9. Postoperative hyponatremia, unexpected, possibly dilutional 10. Postoperative transaminitis, unexpected 11. Postoperative paroxysmal atrial fibrillation, unexpected but potential outcome of surgery 12. Postoperative acute on chronic systolic heart failure with reduced ejection fraction 30-35%, unexpected PRINCIPAL PROCEDURE: 1. Off-pump double coronary artery bypass grafting using the left internal mammary artery to the left anterior descending coronary artery, reverse greater saphenous vein graft connected to the aorta using the Passport device and connected distally to the posterior descending coronary artery 2. Endoscopic harvesting of the left greater saphenous vein from the groin to above the ankle level 3. Intraoperative graft flow measurements using the [email or web address] system 4. Intraoperative transesophageal echocardiogram and epi-aortic scanning HISTORY OF PRESENT ILLNESS: This is an 85-year-old active gentleman who recently began following on an outpatient basis with Dr. Perez. He had been having intermittent periods of chest heaviness with radiation to both arms with activity, relieved with rest over the previous several months. He did present to his primary care physician and was started on aspirin and given sublingual nitroglycerin. He again experienced chest heaviness with radiation to both arms, diaphoresis, and nausea while doing yard-work, this time his pain was unrelieved with rest as well as sublingual nitro and he presented to [facility] emergency room for evaluation. EKG demonstrated sinus tach with PACs and right bundle branch block. Troponins were elevated and he was ruled in for non-STEMI. He was initiated on IV heparin and admitted for evaluation and treatment. Once seen by Dr. Mccullough from cardiology he was recommended to undergo heart catheterization which demonstrated severe triple-vessel coronary artery disease with proximal and mid LAD stenosis 80-90%, ostial diagonal stenosis 95%, mid circumflex stenosis 95%, and complete occlusion of the proximal right coronary artery. As part of his workup transthoracic echocardiogram was also completed demonstrating moderate concentric left ventricular hypertrophy, moderately impaired left ventricular systolic function with EF 40-45%, hypokinetic apical LV wall motion, mild enlargement of the right ventricle and left atrium, mild aortic regurgitation with mild aortic stenosis, mild mitral regurgitation, mild tricuspid regurgitation with mild pulmonary hypertension. Consultation was placed to Dr. Vasquez from cardiothoracic surgery. He was recommended to undergo coronary artery bypass surgery. The usual perioperative course was discussed in detail with the patient and his family, all risks and benefits were explained, all questions were answered, and consent was obtained to proceed with surgery. Preoperative workup included carotid dopplers which demonstrated critical stenosis in the right internal carotid artery, however CTA of the neck revealed 72% stenosis at the origin of the right internal carotid artery which was a justifiable risk. The patient was kept inpatient due to the nature of his disease process. HOSPITAL COURSE: The patient was brought to the preoperative area on 08/08/2020, prepared in the usual fashion, and subsequently taken to the operating room where Dr. Vasquez performed off-pump double vessel coronary artery bypass surgery. Upon completion of surgery the patient was transferred to the car diovascular intensive care unit where he was recovered and monitored hemodynamically. He was extubated, all lines, tubes, and drips were discontinued when appropriate, and he was transferred to [facility] cardiac stepdown unit for further monitoring and rehabilitation. He did experience acute blood loss anemia which did not require blood transfusion, transaminitis which continues to resolve on its own, hyponatremia requiring no treatment, paroxysmal atrial fibrillation requiring initiation of amiodarone and anticoagulation, as well as acute systolic heart failure with ejection fraction 30-35% requiring LifeVest placement at discharge. His oxygen was titrated down, he continued to work with physical and occupational therapy, he was tolerating oral diet, his pain was controlled without narcotics, and he was ready to be discharged to home with [facility] care on postoperative day #7. He received written and verbal instruction regarding his medications, activity restrictions, signs and symptoms requiring physician notification, and follow-up appointments. The patient was discharged with a LifeVest to be worn at all times for the next 3 months except during showers. Extensive teaching was done with the patient and his regarding LifeVest. COMPLICATIONS: The patient experienced postoperative acute blood loss anemia, hyponatremia, transaminitis requiring no intervention, as well as paroxysmal atrial fibrillation and acute systolic heart failure which were treated accordingly. Patient Condition at Discharge: Stable Plan - Discharge Summary Discharge Rx Participant: Yes New Discharge Prescriptions: New Spironolactone [Aldactone] 12.5 mg PO DAILY #30 tab Amiodarone [Cordarone] 400 mg PO BID #30 tab Apixaban [Eliquis] 2.5 mg PO BID #60 tablet Atorvastatin [Lipitor] 40 mg PO HS #30 tab Metoprolol Tartrate [Lopressor] 50 mg PO BID #60 tab Clopidogrel [Plavix] 75 mg PO DAILY #30 tab Sennosides-Docusate Sodium [Senokot-S] 2 each PO HS PRN tab PRN Reason: Constipation Acetaminophen Tab [Tylenol] 1,000 mg PO Q6HR PRN tab PRN Reason: Fever And/ Or Pain lisinopriL [Zestril] 2.5 mg PO DAILY@1200 #30 tab Continue Calcium/Vitamin D(Unknown Dose) 1 tab PO DAILY Aspirin EC [Ecotrin Low Dose] 81 mg PO DAILY Multivitamins, Thera [Multivitamin (formulary)] 1 tab PO DAILY Discontinued Aspirin 324 mg PO ONCE PRN PRN Reason: Chest Pain Discharge Medication List Aspirin EC [Ecotrin Low Dose] 81 mg PO DAILY 08/02/20 [History] Calcium/Vitamin D(Unknown Dose) 1 tab PO DAILY 08/02/20 [History] Multivitamins, Thera [Multivitamin (formulary)] 1 tab PO DAILY 08/02/20 [History] Acetaminophen Tab [Tylenol] 1,000 mg PO Q6HR PRN tab 08/15/20 [Rx] Amiodarone [Cordarone] 400 mg PO BID #30 tab 08/15/20 [Rx] Apixaban [Eliquis] 2.5 mg PO BID #60 tablet 08/15/20 [Rx] Atorvastatin [Lipitor] 40 mg PO HS #30 tab 08/15/20 [Rx] Clopidogrel [Plavix] 75 mg PO DAILY #30 tab 08/15/20 [Rx] Metoprolol Tartrate [Lopressor] 50 mg PO BID #60 tab 08/15/20 [Rx] Sennosides-Docusate Sodium [Senokot-S] 2 each PO HS PRN tab 08/15/20 [Rx] Spironolactone [Aldactone] 12.5 mg PO DAILY #30 tab 08/15/20 [Rx] lisinopriL [Zestril] 2.5 mg PO DAILY@1200 #30 tab 08/15/20 [Rx] Follow up Appointment(s)/Referral(s): [facility] [NON-STAFF] - 4 Weeks (You will be called approximately 4-6 weeks after surgery for cardiac rehab evaluation) Queenie Vasquez MD [STAFF PHYSICIAN] - 09/06/20 10:00 am Henrik Perez MD [Primary Care Provider] - 08/29/20 10:00 am Jd Sloan DO [Doctor of Osteopathic Medicine] - 09/10/20 10:00 am [facility], [NON-STAFF] - Lisha Mccullough MD [STAFF PHYSICIAN] - 2 Weeks (office will call with appointment time) Ambulatory/Diagnostic Orders: Complete Blood Count w/diff [LAB.AMB] Time Frame: 3 Days, Location: None Selected Comprehensive Metabolic Panel [LAB.AMB] Time Frame: 3 Days, Location: None Selected Patient Instructions/Handouts: CABG (Coronary Artery Bypass Graft) (DC) Activity/Diet/Wound Care/Special Instructions: DISCHARGE INSTRUCTIONS: 1. No driving for 4 weeks, or until physician gives their ok. 2. The patient should sleep in their own bed, no medical bed needed. 3. Stairs are not an issue. If the bedroom is upstairs, it is advised that the patient go up at night and down in the morning for the first week. Go slowly, using handrail and take 1 step at a time. 4. ADALID hose are to be worn for 30 days or until physician discontinues. 5. Heart hugger is to be worn 100% of the time until physician discontinues.(except when showering) 6. No lifting, pushing, or pulling more than 10 pounds for 12 weeks. The physician will advise of any restriction changes. 7. The patient is expected to continue the prescribed walking program. 8. Continue pain control per as needed orders. 9. Continue with incentive spirometry and splinting/heart hugger until otherwise directed by the physician. 10. Must shower daily using liquid antibacterial soap and a separate white washcloth for each individual incision. 11. Routine sternal incision care. No powders, lotions, ointments on incisions. No dressings are necessary on incisions unless they are draining. Dermabond tape is to remain on sternal incision until surgeon follow-up. 12. Please call surgeon/FLOORS BUFFER for temp greater than 101 F or purulent drainage from incisions. 13. All prescriptions given by surgeon for 30 days. Refills need to be filled through entry level administrative assistant/primary care physician. 14. A Red armband has been placed on the patient. It should be worn for 30 days post surgery and will be removed by the cardiac surgeons. If an ER visit is necessary, please make sure the number on the Red armband is called. 15. You have been referred to and are expected to begin Cardiac Rehab in approximately 4-6 weeks. HOME HEALTH SERVICES TO PROVIDE: RN SKILLED HOME CARE SERVICES FOR POST-OP SURGICAL PATIENTS WITH THE FOLLOWING: Coronary Artery Bypass Surgery (CABG), Mitral Valve Replacement/Repair ( MVR), Aortic Valve Replacement/Repair (AVR) RN TO CONTINUE EDUCATION FROM ``ROAD TO A HEALTH HEART PATIENT EDUCATION MANUAL (GIVEN TO PATIENT IN THE HOSPITAL) MEDICATION RECONCILIATION WITH EDUCATION NEEDED ON FIRST HOME VISIT EMPHASIZE IMPORTANCE OF WEARING BREAST SUPPORT/HEART HUGGER ENCOURAGE USE OF INCENTIVE SPIROMETER 10 X EVERY HOUR WHILE AWAKE ENCOURAGE UTILIZATION OF LOWER EXTREMITY COMPRESSION STOCKINGS/ADALID HOSE and ELEVATE LEGS ABOVE LEVEL OF HEART WHILE AT REST. ENCOURAGE AMBULATION 3-5x/day INCREASING TOLERATES, WHILE AVOIDING EXTREMES IN TEMPERATURE FREQUENCY: RN TO OPEN THE PATIENT WITHIN 24 HOURS OF DISCHARGE FROM THE HOSPITAL WITH TELEHEALTH INSTALLED AT [facility] – [place], [place], RN TO VISIT 2-3 X A WEEK FOR 4 WEEKS ESTABLISHED BY PATIENT NEEDS. LABORATORY: CBC, CMP TO BE DRAWN ON THE THIRD DAY HOME, (RAN STAT) FAX RESULTS TO [phone]. TELEHEALTH PARAMETERS: WEIGHT: NOTIFY MD OF WEIGHT GAIN OF 2 LBS IN 24 HOURS OR 5 LBS IN ONE WEEK HR: NOTIFY MD OF HR <55 BPM OR HR>100 BPM BP: NOTIFY MD IF BP <90/55 OR BP>140/100 O2 SAT: NOTIFY MD IF PO2<93% ON ROOM AIR SEND TELEHEALTH REPORT TO [facility]NER AND CARDIOVASCULAR SURGEON THE FIRST WEEK OF CARE AND THEN BI-WEEKLY. PLEASE ADDITIONALLY COMMUNICATE ANY ABNORMALS AND NEW FINDINGS TO THE SURGEONS OFFICE. For any questions or concerns please call networking administrator Swapna @ or Earnest @ Discharge Disposition: HOME WITH HOME HEALTH SERVICES
--- NOTE | 2020-08-16 15:33 | CONS ---
CONSULTATION ADDENDUM: DATE OF SERVICE: 08/03/2020 Patient was examined and I agree with the above findings from my nurse practitioner. MMODL / IJN: [id number] /
--- NOTE | 2020-08-17 23:52 | P.PN ---
Progress Note - Text Progress Note Date: 08/15/20 Chief Complaint: Chest pain History of presenting complaint: This is a 85-year-old patient of Dr. Henrik Perez. In rather good health. Patient after breakfast when DrAbby below the lease. Then came back again the lawnmower. Started getting a chest heaviness went up to his arms. Decided to go back in the house. Started forgetting unwell. Symptoms last for 2 hours. No dizziness or lightheadedness. [place] totally weak and rundown. Clammy perspiration. Decided to come in. No prior cardiac history. Fairly active. Had a similar episode about 2 months ago. Improved with rest. Admitted with non-ST elevation AZ. Cardiac catheterization showed severe coronary artery disease. August 08-underwent coronary bypass. Patient extubated the same evening Today-doing well. Up and about. Breathing well. Oral intake code. at the bedside.. Review of systems: Was done for constitutional, cardiovascular, GI, pulmonary. relevant finding as above Current medications reviewed in the electronic records Physical examination: VITAL SIGNS: 98.2, 69, 17, 104/51, 92% on room air GENERAL: Sitting up in a chair, comfortable EYES: Pupils equal. Conjunctiva normal. NECK: JVD not raised; masses not palpable. CHEST wall: Chest tubes in place HEART: First and second heart sounds are normal; no edema. LUNGS: Respiratory rate normal; decreased breath sounds. ABDOMEN: Soft, nontender, liver spleen not palpable, no masses palpable. Osorio catheter PSYCH: Alert and oriented x3; mood and affect normal. MUSCULAR skeletal: Evidence of OA INVESTIGATIONS, reviewed in the clinical context: White count 12.4 hemoglobin 11.7 potassium 4.3 creatinine 1.17 COVID 19 P/Cr-not detected Admission testing White count 12.3 hemoglobin 13.3 platelets 215 potassium 4.7 creatinine 0.98 Troponin I 1.9, 12.4, 23.3 EKG tracing personally reviewed by me-sinus rhythm, PVC, ST segment depression from leads V2 through V6 and some changes 1 and aVL. Chest x-ray film personally reviewed by me-questionable infiltrate in the right base LDL 118 2-D echo-wall motion abnormality, EF 40-45%, moderate concentric LVH Carotid Doppler showing right carotid artery severe to critical stenosis Assessment: -Acute non-ST elevation myocardial infarction -Ischemic cardiomyopathy from systolic dysfunction EF 40- 45% -Severe triple-vessel coronary artery disease per cardiac followed by coronary bypass -Leukocytosis from acute AZ. No clinical evidence of infection -Mild hyponatremia -Significant stenosis of the right carotid artery -Ascending aortic aneurysm 4.1 cm Plan: Doing well. Continue current medication treatment plan. If discharged to follow with his family doctor.
--- NOTE | 2020-08-26 14:45 | CONS ---
CONSULTATION DATE OF CONSULTATION: 08/03/20 Patient was examined and I agree with the above findings from my nurse practitioner. MMODL / IJN: [id number] /
== END 2020-08-15 13:34 | disposition home health service (06) | DRG 233 ==
LOC: EC 13:48 → 3SCARD 15:13 → 2SICU 08-08 07:31 → 3SCARD 08-14 10:53
PROVIDERS: ADMIT Surgery; ATTEND Surgery
PROC: B2111ZZ Fluoroscopy of Multiple Coronary Arteries using Low Osmolar Contrast (ICD-10-PCS; 2020-08-03)
PROC: 4A023N7 Measurement of Cardiac Sampling and Pressure, Left Heart, Percutaneous Approach (ICD-10-PCS; 2020-08-03)
PROC: B54DZZZ Ultrasonography of Bilateral Lower Extremity Veins (ICD-10-PCS; 2020-08-03)
PROC: 06BQ4ZZ Excision of Left Saphenous Vein, Percutaneous Endoscopic Approach (ICD-10-PCS; principal; 2020-08-08 08:00)
PROC: 02100Z9 Bypass Coronary Artery, One Artery from Left Internal Mammary, Open Approach (ICD-10-PCS; principal; 2020-08-08 08:00)
PROC: 021009W Bypass Coronary Artery, One Artery from Aorta with Autologous Venous Tissue, Open Approach (ICD-10-PCS; principal; 2020-08-08 08:00)
DX: I21.4 Non-ST elevation (NSTEMI) myocardial infarction (principal); I49.01 Ventricular fibrillation; I50.23 Acute on chronic systolic (congestive) heart failure; N17.9 Acute kidney failure, unspecified; E87.1 Hypo-osmolality and hyponatremia; D62 Acute posthemorrhagic anemia; I97.130 Postprocedural heart failure following cardiac surgery; I97.190 Other postprocedural cardiac functional disturbances following cardiac surgery; Z20.828 Contact with and (suspected) exposure to other viral communicable diseases; I49.5 Sick sinus syndrome; I27.22 Pulmonary hypertension due to left heart disease; I65.02 Occlusion and stenosis of left vertebral artery; J44.9 Chronic obstructive pulmonary disease, unspecified; I71.2 Thoracic aortic aneurysm, without rupture; I95.9 Hypotension, unspecified; I70.0 Atherosclerosis of aorta; I48.0 Paroxysmal atrial fibrillation; I25.10 Atherosclerotic heart disease of native coronary artery without angina pectoris; I45.10 Unspecified right bundle-branch block; D72.829 Elevated white blood cell count, unspecified; F41.9 Anxiety disorder, unspecified; E78.5 Hyperlipidemia, unspecified; E66.9 Obesity, unspecified; I65.21 Occlusion and stenosis of right carotid artery; M81.0 Age-related osteoporosis without current pathological fracture; I25.5 Ischemic cardiomyopathy; R91.1 Solitary pulmonary nodule; I08.3 Combined rheumatic disorders of mitral, aortic and tricuspid valves; R74.01 Elevation of levels of liver transaminase levels; R94.5 Abnormal results of liver function studies; Y83.2 Surgical operation with anastomosis, bypass or graft as the cause of abnormal reaction of the patient, or of later complication, without mention of misadventure at the time of the procedure; Z87.891 Personal history of nicotine dependence; Z85.46 Personal history of malignant neoplasm of prostate; Z90.79 Acquired absence of other genital organ(s); Z71.3 Dietary counseling and surveillance; Z79.82 Long term (current) use of aspirin; Z79.899 Other long term (current) drug therapy; Z88.1 Allergy status to other antibiotic agents; Z98.890 Other specified postprocedural states; Z68.27 Body mass index [BMI] 27.0-27.9, adult
CPT/HCPCS: 36415; 70498; 71045; 71046; 71250; 80048; 80053; 80061; 80074; 81001; 82330; 82805; 83036; 83605; 83735; 84443; 84484; 85025; 85027; 85520; 85610; 85730; 86850; 86891; 86900; 86901; 86920; 87070; 87205; 93005; 93306; 93308; 93458; 93880; 93922; 93970; 94002; 94150; 94640; 96365; 96366; 96376; 99291

== ENCOUNTER 2020-08-19 08:40 | Observation (INO) | payer MEDICARE, OTHER ==
[2020-08-19] MEDS ORDERED: FUROSEMIDE 10 MG/ML 4 ML VIAL IV STA (09:04)
--- NOTE | 2020-08-19 09:39 | ED ---
General Adult HPI - General Chief complaint: Shortness of Breath Stated complaint: SOB Time Seen by Provider: 08/19/20 08:45 Source: patient, RN notes reviewed, old records reviewed Mode of arrival: ambulatory Limitations: no limitations - History of Present Illness Initial comments: This is an 85-year-old male who presents emergency Department with a past medical history significant for recent CABG. Patient comes into the emergency department today because of difficulty breathing and states she's very short of breath with any exertion. Patient also was noticed some increased edema to his legs. Patient denies any chest pain other than the surgical sternotomy pain. Patient denies any fever or chills. Patient states he has had occasional cough with some clear sputum. Patient denies any abdominal pain patient denies any nausea vomiting diarrhea. - Related Data Home Medications Medication Instructions Recorded Confirmed Aspirin EC [Ecotrin Low Dose] 81 mg PO DAILY 08/02/20 08/19/20 Calcium/Vitamin D(Unknown Dose) 1 tab PO DAILY 08/02/20 08/19/20 Multivitamins, Thera [Multivitamin 1 tab PO DAILY 08/02/20 08/19/20 (formulary)] Sennosides-Docusate Sodium 2 tab PO HS PRN 08/19/20 08/19/20 [Senokot-S] Spironolactone [Aldactone] 25 mg PO DAILY 08/19/20 08/19/20 Previous Rx's Medication Instructions Recorded Acetaminophen Tab [Tylenol] 1,000 mg PO Q6HR PRN tab 08/15/20 Amiodarone [Cordarone] 400 mg PO BID #30 tab 08/15/20 Apixaban [Eliquis] 2.5 mg PO BID #60 tablet 08/15/20 Atorvastatin [Lipitor] 40 mg PO HS #30 tab 08/15/20 Clopidogrel [Plavix] 75 mg PO DAILY #30 tab 08/15/20 Metoprolol Tartrate [Lopressor] 50 mg PO BID #60 tab 08/15/20 lisinopriL [Zestril] 2.5 mg PO DAILY@1200 #30 tab 08/15/20 Allergies Allergy/AdvReac Type Severity Reaction Status Date / Time doxycycline [From Vibramycin] Allergy Unknown Verified 08/19/20 08:43 Review of Systems ROS Statement: Those systems with pertinent positive or pertinent negative responses have been documented in the HPI. ROS Other: All systems not noted in ROS Statement are negative. Past Medical History Past Medical History: Coronary Artery Disease (CAD), Cancer, Hyperlipidemia, Myocardial Infarction ([place]) Additional Past Medical History / Comment(s): prostate CA History of Any Multi-Drug Resistant Organisms: None Reported Past Surgical History: Prostate Surgery, Tonsillectomy Additional Past Surgical History / Comment(s): prostate removed Past Anesthesia/Blood Transfusion Reactions: No Reported Reaction Past Psychological History: No Psychological Hx Reported Smoking Status: Former smoker Past Alcohol Use History: Occasional Past Drug Use History: None Reported - Past Family History Mother Family Medical History: No Reported History Father Family Medical History: No Reported History Additional Family Medical History / Comment(s): Unsure family history as the patient was not raised by his biological parents General Exam - General Exam Comments Initial Comments: GENERAL: Patient is well-developed and well-nourished. Patient is nontoxic and well- hydrated and is in mild distress. ENT: Neck is soft and supple. No significant lymphadenopathy is noted. Oropharynx is clear. Moist mucous membranes. Neck has full range of motion without eliciting any pain. EYES: The sclera were anicteric and conjunctiva were pink and moist. Extraocular movements were intact and pupils were equal round and reactive to light. Eyelids were unremarkable. PULMONARY: Patient's respiratory rate is about 24. Lungs have some crackles in the bases bilaterally CARDIOVASCULAR: There is a regular rate and rhythm without any murmurs gallops or rubs. ABDOMEN: Soft and nontender with normal bowel sounds. SKIN: Skin is clear with no lesions or rashes and otherwise unremarkable. NEUROLOGIC: Patient is alert and oriented x3. Cranial nerves II through XII are grossly intact. Motor and sensory are also intact. Normal speech, volume and content. Symmetrical smile. MUSCULOSKELETAL: Normal extremities with adequate strength and full range of motion. 2+ edema bilaterally LYMPHATICS: No significant lymphadenopathy is noted PSYCHIATRIC: Normal psychiatric evaluation. Limitations: no limitations Course Vital Signs 08/19/20 08/19/20 08:43 09:13 Temperature 98.7 F Pulse Rate 59 L 56 L Respiratory 24 26 H Rate Blood Pressure 138/67 145/55 O2 Sat by Pulse 96 98 Oximetry Medical Decision Making - Medical Decision Making EKG shows sinus bradycardia 55 bpm HI interval 192 QRS 150 QT interval 454 QTC is 434. Patient's EKG shows no ST segment elevation or depression. EKG read as acute [place] however I do not appreciate acute [place] findings on this EKG. X-ray shows a little area of atelectasis versus infiltrate. I started the patient on Rocephin. Earnest Godoy the nurse practitioner for cardiothoracic surgery saw the patient in the emergency room and on 2 different occasions. They were not going to at this time treat the high potassium. I gave the patient Lasix 40 mg IV. I also consult call Dr. Ryan agreed to admit the patient admitted the patient consult to cardiology as well as cardiothoracic surgery - Lab Data Result diagrams: 08/19/20 09:52 08/19/20 09:52 Lab Results 08/19/20 08/19/20 08/19/20 Range/Units 09:52 09:52 09:52 WBC 18.9 H (3.8-10.6) k/uL RBC 4.25 L (4.30-5.90) m/uL Hgb 12.2 L (13.0-17.5) gm/dL Hct 39.3 (39.0-53.0) % MCV 92.5 (80.0-100.0) fL MCH 28.7 (25.0-35.0) pg MCHC 31.0 (31.0-37.0) g/dL RDW 15.3 (11.5-15.5) % Plt Count 763 H (150-450) k/uL Neutrophils % 84 % Lymphocytes % 6 % Monocytes % 7 % Eosinophils % 1 % Basophils % 0 % Neutrophils # 15.8 H (1.3-7.7) k/uL Lymphocytes # 1.0 (1.0-4.8) k/uL Monocytes # 1.3 H (0-1.0) k/uL Eosinophils # 0.2 (0-0.7) k/uL Basophils # 0.0 (0-0.2) k/uL Manual Slide Review Performed Hypochromasia Slight Poikilocytosis (manual Present PT (9.0-12.0) sec INR (<1.2) APTT (22.0-30.0) sec Sodium 126 L (137-145) mmol/L Potassium 6.0 H (3.5-5.1) mmol/L Chloride 95 L (98-107) mmol/L Carbon Dioxide 25 (22-30) mmol/L Anion Gap 6 mmol/L BUN 38 H (9-20) mg/dL Creatinine 1.14 (0.66-1.25) mg/dL Est GFR (CKD-EPI)AfAm 67 (>60 ml/min/1.73 sqM) Est GFR (CKD-EPI)NonAf 58 (>60 ml/min/1.73 sqM) Glucose 119 H (74-99) mg/dL Plasma Lactic Acid Steffen (0.7-2.0) mmol/L Calcium 9.8 (8.4-10.2) mg/dL Total Bilirubin 0.9 (0.2-1.3) mg/dL AST 59 (17-59) U/L ALT 85 H (4-49) U/L Alkaline Phosphatase 122 (38-126) U/L Troponin I (0.000-0.034) ng/mL NT-Pro-B Natriuret Pep 8800 pg/mL Total Protein 5.7 L (6.3-8.2) g/dL Albumin 3.5 (3.5-5.0) g/dL 08/19/20 08/19/20 08/19/20 Range/Units 09:52 09:52 09:52 WBC (3.8-10.6) k/uL RBC (4.30-5.90) m/uL Hgb (13.0-17.5) gm/dL Hct (39.0-53.0) % MCV (80.0-100.0) fL MCH (25.0-35.0) pg MCHC (31.0-37.0) g/dL RDW (11.5-15.5) % Plt Count (150-450) k/uL Neutrophils % % Lymphocytes % % Monocytes % % Eosinophils % % Basophils % % Neutrophils # (1.3-7.7) k/uL Lymphocytes # (1.0-4.8) k/uL Monocytes # (0-1.0) k/uL Eosinophils # (0-0.7) k/uL Basophils # (0-0.2) k/uL Manual Slide Review Hypochromasia Poikilocytosis (manual PT 13.6 H (9.0-12.0) sec INR 1.4 H (<1.2) APTT 26.3 (22.0-30.0) sec Sodium (137-145) mmol/L Potassium (3.5-5.1) mmol/L Chloride (98-107) mmol/L Carbon Dioxide (22-30) mmol/L Anion Gap mmol/L BUN (9-20) mg/dL Creatinine (0.66-1.25) mg/dL Est GFR (CKD-EPI)AfAm (>60 ml/min/1.73 sqM) Est GFR (CKD-EPI)NonAf (>60 ml/min/1.73 sqM) Glucose (74-99) mg/dL Plasma Lactic Acid Steffen 1.7 (0.7-2.0) mmol/L Calcium (8.4-10.2) mg/dL Total Bilirubin (0.2-1.3) mg/dL AST (17-59) U/L ALT (4-49) U/L Alkaline Phosphatase (38-126) U/L Troponin I 0.017 (0.000-0.034) ng/mL NT-Pro-B Natriuret Pep pg/mL Total Protein (6.3-8.2) g/dL Albumin (3.5-5.0) g/dL Disposition Clinical Impression: Pulmonary edema, Pneumonia, Hyperkalemia, Hyponatremia Disposition: ADMITTED IP TO THIS HOSP Referrals: Henrik Perez MD [Primary Care Provider] - 1-2 days Time of Disposition: 11:18
[2020-08-19 10:10] LABS: INR 1.4 (<1.2); Partial Thromboplastin Time 26.3 sec (22.0-30.0); Prothrombin Time 13.6 sec (9.0-12.0)
[2020-08-19 10:11] LABS: Basophils % (A) 0 %; Eosinophils # (A) 0.2 k/uL (0-0.7); Eosinophils % (A) 1 %; HCT 39.3 % (39.0-53.0); HGB 12.2 gm/dL (13.0-17.5); Hypochromasia Slight; Lymphocytes % (A) 6 %; MCH 28.7 pg (25.0-35.0); MCV 92.5 fL (80.0-100.0); Mean Platelet Volume 8.1; Monocytes # (A) 1.3 k/uL (0-1.0); Monocytes % (A) 7 %; Neutrophils # (A) 15.8 k/uL (1.3-7.7); Neutrophils % (A) 84 %; Platelet Count 763 k/uL (150-450); RBC 4.25 m/uL (4.30-5.90); RDW 15.3 % (11.5-15.5); WBC 18.9 k/uL (3.8-10.6)
[2020-08-19 10:15] LABS: Albumin 3.5 g/dL (3.5-5.0); Calcium 9.8 mg/dL (8.4-10.2); Total Bilirubin 0.9 mg/dL (0.2-1.3); Total Protein 5.7 g/dL (6.3-8.2)
--- NOTE | 2020-08-19 10:20 | ECHOF ---
Referral Reason:Assess LV function MEASUREMENTS -------- HEIGHT: 198.1 cm WEIGHT: 103.9 kg BP: 124/69 IVSd: 1.9 cm (0.6 - 1.1) LVIDd: 5.5 cm (3.9 - 5.3) LVPWd: 1.2 cm (0.6 - 1.1) IVSs: 1.4 cm LVIDs: 4.8 cm LVPWs: 1.7 cm IVSd: 1.7 cm (0.6 - 1.1) LVIDd: 7.5 cm (3.9 - 5.3) LVPWd: 1.6 cm (0.6 - 1.1) IVSs: 1.4 cm LVIDs: 6.3 cm LVPWs: 1.9 cm EDV(Teich): 298 ml ESV(Teich): 199 ml EF(Teich): 33 % %FS: 16 % SV(Teich): 98 ml FINDINGS -------- Limited Study The left ventricular size is normal. There is moderate concentric left ventricular hypertrophy. T here is moderate global hypokinesis of LV . Overall left ventricular systolic function is moderatel y impaired with, an EF between 35 - 40 %. Septal wall motion is delayed and consistent with prior c ardiac surgery. Anterseptal Hypokinesis There is a trivial pericardial effusion present. CONCLUSIONS -------- 1. The left ventricular size is normal. 2. There is moderate concentric left ventricular hypertrophy. 3. There is moderate global hypokinesis of LV . 4. Overall left ventricular systolic function is moderately impaired with, an EF between 35 - 40 %. 5. Septal wall motion is delayed and consistent with prior cardiac surgery. 6. Anterseptal Hypokinesis 7. There is a trivial pericardial effusion present. FOOD COUNSELOR: Jennifer Ferreira RDCS
[2020-08-19 10:35] LABS: Poikilocytosis (M) Present
[2020-08-19] MEDS ORDERED: cefTRIAXone IN SWFI 1,000 MG/10 ML SYRINGE IVP STA ×2 (10:39→11:23)
--- NOTE | 2020-08-19 10:40 | XR ---
EXAMINATION TYPE: XR chest 2V DATE OF EXAM: 08/19/2020 CLINICAL HISTORY: Shortness of breath. TECHNIQUE: Frontal and lateral view of the chest. COMPARISON: 08/15/2020 chest radiograph FINDINGS: Redemonstrated electronic devices projecting over the mid and lower chest bilaterally, nash rnotomy wires. Cardiomegaly. There is persistent blunting of the left hemidiaphragm likely small left pleural effusion and atelectasis. No pneumothorax. IMPRESSION: Redemonstrated small left pleural effusion and left basilar atelectasis.
[2020-08-19] MEDS ORDERED: AZITHROMYCIN 500 MG in SODIUM CHLORIDE 0.9% 250 ML IVPB STA (11:19)
[2020-08-19] MEDS ORDERED: PNEUMONIA PROTOCOL UTILIZED 1 EACH MISC PO PRN (11:19)
[2020-08-19] MEDS ORDERED: SODIUM POLYSTYRENE SULFONATE 15 GM/60 ML BOTTLE PO STA ×2 (11:23→22:44)
[2020-08-19 13:22] LABS: Color,Urine Colorless
[2020-08-19 13:23] LABS: Appearance,Urine Clear (Clear); Bilirubin,Urine Negative (Negative); Blood,Urine Small (Negative); Glucose,Urine (UA) Negative (Negative); Ketones,Urine 1+ (Negative); Leukocyte Esterase,Urine Large (Negative); Nitrite,Urine Negative (Negative); Protein,Urine Negative (Negative); Urobilinogen,Urine <2.0 mg/dL (<2.0)
[2020-08-19 13:24] LABS: Bacteria,Urine Rare /hpf; Hyaline Casts,Urine 11 /lpf (0-2); Mucus,Urine Rare /hpf; RBC,Urine 23 /hpf (0-5); Squamous Epithelial Cell,Urine <1 /hpf (0-4); WBC,Urine 2 /hpf (0-5)
--- NOTE | 2020-08-19 13:47 | P.GSCN ---
History of Present Illness Consult date: 08/19/20 Reason for Consult: Recent coronary artery bypass grafting surgery 2 vessels on 08/08/2020. Requesting physician: Jacob Flynn History of present illness: This is an 85-year-old gentleman who is followed by Dr. Henrik Perez on an outpatient basis. He has a past medical history significant for multivessel coronary artery disease and non-STEMI in July 2020 and is status post coronary artery bypass grafting surgery 2 vessels on 08/08/[address] Queenie Vasquez, postoperative paroxysmal atrial fibrillation on eliquis for anticoagulation, hyperlipidemia, right internal carotid artery stenosis 72% at the origin of the right internal carotid artery, ischemic cardiomyopathy, chronic systolic heart failure with an ejection fraction of 30-35%, remote history of tobacco dependence, moderate chronic obstructive pulmonary disease with a recent FEV1 59% of predicted value, and history of prostate cancer status post prostatectomy. He presented to the emergency department here at [facility] with complaints of progressive shortness of breath which has been getting worse over a 2 day period. He reports that with minimal activity and even when speaking he is getting more short of breath. He is also complaining of some increase in swelling to his bilateral lower extremities and a productive cough with thin whitish colored sputum. He denies any recent fever, chills, pain, headache, nausea, vomiting, diarrhea, constipation, dizziness or hemoptysis. Due to the above-mentioned symptoms the patient and his felt like he needed be further evaluated. A 12-lead EKG was completed in the emergency department which showed sinus bradycardia with a right bundle branch block heart rate 55 BPM. Laboratory results showed a WBC count of 18.9 which is up from 14.1 on 08/17/2020, hemoglobin 12.2, hematocrit 39.3, platelets 763, INR 1.4, PT 13.6, sodium 126, potassium 6.0, chloride 95, BUN 38, creatinine 1.14, ALT 85, troponin 0.017, and a proBNP level 8800. A chest x-ray was also completed which showed a small left pleural effusion and left basilar atelectasis. For further evaluation he underwent a 2-D echocardiogram which showed moderate concentric left ventricular hypertrophy, moderate global hypokinesia of the left ventricle, and overall left ventricular systolic fun ction to be moderately impaired with an ejection fraction between 35 and 40%, anterior septal hypokinesia and a trivial pericardial effusion. Vital signs on admission showed a temperature of 98.7F, pulse rate 59, blood pressure 138/67 and oxygen saturation is 96% on room air. Due to the patient's presenting symptoms and recent history of undergoing coronary artery bypass grafting surgery a consult was placed to Dr. Queenie Vasquez from cardiothoracic surgery for further evaluation and treatment recommendations. Review of Systems A 14 point review of systems was completed and was negative except as mentioned in the HPI. Past Medical History Past Medical History: Atrial Fibrillation (Paroxysmal postoperative coronary artery bypass grafting surgery, currently in sinus bradycardia.), Coronary Artery Disease (CAD), Cancer, Heart Failure, COPD (Preoperative FEV1 59% percent of predicted value), Hyperlipidemia, Myocardial Infarction (non Q-wave) Additional Past Medical History / Comment(s): prostate CA Last Myocardial Infarction Date:: 08/02/2020 History of Any Multi-Drug Resistant Organisms: None Reported Past Surgical History: Coronary Bypass/CABG (On 08/08/2020, 2 vessel coronary artery bypass grafting with left internal mammary artery to the left anterior descending coronary artery, a reverse greater saphenous vein graft from the aorta to the posterior descending coronary artery.), Heart Catheterization, Prostate Surgery, Tonsillectomy Additional Past Surgical History / Comment(s): prostate removed Past Anesthesia/Blood Transfusion Reactions: No Reported Reaction Past Psychological History: No Psychological Hx Reported Smoking Status: Former smoker Past Alcohol Use History: Occasional Past Drug Use History: None Reported - Past Family History Mother Family Medical History: No Reported History Father Family Medical History: No Reported History Additional Family Medical History / Comment(s): Unsure family history as the patient was not raised by his biological parents Medications and Allergies Home Medications Medication Instructions Recorded Confirmed Type Aspirin EC [Ecotrin Low Dose] 81 mg PO DAILY 08/02/20 08/19/20 History Calcium/Vitamin D(Unknown Dose) 1 tab PO DAILY 08/02/20 08/19/20 History Multivitamins, Thera [Multivitamin 1 tab PO DAILY 08/02/20 08/19/20 History (formulary)] Acetaminophen Tab [Tylenol] 1,000 mg PO Q6HR PRN tab 08/15/20 08/19/20 Rx Amiodarone [Cordarone] 400 mg PO BID #30 tab 08/15/20 08/19/20 Rx Apixaban [Eliquis] 2.5 mg PO BID #60 tablet 08/15/20 08/19/20 Rx Atorvastatin [Lipitor] 40 mg PO HS #30 tab 08/15/20 08/19/20 Rx Clopidogrel [Plavix] 75 mg PO DAILY #30 tab 08/15/20 08/19/20 Rx Metoprolol Tartrate [Lopressor] 50 mg PO BID #60 tab 08/15/20 08/19/20 Rx lisinopriL [Zestril] 2.5 mg PO DAILY@1200 #30 tab 08/15/20 08/19/20 Rx Sennosides-Docusate Sodium 2 tab PO HS PRN 08/19/20 08/19/20 History [Senokot-S] Spironolactone [Aldactone] 25 mg PO DAILY 08/19/20 08/19/20 History Allergies Allergy/AdvReac Type Severity Reaction Status Date / Time doxycycline [From Vibramycin] Allergy Unknown Verified 08/19/20 08:43 Surgical - Exam Vital Signs Temp Pulse Resp BP Pulse Ox 98.7 F 59 L 24 138/67 96 08/19/20 08:43 08/19/20 08:43 08/19/20 08:43 08/19/20 08:43 08/19/20 08:43 - General This is an 85-year-old gentleman who is examined at his bedside in the emergency department. He is awake, alert and oriented 3. He is in no acute distress, although he is having some trouble finishing sentences due to some shortness of breath. well developed, well nourished, no pain, obese - Eyes normal ocular movement, no icteric - ENT normal pinna, normal nares, normal mucosa, no hearing loss, no congestion - Neck Neck is supple, no JVD. no masses, no bruits, trachea midline, no venous distension - Respiratory Lung sounds with few scattered crackles throughout, diminished to his bilateral bases. No wheezes or rhonchi. Respirations are symmetrical and tachypneic respiratory rate 24-26 breaths per minute. Oxygen saturations are 96% on room air and 98% on 2 L nasal cannula. - Cardiovascular Regular rhythm and bradycardic rate. S1 and S2 present, negative for S3, gallop or murmur. +1 to +2 edema to his bilateral lower extremities. Stable with some occasional clicking felt. Knee-high ADALID hose in place to his bilateral lower extremities. Heart hugger is in place and he is demonstrating appropriate use. LifeVest is present and in place. - Abdomen Abdomen is soft, nontender and nondistended. Active bowel sounds present all 4 abdominal quadrants. No guarding or rigidity. No organomegaly appreciated. - Genitourinary Deferred - Rectum Deferred - Integumentary Midline sternal incision is clean, dry and approximated. No drainage or redness is present. Left lower extremity EVH site is clean, and intact with some scant serous drainage. no rash, no growths, no abnormal pigmentation - Neurologic Cranial nerves II through XII intact. No motor or sensory deficits present. - Musculoskeletal Moving all 4 extremities. Generalized weakness. - Psychiatric oriented to time, oriented to person, oriented to place, speech is normal, memory intact Results - Labs 08/19/20 09:52 08/19/20 09:52 Abnormal Lab Results - Last 24 Hours (Table) 08/19/20 08/19/20 08/19/20 Range/Units 09:52 09:52 09:52 WBC 18.9 H (3.8-10.6) k/uL RBC 4.25 L (4.30-5.90) m/uL Hgb 12.2 L (13.0-17.5) gm/dL Plt Count 763 H (150-450) k/uL Neutrophils # 15.8 H (1.3-7.7) k/uL Monocytes # 1.3 H (0-1.0) k/uL PT 13.6 H (9.0-12.0) sec INR 1.4 H (<1.2) Sodium 126 L (137-145) mmol/L Potassium 6.0 H (3.5-5.1) mmol/L Chloride 95 L (98-107) mmol/L BUN 38 H (9-20) mg/dL Glucose 119 H (74-99) mg/dL ALT 85 H (4-49) U/L Total Protein 5.7 L (6.3-8.2) g/dL Diabetes panel 08/19/20 Range/Units 09:52 Sodium 126 L (137-145) mmol/L Potassium 6.0 H (3.5-5.1) mmol/L Chloride 95 L (98-107) mmol/L Carbon Dioxide 25 (22-30) mmol/L BUN 38 H (9-20) mg/dL Creatinine 1.14 (0.66-1.25) mg/dL Glucose 119 H (74-99) mg/dL Calcium 9.8 (8.4-10.2) mg/dL AST 59 (17-59) U/L ALT 85 H (4-49) U/L Alkaline Phosphatase 122 (38-126) U/L Total Protein 5.7 L (6.3-8.2) g/dL Albumin 3.5 (3.5-5.0) g/dL Calcium panel 08/19/20 Range/Units 09:52 Calcium 9.8 (8.4-10.2) mg/dL Albumin 3.5 (3.5-5.0) g/dL Pituitary panel 08/19/20 Range/Units 09:52 Sodium 126 L (137-145) mmol/L Potassium 6.0 H (3.5-5.1) mmol/L Chloride 95 L (98-107) mmol/L Carbon Dioxide 25 (22-30) mmol/L BUN 38 H (9-20) mg/dL Creatinine 1.14 (0.66-1.25) mg/dL Glucose 119 H (74-99) mg/dL Calcium 9.8 (8.4-10.2) mg/dL Adrenal panel 08/19/20 Range/Units 09:52 Sodium 126 L (137-145) mmol/L Potassium 6.0 H (3.5-5.1) mmol/L Chloride 95 L (98-107) mmol/L Carbon Dioxide 25 (22-30) mmol/L BUN 38 H (9-20) mg/dL Creatinine 1.14 (0.66-1.25) mg/dL Glucose 119 H (74-99) mg/dL Calcium 9.8 (8.4-10.2) mg/dL Total Bilirubin 0.9 (0.2-1.3) mg/dL AST 59 (17-59) U/L ALT 85 H (4-49) U/L Alkaline Phosphatase 122 (38-126) U/L Total Protein 5.7 L (6.3-8.2) g/dL Albumin 3.5 (3.5-5.0) g/dL - Imaging Chest x-ray: report reviewed, image reviewed Additional studies: 2-D echocardiogram results reviewed by Dr. Queenie Vasquez. Assessment and Plan Assessment: 1. Acute on chronic systolic congestive heart failure with an ejection fraction of 35-40%, with 8 pound weight gain over the last few days 2. Hyponatremia 3. Hyperkalemia, discontinue the Aldactone and lisinopril, Lasix 40 mg IV 1 given 4. Shortness of breath, likely related to acute on chronic systolic heart failure 5. Multivessel coronary artery disease, status post coronary artery bypass grafting 2 vessels on 08/08/2020 6. History of hyperlipidemia 7. History of ischemic cardiomyopathy 8. Moderate COPD with a preoperative FEV1 of 59% of predicted value 9. History of prostate cancer status post prostatectomy 10. Postoperative paroxysmal atrial fibrillation, currently in sinus bradycardia rhythm, on eliquis for anticoagulation 11. History of right internal carotid artery stenosis 72% at the origin of the right internal carotid artery Plan: The patient was seen and examined at his bedside in the emergency department. His chart and diagnostics were reviewed. He was also seen and examined by Dr. Queenie Vasquez from cardiothoracic surgery. His potassium is 6.0 and he was given 1 dose of Lasix 40 mg IV 1, Kayexalate 30 g by mouth 1 and we will discontinue his Aldactone and lisinopril. A stat 2-D echocardiogram was ordered as well as a 2 view chest x-ray, CBC, CMP, proBNP level and COVID-19 test. Recommend admission for a 24-hour observation under primary care service. Consult cardiology and pulmonary medicine. WBC count today is 18.9, a stat sputum culture with Gram stain has been ordered due to his productive cough and he has been started on IV antibiotic coverage with Rocephin and Zithromax. Recommend admission for observation, and further treatment recommendations. More recommendations to follow based on patient's clinical course. Thank you for this consult and we look forward to working with you in the care of this patient. Nurse practitioner note has been reviewed by the physician. Signing provider agrees with the above documented findings, assessment and plan of care. Time with Patient: Greater than 30
[2020-08-19 14:27] LABS: Calcium 9.3 mg/dL (8.4-10.2); Potassium 5.6 mmol/L (3.5-5.1)
--- NOTE | 2020-08-19 14:51 | P.CNPUL ---
History of Present Illness Consult date: 08/19/20 Requesting physician: Queenie Vasquez Reason for consult: dyspnea, abnormal CXR/CT, other Chief complaint: Weakness, heaviness and legs, cough, cold sweats History of present illness: This is a 85-year-old white male patient of Dr. Henrik Perez who recently underwent off pump coronary artery bypass grafting with LUCERO to the LAD, reverse SVG to the aorta and to the PDA with endoscopic harvesting of the left greater saphenous vein on 08/08/2020, recent history of non-ST elevated myocardial infar ction in July 2020. Patient did have progress for atrial fibrillation in the postoperative period, he is on Eliquis for anticoagulation. He was found to have right internal carotid artery stenosis 72% during his preoperative evaluation, he has ischemic cardiomyopathy with ejection fraction of 30-35%. His preop FEV1 was in error of 59% of predicted, consistent with the moderately severe obstructive pulmonary disease, on medical history is that of hyperlipidemia, and history of prostate cancer status post surgical resection. Patient was discharged home 08/15/2020 on lisinopril, Aldactone, Eliquis 2.5 mg twice daily, amiodarone 400 mg twice a day, metoprolol 50 mg twice a day, Plavix 75 mg daily. Patient came into the emergency department today with complaints of weakness, shortness of breath that started 2 days ago, cold sweats, cough, with production of whitish colored phlegm, heaviness in the legs. Denied any urinary symptoms, denied any hemoptysis, denied any chest pain. Denied any fever or chills. No nausea vomiting or diarrhea. Chest x-ray showed small left pleural effusion and left basilar atelectasis/infiltrate with a possibility of left basilar infiltrate/pneumonia. White blood cell count was 18.9, hemoglobin is 12.2, INR is 1.4, sodium was 126, potassium 6.0, chloride was 95, CO2 is 25, B1 is 30 creatinine is 1.14, asthma lactic acid was 1.7, proBNP was 8008 100, troponin was 0.017, ALT was 85, AST was 59, and alkaline phosphatase was 122, urinalysis showed 1+ ketones, large amount of leuks, no significant WBCs, rare bacteria, culture was sent. Patient is afebrile, not liters of oxygen a pulse ox of 98%, he is in sinus mechanism, with a rate of 55-59 with right bundle branch block pattern. His Aldactone and Eliquis were placed on hold, patient was given a dose of oral Kayexalate, and Lasix, patient has not produced much urine, full catheter will be placed, repeat BMP is pending, patient is awake and alert, he is seen in the emergency department, resting comfortably on the gurney. On 2 L of oxygen a pulse ox of 98%, hemodynamically stable, remains afebrile. He was started on empiric antibiotics in the form of azithromycin and Rocephin Review of Systems All systems: negative Constitutional: Reports malaise, Reports weakness, Denies chills, Denies fever Eyes: denies blurred vision, denies pain Ears, nose, mouth and throat: Denies headache, Denies sore throat Cardiovascular: Denies chest pain, Denies shortness of breath Respiratory: Reports cough with sputum, Reports dyspnea, Denies cough Gastrointestinal: Denies abdominal pain, Denies diarrhea, Denies nausea, Denies vomiting Musculoskeletal: Denies myalgias Integumentary: Denies pruritus, Denies rash Neurological: Denies numbness, Denies weakness Psychiatric: Denies anxiety, Denies depression Endocrine: Denies fatigue, Denies weight change Past Medical History Past Medical History: Atrial Fibrillation (Paroxysmal postoperative coronary artery bypass grafting surgery, currently in sinus bradycardia.), Coronary Artery Disease (CAD), Cancer, Heart Failure, COPD (Preoperative FEV1 59% percent of predicted value), Hyperlipidemia, Myocardial Infarction (non Q-wave) Additional Past Medical History / Comment(s): prostate CA Last Myocardial Infarction Date:: 08/02/2020 History of Any Multi-Drug Resistant Organisms: None Reported Past Surgical History: Coronary Bypass/CABG (On 08/08/2020, 2 vessel coronary artery bypass grafting with left internal mammary artery to the left anterior descending coronary artery, a reverse greater saphenous vein graft from the aorta to the posterior descending coronary artery.), Heart Catheterization, Prostate Surgery, Tonsillectomy Additional Past Surgical History / Comment(s): prostate removed Past Anesthesia/Blood Transfusion Reactions: No Reported Reaction Past Psychological History: No Psychological Hx Reported Smoking Status: Former smoker Past Alcohol Use History: Occasional Past Drug Use History: None Reported - Past Family History Mother History Unknown: Yes Family Medical History: No Reported History Father History Unknown: Yes Family Medical History: No Reported History Additional Family Medical History / Comment(s): Unsure family history as the patient was not raised by his biological parents Medications and Allergies Home Medications Medication Instructions Recorded Confirmed Type Aspirin EC [Ecotrin Low Dose] 81 mg PO DAILY 08/02/20 08/19/20 History Calcium/Vitamin D(Unknown Dose) 1 tab PO DAILY 08/02/20 08/19/20 History Multivitamins, Thera [Multivitamin 1 tab PO DAILY 08/02/20 08/19/20 History (formulary)] Acetaminophen Tab [Tylenol] 1,000 mg PO Q6HR PRN tab 08/15/20 08/19/20 Rx Amiodarone [Cordarone] 400 mg PO BID #30 tab 08/15/20 08/19/20 Rx Apixaban [Eliquis] 2.5 mg PO BID #60 tablet 08/15/20 08/19/20 Rx Atorvastatin [Lipitor] 40 mg PO HS #30 tab 08/15/20 08/19/20 Rx Clopidogrel [Plavix] 75 mg PO DAILY #30 tab 08/15/20 08/19/20 Rx Metoprolol Tartrate [Lopressor] 50 mg PO BID #60 tab 08/15/20 08/19/20 Rx lisinopriL [Zestril] 2.5 mg PO DAILY@1200 #30 tab 08/15/20 08/19/20 Rx Sennosides-Docusate Sodium 2 tab PO HS PRN 08/19/20 08/19/20 History [Senokot-S] Spironolactone [Aldactone] 25 mg PO DAILY 08/19/20 08/19/20 History Allergies Allergy/AdvReac Type Severity Reaction Status Date / Time doxycycline [From Vibramycin] Allergy Unknown Verified 08/19/20 08:43 Physical Exam Vitals: Vital Signs Temp Pulse Resp BP Pulse Ox 08/19/20 11:51 53 L 22 114/61 98 08/19/20 09:13 56 L 26 H 145/55 98 08/19/20 08:43 98.7 F 59 L 24 138/67 96 Intake and Output 08/18/20 08/19/20 08/19/20 22:59 06:59 14:59 Other: Weight 103.873 kg GENERAL EXAM: Alert, very pleasant, 85-year-old white male, on 2 L of oxygen above 90% comfortable in no apparent distress. HEAD: Normocephalic/atraumatic. EYES: Normal reaction of pupils, equal size. Conjunctiva pink, sclera white. NOSE: Clear with pink turbinates. THROAT: No erythema or exudates. NECK: No masses, no JVD, no thyroid enlargement, no adenopathy. CHEST: No chest wall deformity. Symmetrical expansion. Midsternal incision well-healed, clean dry and intact, from her chest tube sites are clean dry and intact LUNGS: Equal air entry with mild bibasilar crackles, but no wheeze, rhonchi or dullness. CVS: Regular rate and rhythm, normal S1 and S2, no gallops, no murmurs, no rubs ABDOMEN: Soft, nontender. No hepatosplenomegaly, normal bowel sounds, no guarding or rigidity. EXTREMITIES: No clubbing, no edema, no cyanosis, 2+ pulses and upper and lower extremities. MUSCULOSKELETAL: Muscle strength and tone normal. SPINE: No scoliosis or deformity SKIN: No rashes CENTRAL NERVOUS SYSTEM: Alert and oriented -3. No focal deficits, tone is normal in all 4 extremities. PSYCHIATRIC: Alert and oriented -3. Appropriate affect. Intact judgment and insight. Results - Laboratory Findings CBC and BMP: 08/19/20 09:52 08/19/20 09:52 PT/INR, D-dimer PT 13.6 sec (9.0-12.0) H 08/19/20 09:52 INR 1.4 (<1.2) H 08/19/20 09:52 Abnormal lab findings: Abnormal Labs 08/19/20 08/19/20 08/19/20 09:52 09:52 09:52 WBC 18.9 H RBC 4.25 L Hgb 12.2 L Plt Count 763 H Neutrophils # 15.8 H Monocytes # 1.3 H PT 13.6 H INR 1.4 H Sodium 126 L Potassium 6.0 H Chloride 95 L BUN 38 H Glucose 119 H ALT 85 H Total Protein 5.7 L Urine Ketones Urine RBC Urine Bacteria Hyaline Casts Urine Mucus 08/19/20 12:50 WBC RBC Hgb Plt Count Neutrophils # Monocytes # PT INR Sodium Potassium Chloride BUN Glucose ALT Total Protein Urine Ketones 1+ H Urine RBC 23 H Urine Bacteria Rare H Hyaline Casts 11 H Urine Mucus Rare H - Diagnostic Findings Chest x-ray: report reviewed, image reviewed Additional studies: EKG reviewed Assessment and Plan Plan: Assessment: #1. Dyspnea, cough, weakness, left basilar infiltrate/atelectasis, cannot rule out possibility of pneumonia. COVID 19 PCR is also pending #2. Leukocytosis possibly related to community-acquired pneumonia, rule out possibility of urinary tract infection #3. Hyponatremia possibly related to hypervolemia #4. Hyperkalemia likely related to Aldactone and lisinopril, both are on hold, serum potassium was 6.0 on admission, was treated with oral LEVAQUIN, repeat potassium is pending #5. Acute exacerbation of chronic CHF with systolic dysfunction #6. Coronary artery disease, status post two-vessel off-pump bypass grafting on 08/08/2020, patient was discharged home on 08/15/2020 #7. History of ischemic cardiomyopathy with EF of 30-35% #8. History of hyperlipidemia #9. Moderately severe COPD with preop FEV1 value of 59% of predicted #10. History of prostate cancer status post prostatectomy #11. Postoperative paroxysmal atrial fibrillation, currently in sinus bradycardia with a rate of 55 BPM, on Eliquis #12. Right carotid artery stenosis Plan: Continue IV Lasix, chest x-ray has been reviewed, possibility of left basilar pneumonia cannot be entirely excluded, we'll send appropriate also total level, continue Zithromax and Rocephin, repeat BMP, hold Aldactone, hold lisinopril, Covid 19 is pending, labs, chest x-rays have been reviewed, patient is afebrile, no acute distress, monitor electrolytes, renal profile, insert Osorio for accurate intake and output. Daily weights, daily electrolytes and renal profile, follow-up CBC in the morning. We'll continue to follow I performed a history & physical examination of the patient and discussed their management with my nurse practitioner, Kaylynn Cabezas. I reviewed the nurse practitioner's note and agree with the documented findings and plan of care. Lung sounds are positive for diminished breath sounds, with mild crackles at the bases. The findings and the impression was discussed with the patient. I attest to the documentation by the nurse practitioner. Time with Patient: Greater than 30
[2020-08-19] MEDS ORDERED: SENNOSIDES-DOCUSATE SODIUM 1 EACH TAB PO PRN (14:52)
[2020-08-19] MEDS ORDERED: ACETAMINOPHEN TAB 500 MG TAB PO PRN (17:00)
--- NOTE | 2020-08-19 18:23 | CONS ---
CONSULTATION CHIEF COMPLAINT: Murtaza is an 85-year-old gentleman with history of coronary artery disease, recent non- [id number] WA and bypass surgery with LUCERO to LAD and venous graft to PDA with ischemic cardiomyopathy who presented to hospital complaining of shortness of breath, cough and tiredness. He is admitted to hospital with a diagnosis of possible pneumonia and congestive heart failure. Cardiology has been consulted for the same. At the time of my evaluation, he appears comfortable at rest and is not in respiratory distress. Patient remains in sinus rhythm with sinus bradycardia. An echocardiogram on this admission revealed an ejection fraction of around 35%, which is stable compared to the echo done at the recent hospitalization. LABS: His labs show that the white cell count is elevated. Sodium is low at 127. Potassium is elevated at 6 and the patient received Kayexalate. He is also intravascularly volume-depleted. BNP is elevated at 8800. The patient's shortness of breath is probably due to a combination of problems, including acute exacerbation of chronic systolic heart failure, atelectasis and possible pneumonia. His hyperkalemia is related to the Aldactone, which will be stopped. Hyponatremia may be dilutional in origin. His troponin is negative. EKG does not reveal ischemic changes. I am going to treat the patient with intravenous diuretics and continue the rest of his medications, including amiodarone, Eliquis, aspirin, Lipitor and Plavix along with Zestril and Lopressor. PAST MEDICAL HISTORY: His past medical history is significant for ischemic cardiomyopathy, coronary artery disease, status post CABG, dyslipidemia and postoperative atrial fibrillation. MEDICATIONS: Medications at home include lisinopril 2.5 mg daily, Aldactone 25 mg daily, Lopressor 50 b.i.d., Plavix 75 daily, Lipitor 40 daily, aspirin, Eliquis and Cordarone. ALLERGIES: VIBRAMYCIN. FAMILY HISTORY: Negative for premature coronary artery disease. SOCIAL HISTORY: Negative for current smoking, EtOH abuse or drug abuse. REVIEW OF SYSTEMS: HEENT is unremarkable. CARDIAC: As described above. RESPIRATORY: As described above. GI: Negative. GENITOURINARY: Negative. ALLERGY: Negative. IMMUNOLOGY: Negative. SKIN: Negative. MUSCULOSKELETAL: Significant for arthritis. PSYCHOSOCIAL: Negative. ENDOCRINE: Negative. DERMATOLOGY: Negative. CONSTITUTIONAL: Significant for fatigue and tiredness. Rest of the system review is not relevant. PHYSICAL EXAMINATION: Patient is afebrile. Heart rate is 50 beats per minute. Blood pressure 124/55. Respiratory rate is 18. Oxygen saturation is 97% on 2 L. There is no jugular venous distention. Chest exam reveals diminished air entry with occasional rhonchi. Heart exam reveals first and second heart sounds. No gallop. No murmur. Abdomen is soft. Examination of extremities revealed mild edema in both ankles. LABS: As described above. Echocardiogram is as described above. EKG is as described above. ASSESSMENT: 1. Shortness of breath, probably multifactorial in origin, including pneumonia, atelectasis and acute exacerbation of chronic systolic heart failure. 2. Coronary artery disease, status post coronary artery bypass grafting. 3. Ischemic cardiomyopathy. 4. Postoperative atrial fibrillation, currently in sinus rhythm. 5. Hyponatremia. 6. Hyperkalemia. PLAN: Treat the patient with intravenous diuretics. Hold the Aldactone. Continue the rest of his medications. Further optimization of therapy based on how his symptoms evolve. MMODL / IJN: [id number] /
[2020-08-19] MEDS: FUROSEMIDE 10 MG/ML 2 ML VIAL IV SCH ×2 (19:20→23:41)
[2020-08-19] MEDS: METOPROLOL TARTRATE 25 MG TAB PO SCH (20:30)
[2020-08-19] MEDS: guaiFENesin 600 MG TABLET.ER PO SCH (20:31)
[2020-08-19] MEDS: ATORVASTATIN 40 MG TAB PO SCH (20:31)
[2020-08-19] MEDS: AMIODARONE 200 MG TAB PO SCH (20:32)
[2020-08-19] MEDS: APIXABAN 2.5 MG TABLET PO SCH (20:32)
--- NOTE | 2020-08-19 22:46 | P.HPIM ---
History of Present Illness H&P Date: 08/19/20 Chief Complaint: Short of breath History of presenting complaint: This is a 85-year-old patient of Dr. Henrik Perez. Recently was in the hospital with daniel Pelaez microinfarction cardiac catheterization showing severe coronary artery disease. August 08 underwent coronary bypass. On August 15 patient was discharged. At the time of discharge patient was up and about in the hallway. Breathing well. Tolerating a diet. Patient now presents with increasing shortness of breath. Some lower extremity edema. Slight cough with clear sputum. No fever no chills. Tired rundown. Review of systems: GEN.: Tired EYES: None HEENT: None NECK: None RESPIRATORY: As above CARDIOVASCULAR: [As above GASTROINTESTINAL: None GENITOURINARY: None MUSCULOSKELETAL: None LYMPHATICS: None HEMATOLOGICAL: None PSYCHIATRY: None NEUROLOGICAL: None Past medical history to include: Prostate cancer treated with surgery, coronary artery disease with a bypass Social history: Retired salesperson. Lives with his . Drinks beer occasionally. Stopped smoking 10 years ago. Family history: Reviewed, noncontributory to presentation Physical examination: VITAL SIGNS: 98.7, 59, 24, 138/67, 96% room air GENERAL: BMI 27.9, laying in bed, slightly short of breath. EYES: Pupils equal. Conjunctiva normal. HEENT: External appearance of nose and ears normal, oral cavity grossly normal. NECK: JVD unable to assess; masses not palpable. HEART: First and second heart sounds are normal; edema present LUNGS: Respiratory rate increased; some basal chronic. ABDOMEN: Soft, nontender, liver spleen not palpable, no masses palpable. PSYCH: Alert and oriented x3; mood and affect tired MUSCULAR skeletal: Evidence of OA NEUROLOGICAL: Cranial nerves grossly intact; no facial asymmetry, power and sensation grossly intact. LYMPHATICS: No lymph nodes palpable in the axilla and neck INVESTIGATIONS, reviewed in the clinical context: White count 18.9 hemoglobin 12.2 potassium 6 bun 38 creatinine 1.14 ProBNP 80 800 protocol calcitonin 0.12 Chest x-ray film cardiomegaly, some basal left basilar infiltrate 2-D echocardiogram-wall motion abnormality, moderate concentric LVH, EF 35-40% Assessment: -Possible pneumonia, suspect gram-negative orgasm, POA -Acute on chronic congestive heart failure exacerbation from systolic dysfunction EF 30-35%, POA -Acute non-ST elevation myocardial infarction on August 02. -Coronary artery disease with coronary bypass on August 08 -Hyperkalemia from patient being on Zestril, Aldactone -Hyponatremia, likely from excessive water intake Plan: Patient started IV ceftriaxone, IV Lasix. We'll hold off EMEKA inhibitor and Aldactone for now. Patient received Kayexalate earlier. Fluid restriction 1500 mL a day. Consultation to cardiothoracic and pulmonary was done. Past Medical History Past Medical History: Atrial Fibrillation (Paroxysmal postoperative coronary artery bypass grafting surgery, currently in sinus bradycardia.), Coronary Artery Disease (CAD), Cancer, Heart Failure, COPD (Preoperative FEV1 59% percent of predicted value), Hyperlipidemia, Myocardial Infarction (non Q-wave) Additional Past Medical History / Comment(s): prostate CA Last Myocardial Infarction Date:: 08/02/2020 History of Any Multi-Drug Resistant Organisms: None Reported Past Surgical History: Coronary Bypass/CABG (On 08/08/2020, 2 vessel coronary artery bypass grafting with left internal mammary artery to the left anterior descending coronary artery, a reverse greater saphenous vein graft from the aorta to the posterior descending coronary artery.), Heart Catheterization, Prostate Surgery, Tonsillectomy Additional Past Surgical History / Comment(s): prostate removed Past Anesthesia/Blood Transfusion Reactions: No Reported Reaction Past Psychological History: No Psychological Hx Reported Smoking Status: Former smoker Past Alcohol Use History: Occasional Past Drug Use History: None Reported - Past Family History Mother History Unknown: Yes Family Medical History: No Reported History Father History Unknown: Yes Family Medical History: No Reported History Additional Family Medical History / Comment(s): Unsure family history as the patient was not raised by his biological parents Medications and Allergies Home Medications Medication Instructions Recorded Confirmed Type Aspirin EC [Ecotrin Low Dose] 81 mg PO DAILY 08/02/20 08/19/20 History Calcium/Vitamin D(Unknown Dose) 1 tab PO DAILY 08/02/20 08/19/20 History Multivitamins, Thera [Multivitamin 1 tab PO DAILY 08/02/20 08/19/20 History (formulary)] Acetaminophen Tab [Tylenol] 1,000 mg PO Q6HR PRN tab 08/15/20 08/19/20 Rx Amiodarone [Cordarone] 400 mg PO BID #30 tab 08/15/20 08/19/20 Rx Apixaban [Eliquis] 2.5 mg PO BID #60 tablet 08/15/20 08/19/20 Rx Atorvastatin [Lipitor] 40 mg PO HS #30 tab 08/15/20 08/19/20 Rx Clopidogrel [Plavix] 75 mg PO DAILY #30 tab 08/15/20 08/19/20 Rx Metoprolol Tartrate [Lopressor] 50 mg PO BID #60 tab 08/15/20 08/19/20 Rx lisinopriL [Zestril] 2.5 mg PO DAILY@1200 #30 tab 08/15/20 08/19/20 Rx Sennosides-Docusate Sodium 2 tab PO HS PRN 08/19/20 08/19/20 History [Senokot-S] Spironolactone [Aldactone] 25 mg PO DAILY 08/19/20 08/19/20 History Allergies Allergy/AdvReac Type Severity Reaction Status Date / Time doxycycline [From Vibramycin] Allergy Unknown Verified 08/19/20 08:43 Physical Exam Vitals: Vital Signs Temp Pulse Pulse Resp BP BP Pulse Ox 08/19/20 20:00 98.1 F 75 19 145/68 95 08/19/20 16:00 67 18 135/62 94 L 08/19/20 15:59 98.3 F 61 18 122/55 97 08/19/20 11:51 53 L 22 114/61 98 08/19/20 09:13 56 L 26 H 145/55 98 08/19/20 08:43 98.7 F 59 L 24 138/67 96 Intake and Output 08/19/20 08/19/20 08/19/20 06:59 14:59 22:59 Intake Total 236 Output Total 800 Balance -564 Intake: Oral 236 Output: Urine 800 Other: Voiding Method Indwelling Catheter Weight 103.873 kg Results CBC & Chem 7: 08/19/20 09:52 08/19/20 13:53 Labs: Abnormal Lab Results - Last 24 Hours (Table) 08/19/20 08/19/20 08/19/20 Range/Units 09:52 09:52 09:52 WBC 18.9 H (3.8-10.6) k/uL RBC 4.25 L (4.30-5.90) m/uL Hgb 12.2 L (13.0-17.5) gm/dL Plt Count 763 H (150-450) k/uL Neutrophils # 15.8 H (1.3-7.7) k/uL Monocytes # 1.3 H (0-1.0) k/uL PT 13.6 H (9.0-12.0) sec INR 1.4 H (<1.2) Sodium 126 L (137-145) mmol/L Potassium 6.0 H (3.5-5.1) mmol/L Chloride 95 L (98-107) mmol/L BUN 38 H (9-20) mg/dL Glucose 119 H (74-99) mg/dL ALT 85 H (4-49) U/L Total Protein 5.7 L (6.3-8.2) g/dL Procalcitonin (0.02-0.09) ng/mL Urine Ketones (Negative) Urine RBC (0-5) /hpf Urine Bacteria (None) /hpf Hyaline Casts (0-2) /lpf Urine Mucus (None) /hpf 08/19/20 08/19/20 08/19/20 Range/Units 12:41 12:50 13:53 WBC (3.8-10.6) k/uL RBC (4.30-5.90) m/uL Hgb (13.0-17.5) gm/dL Plt Count (150-450) k/uL Neutrophils # (1.3-7.7) k/uL Monocytes # (0-1.0) k/uL PT (9.0-12.0) sec INR (<1.2) Sodium 127 L (137-145) mmol/L Potassium 5.6 H (3.5-5.1) mmol/L Chloride 94 L (98-107) mmol/L BUN 37 H (9-20) mg/dL Glucose (74-99) mg/dL ALT (4-49) U/L Total Protein (6.3-8.2) g/dL Procalcitonin 0.12 H (0.02-0.09) ng/mL Urine Ketones 1+ H (Negative) Urine RBC 23 H (0-5) /hpf Urine Bacteria Rare H (None) /hpf Hyaline Casts 11 H (0-2) /lpf Urine Mucus Rare H (None) /hpf Thrombosis Risk Factor Assmnt - Choose All That Apply Any of the Below Risk Factors Present?: Yes Each Factor Represents 1 point: Abnormal pulmonary function (COPD), Heart failure (<1month), Obesity (BMI >25), Swollen legs (current) Each Risk Factor Represents 2 Points: Malignancy Each Risk Factor Represents 3 Points: Age 75 years or older Other congenital or acquired thrombophilia - If yes, enter type in comment: No Thrombosis Risk Factor Assessment Total Risk Factor Score: 9 Thrombosis Risk Factor Assessment Level: High Risk
[2020-08-20 00:15] VITALS: RESP 18
[2020-08-20 08:07] LABS: Anisocytosis Moderate; Basophils % (A) 0 %; Eosinophils # (A) 0.2 k/uL (0-0.7); Eosinophils % (A) 1 %; HCT 35.8 % (39.0-53.0); HGB 11.8 gm/dL (13.0-17.5); Hypochromasia Slight; Lymphocytes % (A) 6 %; MCH 31.8 pg (25.0-35.0); MCHC 33.1 g/dL (31.0-37.0); Macrocytosis Slight; Mean Platelet Volume 8.1; Monocytes # (A) 1.2 k/uL (0-1.0); Monocytes % (A) 7 %; Neutrophils # (A) 15.1 k/uL (1.3-7.7); Neutrophils % (A) 86 %; Platelet Count 594 k/uL (150-450); RBC 3.73 m/uL (4.30-5.90); RDW 20.8 % (11.5-15.5); WBC 17.7 k/uL (3.8-10.6)
[2020-08-20 08:16] LABS: Calcium 9.4 mg/dL (8.4-10.2); Potassium 4.6 mmol/L (3.5-5.1)
--- NOTE | 2020-08-20 08:27 | XR ---
EXAMINATION TYPE: XR chest 1V portable DATE OF EXAM: 08/20/2020 CLINICAL HISTORY: shortness of breath. TECHNIQUE: Portable frontal view of the chest. COMPARISON: 08/19/2020 chest radiograph FINDINGS: Electronic devices over the mid and lower chest bilaterally. Sternotomy wires. Cardiomegal y. Pulmonary vasculature normal. Small left pleural effusion redemonstrated. No pneumothorax. IMPRESSION: Unchanged radiographic appearance of the chest with small left pleural effusion.
[2020-08-20] MEDS: APIXABAN 2.5 MG TABLET PO SCH ×2 (08:37→20:41)
[2020-08-20] MEDS: guaiFENesin 600 MG TABLET.ER PO SCH ×2 (08:37→20:40)
[2020-08-20] MEDS: ASPIRIN 81 MG PO SCH (08:37)
[2020-08-20] MEDS: FUROSEMIDE 10 MG/ML 2 ML VIAL IV SCH ×3 (08:37→23:14)
[2020-08-20] MEDS: METOPROLOL TARTRATE 25 MG TAB PO SCH ×2 (08:38→20:41)
[2020-08-20] MEDS: MULTIVITAMINS, THERA 1 EACH TAB PO SCH (08:38)
[2020-08-20] MEDS: CLOPIDOGREL 75 MG TAB PO SCH (08:38)
[2020-08-20] MEDS: CALCIUM CARB-VIT D 500MG-200UN 1 EACH TAB PO SCH (08:38)
[2020-08-20] MEDS: AMIODARONE 200 MG TAB PO SCH ×2 (08:38→20:41)
[2020-08-20] MEDS ORDERED: Potassium Replacement Protocol 1 EACH MISC MISCELLANE PRN (08:57)
--- NOTE | 2020-08-20 09:01 | P.PN ---
Subjective Progress Note Date: 08/20/20 Principal diagnosis: Acute on chronic systolic congestive heart failure with an ejection fraction of 35-40%, shortness of breath on admission, hyponatremia and hyperkalemia with a potassium level of 6.0. Past medical history significant for multivessel coronary artery disease and non-STEMI in July 2020 and is status post coronary artery bypass grafting surgery 2 vessels on 08/08/[address] Queenie Vasquez, postoperative paroxysmal atrial fibrillation on eliquis for anticoagulation, hyperlipidemia, right internal carotid artery stenosis 72% at the origin of the right internal carotid artery, ischemic cardiomyopathy, remote history of tobacco dependence, moderate chronic obstructive pulmonary disease with a recent FEV1 59% of predicted value, and history of prostate cancer status post prostatectomy. The patient was seen in follow-up today at his bedside on the cardiac stepdown unit. Currently he is sitting up to the bedside chair, he is awake, alert and oriented 3 and is in no acute distress. He reports that his breathing is much improved this morning, he denies any pain and feels that his swelling to his bilateral lower extremities has improved. Oxygen saturations are 94% on room air. He remains afebrile the last 24 hours and remains on Zithromax and Rocephin for empiric antibiotic coverage. Laboratory results this morning show a WBC count of 17.7, hemoglobin 11.8, platelets 594, sodium 130, potassium 4.6, BUN 31, and creatinine 1.14. He is on Lasix 20 mg IV every 8 hours. Objective - Vital Signs Vital signs: Vital Signs Temp 98.6 F 08/20/20 04:00 Pulse 71 08/20/20 04:00 Resp 18 08/20/20 04:00 BP 133/62 08/20/20 04:00 Pulse Ox 94 L 08/20/20 04:00 Intake & Output 08/19/20 08/20/20 08/20/20 18:59 06:59 18:59 Intake Total 236 800 Output Total 800 2200 Balance -564 -1400 Weight 103.873 kg 98.7 kg Intake: Oral 236 800 Output: Urine 800 2200 Other: Voiding Method Indwelling Catheter - Constitutional General appearance: Present: average body habitus, cooperative, no acute distress - EENT Eyes: Present: normal appearance. Absent: scleral icterus ENT: Present: hearing grossly normal - Neck Details: Neck is supple, no JVD, no lymphadenopathy. - Respiratory Details: Lung sounds essentially clear to his bilateral upper lobes, few scattered crackles and diminished to his bilateral bases. No wheezes or rhonchi. Respirations are symmetrical and nonlabored. Oxygen saturation are 96% on room air. - Cardiovascular Details: Regular rhythm and rate. S1 and S2 present, negative for S3, gallop or murmur. Sternum is stable, occasional clicking felt. +1 edema to his bilateral lower extremities. Knee-high ADALID hose in place to his bilateral lower extremities. Heart hugger is in place and he is demonstrating appropriate use. LifeVest in place. - Gastrointestinal Gastrointestinal Comment(s): Abdomen soft, nontender and nondistended. Active bowel sounds present in all 4 abdominal quadrants. No guarding or rigidity. Tolerating oral intake. Passing flatus. - Genitourinary Genitourinary Comment(s): Osorio catheter for accurate I&O. Draining clear yellow urine. 2.2 L of clear urine output in the last 8 hours. - Integumentary Integumentary Comment(s): Skin is warm and dry. No clubbing or cyanosis is present. Midline sternal incision is clean, dry and approximated. No drainage or redness is present. Left lower extremity EVH site is clean, dry and approximated. No drainage or redness is present. - Neurologic Neurologic: Present: CNII-XII intact - Musculoskeletal Musculoskeletal: Present: gait normal, generalized weakness, strength equal bilaterally - Psychiatric Psychiatric: Present: A&O x's 3, appropriate affect, intact judgment & insight - Allied health notes Allied health notes reviewed: nursing - Labs CBC & Chem 7: 08/20/20 07:09 08/20/20 07:09 Labs: Abnormal Lab Results - Last 24 Hours (Table) 08/19/20 08/19/20 08/19/20 Range/Units 09:52 09:52 09:52 WBC 18.9 H (3.8-10.6) k/uL RBC 4.25 L (4.30-5.90) m/uL Hgb 12.2 L (13.0-17.5) gm/dL Hct (39.0-53.0) % RDW (11.5-15.5) % Plt Count 763 H (150-450) k/uL Neutrophils # 15.8 H (1.3-7.7) k/uL Monocytes # 1.3 H (0-1.0) k/uL PT 13.6 H (9.0-12.0) sec INR 1.4 H (<1.2) Sodium 126 L (137-145) mmol/L Potassium 6.0 H (3.5-5.1) mmol/L Chloride 95 L (98-107) mmol/L BUN 38 H (9-20) mg/dL Glucose 119 H (74-99) mg/dL ALT 85 H (4-49) U/L Total Protein 5.7 L (6.3-8.2) g/dL Procalcitonin (0.02-0.09) ng/mL Urine Ketones (Negative) Urine RBC (0-5) /hpf Urine Bacteria (None) /hpf Hyaline Casts (0-2) /lpf Urine Mucus (None) /hpf 08/19/20 08/19/20 08/19/20 Range/Units 12:41 12:50 13:53 WBC (3.8-10.6) k/uL RBC (4.30-5.90) m/uL Hgb (13.0-17.5) gm/dL Hct (39.0-53.0) % RDW (11.5-15.5) % Plt Count (150-450) k/uL Neutrophils # (1.3-7.7) k/uL Monocytes # (0-1.0) k/uL PT (9.0-12.0) sec INR (<1.2) Sodium 127 L (137-145) mmol/L Potassium 5.6 H (3.5-5.1) mmol/L Chloride 94 L (98-107) mmol/L BUN 37 H (9-20) mg/dL Glucose (74-99) mg/dL ALT (4-49) U/L Total Protein (6.3-8.2) g/dL Procalcitonin 0.12 H (0.02-0.09) ng/mL Urine Ketones 1+ H (Negative) Urine RBC 23 H (0-5) /hpf Urine Bacteria Rare H (None) /hpf Hyaline Casts 11 H (0-2) /lpf Urine Mucus Rare H (None) /hpf 08/20/20 Range/Units 07:09 WBC 17.7 H (3.8-10.6) k/uL RBC 3.73 L (4.30-5.90) m/uL Hgb 11.8 L (13.0-17.5) gm/dL Hct 35.8 L (39.0-53.0) % RDW 20.8 H (11.5-15.5) % Plt Count 594 H (150-450) k/uL Neutrophils # 15.1 H (1.3-7.7) k/uL Monocytes # 1.2 H (0-1.0) k/uL PT (9.0-12.0) sec INR (<1.2) Sodium (137-145) mmol/L Potassium (3.5-5.1) mmol/L Chloride (98-107) mmol/L BUN (9-20) mg/dL Glucose (74-99) mg/dL ALT (4-49) U/L Total Protein (6.3-8.2) g/dL Procalcitonin (0.02-0.09) ng/mL Urine Ketones (Negative) Urine RBC (0-5) /hpf Urine Bacteria (None) /hpf Hyaline Casts (0-2) /lpf Urine Mucus (None) /hpf - Imaging and Cardiology Chest x-ray: report reviewed, image reviewed Assessment and Plan Assessment: 1. Acute on chronic systolic congestive heart failure with an ejection fraction of 35-40%, with 8 pound weight gain over the last few days 2. Hyponatremia 3. Hyperkalemia, resolved 4. Shortness of breath, likely related to acute on chronic systolic heart failure 5. Multivessel coronary artery disease, status post coronary artery bypass grafting 2 vessels on 08/08/2020 6. History of hyperlipidemia 7. History of ischemic cardiomyopathy 8. Moderate COPD with a preoperative FEV1 of 59% of predicted value 9. History of prostate cancer status post prostatectomy 10. Postoperative paroxysmal atrial fibrillation, currently in sinus bradycardia rhythm, on eliquis for anticoagulation 11. History of right internal carotid artery stenosis 72% at the origin of the right internal carotid artery Plan: 1. Continue to optimize medical management with low-dose aspirin, beta michel, and statin. We will increase metoprolol tartrate as tolerated. 2. Continue amiodarone 200 mg by mouth twice a day until 08/24/2020, then decrease to amiodarone 200 mg by mouth daily until August 31 and discontinue[address] Amiodarone [address] for atrial fibrillation prophylaxis. 3. Restart lisinopril 2.5 mg by mouth daily at noon as his hyperkalemia has resolved. Hold for systolic blood pressure less than 100 mmHg. 4. Increase activity as tolerated. Physical and occupational therapy consulted. Out of bed for all meals. 5. Continue to monitor daily labs and chest x-rays. Sodium level is trending up and is 130 today. 6. Encourage use of his incentive spirometry 10 times every hour while awake. 7. Medical management and other comorbidities per primary care service. 8. LifeVest management per cardiology. 9. Antibiotic management per pulmonary/critical care service. 10. Continue Lasix 20 mg IV every 8 hours. Replace potassium per potassium replacement protocol. 11. Continue to follow postoperative CABG discharge instructions, including no lifting pushing or pulling anything greater than 10 pounds or jug of milk for 12 full weeks. 12. Continue Eliquis. 13. Shower daily. 14. Daily weights with accurate I's and O's. Please use standing scale for weights. 15. More recommendations to follow based on patient's clinical course. Anticipate discharge home with home health care within the next 24 hours. Nurse practitioner note has been reviewed by the physician. Signing provider agrees with the above documented findings, assessment and plan of care. Time with Patient: Greater than 30
--- NOTE | 2020-08-20 10:44 | P.PN ---
Subjective Progress Note Date: 08/20/20 CHIEF COMPLAINT: Shortness of breath HISTORY OF PRESENT ILLNESS: Patient examined this morning. He is sitting up in a chair. He states his shortness of breath has significantly improved. He denies chest pain or pressure. He remains on IV Lasix. Creatinine 1.14 this morning. Potassium 4.6. Sodium 130. Fluid balance over the last 24 hours is - 1900 mL. Vital signs are stable. Blood pressure 121/56. Heart rate in the 80s. Patient is on room air with oxygen saturations greater than 92%. Echocardiogram completed revealed ejection fraction between 35 and 40%. PHYSICAL EXAM: VITAL SIGNS: Reviewed. GENERAL: Well-developed in no acute distress. NECK: Supple. No JVD or thyromegaly LUNGS: Respirations even and unlabored. Lungs diminished with a few rales noted at the bases. HEART: Regular rate and rhythm. S1 and S2 heard. EXTREMITIES: Normal range of motion. No clubbing or cyanosis. Peripheral pulses intact. Trace bilateral lower extremity edema ASSESSMENT: Shortness of breath Acute exacerbation of chronic systolic heart failure, EF 35-40% Ischemic cardiomyopathy, on LifeVest Multivessel coronary artery disease, status post CABG 2 vessel on 08/08/2020 COPD History of postoperative paroxysmal atrial fibrillation, currently maintaining sinus mechanism, on anticoagulation with Eliquis Hyperlipidemia Hyponatremia Hyperkalemia, resolved PLAN: Continue current cardiac medications Continue to hold Aldactone. Monitor potassium Continue IV lasix for today Monitor kidney function Daily weights Accurate I&O Nurse practitioner note has been reviewed by physician. Signing provider agrees with the documented findings, assessment, and plan of care. Objective - Vital Signs Vital signs: Vital Signs Temp 98.2 F 08/20/20 08:20 Pulse 82 08/20/20 08:20 Resp 18 08/20/20 08:20 BP 121/56 08/20/20 08:20 Pulse Ox 94 L 08/20/20 08:20 Intake & Output 08/19/20 08/20/20 08/20/20 18:59 06:59 18:59 Intake Total 236 800 180 Output Total 800 2200 Balance -564 -1400 180 Weight 103.873 kg 98.7 kg Intake: Oral 236 800 180 Output: Urine 800 2200 Other: Voiding Method Indwelling Catheter Indwelling Catheter - Labs CBC & Chem 7: 08/20/20 07:09 08/20/20 07:09 Labs: Abnormal Lab Results - Last 24 Hours (Table) 08/19/20 08/19/20 08/19/20 Range/Units 12:41 12:50 13:53 WBC (3.8-10.6) k/uL RBC (4.30-5.90) m/uL Hgb (13.0-17.5) gm/dL Hct (39.0-53.0) % RDW (11.5-15.5) % Plt Count (150-450) k/uL Neutrophils # (1.3-7.7) k/uL Monocytes # (0-1.0) k/uL Sodium 127 L (137-145) mmol/L Potassium 5.6 H (3.5-5.1) mmol/L Chloride 94 L (98-107) mmol/L BUN 37 H (9-20) mg/dL Glucose (74-99) mg/dL Procalcitonin 0.12 H (0.02-0.09) ng/mL Urine Ketones 1+ H (Negative) Urine RBC 23 H (0-5) /hpf Urine Bacteria Rare H (None) /hpf Hyaline Casts 11 H (0-2) /lpf Urine Mucus Rare H (None) /hpf 08/20/20 08/20/20 Range/Units 07:09 07:09 WBC 17.7 H (3.8-10.6) k/uL RBC 3.73 L (4.30-5.90) m/uL Hgb 11.8 L (13.0-17.5) gm/dL Hct 35.8 L (39.0-53.0) % RDW 20.8 H (11.5-15.5) % Plt Count 594 H (150-450) k/uL Neutrophils # 15.1 H (1.3-7.7) k/uL Monocytes # 1.2 H (0-1.0) k/uL Sodium 130 L (137-145) mmol/L Potassium (3.5-5.1) mmol/L Chloride 94 L (98-107) mmol/L BUN 31 H (9-20) mg/dL Glucose 116 H (74-99) mg/dL Procalcitonin (0.02-0.09) ng/mL Urine Ketones (Negative) Urine RBC (0-5) /hpf Urine Bacteria (None) /hpf Hyaline Casts (0-2) /lpf Urine Mucus (None) /hpf
[2020-08-20] MEDS: AZITHROMYCIN 500 MG TAB PO SCH (11:31)
--- NOTE | 2020-08-20 17:07 | P.PN ---
Subjective Progress Note Date: 08/20/20 Principal diagnosis: Weakness, heaviness in the legs, cough cold sweat This is a 85-year-old white male patient of Dr. Henrik Perez who recently underwent off pump coronary artery bypass grafting with LUCERO to the LAD, reverse SVG to the aorta and to the PDA with endoscopic harvesting of the left greater saphenous vein on 08/08/2020, recent history of non-ST elevated myocardial infarction in July 2020. Patient did have progress for atrial fibrillation in the postoperative period, he is on Eliquis for anticoagulation. He was found to have right internal carotid artery stenosis 72% during his preoperative evaluation, he has ischemic cardiomyopathy with ejection fraction of 30-35%. His preop FEV1 was in error of 59% of predicted, consistent with the moderately severe obstructive pulmonary disease, on medical history is that of hyperlipidemia, and history of prostate cancer status post surgical resection. Patient was discharged home 08/15/2020 on lisinopril, Aldactone, Eliquis 2.5 mg twice daily, amiodarone 400 mg twice a day, metoprolol 50 mg twice a day, Plavix 75 mg daily. Patient came into the emergency department today with complaints of weakness, shortness of breath that started 2 days ago, cold sweats, cough, with production of whitish colored phlegm, heaviness in the legs. Denied any urinary symptoms, denied any hemoptysis, denied any chest pain. Denied any fever or chills. No nausea vomiting or diarrhea. Chest x-ray showed small left pleural effusion and left basilar atelectasis/infiltrate with a possibility of left basilar infiltrate/pneumonia. White blood cell count was 18.9, hemoglobin is 12.2, INR is 1.4, sodium was 126, potassium 6.0, chloride was 95, CO2 is 25, B1 is 30 creatinine is 1.14, asthma lactic acid was 1.7, proBNP was 8008 100, troponin was 0.017, ALT was 85, AST was 59, and alkaline phosphatase was 122, urinalysis showed 1+ ketones, large amount of leuks, no significant WBCs, rare bacteria, culture was sent. Patient is afebrile, not liters of oxygen a pulse ox of 98%, he is in sinus mechanism, with a rate of 55-59 with right bundle branch block pattern. His Aldactone and Eliquis were placed on hold, patient was given a dose of oral Kayexalate, and Lasix, patient has not produced much urine, full catheter will be placed, repeat BMP is pending, patient is awake and alert, he is seen in the emergency department, resting comfortably on the gurney. On 2 L of oxygen a pulse ox of 98%, hemodynamically stable, remains afebrile. He was started on empiric antibiotics in the form of azithromycin and Rocephin On 08/20/2020 patient seen in follow-up on selective care unit, he is diuresing, he is breathing better, he is on room air pulse ox is 94%, his been afebrile, his quit 19 PCR is still pending, his chest x-ray today shows stable findings of small left pleural effusion. His been afebrile during this admission. No phlegm production, no chest pain, his white blood cell count is 17.7, hemoglobin is 11.8, his sodium has improved, and is up to 1:30, his potassium is 4.6, his Aldactone and lisinopril remain on hold, his BUN is 31 and creatinine is 1.14, pro-calcitonin level was not elevated at 0.12, making a possibility of bacterial infection less likely, his proBNP on admission was 8800 suggesting acute exacerbation of CHF. Urinalysis did not show evidence of urinary tract infection, blood cultures have been negative, patient remains on azithromycin and Rocephin for empiric antibiotic coverage. Objective - Vital Signs Vital signs: Vital Signs Temp 97.3 F L 08/20/20 15:10 Pulse 77 08/20/20 15:10 Resp 18 08/20/20 15:10 BP 117/69 08/20/20 15:10 Pulse Ox 94 L 08/20/20 15:10 Intake & Output 08/19/20 08/20/20 08/20/20 18:59 06:59 18:59 Intake Total 236 800 180 Output Total 800 2200 1800 Balance -561 -1400 -2070 Weight 103.873 kg 98.7 kg Intake: Oral 236 800 180 Output: Urine 800 2200 1800 Other: Voiding Method Indwelling Catheter Indwelling Catheter - Exam GENERAL EXAM: Alert, very pleasant, 85-year-old white male, on 2 L of oxygen above 90% comfortable in no apparent distress. HEAD: Normocephalic/atraumatic. EYES: Normal reaction of pupils, equal size. Conjunctiva pink, sclera white. NOSE: Clear with pink turbinates. THROAT: No erythema or exudates. NECK: No masses, no JVD, no thyroid enlargement, no adenopathy. CHEST: No chest wall deformity. Symmetrical expansion. Midsternal incision well-healed, clean dry and intact, from her chest tube sites are clean dry and intact LUNGS: Equal air entry with mild bibasilar crackles, but no wheeze, rhonchi or dullness. CVS: Regular rate and rhythm, normal S1 and S2, no gallops, no murmurs, no rubs ABDOMEN: Soft, nontender. No hepatosplenomegaly, normal bowel sounds, no guarding or rigidity. EXTREMITIES: No clubbing, no edema, no cyanosis, 2+ pulses and upper and lower extremities. MUSCULOSKELETAL: Muscle strength and tone normal. SPINE: No scoliosis or deformity SKIN: No rashes CENTRAL NERVOUS SYSTEM: Alert and oriented -3. No focal deficits, tone is normal in all 4 extremities. PSYCHIATRIC: Alert and oriented -3. Appropriate affect. Intact judgment and insight. - Labs CBC & Chem 7: 08/20/20 07:09 08/20/20 07:09 Labs: Abnormal Lab Results - Last 24 Hours (Table) 08/19/20 08/20/20 08/20/20 Range/Units 12:41 07:09 07:09 WBC 17.7 H (3.8-10.6) k/uL RBC 3.73 L (4.30-5.90) m/uL Hgb 11.8 L (13.0-17.5) gm/dL Hct 35.8 L (39.0-53.0) % RDW 20.8 H (11.5-15.5) % Plt Count 594 H (150-450) k/uL Neutrophils # 15.1 H (1.3-7.7) k/uL Monocytes # 1.2 H (0-1.0) k/uL Sodium 130 L (137-145) mmol/L Chloride 94 L (98-107) mmol/L BUN 31 H (9-20) mg/dL Glucose 116 H (74-99) mg/dL Procalcitonin 0.12 H (0.02-0.09) ng/mL Microbiology - Last 24 Hours (Table) 08/19/20 12:41 Blood Culture - Preliminary Blood No Growth after 24 hours 08/19/20 12:41 Blood Culture - Preliminary Blood No Growth after 24 hours Assessment and Plan Plan: Assessment: #1. Dyspnea, cough, weakness, left basilar infiltrate/atelectasis, cannot rule out possibility of pneumonia. COVID 19 PCR is also pending #2. Leukocytosis possibly related to community-acquired pneumonia, urinary tract infection ruled out #3. Hyponatremia possibly related to hypervolemia, improving with diuresis #4. Hyperkalemia likely related to Aldactone and lisinopril, both are on hold, serum potassium was 6.0 on admission, was treated with Kayexalate, repeat potassium is down to 4.6 #5. Acute exacerbation of chronic CHF with systolic dysfunction #6. Coronary artery disease, status post two-vessel off-pump bypass grafting on 08/08/2020, patient was discharged home on 08/15/2020 #7. History of ischemic cardiomyopathy with EF of 30-35% #8. History of hyperlipidemia #9. Moderately severe COPD with preop FEV1 value of 59% of predicted #10. History of prostate cancer status post prostatectomy #11. Postoperative paroxysmal atrial fibrillation, currently in sinus bradycardia with a rate of 55 BPM, on Eliquis #12. Right carotid artery stenosis Plan: Continue current management, continue IV Lasix, antibiotics, vital signs have been stable, patient is breathing easier, he is in negative fluid balance, follow-up chest x-ray in the morning, still awaiting results Covid 19 PCR. Follow-up blood work in the morning, BMP, CBC, monitor fever pattern, dyspnea, and oxygenation pattern. Follow-up pro-calcitonin. We will follow I performed a history & physical examination of the patient and discussed their management with my nurse practitioner, Kaylynn Cabezas. I reviewed the nurse practitioner's note and agree with the documented findings and plan of care. Lung sounds are positive for diminished breath sounds, with mild crackles at the bases. The findings and the impression was discussed with the patient. I attest to the documentation by the nurse practitioner. Time with Patient: Less than 30
[2020-08-20] MEDS: ATORVASTATIN 40 MG TAB PO SCH (20:41)
[2020-08-20 22:28] VITALS: TEMP 98.5
--- NOTE | 2020-08-20 23:40 | P.PN ---
Progress Note - Text Progress Note Date: 08/20/20 Chief Complaint: Short of breath History of presenting complaint: This is a 85-year-old patient of Dr. Henrik Perez. Recently was in the hospital with daniel Pelaez microinfarction cardiac catheterization showing severe coronary artery disease. August 08 underwent coronary bypass. On August 15 patient was discharged. At the time of discharge patient was up and about in the hallway. Breathing well. Tolerating a diet. Patient now presents with increasing shortness of breath. Some lower extremity edema. Slight cough with clear sputum. No fever no chills. Tired rundown. Admitted with pneumonia, CHF exacerbation. Started IV ceftriaxone and IV Lasix. Today-sitting up in a chair. Breathing is better. Less cough. Appetite improving. Review of systems: Was done for constitutional, cardiovascular, GI, pulmonary. relevant finding as above Active Medications Acetaminophen (Acetaminophen Tab 500 Mg Tab) 1,000 mg PO Q6HR PRN PRN Reason: Fever and/ or Pain Amiodarone HCl (Amiodarone 200 Mg Tab) 200 mg PO BID [facility]; Taper Stop: 08/30/20 22:59 Last Admin: 08/20/20 20:41 Dose: 200 mg Documented by: Apixaban (Apixaban 2.5 Mg Tablet) 2.5 mg PO BID [facility] Last Admin: 08/20/20 20:41 Dose: 2.5 mg Documented by: Aspirin (Aspirin 81 Mg) 81 mg PO DAILY [facility] Last Admin: 08/20/20 08:37 Dose: 81 mg Documented by: Atorvastatin Calcium (Atorvastatin 40 Mg Tab) 40 mg PO HS [facility] Last Admin: 08/20/20 20:41 Dose: 40 mg Documented by: Azithromycin (Azithromycin 500 Mg Tab) 500 mg PO DAILY@1200 [facility] Last Admin: 08/20/20 11:31 Dose: 500 mg Documented by: Calcium Carbonate (Calcium Carb-Vit D 500mg-200un 1 Each Tab) 1 each PO DAILY [facility] Last Admin: 08/20/20 08:38 Dose: 1 each Documented by: Clopidogrel Bisulfate (Clopidogrel 75 Mg Tab) 75 mg PO DAILY [facility] Last Admin: 08/20/20 08:38 Dose: 75 mg Documented by: Furosemide (Furosemide 10 Mg/Ml 2 Ml Vial) 20 mg IV Q8HR [facility] Last Admin: 08/20/20 23:14 Dose: 20 mg Documented by: Guaifenesin (Guaifenesin 600 Mg Tablet.Er) 1,200 mg PO Q12HR [facility] Last Admin: 08/20/20 20:40 Dose: 1,200 mg Documented by: Ceftriaxone Sodium 2 gm/ (Sodium Chloride) 50 mls @ 100 mls/hr IVPB Q24HR [facility] Stop: 08/22/20 09:01 Last Admin: 08/20/20 08:37 Dose: 100 mls/hr Documented by: Lisinopril (Lisinopril 2.5 Mg Tab) 2.5 mg PO DAILY [facility] Last Admin: 08/20/20 11:31 Dose: 2.5 mg Documented by: Metoprolol Tartrate (Metoprolol Tartrate 25 Mg Tab) 25 mg PO BID [facility] Last Admin: 08/20/20 20:41 Dose: 25 mg Documented by: Miscellaneous Information (Pneumonia Protocol Utilized 1 Each Misc) 1 each PO ONCE PRN PRN Reason: Per Protocol Miscellaneous Information (Potassium Replacement Protocol 1 Each Misc) 1 each MISCELLANE DAILY PRN; Protocol PRN Reason: Per Protocol Multivitamins (Multivitamins, Thera 1 Each Tab) 1 each PO DAILY [facility] Last Admin: 08/20/20 08:38 Dose: 1 each Documented by: Senna/Docusate Sodium (Sennosides-Docusate Sodium 1 Each Tab) 2 each PO HS PRN PRN Reason: Constipation Last Admin: 08/20/20 20:40 Dose: 2 each Documented by: Physical examination: VITAL SIGNS: 97.3, 77, 18, 117/69, 94% room air GENERAL: Sitting up in a chair, breathing a bit better EYES: Pupils equal. Conjunctiva normal. NECK: JVD unable to assess; masses not palpable. HEART: First and second heart sounds are normal; edema present LUNGS: Respiratory rate increased; decreased breath sounds ABDOMEN: Soft, nontender, liver spleen not palpable, no masses palpable. PSYCH: Alert and oriented x3; mood and affect tired MUSCULAR skeletal: Evidence of OA INVESTIGATIONS, reviewed in the clinical context: White count 7.7 hemoglobin 11.8 platelets 594 potassium 4.6 creatinine 1.14 White count 18.9 hemoglobin 12.2 potassium 6 bun 38 creatinine 1.14 ProBNP 80 800 protocol calcitonin 0.12 Chest x-ray film cardiomegaly, some basal left basilar infiltrate 2-D echocardiogram-wall motion abnormality, moderate concentric LVH, EF 35-40% Assessment: -Possible pneumonia, suspect gram-negative orgasm, POA -Acute on chronic congestive heart failure exacerbation from systolic dysfunction EF 30-35%, POA-responding -Acute non-ST elevation myocardial infarction on August 02. -Coronary artery disease with coronary bypass on August 08 -Hyperkalemia from patient being on Zestril, Aldactone-corrected -Hyponatremia, likely from excessive water intake Plan: Continue with IV ceftriaxone, IV Lasix. Patient responding clinically. Discussed with the patient. Check labs the morning.
[2020-08-21 07:34] LABS: Anisocytosis Moderate; Basophils % (A) 0 %; Eosinophils # (A) 0.2 k/uL (0-0.7); Eosinophils % (A) 1 %; HCT 34.3 % (39.0-53.0); HGB 11.5 gm/dL (13.0-17.5); Hypochromasia Slight; Lymphocytes # (A) 0.9 k/uL (1.0-4.8); Lymphocytes % (A) 6 %; MCH 32.3 pg (25.0-35.0); MCHC 33.5 g/dL (31.0-37.0); MCV 96.2 fL (80.0-100.0); Macrocytosis Slight; Monocytes # (A) 1.4 k/uL (0-1.0); Monocytes % (A) 9 %; Neutrophils # (A) 12.9 k/uL (1.3-7.7); Neutrophils % (A) 82 %; Platelet Count 534 k/uL (150-450); RBC 3.56 m/uL (4.30-5.90); WBC 15.7 k/uL (3.8-10.6)
--- NOTE | 2020-08-21 07:41 | XR ---
EXAMINATION TYPE: XR chest 1V portable DATE OF EXAM: 08/21/2020 CLINICAL HISTORY: Difficulty breathing progress study. Postoperative resection cardiac surgery. TECHNIQUE: Single AP portable upright view of the chest is obtained. COMPARISON: Chest x-ray from one day earlier and older studies. CT chest August 05, 2020. FINDINGS: Persistent overlying electronic devices. Overlying sternal wires and mediastinal clips red emonstrated. Persistent cardiomegaly with atherosclerotic thoracic aorta. Persistent chronic parenchy mal change with small bilateral pleural effusions and patchy left basilar opacity. Osseous structures remain intact. IMPRESSION: Chronic changes and cardiomegaly with small left greater than right pleural effusions and associated left basilar atelectasis and/or infiltrate. No significant change from one day earlier.
[2020-08-21 07:44] LABS: Calcium 9.2 mg/dL (8.4-10.2); Potassium 4.3 mmol/L (3.5-5.1); Total Bilirubin 1.1 mg/dL (0.2-1.3); Total Protein 4.9 g/dL (6.3-8.2)
[2020-08-21] MEDS: FUROSEMIDE 10 MG/ML 2 ML VIAL IV SCH (08:29)
[2020-08-21] MEDS: CLOPIDOGREL 75 MG TAB PO SCH (08:29)
[2020-08-21] MEDS: METOPROLOL TARTRATE 25 MG TAB PO SCH (08:29)
[2020-08-21] MEDS: ASPIRIN 81 MG PO SCH (08:30)
[2020-08-21] MEDS: CALCIUM CARB-VIT D 500MG-200UN 1 EACH TAB PO SCH (08:30)
[2020-08-21] MEDS: AZITHROMYCIN 500 MG TAB PO SCH (08:30)
[2020-08-21] MEDS: APIXABAN 2.5 MG TABLET PO SCH (08:30)
[2020-08-21] MEDS: MULTIVITAMINS, THERA 1 EACH TAB PO SCH (08:30)
[2020-08-21] MEDS: AMIODARONE 200 MG TAB PO SCH (08:30)
[2020-08-21] MEDS: guaiFENesin 600 MG TABLET.ER PO SCH (08:31)
[2020-08-21 10:03] VITALS: PULSE 77
--- NOTE | 2020-08-21 10:30 | P.PN ---
Subjective Progress Note Date: 08/21/20 Principal diagnosis: Acute on chronic systolic congestive heart failure with an ejection fraction of 35-40%, shortness of breath on admission, hyponatremia and hyperkalemia POA. P revious medical history of multivessel coronary artery disease with recent non- STEMI in July 2020 status post 2V CABG on 08/08/2020 with postoperative paroxysmal atrial fibrillation on Eliquis for anticoagulation, hyperlipidemia, right internal carotid artery stenosis 72% at the origin of the right internal carotid artery, ischemic cardiomyopathy, previous tobacco dependence, moderate chronic obstructive pulmonary disease with a recent FEV1 59% of predicted value, and history of prostate cancer status post prostatectomy. The patient is sitting up in the recliner in no acute distress eating breakfast. Denies chest pain, shortness of breath. States he feels much better than when he came in and feels ready to go home. Has been ambulatory without difficulty. Remains in sinus rhythm with no further evidence of afib. WBC, BNP trending down. Remains on IV abt per primary care. Weight is down and patient continues to diurese. No new concerns. Objective - Vital Signs Vital signs: Vital Signs Temp 98.5 F 08/21/20 04:00 Pulse 73 08/21/20 04:00 Resp 18 08/21/20 04:00 BP 121/64 08/21/20 04:00 Pulse Ox 94 L 08/21/20 04:00 Intake & Output 08/20/20 08/21/20 08/21/20 18:59 06:59 18:59 Intake Total 360 240 Output Total 1800 260 Balance -1440 -260 240 Weight 96.8 kg Intake: Oral 360 240 Output: Urine 1800 260 Other: Voiding Method Indwelling Catheter Indwelling Catheter # Bowel Movements 1 - Constitutional General appearance: Present: cooperative, no acute distress - Respiratory Details: Lungs sounds diminished bilaterally. Respirations even, nonlabored. Currently on room air with oxygen saturation 94%. Able to achieve 1250 mL on his incenti ve spirometry. Strong, nonproductive cough. - Cardiovascular Details: S1, S2 present. Regular rate and rhythm, sinus rhythm on telemetry. Sternum stable. Palpable peripheral pulses bilaterally. Trace bilateral lower extremity edema present. No calf pain or tenderness noted. Heart hugger in place with patient demonstrating appropriate use. - Gastrointestinal Gastrointestinal Comment(s): Abdomen soft, nontender, nondistended. Active bowel sounds present 4 quadrants. Tolerating diet. Positive bowel movement this morning per patient - Genitourinary Genitourinary Comment(s): Indwelling Osorio catheter present, draining clear, yellow urine, output 450 mL overnight, negative fluid balance with more than 2 L urine output in the last 24 hours - Integumentary Integumentary Comment(s): Skin is warm and dry with evidence of good perfusion. Anterior chest incision well approximated without redness or drainage - Neurologic Neurologic: Present: CNII-XII intact - Musculoskeletal Musculoskeletal: Present: gait normal, strength equal bilaterally - Psychiatric Psychiatric: Present: A&O x's 3, appropriate affect, intact judgment & insight - Allied health notes Allied health notes reviewed: nursing - Labs CBC & Chem 7: 08/21/20 06:52 08/21/20 06:52 Labs: Abnormal Lab Results - Last 24 Hours (Table) 08/20/20 08/21/20 08/21/20 Range/Units 07:09 06:52 06:52 WBC 15.7 H (3.8-10.6) k/uL RBC 3.56 L (4.30-5.90) m/uL Hgb 11.5 L (13.0-17.5) gm/dL Hct 34.3 L (39.0-53.0) % RDW 21.0 H (11.5-15.5) % Plt Count 534 H (150-450) k/uL Neutrophils # 12.9 H (1.3-7.7) k/uL Lymphocytes # 0.9 L (1.0-4.8) k/uL Monocytes # 1.4 H (0-1.0) k/uL Sodium 130 L 132 L (137-145) mmol/L Chloride 94 L 94 L (98-107) mmol/L Carbon Dioxide 35 H (22-30) mmol/L BUN 31 H 34 H (9-20) mg/dL Glucose 116 H (74-99) mg/dL ALT 62 H (4-49) U/L Total Protein 4.9 L (6.3-8.2) g/dL Albumin 3.0 L (3.5-5.0) g/dL Microbiology - Last 24 Hours (Table) 08/19/20 12:41 Blood Culture - Preliminary Blood No Growth after 24 hours 08/19/20 12:41 Blood Culture - Preliminary Blood No Growth after 24 hours - Imaging and Cardiology Chest x-ray: report reviewed, image reviewed Assessment and Plan Assessment: 1. Acute on chronic systolic congestive heart failure, ejection fraction of 35- 40% on most recent echocardiogram 2. Hyponatremia, sodium 132 this morning 3. Hyperkalemia, resolved 4. Shortness of breath on admission, likely related to acute on chronic systolic heart failure 5. History of multivessel coronary artery disease, recent non-STEMI, status post 2 vessel CABG on 08/08/2020 6. History of hyperlipidemia, treated 7. History of ischemic cardiomyopathy 8. Previous tobacco dependence 9. Moderate COPD with a preoperative FEV1 of 59% of predicted value 10. History of prostate cancer status post prostatectomy 11. Postoperative paroxysmal atrial fibrillation, currently in sinus rhythm, on eliquis for anticoagulation 12. History of right internal carotid artery stenosis 72% at the origin of the right internal carotid artery Plan: 1. Continue low-dose aspirin, beta michel, and statin. Continue lisinopril for afterload reduction, increased to 5 mg daily 2. Continue amiodarone for A. fib prophylaxis, 200 mg by mouth twice a day until 08/24/2020, then decrease to amiodarone 200 mg by mouth daily until August 31 and discontinue. Continue Eliquis 3. Encourage use of his incentive spirometry 10 times every hour while awake 4. Increase activity, ambulate as tolerated. Out of bed for all meals. 5. Continue to monitor daily labs and chest x-rays while hospitalized. 6. Recommend no Aldactone. Continue Lasix, recommend 40 mg by mouth daily as an outpatient, may need to increase dependent on intake and output and daily weight 7. Continue to follow postoperative CABG discharge instructions, including no lifting pushing or pulling anything greater than 10 pounds for 12 full weeks. 8. Patient must shower daily. No dressings required to incisions 9. Daily weights with accurate I's and O's. Please use standing scale for weights. 10. GI/DVT prophylaxis 11. Medical management of other comorbidities per primary care service. 12. LifeVest management per cardiology. 13. Antibiotic management per pulmonary/critical care service. 14. Recommend discharge to home with home care today. Follow-up appointments have been made and cardiac surgery discharge instructions placed on the discharge plan. Recommendations were discussed at length with the patient's who is very nervous about bringing him home, we did offer to see the patient in the office as often as necessary to make both the patient and feel comfortable. The need to continue daily weights and report any increase as well as limitation of fluids was reinforced with the patient's . 15. More recommendations to follow based on patient's clinical course. The patient was seen and examined at the bedside, I agree with the assessment and plan documented by the nurse practitioner Time with Patient: Greater than 30
--- NOTE | 2020-08-21 11:39 | P.PN ---
Subjective Progress Note Date: 08/21/20 CHIEF COMPLAINT: Shortness of breath HISTORY OF PRESENT ILLNESS: Patient examined this morning at the bedside. Patient states he is feeling significantly better this morning. He denies chest pain or pressure. He denies shortness of breath. He remains on IV diuretics. Fluid balance over the last 24 hours is -1700 mL. Weight is down approximately 2 kg. Creatinine 1.02 today. PHYSICAL EXAM: VITAL SIGNS: Reviewed. GENERAL: Well-developed in no acute distress. NECK: Supple. No JVD or thyromegaly LUNGS: Respirations even and unlabored. Lungs diminished. HEART: Regular rate and rhythm. S1 and S2 heard. EXTREMITIES: Normal range of motion. No clubbing or cyanosis. Peripheral pulses intact. Trace bilateral lower extremity edema ASSESSMENT: Shortness of breath Acute exacerbation of chronic systolic heart failure, EF 35-40% Ischemic cardiomyopathy, on LifeVest Multivessel coronary artery disease, status post CABG 2 vessel on 08/08/2020 COPD History of postoperative paroxysmal atrial fibrillation, currently maintaining sinus mechanism, on anticoagulation with Eliquis Hyperlipidemia Hyponatremia Hyperkalemia, resolved PLAN: Patient is hoping to be discharged home today. He has been cleared for discharge from CTS. Agreeable for discharge home today from a cardiac perspective. Patient will be discharged home on Lasix 40 mg daily. Aldactone will remain on hold at time of discharge. He is to follow up outpatient. Nurse practitioner note has been reviewed by physician. Signing provider agrees with the documented findings, assessment, and plan of care. Objective - Vital Signs Vital signs: Vital Signs Temp 98.5 F 08/21/20 04:00 Pulse 77 08/21/20 08:00 Resp 18 08/21/20 08:00 BP 109/49 08/21/20 08:00 Pulse Ox 92 L 08/21/20 08:00 Intake & Output 08/20/20 08/21/20 08/21/20 18:59 06:59 18:59 Intake Total 360 240 Output Total 1800 260 450 Balance -1440 -260 -210 Weight 96.8 kg Intake: Oral 360 240 Output: Urine 1800 260 450 Other: Voiding Method Indwelling Catheter Indwelling Catheter Indwelling Catheter # Bowel Movements 1 - Labs CBC & Chem 7: 08/21/20 06:52 08/21/20 06:52 Labs: Abnormal Lab Results - Last 24 Hours (Table) 08/21/20 08/21/20 08/21/20 Range/Units 06:52 06:52 06:52 WBC 15.7 H (3.8-10.6) k/uL RBC 3.56 L (4.30-5.90) m/uL Hgb 11.5 L (13.0-17.5) gm/dL Hct 34.3 L (39.0-53.0) % RDW 21.0 H (11.5-15.5) % Plt Count 534 H (150-450) k/uL Neutrophils # 12.9 H (1.3-7.7) k/uL Lymphocytes # 0.9 L (1.0-4.8) k/uL Monocytes # 1.4 H (0-1.0) k/uL Sodium 132 L (137-145) mmol/L Chloride 94 L (98-107) mmol/L Carbon Dioxide 35 H (22-30) mmol/L BUN 34 H (9-20) mg/dL ALT 62 H (4-49) U/L Total Protein 4.9 L (6.3-8.2) g/dL Albumin 3.0 L (3.5-5.0) g/dL Procalcitonin 0.12 H (0.02-0.09) ng/mL Microbiology - Last 24 Hours (Table) 08/19/20 12:41 Blood Culture - Preliminary Blood No Growth after 24 hours 08/19/20 12:41 Blood Culture - Preliminary Blood No Growth after 24 hours
[2020-08-21 11:50] VITALS: BP 106/53
--- NOTE | 2020-08-21 14:23 | P.PN ---
Subjective Progress Note Date: 08/21/20 Principal diagnosis: Cough, congestion, weakness This is a 85-year-old white male patient of Dr. Henrik Perez who recently underwent off pump coronary artery bypass grafting with LUCERO to the LAD, reverse SVG to the aorta and to the PDA with endoscopic harvesting of the left greater saphenous vein on 08/08/2020, recent history of non-ST elevated myocardial infarction in July 2020. Patient did have progress for atrial fibrillation in the postoperative period, he is on Eliquis for anticoagulation. He was found to have right internal carotid artery stenosis 72% during his preoperative evaluation, he has ischemic cardiomyopathy with ejection fraction of 30-35%. His preop FEV1 was in error of 59% of predicted, consistent with the moderately severe obstructive pulmonary disease, on medical history is that of hyperlipidemia, and history of prostate cancer status post surgical resection. Patient was discharged home 08/15/2020 on lisinopril, Aldactone, Eliquis 2.5 mg twice daily, amiodarone 400 mg twice a day, metoprolol 50 mg twice a day, Plavix 75 mg daily. Patient came into the emergency department today with complaints of weakness, shortness of breath that started 2 days ago, cold sweats, cough, with production of whitish colored phlegm, heaviness in the legs. Denied any urinary symptoms, denied any hemoptysis, denied any chest pain. Denied any fever or chills. No nausea vomiting or diarrhea. Chest x-ray showed small left pleural effusion and left basilar atelectasis/infiltrate with a possibility of left basilar infiltrate/pneumonia. White blood cell count was 18.9, hemoglobin is 12.2, INR is 1.4, sodium was 126, potassium 6.0, chloride was 95, CO2 is 25, B1 is 30 creatinine is 1.14, asthma lactic acid was 1.7, proBNP was 8008 100, troponin was 0.017, ALT was 85, AST was 59, and alkaline phosphatase was 122, urinalysis showed 1+ ketones, large amount of leuks, no significant WBCs, rare bacteria, culture was sent. Patient is afebrile, not liters of oxygen a pulse ox of 98%, he is in sinus mechanism, with a rate of 55-59 with right bundle branch block pattern. His Aldactone and Eliquis were placed on hold, patient was given a dose of oral Kayexalate, and Lasix, patient has not produced much urine, full catheter will be placed, repeat BMP is pending, patient is awake and alert, he is seen in the emergency department, resting comfortably on the gurney. On 2 L of oxygen a pulse ox of 98%, hemodynamically stable, remains afebrile. He was started on empiric antibiotics in the form of azithromycin and Rocephin On 08/20/2020 patient seen in follow-up on selective care unit, he is diuresing, he is breathing better, he is on room air pulse ox is 94%, his been afebrile, his quit 19 PCR is still pending, his chest x-ray today shows stable findings of small left pleural effusion. His been afebrile during this admission. No phl egm production, no chest pain, his white blood cell count is 17.7, hemoglobin is 11.8, his sodium has improved, and is up to 1:30, his potassium is 4.6, his Aldactone and lisinopril remain on hold, his BUN is 31 and creatinine is 1.14, pro-calcitonin level was not elevated at 0.12, making a possibility of bacterial infection less likely, his proBNP on admission was 8800 suggesting acute exacerbation of CHF. Urinalysis did not show evidence of urinary tract infection, blood cultures have been negative, patient remains on azithromycin and Rocephin for empiric antibiotic coverage. The patient is seen today 08/20/2020 in follow-up on the selective care unit. He is currently sitting up in a chair at the bedside. Awake and alert in no acute distress. He denies any worsening shortness of breath, cough or congestion. He is maintaining O2 saturations in the mid 90s on room air. He's been afebrile. Hemodynamically stable. Blood cultures reveal no growth to date. White count 15.7. Hemoglobin 11.5. Sodium 132. Potassium 4.3. Creatinine 1.02. He is continued on Eliquis, amiodarone, antibiotics in the form of ceftriaxone and azithromycin. Chest x-ray reveals chronic changes and c ardiomegaly with small left greater than right pleural effusions and associated left basilar atelectasis. He continues to work well with the incentive spirometer. Objective - Vital Signs Vital signs: Vital Signs Temp 98.5 F 08/21/20 04:00 Pulse 77 08/21/20 11:48 Resp 18 08/21/20 11:48 BP 106/53 08/21/20 11:48 Pulse Ox 96 08/21/20 11:48 Intake & Output 08/20/20 08/21/20 08/21/20 18:59 06:59 18:59 Intake Total 360 420 Output Total 1800 260 450 Balance -1440 -260 -30 Weight 96.8 kg Intake: Oral 360 420 Output: Urine 1800 260 450 Other: Voiding Method Indwelling Catheter Indwelling Catheter Indwelling Catheter # Bowel Movements 1 - Exam GENERAL EXAM: Alert, very pleasant 85-year-old gentleman, on room air, comfortab le in no apparent distress. HEAD: Normocephalic. EYES: Normal reaction of pupils, equal size. NOSE: Clear with pink turbinates. THROAT: No erythema or exudates. NECK: No masses, no JVD. CHEST: Sternal dressing dry and intact. Heart Hugger in place. LUNGS: Equal air entry with faint basilar crackles. CVS: S1 and S2 normal with no audible murmur, regular rhythm. ABDOMEN: No hepatosplenomegaly, normal bowel sounds, no guarding or rigidity. SPINE: No scoliosis or deformity SKIN: No rashes CENTRAL NERVOUS SYSTEM: No focal deficits, tone is normal in all 4 extremities. EXTREMITIES: There is no peripheral edema. No clubbing, no cyanosis. Peripheral pulses are intact. - Labs CBC & Chem 7: 08/21/20 06:52 08/21/20 06:52 Labs: Abnormal Lab Results - Last 24 Hours (Table) 08/21/20 08/21/20 08/21/20 Range/Units 06:52 06:52 06:52 WBC 15.7 H (3.8-10.6) k/uL RBC 3.56 L (4.30-5.90) m/uL Hgb 11.5 L (13.0-17.5) gm/dL Hct 34.3 L (39.0-53.0) % RDW 21.0 H (11.5-15.5) % Plt Count 534 H (150-450) k/uL Neutrophils # 12.9 H (1.3-7.7) k/uL Lymphocytes # 0.9 L (1.0-4.8) k/uL Monocytes # 1.4 H (0-1.0) k/uL Sodium 132 L (137-145) mmol/L Chloride 94 L (98-107) mmol/L Carbon Dioxide 35 H (22-30) mmol/L BUN 34 H (9-20) mg/dL ALT 62 H (4-49) U/L Total Protein 4.9 L (6.3-8.2) g/dL Albumin 3.0 L (3.5-5.0) g/dL Procalcitonin 0.12 H (0.02-0.09) ng/mL Microbiology - Last 24 Hours (Table) 08/19/20 12:41 Blood Culture - Preliminary Blood No Growth after 24 hours 08/19/20 12:41 Blood Culture - Preliminary Blood No Growth after 24 hours Assessment and Plan Assessment: #1. Dyspnea, cough, weakness, left basilar infiltrate/atelectasis, doubt pneumonia. Pro calcitonin 0.12, currently on ceftriaxone and azithromycin #2. Leukocytosis possibly related to community-acquired pneumonia, urinary tract infection ruled out #3. Hyponatremia possibly related to hypervolemia, improving with diuresis #4. Hyperkalemia likely related to Aldactone and lisinopril, both are on hold, serum potassium was 6.0 on admission, was treated with Kayexalate, repeat potassium is down to 4.6 #5. Acute exacerbation of chronic CHF with systolic dysfunction, proBNP 5950 #6. Coronary artery disease, status post two-vessel off-pump bypass grafting on 08/08/2020, patient was discharged home on 08/15/2020 #7. History of ischemic cardiomyopathy with EF of 30-35% #8. History of hyperlipidemia #9. Moderately severe COPD with preop FEV1 value of 59% of predicted #10. History of prostate cancer status post prostatectomy #11. Postoperative paroxysmal atrial fibrillation, currently in sinus bradycardia with a rate of 55 BPM, on Eliquis #12. Right carotid artery stenosis Plan: The patient was seen and evaluated by Dr. Johnson Chest x-ray and labs reviewed Cleared for discharge from the pulmonary standpoint Could be discharged home on Augmentin or Levaquin Continue the use of the incentive spirometer Follow-up in the office in 1-2 weeks' time We will repeat a chest x-ray then I, the cosigning physician, performed a history & physical examination of the patient. Lungs sounds with crackles in the bilateral posterior bases, left greater than right. Maintaining good O2 saturations in the 90s on room air. I discussed the assessment and plan of care with my nurse practitioner, Tona Roe. I attest to the above note as dictated by her.
[2020-08-22] MEDS ORDERED: lisinopriL 5 MG TAB PO SCH (09:00)
--- NOTE | 2020-08-23 00:31 | P.DS ---
Providers Date of admission: 08/19/20 11:24 Expected date of discharge: 08/21/20 Attending physician: Irwin Ryan Consults: 08/19/20 11:19 Consult Physician Routine Consulting Provider: Queenie Vasquez Consult Reason/Comments: Acute pulmonary edema Do you want consulting provider notified?: Yes Consult Physician Routine Consulting Provider: [facility] Consult Reason/Comments: Acute pulmonary edema Do you want consulting provider notified?: Yes 08/19/20 11:52 Consult Physician Routine Consulting Provider: Nadia Johnson Consult Reason/Comments: Pneumonia, pulmonary edema Do you want consulting provider notified?: Yes Primary care physician: Henrik Perez [facility] Course: Chief Complaint: Short of breath History of presenting complaint: This is a 85-year-old patient of Dr. Henrik Perez. Recently was in the hospital with daniel Myersian microinfarction cardiac catheterization showing severe coronary artery disease. August 08 underwent coronary bypass. On August 15 patient was discharged. At the time of discharge patient was up and about in the hallway. Breathing well. Tolerating a diet. Patient now presents with increasing shortness of breath. Some lower extremity edema. Slight cough with clear sputum. No fever no chills. Tired rundown. Admitted with pneumonia, CHF exacerbation. Started IV ceftriaxone and IV Lasix. Today-doing well. Breathing much improved. Walking much better. No fever no chills. Minimal cough Consultation: Dr. Johnson from pulmonary Dr. Vasquez from cardiothoracic surgery Physical examination: VITAL SIGNS: Afebrile, 70, 18, 106/53, 96% room air GENERAL: Sitting up in a chair, doing much better EYES: Pupils equal. Conjunctiva normal. NECK: JVD unable to assess; masses not palpable. HEART: First and second heart sounds are normal; edema present LUNGS: Respiratory rate normal; improved air entry ABDOMEN: Soft, nontender, liver spleen not palpable, no masses palpable. PSYCH: Alert and oriented x3; mood and affect tired MUSCULAR skeletal: Evidence of OA INVESTIGATIONS, reviewed in the clinical context: White count 15.7 hemoglobin 11.5 potassium 4.3 creatinine 1.02 pro-calcitonin 0.12 Admission testing White count 18.9 hemoglobin 12.2 potassium 6 bun 38 creatinine 1.14 ProBNP 80 800 protocol calcitonin 0.12 Chest x-ray film cardiomegaly, some basal left basilar infiltrate 2-D echocardiogram-wall motion abnormality, moderate concentric LVH, EF 35-40% Assessment: -pneumonia, suspect gram-negative orgasm, POA -Acute on chronic congestive heart failure exacerbation from systolic dysfunction EF 30-35%, POA- -Acute non-ST elevation myocardial infarction on August 02. -Coronary artery disease with coronary bypass on August 08 -Hyperkalemia from patient being on Zestril, Aldactone-corrected -Hyponatremia, likely from excessive water intake-improve with fluid restriction Disposition: Home Plan - Discharge Summary Discharge Rx Participant: No New Discharge Prescriptions: New Furosemide [Lasix] 40 mg PO DAILY #90 tablet Cefuroxime Axetil [Ceftin] 500 mg PO BID #6 tab Continue Calcium/Vitamin D(Unknown Dose) 1 tab PO DAILY Aspirin EC [Ecotrin Low Dose] 81 mg PO DAILY Multivitamins, Thera [Multivitamin (formulary)] 1 tab PO DAILY Apixaban [Eliquis] 2.5 mg PO BID #60 tablet Atorvastatin [Lipitor] 40 mg PO HS #30 tab Clopidogrel [Plavix] 75 mg PO DAILY #30 tab Acetaminophen Tab [Tylenol] 1,000 mg PO Q6HR PRN tab PRN Reason: Fever And/ Or Pain Sennosides-Docusate Sodium [Senokot-S] 2 tab PO HS PRN PRN Reason: Constipation Changed Amiodarone [Cordarone] 200 mg PO BID #30 tab Metoprolol Tartrate [Lopressor] 25 mg PO BID #60 tab lisinopriL [Zestril] 5 mg PO DAILY@1200 #30 tab Discontinued Spironolactone [Aldactone] 25 mg PO DAILY Discharge Medication List Aspirin EC [Ecotrin Low Dose] 81 mg PO DAILY 08/02/20 [History] Calcium/Vitamin D(Unknown Dose) 1 tab PO DAILY 08/02/20 [History] Multivitamins, Thera [Multivitamin (formulary)] 1 tab PO DAILY 08/02/20 [History] Acetaminophen Tab [Tylenol] 1,000 mg PO Q6HR PRN tab 08/15/20 [Rx] Apixaban [Eliquis] 2.5 mg PO BID #60 tablet 08/15/20 [Rx] Atorvastatin [Lipitor] 40 mg PO HS #30 tab 08/15/20 [Rx] Clopidogrel [Plavix] 75 mg PO DAILY #30 tab 10/29/20 [Rx] Sennosides-Docusate Sodium [Senokot-S] 2 tab PO HS PRN 08/19/20 [History] Amiodarone [Cordarone] 200 mg PO BID #30 tab 08/21/20 [Rx] Cefuroxime Axetil [Ceftin] 500 mg PO BID #6 tab 08/21/20 [Rx] Furosemide [Lasix] 40 mg PO DAILY #90 tablet 08/21/20 [Rx] Metoprolol Tartrate [Lopressor] 25 mg PO BID #60 tab 08/21/20 [Rx] lisinopriL [Zestril] 5 mg PO DAILY@1200 #30 tab 08/21/20 [Rx] Follow up Appointment(s)/Referral(s): Swapna Velez NPC [Nurse Practitioner] - 08/26/20 11:00 am (Patient may call to see nurse practitioner in the office at any day necessary) Queenie Vasquez MD [Family Provider] - 09/06/20 10:00 am Henrik Perez MD [Primary Care Provider] - 08/29/20 10:00 am Jd Sloan DO [Doctor of Osteopathic Medicine] - 09/10/20 10:00 am [facility], [NON-STAFF] - Lisha Mccullough MD [STAFF PHYSICIAN] - 1 Week (will call with appt) Patient Instructions/Handouts: Heart Failure (DC), Viral Pneumonia (DC), Leg Edema (ED), CABG (Coronary Artery Bypass Graft) (DC) Activity/Diet/Wound Care/Special Instructions: DISCHARGE INSTRUCTIONS: 1. No driving for 4 weeks, or until physician gives their ok. 2. The patient should sleep in their own bed, no medical bed needed. 3. Stairs are not an issue. If the bedroom is upstairs, it is advised that the patient go up at night and down in the morning for the first week. Go slowly, using handrail and take 1 step at a time. 4. ADALID hose are to be worn for 30 days or until physician discontinues. 5. Heart hugger is to be worn 100% of the time until physician discontinues.(except when showering) 6. No lifting, pushing, or pulling more than 10 pounds for 12 weeks. The physician will advise of any restriction changes. 7. The patient is expected to continue the prescribed walking program. 8. Continue pain control per as needed orders. 9. Continue with incentive spirometry and splinting/heart hugger until otherwise directed by the physician. 10. Must shower daily using liquid antibacterial soap and a separate white washcloth for each individual incision. 11. Routine sternal incision care. No powders, lotions, ointments on incisions. No dressings are necessary on incisions unless they are draining. Dermabond tape is to remain on sternal incision until surgeon follow-up. 12. Please call surgeon/ASTROBIOLOGIST for temp greater than 101 F or purulent drainage from incisions. 13. All prescriptions given by surgeon for 30 days. Refills need to be filled through [facility]/primary care physician. 14. A Red armband has been placed on the patient. It should be worn for 30 days post surgery and will be removed by the cardiac surgeons. If an ER visit is necessary, please make sure the number on the Red armband is called. 15. You have been referred to and are expected to begin Cardiac Rehab in approximately 4-6 weeks. HOME HEALTH SERVICES TO PROVIDE: RN SKILLED HOME CARE SERVICES FOR POST-OP SURGICAL PATIENTS WITH THE FOLLOWING: Coronary Artery Bypass Surgery (CABG), Mitral Valve Replacement/Repair ( MVR), Aortic Valve Replacement/Repair (AVR) RN TO CONTINUE EDUCATION FROM ``ROAD TO A HEALTH HEART PATIENT EDUCATION MANUAL (GIVEN TO PATIENT IN THE HOSPITAL) MEDICATION RECONCILIATION WITH EDUCATION NEEDED ON FIRST HOME VISIT EMPHASIZE IMPORTANCE OF WEARING BREAST SUPPORT/HEART HUGGER ENCOURAGE USE OF INCENTIVE SPIROMETER 10 X EVERY HOUR WHILE AWAKE ENCOURAGE UTILIZATION OF LOWER EXTREMITY COMPRESSION STOCKINGS/ADALID HOSE and ELEVATE LEGS ABOVE LEVEL OF HEART WHILE AT REST. ENCOURAGE AMBULATION 3-5x/day INCREASING TOLERATES, WHILE AVOIDING EXTREMES IN TEMPERATURE FREQUENCY: RN TO OPEN THE PATIENT WITHIN 24 HOURS OF DISCHARGE FROM THE HOSPITAL WITH TELEHEALTH INSTALLED AT [facility], RN TO VISIT 2-3 X A WEEK FOR 4 WEEKS ESTABLISHED BY PATIENT NEEDS. LABORATORY: CBC, CMP TO BE DRAWN ON THE THIRD DAY HOME, (RAN STAT) FAX RESULTS TO [phone]. TELEHEALTH PARAMETERS: WEIGHT: NOTIFY MD OF WEIGHT GAIN OF 2 LBS IN 24 HOURS OR 5 LBS IN ONE WEEK HR: NOTIFY MD OF HR <55 BPM OR HR>100 BPM BP: NOTIFY MD IF BP <90/55 OR BP>140/100 O2 SAT: NOTIFY MD IF PO2<93% ON ROOM AIR SEND TELEHEALTH REPORT TO HOG SCALDER AND CARDIOVASCULAR SURGEON THE FIRST WEEK OF CARE AND THEN BI-WEEKLY. PLEASE ADDITIONALLY COMMUNICATE ANY ABNORMALS AND NEW FINDINGS TO THE SURGEONS OFFICE. For any questions or concerns please call telecommunicator supervisor Swapna @ or Earnest @ bmp - 3 days Discharge Disposition: HOME SELF-CARE
--- NOTE | 2020-08-30 13:19 | CONS ---
CONSULTATION DATE OF CONSULTATION: 08/19/20 I have seen, examined and agree with the midline's findings. MMODL / IJN: [id number] / Job#: 1
== END 2020-08-21 15:33 | disposition home or self-care (01) ==
LOC: EC 08:40 → 3SCARD 11:24
PROVIDERS: ADMIT Hospitalist; ATTEND Hospitalist
DX: J18.9 Pneumonia, unspecified organism (principal); I50.23 Acute on chronic systolic (congestive) heart failure; Z95.1 Presence of aortocoronary bypass graft; E78.5 Hyperlipidemia, unspecified; I25.2 Old myocardial infarction; R00.1 Bradycardia, unspecified; E87.1 Hypo-osmolality and hyponatremia; E87.5 Hyperkalemia; I25.5 Ischemic cardiomyopathy; I48.0 Paroxysmal atrial fibrillation; I65.21 Occlusion and stenosis of right carotid artery; J44.0 Chronic obstructive pulmonary disease with (acute) lower respiratory infection; I45.10 Unspecified right bundle-branch block; E66.9 Obesity, unspecified; Z68.26 Body mass index [BMI] 26.0-26.9, adult; M19.90 Unspecified osteoarthritis, unspecified site; K59.00 Constipation, unspecified; Z79.82 Long term (current) use of aspirin; Z79.899 Other long term (current) drug therapy; Z88.1 Allergy status to other antibiotic agents; I25.10 Atherosclerotic heart disease of native coronary artery without angina pectoris; Z85.46 Personal history of malignant neoplasm of prostate; Z87.891 Personal history of nicotine dependence; Z79.01 Long term (current) use of anticoagulants; Z90.79 Acquired absence of other genital organ(s); Z79.02 Long term (current) use of antithrombotics/antiplatelets; Z20.828 Contact with and (suspected) exposure to other viral communicable diseases
CPT/HCPCS: 96376 ×3; 96365 ×2; 96366 ×3; 96375 ×2; 99285; 51702; 36415; 93005; 93306; 97162; 97166; 83880 ×2; 80053 ×2; 80048 ×2; 83605; 84484; 85025 ×3; 85610; 85730; 81001; 87040; 84145 ×2; 71045 ×2; 71046; G0378 ×3; U0003; J1940 ×4; J0456; J0696 ×3

== ENCOUNTER 2023-09-05 16:41 | Inpatient (IN) | payer MEDICARE, OTHER ==
--- NOTE | 2023-09-05 17:03 | ED ---
Recheck HPI - General Chief Complaint: Extremity Injury, Lower Stated Complaint: hip fracture Time Seen by Provider: 09/05/23 16:51 Source: patient, RN notes reviewed, old records reviewed Mode of arrival: EMS Limitations: no limitations - History of Present Illness Initial Comments: This is a 88-year-old male to the emergency department for evaluation. Patient presents today for evaluation as a transfer for right hip fracture. Patient had a fall from standing, no blood thinners no other injury noted right hip pain. Patient was transfer for evaluation of right hip fracture MD Complaint: other (Orthopedic evaluation) -: days(s) Returns Today for: persistent/worsening pain related to initial visit Symptoms Since Prior Visit: worsening pain Associated Symptoms: none Treatments Prior to Arrival: Given Pain Meds on - Related Data Home Medications Medication Instructions Recorded Confirmed Aspirin EC [Ecotrin Low Dose] 81 mg PO DAILY 08/02/20 09/05/23 Metoprolol Succinate (ER) [Toprol 50 mg PO DAILY 09/05/23 09/05/23 Xl] Previous Rx's Medication Instructions Recorded Atorvastatin [Lipitor] 40 mg PO HS #30 tab 08/15/20 Aspirin [Adult Low Dose Aspirin EC] 81 mg PO BID #60 tab 09/13/23 HYDROcodone/APAP 5-325MG [Woden 1 tab PO Q6HR PRN #21 tab 09/13/23 5-325] Sennosides/Docusate Sodium 2 each PO DAILY PRN #30 tablet 09/13/23 [Senna-S 8.6-50 mg Tablet] Allergies Allergy/AdvReac Type Severity Reaction Status Date / Time doxycycline [From Vibramycin] Allergy Unknown Verified 09/05/23 17:34 Review of Systems ROS Statement: Those systems with pertinent positive or pertinent negative responses have been documented in the HPI. ROS Other: All systems not noted in ROS Statement are negative. Past Medical History Past Medical History: Atrial Fibrillation, Coronary Artery Disease (CAD), Cancer, Heart Failure, COPD, Hyperlipidemia, Myocardial Infarction (non Q-wave) Additional Past Medical History / Comment(s): prostate CA Last Myocardial Infarction Date:: 08/02/2020 History of Any Multi-Drug Resistant Organisms: None Reported Past Surgical History: Coronary Bypass/CABG, Heart Catheterization, Prostate Surgery, Tonsillectomy Additional Past Surgical History / Comment(s): prostate removed Past Anesthesia/Blood Transfusion Reactions: No Reported Reaction Past Psychological History: No Psychological Hx Reported Smoking Status: Former smoker Past Alcohol Use History: Occasional Past Drug Use History: None Reported - Past Family History Mother History Unknown: Yes Family Medical History: No Reported History Father History Unknown: Yes Family Medical History: No Reported History Additional Family Medical History / Comment(s): Unsure family history as the patient was not raised by his biological parents General Exam Limitations: no limitations General appearance: alert, in no apparent distress, anxious (Nervous about surgery) Head exam: Present: atraumatic, normocephalic, normal inspection Eye exam: Present: normal appearance, PERRL, EOMI. Absent: scleral icterus, conjunctival injection, periorbital swelling ENT exam: Present: normal exam, mucous membranes moist Neck exam: Present: normal inspection. Absent: tenderness, meningismus, lymphadenopathy Respiratory exam: Present: normal lung sounds bilaterally. Absent: respiratory distress, wheezes, rales, rhonchi, stridor Cardiovascular Exam: Present: regular rate, normal rhythm, normal heart sounds. Absent: systolic murmur, diastolic murmur, rubs, gallop, clicks GI/Abdominal exam: Present: soft, normal bowel sounds. Absent: distended, tenderness, guarding, rebound, rigid External exam: Present: normal external exam (Right hip pain) Extremities exam: Present: normal inspection, full ROM, normal capillary refill. Absent: tenderness, pedal edema, joint swelling, calf tenderness Back exam: Present: normal inspection Neurological exam: Present: alert, oriented X3, CN II-XII intact Psychiatric exam: Present: normal affect, normal mood Skin exam: Present: warm, dry, intact, normal color. Absent: rash Course Vital Signs 09/05/23 09/05/23 09/05/23 16:47 16:51 18:22 Temperature 98.6 F 98.5 F Pulse Rate 70 85 64 Pulse Rate [ Pulse Oximetery ] Respiratory 20 20 18 Rate Blood Pressure 158/77 140/68 122/56 Blood Pressure [Left Arm] O2 Sat by Pulse 95 98 93 L Oximetry 09/05/23 09/05/23 18:29 20:00 Temperature 98.7 F Pulse Rate 68 60 Pulse Rate [ 64 Pulse Oximetery ] Respiratory 16 17 Rate Blood Pressure 152/86 132/62 Blood Pressure 132/62 [Left Arm] O2 Sat by Pulse 98 93 L Oximetry - Reevaluation(s) Reevaluation #1: 09/05/23 18:33 Medical records reviewed Reevaluation #2: 09/05/23 18:33 Patient has adequate pain control Reevaluation #3: 09/05/23 18:33 Patient for results questions answered Reevaluation #4: 09/05/23 18:33 Was pt. sent in by a medical professional or institution (DAVID Fernandez, [employer], urgent care, hospital, or custodial...) When possible be specific @ -no Did you speak to anyone other than the patient for history (EMS, parent, family, police, friend...)? What history was obtained from this source @ -no Did you review nursing and triage notes (agree or disagree)? Why? @ -agree Are old charts reviewed (outside hosp., previous admission, EMS record, old EKG, old radiological studies, urgent care reports/EKG's, custodial records)? Report findings @ -yes Differential Diagnosis (chest pain, altered mental status, abdominal pain women, abdominal pain men, vaginal bleeding, weakness, fever, dyspnea, syncope, headache, dizziness, GI bleed, back pain, seizure, CVA, palpatations, mental health, musculoskeletal)? @ -prior EKG interpreted by me (3pts min.). @ -yes X-rays interpreted by me (1pt min.). @ -yes CT interpreted by me (1pt min.). @ -no U/S interpreted by me (1pt. min.). @ -no What testing was considered but not performed or refused? (CT, X-rays, U/S, labs)? Why? @ -none What meds were considered but not given or refused? Why? @ -none Did you discuss the management of the patient with other professionals (professionals i.e. DAVID Fernandez, [employer], lab, RT, psych nurse, social work faculty member, leather goods sales representative, teacher, ground nuclear weapons assembly officer, home health care case manager)? Give summary @ -no Was smoking cessation discussed for >3mins.? @ -no Was critical care preformed (if so, how long)? @ -no Were there social determinants of health that impacted care today? How? (Homelessness, low income, unemployed, alcoholism, drug addiction, transportation, low edu. Level, literacy, decrease access to med. care, intermediate, rehab)? @ -none Was there de-escalation of care discussed even if they declined (Discuss DNR or withdrawal of care, Hospice)? DNR status @ -no What co-morbidities impacted this encounter? (DM, HTN, Smoking, COPD, CAD, Cancer, CVA, ARF, Chemo, Hep., AIDS, mental health diagnosis, sleep apnea, mo rbid obesity)? @ -none Was patient admitted / discharged? Hospital course, mention meds given and r oute, prescriptions, significant lab abnormalities, going to OR and other pertinent info. @ - 88 male to the emergency department for evaluation of severe right hip pain with right hip fracture after fall. Aside from right hip fracture patient has noticed back injury does have history of heart disease will admit for nothing by mouth after midnight and orthopedic evaluation of the morning. Patient's pain is well-controlled Admitted Undiagnosed new problem with uncertain prognosis? @ -no Drug Therapy requiring intensive monitoring for toxicity (Heparin, Nitro, Insulin, Cardizem)? @ -no Were any procedures done? @ -no Diagnosis/symptom? @ -Fall with hip fracture Acute, or Chronic, or Acute on Chronic? @ -Acute Uncomplicated (without systemic symptoms) or Complicated (systemic symptoms)? @ -Complicated Side effects of treatment? @ -no Exacerbation, Progression, or Severe Exacerbation? @ -exacerbation Poses a threat to life or bodily function? How? (Chest pain, USA, SC, pneumonia, PE, COPD, DKA, ARF, appy, cholecystitis, CVA, Diverticulitis, Homicidal, Suicidal, threat to staff... and all critical care pts) @ -yes fall fracture with extreme of age - Consultations Consultation #1: Spoke with on-call orthopedic service of the patient for admission Medical Decision Making - Medical Decision Making 88 male to the emergency department for evaluation of severe right hip pain with right hip fracture after fall. Aside from right hip fracture patient has noticed back injury does have history of heart disease will admit for nothing by mouth after midnight and orthopedic evaluation of the morning. Patient's pain is well-controlled - Lab Data Result diagrams: 09/12/23 07:15 09/11/23 06:50 - EKG Data -: EKG Interpreted by Me (EKG is sinus 60 AR 186 QRS 166 QTc 443) - Radiology Data Radiology results: report reviewed (Chest x-rays negative for acute disease), image reviewed Disposition Clinical Impression: Fracture of hip, Fall, Closed right hip fracture Disposition: ADMITTED IP TO THIS HOSP Condition: Serious Is patient prescribed a controlled substance at d/c from ED?: No Time of Disposition: 18:30
[2023-09-05] MEDS ORDERED: HYDROmorphone 1 MG/ML 1 ML SYRINGE IVP STA (17:22)
[2023-09-05] MEDS ORDERED: ONDANSETRON 4 MG/2 ML VIAL IVP PRN (18:23)
[2023-09-05] MEDS ORDERED: NALOXONE 0.4 MG/ML 1 ML VIAL IV PRN (18:23)
[2023-09-05] MEDS ORDERED: SODIUM CHLORIDE 0.9% 1,000 ML IV STA (18:29)
[2023-09-05] MEDS: SODIUM CHLORIDE 0.9% 1,000 ML IV SCH (18:46)
--- NOTE | 2023-09-05 19:12 | XR ---
EXAM: XR chest 1V portable CLINICAL INDICATION:Male, 88 years old with history of fall; [facility] COMPARISON: 08/21/2020 TECHNIQUE: Chest single view. FINDINGS: Lines/tubes/devices: EKG leads overlie the chest. No indwelling lines are seen. Cardiomediastinum: Cardiac silhouette appears upper normal in size. Unremarkable mediastinal silhouette. Atherosclerotic calcifications of the aorta. Multiple sternotomy wires and mediastinal clips, consistent with prior cardiothoracic surgery, likely CABG. Vasculature: No increased pulmonary vasculature. Lungs/pleura: No consolidation, sizeable effusion, or visible pneumothorax. Bones/soft tissues: Bony thorax appears grossly intact as seen. Regional soft tissues appear unremarkable. IMPRESSION: No acute cardiopulmonary findings.
[2023-09-05 19:20] LABS: INR 1.1 (<1.2); Partial Thromboplastin Time 24.4 sec (22.0-30.0); Prothrombin Time 11.4 sec (10.0-12.5)
[2023-09-05 19:21] LABS: African American GFR (CKD) 89 (>60 ml/min/1.73 sqM); Albumin 4.1 g/dL (3.5-5.0); Anion Gap 8 mmol/L; Blood Urea Nitrogen 21 mg/dL (9-20); Calcium 9.8 mg/dL (8.4-10.2); Carbon Dioxide 27 mmol/L (22-30); Chloride 99 mmol/L (98-107); Glucose 106 mg/dL (74-99); Non-African American GFR(CKD) 77 (>60 ml/min/1.73 sqM); Sodium 134 mmol/L (137-145); Total Protein 6.5 g/dL (6.3-8.2)
[2023-09-05 19:24] LABS: Basophils % (A) 0 %; Eosinophils # (A) 0.1 k/uL (0-0.7); Eosinophils % (A) 1 %; HCT 48.2 % (39.0-53.0); HGB 16.6 gm/dL (13.0-17.5); Lymphocytes # (A) 1.4 k/uL (1.0-4.8); Lymphocytes % (A) 10 %; MCH 31.3 pg (25.0-35.0); MCHC 34.4 g/dL (31.0-37.0); Mean Platelet Volume 10.1; Monocytes # (A) 1.1 k/uL (0-1.0); Monocytes % (A) 8 %; Neutrophils # (A) 11.3 k/uL (1.3-7.7); Neutrophils % (A) 81 %; Platelet Count 197 k/uL (150-450); RDW 13.4 % (11.5-15.5)
[2023-09-05 19:38] LABS: ALT 33 U/L (4-49)
[2023-09-05 19:43] LABS: AST 40 U/L (17-59); Alkaline Phosphatase 79 U/L (38-126); Magnesium 2.1 mg/dL (1.6-2.3); Phosphorus 4.8 mg/dL (2.5-4.5)
[2023-09-05] MEDS: HYDROmorphone 1 MG/ML 1 ML SYRINGE IVP PRN ×2 (20:11→23:44)
[2023-09-06] MEDS: HYDROmorphone 1 MG/ML 1 ML SYRINGE IVP PRN ×5 (04:47→18:49)
--- NOTE | 2023-09-06 07:34 | P.HPOR ---
History of Present Illness H&P Date: 09/06/23 Chief Complaint: Right femoral neck fracture Patient is an 88-year-old male who was brought in to [facility] for evaluation of her right lower extremity injury. Patient was at a family get-together when he lost his balance and fell onto his right side. Patient was unable to weight-bear after the injury, he is brought to the hospital for further evaluation. Outside imaging demonstrated a impacted right femoral neck fracture. I was contacted by the emergency room staff regarding the patient, I was able to review the images and discuss with my attending physician. Patient was admitted under our orthopedic care with plan for surgical intervention. Patient was evaluated at bedside today, he is resting comfortably. He notes most of the pain in the right lower extremity with movement. He also did land on his right shoulder which initially bothered him but seems to be improving. He denies any other orthopedic complaints at this time. He denies any previous orthopedic history to the right hip. He has a history of right knee osteoarthritis. Pertinent past medical history to include coronary artery disease, he underwent a CABG in 2019 at this facility. Patient states that he did see his software applications engineer within the last 2 weeks. Currently patient has no headaches, lightheadedness, chest pain, shortness of breath, nausea vomiting, fever or chills. Review of Systems Constitutional: Reports as per HPI Past Medical History Past Medical History: Atrial Fibrillation, Coronary Artery Disease (CAD), Cancer, Heart Failure, COPD, Hyperlipidemia, Myocardial Infarction (non Q-wave) Additional Past Medical History / Comment(s): prostate CA Last Myocardial Infarction Date:: 08/02/2020 History of Any Multi-Drug Resistant Organisms: None Reported Past Surgical History: Coronary Bypass/CABG, Heart Catheterization, Prostate Surgery, Tonsillectomy Additional Past Surgical History / Comment(s): prostate removed Past Anesthesia/Blood Transfusion Reactions: No Reported Reaction Past Psychological History: No Psychological Hx Reported Additional Psychological History / Comment(s): Pt resides with his spouse. He has a life vest on. He has [facility]. Smoking Status: Former smoker Past Alcohol Use History: Occasional Additional Past Alcohol Use History / Comment(s): Pt started smoking in 1956 and quit in 2009. He was a half a ppd smoker. Consumes 3-4 beers a week Past Drug Use History: None Reported - Past Family History Mother History Unknown: Yes Family Medical History: No Reported History Father History Unknown: Yes Family Medical History: No Reported History Additional Family Medical History / Comment(s): Unsure family history as the patient was not raised by his biological parents Medications and Allergies Home Medications Medication Instructions Recorded Confirmed Type Aspirin EC [Ecotrin Low Dose] 81 mg PO DAILY 08/02/20 09/05/23 History Atorvastatin [Lipitor] 40 mg PO HS #30 tab 08/15/20 09/05/23 Rx Metoprolol Succinate (ER) [Toprol 50 mg PO DAILY 09/05/23 09/05/23 History Xl] Allergies Allergy/AdvReac Type Severity Reaction Status Date / Time doxycycline [From Vibramycin] Allergy Unknown Verified 09/05/23 17:34 Physical Examination Gen. orthopedic exam: No obvious open lesions or sores are present throughout the right hip region or right shoulder Tenderness with palpation to the acromioclavicular joint of the right shoulder, no significant glenohumeral joint pain. He is tender with palpation of the right proximal femur Logroll maneuver reproduces pain in the right hip, is unable to straight leg raise. Patient demonstrates no tenderness with palpation to the knee, lower leg, foot or ankle. Range of motion of shoulder, he notices some discomfort with shoulder elevation and shoulder abduction, elbow extension, elbow flexion, wrist extension, wrist flexion, mohs surgeon are intact Full range of motion noted in the left upper and lower extremity, no focal deficits appreciated. No point tenderness is appreciated with palpation of the upper extremity lower extremity and left side Calfs soft bilaterally, no tenderness with palpation Sensory exam to light touch throughout the extremities intact Dorsalis pedis pulses 2+ bilaterally Results - Labs Labs: Abnormal Lab Results - Last 24 Hours (Table) 09/05/23 09/05/23 Range/Units 18:29 18:29 WBC 14.0 H (3.8-10.6) k/uL Neutrophils # 11.3 H (1.3-7.7) k/uL Monocytes # 1.1 H (0-1.0) k/uL Sodium 134 L (137-145) mmol/L BUN 21 H (9-20) mg/dL Glucose 106 H (74-99) mg/dL Phosphorus 4.8 H (2.5-4.5) mg/dL H & H 11/19/23 Range/Units 18:29 Hgb 16.6 (13.0-17.5) gm/dL Hct 48.2 (39.0-53.0) % Coagulation 09/05/23 Range/Units 18:29 INR 1.1 (<1.2) Result Diagrams: 09/05/23 18:29 09/05/23 18:29 - Diagnostic results Hip x-ray: report reviewed, image reviewed (Pelvis along with right hip x-rays were reviewed from outside facility on 09/05/2020. Images demonstrate a impacted subcapital femur fracture.) Assessment and Plan Assessment: Impacted right femoral neck fracture Status post fall from standing Coronary artery disease, history of CABG Other medical comorbidities Plan: I was able to discuss the case, this including physical exam findings and imaging studies my attending Dr. Lukas. Gilbert for surgical intervention on 09/07/2023, more specifically a right hip hemiarthroplasty. Risks and benefits of the procedure were discussed with the patient, this including but not excluding infection, blood loss, developmental blood clots, and adequate healing of bone, need for further surgery. Patient has good understanding and would like to proceed. Consent to be obtained prior to procedure Nothing by mouth after midnight Pain control, both oral and IV medication as needed. Schedule stool softeners DVT prophylaxis, we'll begin subcutaneous medication after surgery Nonweightbearing right lower extremity at this time Cardiac and medical recommendations appreciated PT/OT after surgery Further recommendations to follow
[2023-09-06 07:50] LABS: Anisocytosis Moderate; Basophils % (A) 0 %; Eosinophils # (A) 0.3 k/uL (0-0.7); Eosinophils % (A) 2 %; HCT 45.8 % (39.0-53.0); HGB 16.7 gm/dL (13.0-17.5); Lymphocytes # (A) 0.8 k/uL (1.0-4.8); Lymphocytes % (A) 6 %; MCH 34.6 pg (25.0-35.0); MCHC 36.6 g/dL (31.0-37.0); MCV 94.5 fL (80.0-100.0); Mean Platelet Volume 10.5; Monocytes # (A) 0.9 k/uL (0-1.0); Monocytes % (A) 7 %; Neutrophils # (A) 11.3 k/uL (1.3-7.7); Neutrophils % (A) 83 %; Platelet Count 153 k/uL (150-450); RBC 4.84 m/uL (4.30-5.90); RDW 20.4 % (11.5-15.5); WBC 13.5 k/uL (3.8-10.6)
[2023-09-06 09:24] LABS: ALT 27 U/L (4-49); AST 32 U/L (17-59); African American GFR (CKD) 88 (>60 ml/min/1.73 sqM); Albumin 3.5 g/dL (3.5-5.0); Albumin/Globulin Ratio 1.5; Alkaline Phosphatase 65 U/L (38-126); Anion Gap 10 mmol/L; Blood Urea Nitrogen 23 mg/dL (9-20); Calcium 9.4 mg/dL (8.4-10.2); Carbon Dioxide 23 mmol/L (22-30); Chloride 101 mmol/L (98-107); Globulin 2.3 g/dL; Glucose 125 mg/dL (74-99); Magnesium 2.1 mg/dL (1.6-2.3); Non-African American GFR(CKD) 76 (>60 ml/min/1.73 sqM); Phosphorus 4.1 mg/dL (2.5-4.5); Potassium 4.8 mmol/L (3.5-5.1); Sodium 134 mmol/L (137-145); Total Bilirubin 1.4 mg/dL (0.2-1.3); Total Protein 5.8 g/dL (6.3-8.2)
[2023-09-06] MEDS: PANTOPRAZOLE 40 MG/10 ML VIAL IV SCH (10:13)
--- NOTE | 2023-09-06 12:28 | P.CRDCN ---
History of Present Illness History of present illness: HISTORY OF PRESENT ILLNESS: This is a 88-year-old male with a past medical history significant for coronary artery disease with previous CABG, ischemic cardiac myopathy, aortic stenosis, hyperlipidemia, and former nicotine dependence. Patient follows in the office w юлия Lao. We have been asked to see the patient in consultation for cardiac clearance. Patient examined at the bedside. Patient presented to the hospital after sustaining a mechanical fall. Patient was found to have an impacted right femoral neck fracture. He is scheduled for surgical intervention tomorrow with orthopedics. Patient currently denies chest pain or pressure. He denies any shortness of breath. He denies dizziness or lightheadedness. Vital signs are stable. * EKG reveals sinus mechanism with right bundle branch block * Chest xray negative for acute process * Current home cardiac medications include aspirin 81 mg daily, atorvastatin 40 mg at night, and metoprolol succinate 50 mg daily. * Most recent echocardiogram obtained in December 2022 revealed ejection fraction 42%, mild to moderate TR, mild , moderate MR, and moderate AR * Patient underwent two-vessel CABG in July 2020 with LUCERO to LAD and VGPDA REVIEW OF SYSTEMS: At the time of my exam: CONSTITUTIONAL: Denies fever or chills. HEENT: Denies blurred vision, vision changes, or eye pain. Denies hemoptysis CARDIOVASCULAR: Denies chest pain. Denies orthopnea. Denies PND. Denies palpitations RESPIRATORY: Denies shortness of breath. GASTROINTESTINAL: Denies abdominal pain. Denies nausea or vomiting. HEMATOLOGIC: Denies bleeding disorders. GENITOURINARY: Denies any blood in urine. SKIN: Denies pruitis. Denies rash. PHYSICAL EXAM: VITAL SIGNS: Reviewed. GENERAL: Well-developed in no acute distress. HEENT: Head is normocephalic. Pupils are equal, round. Sclerae anicteric. Mucous membranes of the mouth are moist. Neck supple. No JVD or thyromegaly LUNGS: Respirations even and unlabored. Lungs essentially clear to auscultation bilaterally. HEART: Regular rate and rhythm. S1 and S2 heard. 3/6 systolic murmur noted. ABDOMEN: Soft. Nondistended. Nontender. EXTREMITIES: Normal range of motion. No clubbing or cyanosis. Peripheral pulses intact. No lower extremity edema NEUROLOGIC: Awake and alert. Oriented x 3. ASSESSMENT: Right hip fracture, status post mechanical fall Coronary artery disease with two-vessel CABG, 2019 Ischemic cardiomyopathy Valvular heart disease Hyperlipidemia Former nicotine dependence PLAN: No need to repeat echocardiogram as this was performed in December 2022 Resume home cardiac medications Patient is without complaints of angina and clinically is not in congestive heart failure Patient is at intermediate risk to undergo surgery from a cardiac standpoint. However, there are no absolute contraindications for patient to proceed Further recommendations pending patient's course Nurse practitioner note has been reviewed by physician. Signing provider agrees with the documented findings, assessment, and plan of care. Past Medical History Past Medical History: Atrial Fibrillation, Coronary Artery Disease (CAD), Cancer, Heart Failure, COPD, Hyperlipidemia, Myocardial Infarction (non Q-wave) Additional Past Medical History / Comment(s): prostate CA Last Myocardial Infarction Date:: 08/02/2020 History of Any Multi-Drug Resistant Organisms: None Reported Past Surgical History: Coronary Bypass/CABG, Heart Catheterization, Prostate Surgery, Tonsillectomy Additional Past Surgical History / Comment(s): prostate removed Past Anesthesia/Blood Transfusion Reactions: No Reported Reaction Past Psychological History: No Psychological Hx Reported Additional Psychological History / Comment(s): Pt resides with his spouse. He has a life vest on. He has [facility]. Smoking Status: Former smoker Past Alcohol Use History: Occasional Additional Past Alcohol Use History / Comment(s): Pt started smoking in 1956 and quit in 2009. He was a half a ppd smoker. Consumes 3-4 beers a week Past Drug Use History: None Reported - Past Family History Mother History Unknown: Yes Family Medical History: No Reported History Father History Unknown: Yes Family Medical History: No Reported History Additional Family Medical History / Comment(s): Unsure family history as the patient was not raised by his biological parents Medications and Allergies Home Medications Medication Instructions Recorded Confirmed Type Aspirin EC [Ecotrin Low Dose] 81 mg PO DAILY 08/02/20 09/05/23 History Atorvastatin [Lipitor] 40 mg PO HS #30 tab 08/15/20 09/05/23 Rx Metoprolol Succinate (ER) [Toprol 50 mg PO DAILY 09/05/23 09/05/23 History Xl] Allergies Allergy/AdvReac Type Severity Reaction Status Date / Time doxycycline [From Vibramycin] Allergy Unknown Verified 09/05/23 17:34 Physical Exam Vitals: Vital Signs Temp Pulse Pulse Resp BP BP Pulse Ox 09/06/23 08:00 56 L 18 09/06/23 07:26 97.7 F 56 L 18 106/58 92 L 09/06/23 02:00 98.9 F 77 17 131/57 93 L 09/05/23 20:00 98.7 F 60 64 17 132/62 132/62 93 L 09/05/23 18:29 68 16 152/86 98 09/05/23 18:22 98.5 F 64 18 122/56 93 L 09/05/23 16:51 85 20 140/68 98 09/05/23 16:47 98.6 F 70 20 158/77 95 Intake and Output 09/05/23 09/06/23 09/06/23 22:59 06:59 14:59 Output Total 100 Balance -100 Output: Urine 100 Other: Voiding Method Urinal Urinal # Voids 2 Weight 91.172 kg Results 09/06/23 07:07 09/06/23 08:39 Cardiac Enzymes 09/05/23 09/06/23 Range/Units 18:29 08:39 AST 40 32 (17-59) U/L Coagulation 09/05/23 Range/Units 18:29 PT 11.4 (10.0-12.5) sec APTT 24.4 (22.0-30.0) sec CBC 09/05/23 09/06/23 Range/Units 18:29 07:07 WBC 14.0 H 13.5 H (3.8-10.6) k/uL RBC 5.30 4.84 (4.30-5.90) m/uL Hgb 16.6 16.7 (13.0-17.5) gm/dL Hct 48.2 45.8 (39.0-53.0) % Plt Count 197 153 (150-450) k/uL Comprehensive Metabolic Panel 09/05/23 09/06/23 Range/Units 18:29 08:39 Sodium 134 L 134 L (137-145) mmol/L Potassium 5.0 4.8 (3.5-5.1) mmol/L Chloride 99 101 (98-107) mmol/L Carbon Dioxide 27 23 (22-30) mmol/L BUN 21 H 23 H (9-20) mg/dL Creatinine 0.85 0.89 (0.66-1.25) mg/dL Glucose 106 H 125 H (74-99) mg/dL Calcium 9.8 9.4 (8.4-10.2) mg/dL AST 40 32 (17-59) U/L ALT 33 27 (4-49) U/L Alkaline Phosphatase 79 65 (38-126) U/L Total Protein 6.5 5.8 L (6.3-8.2) g/dL Albumin 4.1 3.5 (3.5-5.0) g/dL Current Medications Generic Name Dose Route Start Last Admin Trade Name Freq PRN Reason Stop Dose Admin Aspirin 81 mg 09/07/23 09:00 Aspirin 81 Mg PO DAILY [facility] Atorvastatin Calcium 40 mg 09/06/23 21:00 Atorvastatin 40 Mg Tab PO HS LESLEE Hydromorphone HCl 1 mg 09/05/23 18:23 09/06/23 08:08 Hydromorphone 1 Mg/Ml 1 Ml Syringe IVP 1 mg Q3HR PRN Administration Severe Pain (Scale 7 to 10) Metoprolol Succinate 50 mg 09/06/23 11:30 Metoprolol Succinate (Er) 50 Mg Tab.Er.24h PO DAILY LESLEE Naloxone HCl 0.2 mg 09/05/23 18: Naloxone 0.4 Mg/Ml 1 Ml Vial IV Q2M PRN Opioid Reversal Ondansetron HCl 4 mg 09/05/23 18:23 Ondansetron 4 Mg/2 Ml Vial IVP Q8HR PRN Nausea And Vomiting Pantoprazole Sodium 40 mg 09/06/23 09:00 09/06/23 10:13 Pantoprazole 40 Mg/10 Ml Vial IV 40 mg DAILY LESLEE Administration Intake and Output 09/05/23 09/06/23 09/06/23 22:59 06:59 14:59 Output Total 100 Balance -100 Output: Urine 100 Other: Voiding Method Urinal Urinal # Voids 2 Weight 91.172 kg 09/06/23 07:07 09/06/23 08:39
[2023-09-06] MEDS: METOPROLOL SUCCINATE (ER) 50 MG TAB.ER.24H PO SCH (13:54)
[2023-09-06] MEDS: SODIUM CHLORIDE 0.9% 1,000 ML IV SCH (13:54)
--- NOTE | 2023-09-06 17:05 | P.CONS ---
History of Present Illness - Reason for Consult Consult date: 09/06/23 - History of Present Illness 88-year-old male with PMH of CAD, systolic CHF presents ED after mechanical fall and falling on his right side. Patient denies any loss of consciousness or head trauma. In the ED, he underwent extensive evaluation and workup. CBC showed WBC count 14. INR was 1.1. CMP showed sodium 134, BUN of 21, glucose 106, phosphorus 4.8. EKG shows sinus rhythm with right bundle branch block and Q waves. Chest x-ray negative. Outside imaging demonstrated a femoral neck fracture. Patient was admitted under orthopedic surgery for evaluation and further management. [facility] consulted for futher management of this patient. Pertinent positives and negatives as discussed in HPI, a complete review of systems was performed and all other systems are negative. General: non toxic, no distress, appears at stated age Derm: warm, dry Head: atraumatic, normocephalic, symmetric Eyes: EOMI, no lid lag, anicteric sclera Cardiovascular: S1S2 reg, no murmur Lungs: CTA bilateral, no rhonchi, no rales , no accessory muscle use Ext: no gross muscle atrophy, no edema, no contractures Neuro: no focal neuro deficits Psych: Alert, oriented, appropriate affect Right femoral neck fracture Leukocytosis Elevated BUN Mild hyponatremia Elevated total bilirubin Chronic conditions: CAD, systolic CHF Based on my assessment of this patient, this patient meets a high complexity level of care. Patient has an acute diagnosis of right femoral neck fracture that poses a threat to life or bodily function. Right femoral neck fracture: Plans for OR tomorrow. Cardiology consulted for cardiac clearance. Leukocytosis: Likely reactive. No signs of infection. Monitor fever profile. Elevated BUN: Mild dehydration. Encourage hydration by mouth. Mild hyponatremia: As above. Elevated total bilirubin: Abdominal exam benign. Continue to monitor. CODE STATUS: FULL CODE. DVT Prophylaxis: SCD GI Prophylaxis: Designated medical POA if patient is not able to make medical decisions for themselves: I have reviewed the following center lead consultant notes: Orthopedic surgery ntoe. I have reviewed the results of the following tests: As above. I have ordered the following tests: I have discussed the care of this patient with the following independent historian: Discussed with RN and family members at bedside. I have independently interpreted the following test below: EKG as above. I have discussed the management of this patient with the following physician: Past Medical History Past Medical History: Atrial Fibrillation, Coronary Artery Disease (CAD), Cancer, Heart Failure, COPD, Hyperlipidemia, Myocardial Infarction (non Q-wave) Additional Past Medical History / Comment(s): prostate CA Last Myocardial Infarction Date:: 08/02/2020 History of Any Multi-Drug Resistant Organisms: None Reported Past Surgical History: Coronary Bypass/CABG, Heart Catheterization, Prostate Surgery, Tonsillectomy Additional Past Surgical History / Comment(s): prostate removed Past Anesthesia/Blood Transfusion Reactions: No Reported Reaction Past Psychological History: No Psychological Hx Reported Additional Psychological History / Comment(s): Pt resides with his spouse. He has a life vest on. He has [facility]. Smoking Status: Former smoker Past Alcohol Use History: Occasional Additional Past Alcohol Use History / Comment(s): Pt started smoking in 1955 and quit in 2009. He was a half a ppd smoker. Consumes 3-4 beers a week Past Drug Use History: None Reported - Past Family History Mother History Unknown: Yes Family Medical History: No Reported History Father History Unknown: Yes Family Medical History: No Reported History Additional Family Medical History / Comment(s): Unsure family history as the patient was not raised by his biological parents Medications and Allergies Home Medications Medication Instructions Recorded Confirmed Type Aspirin EC [Ecotrin Low Dose] 81 mg PO DAILY 08/02/20 09/05/23 History Atorvastatin [Lipitor] 40 mg PO HS #30 tab 08/15/20 09/05/23 Rx Metoprolol Succinate (ER) [Toprol 50 mg PO DAILY 09/05/23 09/05/23 History Xl] Allergies Allergy/AdvReac Type Severity Reaction Status Date / Time doxycycline [From Vibramycin] Allergy Unknown Verified 09/05/23 17:34 Physical Exam Vitals: Vital Signs Temp Pulse Pulse Resp BP BP Pulse Ox 09/06/23 08:00 56 L 18 09/06/23 07:26 97.7 F 56 L 18 106/58 92 L 09/06/23 02:00 98.9 F 77 17 131/57 93 L 09/05/23 20:00 98.7 F 60 64 17 132/62 132/62 93 L 09/05/23 18:29 68 16 152/86 98 09/05/23 18:22 98.5 F 64 18 122/56 93 L Intake and Output 09/06/23 09/06/23 09/06/23 06:59 14:59 22:59 Output Total 100 Balance -100 Output: Urine 100 Other: Voiding Method Urinal # Voids 2 Results CBC & Chem 7: 09/06/23 07:07 09/06/23 08:39 Labs: Abnormal Lab Results - Last 24 Hours (Table) 09/05/23 09/05/23 09/06/23 Range/Units 18:29 18:29 07:07 WBC 14.0 H 13.5 H (3.8-10.6) k/uL RDW 20.4 H (11.5-15.5) % Neutrophils # 11.3 H 11.3 H (1.3-7.7) k/uL Lymphocytes # 0.8 L (1.0-4.8) k/uL Monocytes # 1.1 H (0-1.0) k/uL Sodium 134 L (137-145) mmol/L BUN 21 H (9-20) mg/dL Glucose 106 H (74-99) mg/dL Phosphorus 4.8 H (2.5-4.5) mg/dL Total Bilirubin (0.2-1.3) mg/dL Total Protein (6.3-8.2) g/dL 09/06/23 Range/Units 08:39 WBC (3.8-10.6) k/uL RDW (11.5-15.5) % Neutrophils # (1.3-7.7) k/uL Lymphocytes # (1.0-4.8) k/uL Monocytes # (0-1.0) k/uL Sodium 134 L (137-145) mmol/L BUN 23 H (9-20) mg/dL Glucose 125 H (74-99) mg/dL Phosphorus (2.5-4.5) mg/dL Total Bilirubin 1.4 H (0.2-1.3) mg/dL Total Protein 5.8 L (6.3-8.2) g/dL
[2023-09-06] MEDS: ATORVASTATIN 40 MG TAB PO SCH (21:04)
[2023-09-07] MEDS: LACTATED RINGERS 1,000 ML IV SCH ×3 (06:32→13:00)
[2023-09-07] MEDS ORDERED: HYDROmorphone 0.5 MG/0.5 ML SYRINGE IVP PRN ×2 (07:00→15:08)
[2023-09-07] MEDS: ASPIRIN 81 MG PO SCH (08:29)
--- NOTE | 2023-09-07 08:31 | P.PN ---
Subjective HISTORY OF PRESENT ILLNESS: This is a 88-year-old male with a past medical history significant for coronary artery disease with previous CABG, ischemic cardiac myopathy, aortic stenosis, hyperlipidemia, and former nicotine dependence. Patient follows in the office with Dr. Lao. We have been asked to see the patient in consultation for cardiac clearance. Patient examined at the bedside. Patient presented to the hospital after sustaining a mechanical fall. Patient was found to have an impacted right femoral neck fracture. He is scheduled for surgical intervention tomorrow with orthopedics. Patient currently denies chest pain or pressure. He denies any shortness of breath. He denies dizziness or lightheadedness. Vital signs are stable. * EKG reveals sinus mechanism with right bundle branch block * Chest xray negative for acute process * Current home cardiac medications include aspirin 81 mg daily, atorvastatin 40 mg at night, and metoprolol succinate 50 mg daily. * Most recent echocardiogram obtained in December 2022 revealed ejection fraction 42%, mild to moderate TR, mild , moderate MR, and moderate AR * Patient underwent two-vessel CABG in July 2020 with LUCERO to LAD and VGPDA 09/07/2023 Patient examined this morning at the bedside. Patient denies chest pain or pressure. He denies shortness of breath. Vital signs are stable. He is scheduled for surgical intervention today with orthopedics. PHYSICAL EXAM: VITAL SIGNS: Reviewed. GENERAL: Well-developed in no acute distress. HEENT: Head is normocephalic. Pupils are equal, round. Sclerae anicteric. Mucous membranes of the mouth are moist. Neck supple. No JVD or thyromegaly LUNGS: Respirations even and unlabored. Lungs essentially clear to auscultation bilaterally. HEART: Regular rate and rhythm. S1 and S2 heard. 3/6 systolic murmur noted. ABDOMEN: Soft. Nondistended. Nontender. EXTREMITIES: Normal range of motion. No clubbing or cyanosis. Peripheral pulses intact. No lower extremity edema NEUROLOGIC: Awake and alert. Oriented x 3. ASSESSMENT: Right hip fracture, status post mechanical fall Coronary artery disease with two-vessel CABG, 2019 Ischemic cardiomyopathy Valvular heart disease Hyperlipidemia Former nicotine dependence PLAN: No need to repeat echocardiogram as this was performed in December 2022 Continue home cardiac medications Patient is without complaints of angina and clinically is not in congestive heart failure Patient is at intermediate risk to undergo surgery from a cardiac standpoint. However, there are no absolute contraindications for patient to proceed Further recommendations pending patient's course Nurse practitioner note has been reviewed by physician. Signing provider agrees with the documented findings, assessment, and plan of care. Objective - Vital Signs Vital signs: Vital Signs Temp 98.0 F 09/07/23 07:54 Pulse 102 H 09/07/23 07:54 Resp 19 09/07/23 07:54 BP 140/62 09/07/23 07:54 Pulse Ox 97 09/07/23 07:54 FiO2 Intake & Output 09/06/23 09/07/23 09/07/23 18:59 06:59 18:59 Intake Total 800 Output Total 100 700 Balance 700 -700 Intake: Intake, IV Titration 150 Amount Sodium Chloride 0.9% 1, 150 000 ml @ 75 mls/hr IV . [id number] [facility] Rx#:[id number] Oral 650 Output: Urine 100 700 Other: Voiding Method Urinal Urinal - Labs CBC & Chem 7: 09/06/23 07:07 09/06/23 08:39 Labs: Abnormal Lab Results - Last 24 Hours (Table) 09/06/23 Range/Units 08:39 Sodium 134 L (137-145) mmol/L BUN 23 H (9-20) mg/dL Glucose 125 H (74-99) mg/dL Total Bilirubin 1.4 H (0.2-1.3) mg/dL Total Protein 5.8 L (6.3-8.2) g/dL
[2023-09-07] MEDS: METOPROLOL SUCCINATE (ER) 50 MG TAB.ER.24H PO SCH (08:46)
[2023-09-07] MEDS: PANTOPRAZOLE 40 MG/10 ML VIAL IV SCH (08:46)
--- NOTE | 2023-09-07 10:33 | P.PN ---
Subjective Progress Note Date: 09/07/23 88-year-old male with PMH of CAD, systolic CHF presents ED after mechanical fall and falling on his right side. Patient denies any loss of consciousness or head trauma. In the ED, he underwent extensive evaluation and workup. CBC showed WBC count 14. INR was 1.1. CMP showed sodium 134, BUN of 21, glucose 106, phosphorus 4.8. EKG shows sinus rhythm with right bundle branch block and Q waves. Chest x-ray negative. Outside imaging demonstrated a femoral neck fracture. Patient was admitted under orthopedic surgery for evaluation and further management. [facility] consulted for further management of this patient. 09/07 Patient was seen and examined. He reports well controlled pain. Cardiology has cleared the patient for surgery. Yesterday, we discussed that the patient was high risk for surgery given his history of CHF and CAD. He is above risk for serious complication, pneumonia, cardiac complication, UTI, VTE, renal failure, readmission, return to OR, , sepsis and discharge to SNF. Family realizes the reward of surgery is greater than the risk. Plans for right total hip arthroplasty today. General: non toxic, no distress, appears at stated age Derm: warm, dry Head: atraumatic, normocephalic, symmetric Eyes: EOMI, no lid lag, anicteric sclera Cardiovascular: S1S2 reg, no murmur Lungs: CTA bilateral, no rhonchi, no rales , no accessory muscle use Ext: no gross muscle atrophy, no edema, no contractures Neuro: no focal neuro deficits Psych: Alert, oriented, appropriate affect Right femoral neck fracture Leukocytosis Elevated BUN Mild hyponatremia Elevated total bilirubin Chronic conditions: CAD, systolic CHF Based on my assessment of this patient, this patient meets a moderate complexity level of care. Patient has an acute diagnosis of right femoral neck fracture that poses a threat to life or bodily function. Right femoral neck fracture: Plans for OR today. Cardiology on board. Leukocytosis: Likely reactive. No signs of infection. Monitor fever profile. Elevated BUN: Mild dehydration. Encourage hydration by mouth. Mild hyponatremia: As above. Elevated total bilirubin: Abdominal exam benign. Continue to monitor. CODE STATUS: FULL CODE. DVT Prophylaxis: SCD GI Prophylaxis: Designated medical POA if patient is not able to make medical decisions for the mselves: I have reviewed the following qm consultant notes: Orthopedic surgery, Cardiology note. I have reviewed the results of the following tests: I have ordered the following tests: I have discussed the care of this patient with the following independent historian: I have independently interpreted the following test below: I have discussed the management of this patient with the following physician: Objective - Vital Signs Vital signs: Vital Signs Temp 98.0 F 09/07/23 07:54 Pulse 102 H 09/07/23 07:54 Resp 19 09/07/23 07:54 BP 140/62 09/07/23 07:54 Pulse Ox 97 09/07/23 07:54 FiO2 Intake & Output 09/06/23 09/07/23 09/07/23 18:59 06:59 18:59 Intake Total 800 Output Total 100 700 Balance 700 -700 Intake: Intake, IV Titration 150 Amount Sodium Chloride 0.9% 1, 150 000 ml @ 75 mls/hr IV . [id number] [facility] Rx#:[id number] Oral 650 Output: Urine 100 700 Other: Voiding Method Urinal Urinal - Labs CBC & Chem 7: 09/06/23 07:07 09/06/23 08:39 Labs: Abnormal Lab Results - Last 24 Hours (Table) 09/06/23 Range/Units 08:39 Sodium 134 L (137-145) mmol/L BUN 23 H (9-20) mg/dL Glucose 125 H (74-99) mg/dL Total Bilirubin 1.4 H (0.2-1.3) mg/dL Total Protein 5.8 L (6.3-8.2) g/dL
[2023-09-07] MEDS ORDERED: ONDANSETRON 4 MG/2 ML VIAL IVP ONE (12:26)
[2023-09-07] MEDS ORDERED: TRANEXAMIC 1,000 MG/100ML-NACL 1,000 MG in SALINE 1 100ML.BAG IVPB ONE ×3 (12:46→13:00)
[2023-09-07] MEDS ORDERED: ePHEDrine 50 MG/ML 1 ML VIAL ONE (12:55)
[2023-09-07] MEDS ORDERED: KETAMINE HCL IN 0.9 % NACL 50 MG/5 ML SYRINGE ONE (12:55)
[2023-09-07] MEDS ORDERED: PROPOFOL 10 MG/ML 20 ML VIAL IV ONE (12:55)
[2023-09-07] MEDS ORDERED: TRANEXAMIC 1,000 MG/100ML-NACL PREMIX BAG ONE (12:55)
[2023-09-07] MEDS ORDERED: fentaNYL (PF) 50 MCG/ML 2 ML AMP ONE (12:55)
[2023-09-07] MEDS ORDERED: MIDAZOLAM 2 MG/2 ML VIAL ONE (12:55)
[2023-09-07] MEDS ORDERED: PHENYLEPHRINE-0.9% NACL SYG 1,000 MCG/10 ML SYRINGE ONE (12:55)
[2023-09-07] MEDS ORDERED: ceFAZolin 1,000 MG VIAL IVPB ONE (13:00)
[2023-09-07] MEDS ORDERED: ceFAZolin 1,000 MG in SODIUM CHLORIDE 0.9% 1,000 ML IRRIGATION ONE (13:40)
[2023-09-07] MEDS ORDERED: NALOXONE 0.4 MG/ML 1 ML VIAL IV PRN (15:08)
[2023-09-07] MEDS ORDERED: ONDANSETRON 4 MG/2 ML VIAL IVP PRN (15:08)
--- NOTE | 2023-09-07 15:17 | P.OP ---
Date of Procedure: 09/07/23 Preoperative Diagnosis: Displaced right subcapital femoral neck fracture Postoperative Diagnosis: Same Procedure(s) Performed: Right total hip arthroplastypress-fitlateral approach Implants: Depuy Corail size 14, 135, high offset collared press-fit femoral stem, 58 mm Bolivar acetabular shell with neutral polyethylene liner. I did utilize a 6.5 x 30 mm cancellus screw. Anesthesia: spinal Surgeon: Viktor Reyes Sample Tester #1: Storm Islas Estimated Blood Loss (ml): 150 Pathology: other (Femoral head) Condition: stable Disposition: PACU Indications for Procedure: The patient is an 88-year-old male who presents with right hip pain after recent fall. Upon evaluation he was noted have a displaced subcapital right femoral neck fracture. A discussion of the risks and benefits of operative intervention was made with patient and his family. Operative options to include right hip hemiarthroplasty versus total hip arthroplasty were discussed. He decided since he is quite active, to proceed with total hip arthroplasty. Specific risks of surgery to include infection, neurovascular injury, development of blood clots, leg length description, possible instability, possible component loosening/failure and need for subsequent procedures was discussed. Informed consent was obtained. Operative Findings: As below Description of Procedure: The patient was brought to the operating room, and after induction of spinal anesthesia was placed in a lateral decubitus position. The bony prominences were appropriately padded. The pelvis was stable perpendicular to the floor with a pegboard. The right lower extremity was prepped and draped in normal fashion. A 12 cm incision was then made centered over the greater trochanter extending superiorly to level the ASIS and distally in line with the femoral shaft. The skin and subcutaneous tissues were divided sharply. Electrocautery was used for hemostasis. The fascia sue and gluteus khang fascia was split in line with the skin incision. The muscle fibers were bluntly dissected proximally. A self-retaining retractor was placed. The anterior and posterior margins of the gluteus medius muscles identified and the anterior two thirds was detached from the greater trochanter with electrocautery. The gluteus minimus tendon was identified and detached in a similar fashion. A wide capsulotomy was performed. The femoral neck fracture was identified in the lower neck cut was made approximately 1 1/2 cm above the level of the lesser trochanter with a sagittal saw at a 45 the shaft. The head was then extracted with a corkscrew. Attention was then paid towards preparing the acetabulum. Anterior and posterior retractors were placed. The remaining capsular labral tissues debrided sharply clearly defining the acetabular margins. Began reaming with a 51 mm reamer taking care to initially medialize, then reaming at 45 of abduction and 20 of anteversion. Sequential reaming is performed up to 57 mm. This was down to bleeding bony surface. A trial 58 mm acetabular shell was inserted at 45 of abduction and 20 of anteversion. This was fully seated. There was good rim fit and stability. A neutral polyethylene liner was then impacted. Care taken to avoid any soft tissue interposition. Attention was then paid towards preparing the proximal femur. A box chisel was used to open the metaphyseal region. A canal finder was used to find the femoral canal. Sequential broaching was performed up to a size 14. This is placed in 15 of anteversion with the leg perpendicular floor judging off the trans-epicondylar axis. There is good rotational stability. A calcar mill was used to fashion the medial calcar. A trial 135 high offset neck along with a 36 mm + 1.5 trial head was placed. The hip was gently reduced. It was taken through range of motion. I felt to be stable in flexion and extension with internal and external rotation. I felt there was adequate gnosticist of soft tissue tension. The hip was gently dislocated. The trial components removed. Pulsatile lavage was utilized. The final size 14 high offset 135 high offset collared femoral stem was inserted again with the leg perpendicular to the floor in 15 of anteversion. Again there was good rotational stability. A 36 mm + 1.5 ceramic femoral head was gently impacted. The hip was gently reduced. Again it was taken through motion and felt to be stable in flexion and extension with internal and external rotation. Pulsatile lavage was again utilized. With the leg in abduction the gluteus minimus and medius tendons reattached to the greater trochanter with #2 Ethibond suture. There was minimal drainage therefore a deep drain was not placed. The fascia sue and gluteus khang fascia was closed with #2 Ethibond suture. The subcutaneous tissues were reapproximated interrupted 2-0 Vicryl sutures. The skin was reapproximated with 3-0 subcuticular strata fix suture. Skin tape and adhesive was applied. A sterile dressing was applied. The patient was awoken from sedation and transferred to recovery room in good condition. Blood loss was estimated 150 mL. No complications were incurred. Sponge and needle counts were correct in the case. Fran HERNANDEZ assisted during the major composes case to include exposure, implantation, and closure.
--- NOTE | 2023-09-07 16:00 | XR ---
EXAMINATION TYPE: XR Hip Limited RT, AP view DATE OF EXAM: 09/07/2023 Comparison: None Clinical History: 88-year-old male Status post hip surgery, assess surgical alignment Findings: Single frontal view showing right-sided total arthroplasty. Acetabular cup and femoral stem component s of the prosthesis are well seated without periprosthetic fracture. Alignment grossly anatomic. Soft tissue air related to recent operation. Multiple surgical clips in the right side of the pelvis. Impression: Uncomplicated postoperative appearance right total hip arthroplasty.
[2023-09-07] MEDS: HYDROmorphone 1 MG/ML 1 ML SYRINGE IVP PRN (16:57)
[2023-09-07] MEDS ORDERED: traMADol 50 MG TAB PO PRN (16:59)
[2023-09-07] MEDS: hydrOXYzine pamoate 25 MG CAP PO PRN (18:07)
[2023-09-07] MEDS: HYDROcodone/APAP 5-325MG 1 EACH TAB PO PRN (18:07)
[2023-09-07] MEDS: SENNOSIDES-DOCUSATE SODIUM 1 EACH TAB PO SCH (20:50)
[2023-09-07] MEDS: ATORVASTATIN 40 MG TAB PO SCH (20:50)
[2023-09-08] MEDS: HYDROcodone/APAP 5-325MG 1 EACH TAB PO PRN ×2 (05:01→17:36)
[2023-09-08] MEDS: ASPIRIN 81 MG PO SCH (08:24)
[2023-09-08] MEDS: METOPROLOL SUCCINATE (ER) 50 MG TAB.ER.24H PO SCH (08:24)
[2023-09-08] MEDS: ENOXAPARIN 40 MG/0.4 ML SYRINGE SQ SCH (08:25)
[2023-09-08] MEDS: PANTOPRAZOLE 40 MG/10 ML VIAL IV SCH (08:25)
[2023-09-08] MEDS ORDERED: RIVAROXABAN 10 MG TAB PO SCH (09:00)
--- NOTE | 2023-09-08 10:35 | P.PN ---
Subjective HISTORY OF PRESENT ILLNESS: This is a 88-year-old male with a past medical history significant for coronary artery disease with previous CABG, ischemic cardiac myopathy, aortic stenosis, hyperlipidemia, and former nicotine dependence. Patient follows in the office with Dr. Lao. We have been asked to see the patient in consultation for cardiac clearance. Patient examined at the bedside. Patient presented to the hospital after sustaining a mechanical fall. Patient was found to have an impacted right femoral neck fracture. He is scheduled for surgical intervention tomorrow with orthopedics. Patient currently denies chest pain or pressure. He denies any shortness of breath. He denies dizziness or lightheadedness. Vital signs are stable. * EKG reveals sinus mechanism with right bundle branch block * Chest xray negative for acute process * Current home cardiac medications include aspirin 81 mg daily, atorvastatin 40 mg at night, and metoprolol succinate 50 mg daily. * Most recent echocardiogram obtained in December 2022 revealed ejection fraction 42%, mild to moderate TR, mild , moderate MR, and moderate AR * Patient underwent two-vessel CABG in July 2020 with LUCERO to LAD and VGPDA 09/07/2023 Patient examined this morning at the bedside. Patient denies chest pain or pressure. He denies shortness of breath. Vital signs are stable. He is scheduled for surgical intervention today with orthopedics. 09/08/2023 Patient is status post right total hip arthroplasty. Patient examined this morning at the bedside. Patient denies chest pain or pressure. He denies shortness of breath. Vital signs are stable. PHYSICAL EXAM: VITAL SIGNS: Reviewed. GENERAL: Well-developed in no acute distress. HEENT: Head is normocephalic. Pupils are equal, round. Sclerae anicteric. Mucous membranes of the mouth are moist. Neck supple. No JVD or thyromegaly LUNGS: Respirations even and unlabored. Lungs essentially clear to auscultation bilaterally. HEART: Regular rate and rhythm. S1 and S2 heard. 3/6 systolic murmur noted. ABDOMEN: Soft. Nondistended. Nontender. EXTREMITIES: Normal range of motion. No clubbing or cyanosis. Peripheral pulses intact. No lower extremity edema NEUROLOGIC: Awake and alert. Oriented x 3. ASSESSMENT: Right hip fracture, status post mechanical fall Coronary artery disease with two-vessel CABG, 2019 Ischemic cardiomyopathy Valvular heart disease Hyperlipidemia Former nicotine dependence PLAN: Continue current cardiac medications Patient is stable from a cardiac perspective with no further inpatient recommendations We will sign off. Please reconsult if needed. Nurse practitioner note has been reviewed by physician. Signing provider agrees with the documented findings, assessment, and plan of care. Objective - Vital Signs Vital signs: Vital Signs Temp 97.8 F 09/08/23 07:07 Pulse 92 09/08/23 07:07 Resp 18 09/08/23 07:07 BP 135/62 09/08/23 07:07 Pulse Ox 96 09/08/23 07:07 FiO2 Intake & Output 09/07/23 09/08/23 09/08/23 18:59 06:59 18:59 Intake Total 601 Output Total 250 650 Balance 351 -650 Intake: IV 601 Output: Urine 100 650 Uretheral (Osorio) 250 Estimated Blood Loss 150 Other: Voiding Method Urinal - Labs CBC & Chem 7: 09/06/23 07:07 09/06/23 08:39
[2023-09-08] MEDS: MULTIVITAMINS, THERA 1 EACH TAB PO SCH (11:01)
[2023-09-08] MEDS: HYDROmorphone 1 MG/ML 1 ML SYRINGE IVP PRN ×2 (11:01→14:45)
[2023-09-08 11:28] LABS: Basophils # (A) 0.02 X 10*3/uL (0.00-0.10); Basophils % (A) 0.2 %; Eosinophils # (A) 0.07 X 10*3/uL (0.04-0.35); Eosinophils % (A) 0.8 %; HCT 38.6 % (39.6-50.0); HGB 12.4 g/dL (13.0-17.0); Lymphocytes # (A) 0.66 X 10*3/uL (0.90-5.00); Lymphocytes % (A) 7.3 %; MCH 29.6 pg (27.0-32.0); MCHC 32.1 g/dL (32.0-37.0); MCV 92.1 FL (80.0-97.0); Mean Platelet Volume 11.8 FL (9.5-12.2); Monocytes # (A) 1.16 X 10*3/uL (0.20-1.00); Monocytes % (A) 12.9 %; NRBC Per 100 WBC 0 X 10*3/uL (0.00-0.01); Neutrophils # (A) 7.06 X 10*3/uL (1.80-7.70); Neutrophils % (A) 78.5 %; Platelet Count 145 X 10*3/uL (140-440); RBC 4.19 X 10*6/uL (4.40-5.60); RDW 13.8 % (11.5-14.5)
--- NOTE | 2023-09-08 11:58 | P.PN ---
Subjective Progress Note Date: 09/08/23 Principal diagnosis: Status post right total hip arthroplasty, lateral approach Patient was examined today bedside, he is sleeping in his hospital bed, he is easily awoken normal. Patient has not been out of bed with therapy yet. Urinary catheter was removed, he has not urinated at this time. Patient states the pain is well-controlled at this time. Denies headaches, lightheadedness, chest pain or shortness of breath Objective - Vital Signs Vital signs: Vital Signs Temp 97.8 F 09/08/23 07:07 Pulse 92 09/08/23 07:07 Resp 18 09/08/23 07:07 BP 135/62 09/08/23 07:07 Pulse Ox 96 09/08/23 07:07 FiO2 Intake & Output 09/07/23 09/08/23 09/08/23 18:59 06:59 18:59 Intake Total 601 Output Total 250 650 200 Balance 351 -650 -200 Intake: IV 601 Output: Urine 100 650 200 Uretheral (Osorio) 250 Estimated Blood Loss 150 Other: Voiding Method Urinal - Exam Right lower extremity: Incision is clean, dry, and intact. The exofin fusion tape is in good condition. There is minimal soft tissue swelling and ecchymosis surrounding the medial and lateral aspects of the incision. Calf is soft, no tenderness with palpation. Plantar flexion, dorsiflexion, EHL, FHL are intact. Sensory exam to light touch throughout the extremity is intact, dorsal pedis pulses 2+. - Labs CBC & Chem 7: 09/08/23 06:02 09/06/23 08:39 Labs: Abnormal Lab Results - Last 24 Hours (Table) 09/08/23 Range/Units 06:02 RBC 4.19 L (4.40-5.60) X 10*6/uL Hgb 12.4 L (13.0-17.0) g/dL Hct 38.6 L (39.6-50.0) % Lymphocytes # 0.66 L (0.90-5.00) X 10*3/uL Monocytes # 1.16 H (0.20-1.00) X 10*3/uL Assessment and Plan Assessment: Postoperative day #1 status post right total hip arthroplasty, lateral approach Plan: Pain control, continue supportive oral medications, consider lower dose due to age DVT prophylaxis, continue subcu medication during hospital stay Wound care, monitor dressing at this time PT/OT evaluation Weight-bear as tolerated, use walker at all times Monitor urinary retention Encourage incentive spirometer Other medical doctor md/medical director and recommendations appreciated Discharge planning: Anticipating discharged to subacute rehab when stable and when bed is available Time with Patient: Less than 30
--- NOTE | 2023-09-08 15:27 | P.PN ---
Subjective Progress Note Date: 09/08/23 88-year-old male with PMH of CAD, systolic CHF presents ED after mechanical fall and falling on his right side. Patient denies any loss of consciousness or head trauma. In the ED, he underwent extensive evaluation and workup. CBC showed WBC count 14. INR was 1.1. CMP showed sodium 134, BUN of 21, glucose 106, phosphorus 4.8. EKG shows sinus rhythm with right bundle branch block and Q waves. Chest x-ray negative. Outside imaging demonstrated a femoral neck fracture. Patient was admitted under orthopedic surgery for evaluation and further management. [facility] Physicians consulted for further management of this patient. 09/07 Patient was seen and examined. He reports well controlled pain. Cardiology has cleared the patient for surgery. Yesterday, we discussed that the patient was high risk for surgery given his history of CHF and CAD. He is above risk for serious complication, pneumonia, cardiac complication, UTI, VTE, renal failure, readmission, return to OR, , sepsis and discharge to SNF. Family realizes the reward of surgery is greater than the risk. Plans for right total hip arthroplasty today. 09/08 Patient was seen and examined. Underwent right total hip arthroplastypress-fitlateral approach yesterday. He reports moderate pain in his right hip. Hip XR post surgery showed uncomplicated post operative right total hip arthroplasty. CBC shows Hg 12.4. General: non toxic, no distress, appears at stated age Derm: warm, dry Head: atraumatic, normocephalic, symmetric Eyes: EOMI, no lid lag, anicteric sclera Cardiovascular: S1S2 reg, no murmur Lungs: CTA bilateral, no rhonchi, no rales , no accessory muscle use Ext: no gross muscle atrophy, no edema, no contractures Neuro: no focal neuro deficits Psych: Alert, oriented, appropriate affect Right femoral neck fracture Elevated BUN Mild hyponatremia Elevated total bilirubin Chronic conditions: CAD, systolic CHF Resolved: Leukocytosis Based on my assessment of this patient, this patient meets a moderate complexity level of care. Patient has an acute diagnosis of right femoral neck fracture that poses a threat to life or bodily function. Right femoral neck fracture: Status post right total hip arthroplastypress- fitlateral approach 09/07. PT and OT consulted. Elevated BUN: Mild dehydration. Encourage hydration by mouth. Mild hyponatremia: As above. Elevated total bilirubin: Abdominal exam benign. Continue to monitor. Plans for SNF vs home with PT depending on how patient progresses. CODE STATUS: FULL CODE. DVT Prophylaxis: SCD GI Prophylaxis: Designated medical POA if patient is not able to make medical decisions for themselves: I have reviewed the following technical consultant notes: Orthopedic surgery, Cardiology note. I have reviewed the results of the following tests: CBC. I have ordered the following tests: I have discussed the care of this patient with the following independent historian: I have independently interpreted the following test below: I have discussed the management of this patient with the following physician: Objective - Vital Signs Vital signs: Vital Signs Temp 97.8 F 09/08/23 07:07 Pulse 92 09/08/23 07:07 Resp 18 09/08/23 07:07 BP 135/62 09/08/23 07:07 Pulse Ox 96 09/08/23 07:07 FiO2 Intake & Output 09/07/23 09/08/23 09/08/23 18:59 06:59 18:59 Intake Total 601 Output Total 250 650 Balance 351 -650 Intake: IV 601 Output: Urine 100 650 Uretheral (Osorio) 250 Estimated Blood Loss 150 Other: Voiding Method Urinal - Labs CBC & Chem 7: 09/08/23 06:02 09/06/23 08:39
[2023-09-08] MEDS: hydrOXYzine pamoate 25 MG CAP PO PRN (17:36)
[2023-09-08] MEDS: ATORVASTATIN 40 MG TAB PO SCH (20:58)
[2023-09-08] MEDS: SENNOSIDES-DOCUSATE SODIUM 1 EACH TAB PO SCH (20:58)
[2023-09-09] MEDS: LACTATED RINGERS 1,000 ML IV SCH (05:24)
[2023-09-09] MEDS: METOPROLOL SUCCINATE (ER) 50 MG TAB.ER.24H PO SCH (08:26)
[2023-09-09] MEDS: ENOXAPARIN 40 MG/0.4 ML SYRINGE SQ SCH (08:26)
[2023-09-09] MEDS: ASPIRIN 81 MG PO SCH (08:26)
[2023-09-09] MEDS: PANTOPRAZOLE 40 MG/10 ML VIAL IV SCH (08:26)
[2023-09-09] MEDS: MULTIVITAMINS, THERA 1 EACH TAB PO SCH (08:26)
[2023-09-09] MEDS: HYDROcodone/APAP 5-325MG 1 EACH TAB PO PRN (08:27)
[2023-09-09] MEDS: MAGNESIUM HYDROXIDE 2,400 MG/30 ML CUP PO SCH (10:59)
--- NOTE | 2023-09-09 11:08 | P.PN ---
Subjective Progress Note Date: 09/09/23 Principal diagnosis: Status post right total hip arthroplasty, lateral approach Patient was examined today bedside, he is sleeping in his hospital bed. Discussion with nursing, yesterday patient was a max 2 person assist. Patient states the pain is well-controlled at this time. Denies headaches, lightheadedness, chest pain or shortness of breath Objective - Vital Signs Vital signs: Vital Signs Temp 98.4 F 09/09/23 07:38 Pulse 87 09/09/23 08:27 Resp 19 09/09/23 08:27 BP 123/64 09/09/23 07:38 Pulse Ox 94 L 09/09/23 07:38 FiO2 Intake & Output 09/08/23 09/09/23 09/09/23 18:59 06:59 18:59 Output Total 250 650 Balance -250 -650 Output: Urine 250 650 Other: Voiding Method Urinal Urinal # Voids 1 - Exam Right lower extremity: Incision is clean, dry, and intact. The exofin fusion tape is in good cond ition. There is minimal soft tissue swelling and ecchymosis surrounding the medial and lateral aspects of the incision. Calf is soft, no tenderness with palpation. Plantar flexion, dorsiflexion, EHL, FHL are intact. Sensory exam to light touch throughout the extremity is intact, dorsal pedis pulses 2+. - Labs CBC & Chem 7: 09/08/23 06:02 09/06/23 08:39 Labs: Abnormal Lab Results - Last 24 Hours (Table) 09/08/23 Range/Units 06:02 RBC 4.19 L (4.40-5.60) X 10*6/uL Hgb 12.4 L (13.0-17.0) g/dL Hct 38.6 L (39.6-50.0) % Lymphocytes # 0.66 L (0.90-5.00) X 10*3/uL Monocytes # 1.16 H (0.20-1.00) X 10*3/uL Assessment and Plan Assessment: Postoperative day #2 status post right total hip arthroplasty, lateral approach Plan: Pain control, continue supportive oral medications, consider lower dose due to age DVT prophylaxis, continue subcu medication during hospital stay Wound care, monitor dressing at this time PT/OT evaluation Weight-bear as tolerated, use walker at all times Monitor urinary retention Encourage incentive spirometer Other medical service technician and recommendations appreciated Discharge planning: Discussed with family, hoping to have patient discharged to home. We'll continue to monitor his activity level. Time with Patient: Less than 30
--- NOTE | 2023-09-09 18:12 | P.PN ---
Subjective Progress Note Date: 09/09/23 (delayed charting seen at 1115) Patient is an 88-year-old male with known coronary artery disease, systolic congestive heart failure, A. fib, and multiple other comorbid conditions who pre sented after a mechanical fall with right-sided hip fracture. Patient subsequently underwent Patient seen and examined at bedside. He denies any chest pain, shortness breath, nausea, vomiting. He does not want to really go to rehab and wants to go straight home. He reports his pain is well controlled. Vital signs reviewed General: nontoxic, no distress, appears at stated age Cardiovascular: S1S2 reg, no murmur, positive posterior tibial pulse bilateral, Lungs: CTA bilateral, no rhonchi, no rales , no accessory muscle use Abdominal: soft, nontender to palpation, no guarding, no appreciable organomegaly Ext: no gross muscle atrophy, trace edema right lower extremity, no contractures Neuro: CN II-XI grossly intact, no focal neuro deficits Psych: Alert, oriented, appropriate affect Assessment/Plan: 88-year-old male status post right femoral neck fracture status post right total hip arthroplasty Coronary artery disease status post CABG 2019 Ischemic cardiomyopathy, last ejection fraction 35-40% in 2019 Valvular heart disease and moderate mitral regurgitation Dyslipidemia -Continue with aspirin 81 mg oral daily, Lipitor 40 mg at night, Toprol 50 mg daily. Patient is not chronically on an Dileep her in our Mild dehydration with elevated BUN Mild hyponatremia Elevated bilirubin -Encourage oral fluid intake -Repeat BMP in a.m. Leukocytosis, resolved Imaging: No new imaging Data Review: Labs available for today Thank you for allowing us to participate in the care of this pleasant patient. Do not hesitate to contact us with questions. Someone can be reached from the [facility] hospitalist group all hours of the day at [phone] or via [employer]. This dictation was prepared using [employer] voice recognition software. Though every attempt is made to correct errors during dictation some may still exist. Objective - Vital Signs Vital signs: Vital Signs Temp 98.5 F 09/09/23 13:14 Pulse 79 09/09/23 13:14 Resp 19 09/09/23 13:14 BP 125/60 09/09/23 13:14 Pulse Ox 91 L 09/09/23 13:14 FiO2 Intake & Output 09/08/23 09/09/23 09/09/23 18:59 06:59 18:59 Output Total 250 650 Balance -250 -650 Output: Urine 250 650 Other: Voiding Method Urinal Urinal # Voids 1 2 - Labs CBC & Chem 7: 09/08/23 06:02 09/06/23 08:39
[2023-09-09] MEDS: SENNOSIDES-DOCUSATE SODIUM 1 EACH TAB PO SCH (19:52)
[2023-09-09] MEDS: ATORVASTATIN 40 MG TAB PO SCH (19:52)
[2023-09-10] MEDS: LACTATED RINGERS 1,000 ML IV SCH (06:08)
[2023-09-10] MEDS: MAGNESIUM HYDROXIDE 2,400 MG/30 ML CUP PO SCH (08:09)
[2023-09-10] MEDS: ENOXAPARIN 40 MG/0.4 ML SYRINGE SQ SCH (08:09)
[2023-09-10] MEDS: METOPROLOL SUCCINATE (ER) 50 MG TAB.ER.24H PO SCH (08:09)
[2023-09-10] MEDS: PANTOPRAZOLE 40 MG/10 ML VIAL IV SCH (08:10)
[2023-09-10] MEDS: ASPIRIN 81 MG PO SCH (08:11)
[2023-09-10 08:45] LABS: African American GFR (CKD) >90 (>60 ml/min/1.73 sqM); Anion Gap 5 mmol/L; Blood Urea Nitrogen 24 mg/dL (9-20); Calcium 8.5 mg/dL (8.4-10.2); Carbon Dioxide 27 mmol/L (22-30); Chloride 98 mmol/L (98-107); Glucose 98 mg/dL (74-99); Non-African American GFR(CKD) 80 (>60 ml/min/1.73 sqM); Sodium 130 mmol/L (137-145)
[2023-09-10 11:54] VITALS: BMI 25.1
[2023-09-10 12:41] LABS: Basophils # (A) 0.01 X 10*3/uL (0.00-0.10); Basophils % (A) 0.1 %; Eosinophils # (A) 0.22 X 10*3/uL (0.04-0.35); Eosinophils % (A) 2.4 %; HGB 12.1 g/dL (13.0-17.0); Lymphocytes # (A) 1.04 X 10*3/uL (0.90-5.00); Lymphocytes % (A) 11.6 %; MCH 30.9 pg (27.0-32.0); MCHC 34.6 g/dL (32.0-37.0); MCV 89.3 FL (80.0-97.0); Mean Platelet Volume 11.9 FL (9.5-12.2); Monocytes # (A) 1.26 X 10*3/uL (0.20-1.00); NRBC Per 100 WBC 0 X 10*3/uL (0.00-0.01); Neutrophils # (A) 6.41 X 10*3/uL (1.80-7.70); Neutrophils % (A) 71.3 %; Platelet Count 173 X 10*3/uL (140-440); RBC 3.92 X 10*6/uL (4.40-5.60); RDW 13.6 % (11.5-14.5); WBC 8.99 X 10*3/uL (4.50-10.00)
--- NOTE | 2023-09-10 13:24 | P.PN ---
Subjective Progress Note Date: 09/10/23 Principal diagnosis: Status post right total hip arthroplasty, lateral approach Patient was examined today bedside, multiple family members at bedside. We had a long discussion about discharge possibilities. Patient has been a 2 person assist, we have discussed subcu rehab options, the patient seems more willing to consider this. I did discuss this with case management today. Physical therapy has not been around evaluate the patient at this time. Patient denies headache s, tinnitus, chest pain or shortness of breath. Objective - Vital Signs Vital signs: Vital Signs Temp 98.6 F 09/10/23 07:05 Pulse 81 09/10/23 07:05 Resp 19 09/10/23 07:05 BP 147/71 09/10/23 07:05 Pulse Ox 92 L 09/10/23 08:06 FiO2 Intake & Output 09/09/23 09/10/23 09/10/23 18:59 06:59 18:59 Intake Total 1000 Output Total 1450 Balance -450 Weight 91.172 kg Intake: Oral 1000 Output: Urine 1450 Other: Voiding Method Urinal Urinal # Voids 2 1 - Exam Right lower extremity: Incision is clean, dry, and intact. The exofin fusion tape is in good condition. There is minimal soft tissue swelling and ecchymosis surrounding the medial and lateral aspects of the incision. Calf is soft, no tenderness with palpation. Plantar flexion, dorsiflexion, EHL, FHL are intact. Sensory exam to light touch throughout the extremity is intact, dorsal pedis pulses 2+. - Labs CBC & Chem 7: 09/10/23 07:10 09/10/23 07:10 Labs: Abnormal Lab Results - Last 24 Hours (Table) 09/10/23 09/10/23 Range/Units 07:10 07:10 RBC 3.92 L (4.40-5.60) X 10*6/uL Hgb 12.1 L (13.0-17.0) g/dL Hct 35.0 L (39.6-50.0) % Monocytes # 1.26 H (0.20-1.00) X 10*3/uL Sodium 130 L (137-145) mmol/L BUN 24 H (9-20) mg/dL Assessment and Plan Assessment: Postoperative day #3 status post right total hip arthroplasty, lateral approach Plan: Pain control, continue supportive oral medications, consider lower dose due to age DVT prophylaxis, continue subcu medication during hospital stay Wound care, monitor dressing at this time PT/OT evaluation Weight-bear as tolerated, use walker at all times Monitor urinary retention Encourage incentive spirometer Other senior medical technologist and recommendations appreciated Discharge planning: Patient does with physical therapy, there is still the possibility of going home with home healthcare, I am leaning towards subacute rehab, this may not happen until later next week pending authorization. We will continue to follow patient during hospital stay Time with Patient: Less than 30
[2023-09-10] MEDS: MULTIVITAMINS, THERA 1 EACH TAB PO SCH (13:30)
--- NOTE | 2023-09-10 17:46 | P.PN ---
Subjective Progress Note Date: 09/10/23 (johnny charting seen at approx 1315) Patient is an 88-year-old male with known coronary artery disease, systolic congestive heart failure, A. fib, and multiple other comorbid conditions who presented after a mechanical fall with right-sided hip fracture. Patient subsequently underwent Patient seen and examined at bedside with family present. He denies any pain. No nausea or vomiting. He does report poor oral intake as he does not like her food here. He has no history of difficulties with sodium in the past. Vital signs reviewed General: nontoxic, no distress, appears at stated age Cardiovascular: S1S2 reg, no murmur, positive posterior tibial pulse bilateral, Lungs: CTA bilateral, no rhonchi, no rales , no accessory muscle use Abdominal: soft, nontender to palpation, no guarding, no appreciable organomegaly Ext: no gross muscle atrophy, trace edema right lower extremity, no contractures Neuro: CN II-XI grossly intact, no focal neuro deficits Psych: Alert, oriented, appropriate affect Assessment/Plan: 88-year-old male status post right femoral neck fracture status post right total hip arthroplasty Hyponatremia, suspect secondary to poor solute intake -Encourage patient to have oral intake of both liquids and solids. Insure ordered. Would repeat basic metabolic profile in a.m. to ensure stability of sodium prior to discharge. - could also be related to fluid overload with hx of CHF however patient appears euvolemic. Acute blood loss anemia, anticipated outcome of surgery -Hgb will been stable. No indication for transfusion. Repeat CBC in a.m. Coronary artery disease status post CABG 2019 Ischemic cardiomyopathy, last ejection fraction 35-40% in 2019 Valvular heart disease and moderate mitral regurgitation Dyslipidemia -Continue with aspirin 81 mg oral daily, Lipitor 40 mg at night, Toprol 50 mg d aily. Patient is not chronically on an Dileep or ARB Leukocytosis, resolved Imaging: No new imaging Data Review: Labs reviewed from today include CBC and basic metabolic profile was remarkable for hemoglobin 12.1, sodium 130 Thank you for allowing us to participate in the care of this pleasant patient. Do not hesitate to contact us with questions. Someone can be reached from the [facility] hospitalist group all hours of the day at [phone] or via [employer]. This dictation was prepared using [employer] voice recognition software. Though every attempt is made to correct errors during dictation some may still exist. Objective - Vital Signs Vital signs: Vital Signs Temp 97.9 F 09/10/23 13:26 Pulse 79 09/10/23 13:26 Resp 19 09/10/23 13:26 BP 105/63 09/10/23 13:26 Pulse Ox 96 09/10/23 13:26 FiO2 Intake & Output 09/09/23 09/10/23 09/10/23 18:59 06:59 18:59 Intake Total 1000 Output Total 1450 Balance -450 Weight 91.172 kg Intake: Oral 1000 Output: Urine 1450 Other: Voiding Method Urinal Urinal # Voids 2 1 - Labs CBC & Chem 7: 09/10/23 07:10 09/10/23 07:10 Labs: Abnormal Lab Results - Last 24 Hours (Table) 09/10/23 09/10/23 Range/Units 07:10 07:10 RBC 3.92 L (4.40-5.60) X 10*6/uL Hgb 12.1 L (13.0-17.0) g/dL Hct 35.0 L (39.6-50.0) % Monocytes # 1.26 H (0.20-1.00) X 10*3/uL Sodium 130 L (137-145) mmol/L BUN 24 H (9-20) mg/dL
[2023-09-10] MEDS ORDERED: ACETAMINOPHEN TAB 325 MG TAB PO PRN (19:54)
[2023-09-10] MEDS: SENNOSIDES-DOCUSATE SODIUM 1 EACH TAB PO SCH (21:15)
[2023-09-10] MEDS: ATORVASTATIN 40 MG TAB PO SCH (21:15)
[2023-09-11] MEDS: LACTATED RINGERS 1,000 ML IV SCH (05:56)
[2023-09-11 07:24] LABS: African American GFR (CKD) >90 (>60 ml/min/1.73 sqM); Anion Gap 6 mmol/L; Blood Urea Nitrogen 25 mg/dL (9-20); Calcium 8.6 mg/dL (8.4-10.2); Carbon Dioxide 27 mmol/L (22-30); Chloride 98 mmol/L (98-107); Glucose 107 mg/dL (74-99); Non-African American GFR(CKD) 81 (>60 ml/min/1.73 sqM); Potassium 4.3 mmol/L (3.5-5.1); Sodium 131 mmol/L (137-145)
[2023-09-11] MEDS: MAGNESIUM HYDROXIDE 2,400 MG/30 ML CUP PO SCH (08:19)
[2023-09-11] MEDS: ENOXAPARIN 40 MG/0.4 ML SYRINGE SQ SCH (08:19)
[2023-09-11] MEDS: ASPIRIN 81 MG PO SCH (08:19)
[2023-09-11] MEDS: METOPROLOL SUCCINATE (ER) 50 MG TAB.ER.24H PO SCH (08:19)
[2023-09-11 10:30] LABS: Basophils # (A) 0.02 X 10*3/uL (0.00-0.10); Basophils % (A) 0.3 %; Eosinophils # (A) 0.27 X 10*3/uL (0.04-0.35); Eosinophils % (A) 3.4 %; HCT 37.3 % (39.6-50.0); HGB 12.3 g/dL (13.0-17.0); Lymphocytes # (A) 0.97 X 10*3/uL (0.90-5.00); Lymphocytes % (A) 12.2 %; Monocytes # (A) 1.14 X 10*3/uL (0.20-1.00); Monocytes % (A) 14.4 %; NRBC Per 100 WBC 0 X 10*3/uL (0.00-0.01); Neutrophils # (A) 5.52 X 10*3/uL (1.80-7.70); Neutrophils % (A) 69.4 %; Platelet Count 212 X 10*3/uL (140-440); RDW 13.5 % (11.5-14.5); WBC 7.94 X 10*3/uL (4.50-10.00)
[2023-09-11] MEDS: MULTIVITAMINS, THERA 1 EACH TAB PO SCH (12:04)
[2023-09-11] MEDS: PANTOPRAZOLE 40 MG/10 ML VIAL IV SCH (12:04)
--- NOTE | 2023-09-11 16:24 | P.PN ---
Subjective Progress Note Date: 09/11/23 Principal diagnosis: Right hip fracture CC: Hip pain Subjective: Mr. Garcia was seen and examined. Hip pain is controlled. No chest chest pain or shortness of breath. Plan of care discussed with him and his family. Objective: Vitals: Reviewed General: No acute distress HEENT: Mucous membranes moist neck supple Cardiovascular: RRR, S1-S2 Lungs: Breath sounds equal and clear to auscultation bilaterally. No wheezing, rhonchi or rales Abdomen: Soft, nontender, nondistended Extremities: No lower extremity edema Pertinent labs and imaging reviewed Assessment and plan: 1. Right femoral neck fracture status post right hip arthroplasty Pain control. PT/OT. 2. Hypotonic hyponatremia Likely secondary to poor solute intake. Sodium is stable. Not fluid ove rloaded. Asymptomatic. 3. CAD status post CABG 2020 Ischemic cardiomyopathy, last known EF 35-40% Moderate MR Hyperlipidemia Continue with aspirin, statin, Toprol 4. Leukocytosis Likely reactive. Resolved. 5. Acute blood loss anemia Secondary to surgery. Hemoglobin stable. VTE prophylaxis with enoxaparin Objective - Vital Signs Vital signs: Vital Signs Temp 98.1 F 09/11/23 14:00 Pulse 69 09/11/23 14:00 Resp 18 09/11/23 14:00 BP 125/56 09/11/23 14:00 Pulse Ox 96 09/11/23 14:00 FiO2 Intake & Output 09/10/23 09/11/23 09/11/23 18:59 06:59 18:59 Intake Total 600 Output Total 650 Balance 600 -650 Weight 91.172 kg Intake: Oral 600 Output: Urine 650 Other: Voiding Method Urinal Urinal # Voids 1 # Bowel Movements 1 - Labs CBC & Chem 7: 09/11/23 06:50 09/11/23 06:50 Labs: Abnormal Lab Results - Last 24 Hours (Table) 09/11/23 09/11/23 Range/Units 06:50 06:50 RBC 4.10 L (4.40-5.60) X 10*6/uL Hgb 12.3 L (13.0-17.0) g/dL Hct 37.3 L (39.6-50.0) % Monocytes # 1.14 H (0.20-1.00) X 10*3/uL Sodium 131 L (137-145) mmol/L BUN 25 H (9-20) mg/dL Glucose 107 H (74-99) mg/dL
[2023-09-11] MEDS: ATORVASTATIN 40 MG TAB PO SCH (20:37)
[2023-09-11] MEDS: SENNOSIDES-DOCUSATE SODIUM 1 EACH TAB PO SCH (20:37)
[2023-09-12] MEDS: LACTATED RINGERS 1,000 ML IV SCH (05:08)
[2023-09-12 07:57] LABS: Anisocytosis Slight; Basophils % (A) 0 %; Eosinophils # (A) 0.2 k/uL (0-0.7); Eosinophils % (A) 3 %; HCT 32.2 % (39.0-53.0); Lymphocytes # (A) 0.7 k/uL (1.0-4.8); Lymphocytes % (A) 10 %; MCHC 37.9 g/dL (31.0-37.0); MCV 92.5 fL (80.0-100.0); Monocytes # (A) 0.6 k/uL (0-1.0); Monocytes % (A) 9 %; Neutrophils # (A) 4.8 k/uL (1.3-7.7); Neutrophils % (A) 76 %; Platelet Count 230 k/uL (150-450); RBC 3.48 m/uL (4.30-5.90); WBC 6.4 k/uL (3.8-10.6)
[2023-09-12 08:07] LABS: HGB 12.2 gm/dL (13.0-17.5)
--- NOTE | 2023-09-12 08:12 | P.PN ---
Subjective Progress Note Date: 09/11/23 Principal diagnosis: Status post right total hip arthroplasty, lateral approach Patient was examined today bedside, multiple family members at bedside. Patient seems to be improving with regards to his activities of daily living. Patient and family are still considering home for possible discharged, we will decide on 09/13/2023. Objective - Vital Signs Vital signs: Vital Signs Temp 98.1 F 09/12/23 01:05 Pulse 76 09/12/23 01:05 Resp 18 09/11/23 14:00 BP 127/62 09/12/23 01:05 Pulse Ox 96 09/12/23 01:05 FiO2 Intake & Output 09/11/23 09/12/23 09/12/23 18:59 06:59 18:59 Output Total 400 Balance -400 Output: Urine 400 Other: Voiding Method Urinal - Exam Right lower extremity: Incision is clean, dry, and intact. The exofin fusion tape is in good condition. There is minimal soft tissue swelling and ecchymosis surrounding the medial and lateral aspects of the incision. Calf is soft, no tenderness with palpation. Plantar flexion, dorsiflexion, EHL, FHL are intact. Sensory exam to light touch throughout the extremity is intact, dorsal pedis pulses 2+. - Labs CBC & Chem 7: 09/12/23 07:15 09/11/23 06:50 Labs: Abnormal Lab Results - Last 24 Hours (Table) 09/11/23 09/12/23 Range/Units 06:50 07:15 RBC 4.10 L 3.48 L (4.40-5.60) X 10*6/uL Hgb 12.3 L 12.2 L D (13.0-17.0) g/dL Hct 37.3 L 32.2 L (39.6-50.0) % MCHC 37.9 H (31.0-37.0) g/dL RDW 20.0 H (11.5-15.5) % Lymphocytes # 0.7 L (1.0-4.8) k/uL Monocytes # 1.14 H (0.20-1.00) X 10*3/uL Assessment and Plan Assessment: Postoperative day #4 status post right total hip arthroplasty, lateral approach Plan: Pain control, continue supportive oral medications, consider lower dose due to age DVT prophylaxis, continue subcu medication during hospital stay Wound care, monitor dressing at this time PT/OT evaluation Weight-bear as tolerated, use walker at all times Monitor urinary retention Encourage incentive spirometer Other medical affairs specialist and recommendations appreciated Discharge planning: Home versus subacute rehab, we'll reassess on 09/13/2020 Time with Patient: Less than 30
[2023-09-12] MEDS: PANTOPRAZOLE 40 MG/10 ML VIAL IV SCH (08:35)
[2023-09-12] MEDS: METOPROLOL SUCCINATE (ER) 50 MG TAB.ER.24H PO SCH (08:35)
[2023-09-12] MEDS: ASPIRIN 81 MG PO SCH (08:35)
[2023-09-12] MEDS: MAGNESIUM HYDROXIDE 2,400 MG/30 ML CUP PO SCH (08:35)
[2023-09-12] MEDS: ENOXAPARIN 40 MG/0.4 ML SYRINGE SQ SCH (08:36)
--- NOTE | 2023-09-12 10:50 | P.PN ---
Subjective Progress Note Date: 09/12/23 Principal diagnosis: Status post right total hip arthroplasty, lateral approach Patient was examined today bedside, he appears to be in no acute distress. Patient feels that he has continued to improve with regards to his overall range of motion and strength. Denies lightheadedness, chest pain or shortness of breath. Objective - Vital Signs Vital signs: Vital Signs Temp 98.2 F 09/12/23 07:22 Pulse 77 09/12/23 07:22 Resp 19 09/12/23 07:22 BP 124/65 09/12/23 07:22 Pulse Ox 96 09/12/23 07:22 FiO2 Intake & Output 09/11/23 09/12/23 09/12/23 18:59 06:59 18:59 Output Total 400 Balance -400 Output: Urine 400 Other: Voiding Method Urinal - Exam Right lower extremity: Incision is clean, dry, and intact. The exofin fusion tape is in good condition. There is minimal soft tissue swelling and ecchymosis surrounding the medial and lateral aspects of the incision. Calf is soft, no tenderness with palpation. Plantar flexion, dorsiflexion, EHL, FHL are intact. Sensory exam to light touch throughout the extremity is intact, dorsal pedis pulses 2+. - Labs CBC & Chem 7: 09/12/23 07:15 09/11/23 06:50 Labs: Abnormal Lab Results - Last 24 Hours (Table) 09/12/23 Range/Units 07:15 RBC 3.48 L (4.30-5.90) m/uL Hgb 12.2 L D (13.0-17.5) gm/dL Hct 32.2 L (39.0-53.0) % MCHC 37.9 H (31.0-37.0) g/dL RDW 20.0 H (11.5-15.5) % Lymphocytes # 0.7 L (1.0-4.8) k/uL Assessment and Plan Assessment: Postoperative day #5 status post right total hip arthroplasty, lateral approach Plan: Pain control, continue supportive oral medications, consider lower dose due to age DVT prophylaxis, continue subcu medication during hospital stay Wound care, monitor dressing at this time PT/OT evaluation Weight-bear as tolerated, use walker at all times Monitor urinary retention Encourage incentive spirometer Other medical technologist chemistry and recommendations appreciated Discharge planning: Home versus subacute rehab, we'll reassess on 09/13/2020 Time with Patient: Less than 30
--- NOTE | 2023-09-12 12:37 | P.PN ---
Subjective Progress Note Date: 09/12/23 Principal diagnosis: Right hip fracture CC: Hip pain Subjective: Mr. Garcia was seen and examined. Denies pain. Ambulated well today. No chest pain or shortness of breath. Plan of care discussed with him and his family. Objective: Vitals: Reviewed General: No acute distress HEENT: Mucous membranes moist neck supple Cardiovascular: RRR, S1-S2 Lungs: Breath sounds equal and clear to auscultation bilaterally. No wheezing, rhonchi or rales Abdomen: Soft, nontender, nondistended Extremities: No lower extremity edema Pertinent labs and imaging reviewed Assessment and plan: 1. Right femoral neck fracture status post right hip arthroplasty Pain control. PT/OT. 2. Hypotonic hyponatremia Likely secondary to poor solute intake. Sodium is stable. Not fluid overloaded. Asymptomatic. 3. CAD status post CABG 2020 Ischemic cardiomyopathy, last known EF 35-40% Moderate MR Hyperlipidemia Continue with aspirin, statin, Toprol 4. Leukocytosis Likely reactive. Resolved. 5. Acute blood loss anemia Secondary to surgery. Hemoglobin stable. VTE prophylaxis with enoxaparin Objective - Vital Signs Vital signs: Vital Signs Temp 98.2 F 09/12/23 07:22 Pulse 77 09/12/23 07:22 Resp 19 09/12/23 07:22 BP 124/65 09/12/23 07:22 Pulse Ox 96 09/12/23 07:22 FiO2 Intake & Output 09/11/23 09/12/23 09/12/23 18:59 06:59 18:59 Output Total 400 Balance -400 Output: Urine 400 Other: Voiding Method Urinal - Labs CBC & Chem 7: 09/12/23 07:15 09/11/23 06:50 Labs: Abnormal Lab Results - Last 24 Hours (Table) 09/12/23 Range/Units 07:15 RBC 3.48 L (4.30-5.90) m/uL Hgb 12.2 L D (13.0-17.5) gm/dL Hct 32.2 L (39.0-53.0) % MCHC 37.9 H (31.0-37.0) g/dL RDW 20.0 H (11.5-15.5) % Lymphocytes # 0.7 L (1.0-4.8) k/uL
[2023-09-12] MEDS: MULTIVITAMINS, THERA 1 EACH TAB PO SCH (13:08)
[2023-09-12] MEDS: SENNOSIDES-DOCUSATE SODIUM 1 EACH TAB PO SCH (20:26)
[2023-09-12] MEDS: ATORVASTATIN 40 MG TAB PO SCH (20:26)
[2023-09-13] MEDS: LACTATED RINGERS 1,000 ML IV SCH (05:08)
[2023-09-13 08:25] VITALS: BP 122/60; PULSE 75; RESP 20; TEMP 98.1
[2023-09-13] MEDS: PANTOPRAZOLE 40 MG/10 ML VIAL IV SCH ×2 (08:52→08:56)
[2023-09-13] MEDS: MAGNESIUM HYDROXIDE 2,400 MG/30 ML CUP PO SCH (08:52)
[2023-09-13] MEDS: ENOXAPARIN 40 MG/0.4 ML SYRINGE SQ SCH (08:52)
[2023-09-13] MEDS: METOPROLOL SUCCINATE (ER) 50 MG TAB.ER.24H PO SCH (08:53)
[2023-09-13] MEDS: MULTIVITAMINS, THERA 1 EACH TAB PO SCH (08:53)
[2023-09-13] MEDS: ASPIRIN 81 MG PO SCH (08:53)
--- NOTE | 2023-09-13 12:20 | P.PN ---
Subjective Progress Note Date: 09/13/23 Principal diagnosis: Status post right total hip arthroplasty, lateral approach Patient was examined today bedside, he appears to be in no acute distress. Patient feels that he has continued to improve with regards to his overall range of motion and strength. Denies lightheadedness, chest pain or shortness of breath. Objective - Vital Signs Vital signs: Vital Signs Temp 98.1 F 09/13/23 07:21 Pulse 75 09/13/23 07:21 Resp 20 09/13/23 07:21 BP 122/60 09/13/23 07:21 Pulse Ox 98 09/13/23 08:21 FiO2 Intake & Output 09/12/23 09/13/23 09/13/23 18:59 06:59 18:59 Output Total 280 610 Balance -280 -610 Output: Urine 280 610 Other: Voiding Method Urinal # Voids 1 - Exam Right lower extremity: Incision is clean, dry, and intact. The exofin fusion tape is in good condition. There is minimal soft tissue swelling and ecchymosis surrounding the medial and lateral aspects of the incision. Calf is soft, no tenderness with palpation. Plantar flexion, dorsiflexion, EHL, FHL are intact. Sensory exam to light touch throughout the extremity is intact, dorsal pedis pulses 2+. - Labs CBC & Chem 7: 09/12/23 07:15 09/11/23 06:50 Assessment and Plan Assessment: Postoperative day #6 status post right total hip arthroplasty, lateral approach Plan: Pain control, continue supportive oral medications, consider lower dose due to age DVT prophylaxis, continue subcu medication during hospital stay Wound care, monitor dressing at this time PT/OT evaluation Weight-bear as tolerated, use walker at all times Monitor urinary retention Encourage incentive spirometer Other medical coding specialist and recommendations appreciated Discharge planning: Plan for discharge home today Time with Patient: Less than 30
--- NOTE | 2023-09-13 12:24 | P.DS ---
Providers Date of admission: 09/05/23 18:29 Expected date of discharge: 09/13/23 Attending physician: Viktor Reyes Consults: 09/05/23 18:23 Consult Physician Routine Consulting Provider: J Carlos Wood Consult Reason/Comments: Grant Do you want consulting provider notified?: Yes Primary care physician: [facility] Course: Date of admission: 09/05/2023 Date of discharge: 09/13/2023 Admission diagnosis: Right femoral neck fracture Discharge diagnosis: Status post right total hip arthroplasty Attending physician: Dr. Reyes Surgical procedures: Right total hip arthroplasty Brief history: Patient is a 88-year-old male with a history who was admitted to [facility] on 09/05/2023 after sustaining a fall and fracturing his right hip. Patient was scheduled for surgery for 09/07/[address] Reyes. Hospital course: Details of patient's surgery can be found in operative report. Patient tolerated the procedure well and was subsequently transported to orthopedic floor. Patient's orthopeidc and medical care was provided daily. Patient had daily laboratory tests performed for evaluation of overall blood counts. Patient had daily physical therapy to include strengthening range of motion as well as education with walker ambulation. Patient was treated with Lovenox for their postoperative DVT prophylaxis during their inpatient stay. Patient was noted to have a relatively uneventful postoperative course. Patient reported satisfactory pain control with oral pain medications by postoperative day 2. Patient showed satisfactory progress with physical therapy. Patient moved steadily through the program and had no difficulty meeting the goals by postoperative day 6. Given patient's otherwise satisfactory course and having m et physical therapy goals, plan is to discharge patient home on postoperative day 6. Discharge condition/disposition: Patient will be discharged home in stable condition. Discharge medications: Instructions are given on resumption of patient's normal daily medications per primary care recommendation, in addition patient will be prescribed Hotchkiss 5 mg/325 mg, Senokot-S, aspirin 81 mg. Discharge instructions: 1. Wound care and infection precautions, keep incision dry and covered while showering, no lotions, creams, moisturizers. No soaking, tubs, pools, hottubs. Do not scrub over the incision. 2. Weight-bear as tolerated with walker / cane until follow-up. 3. Ice and elevate when necessary. Do not exceed 20 minutes per hour with ice pack. 4. Utilize compression sleeve until seen at first follow up appointment. 5. Visiting nursing care. 6. Home physical therapy. 7. Pain meds and anticoagulants per prescription. 8. Pain medication has potential to cause constipation. Increase oral fluid and fiber intake. Contact primary care provider if you have not had a bowel movement within 48 hours after discharge 9. No anti-inflammatory medication until discussed at first post operative visit, this including Motrin, Aleve, Mobic, Diclofenac. 10. Follow up in office at 2 weeks postop with Fran Islas PA-C/Yasmani Loredo 11. Follow up with your primary care doctor 7-10 days after discharge. 12. Contact [facility] with any questions, . Procedures: Right total hip arthroplasty, lateral approach Patient Condition at Discharge: Serious Plan - Discharge Summary New Discharge Prescriptions: New Aspirin [Adult Low Dose Aspirin EC] 81 mg PO BID #60 tab Sennosides/Docusate Sodium [Senna-S 8.6-50 mg Tablet] 2 each PO DAILY PRN #30 tablet PRN Reason: Constipation HYDROcodone/APAP 5-325MG [Hotchkiss 5-325] 1 tab PO Q6HR PRN #21 tab PRN Reason: Pain No Action Aspirin EC [Ecotrin Low Dose] 81 mg PO DAILY Atorvastatin [Lipitor] 40 mg PO HS #30 tab Metoprolol Succinate (ER) [Toprol Xl] 50 mg PO DAILY Discharge Medication List Aspirin EC [Ecotrin Low Dose] 81 mg PO DAILY 08/02/20 [History] Atorvastatin [Lipitor] 40 mg PO HS #30 tab 08/15/20 [Rx] Metoprolol Succinate (ER) [Toprol Xl] 50 mg PO DAILY 09/05/23 [History] Aspirin [Adult Low Dose Aspirin EC] 81 mg PO BID #60 tab 09/13/23 [Rx] HYDROcodone/APAP 5-325MG [Hotchkiss 5-325] 1 tab PO Q6HR PRN #21 tab 09/13/23 [Rx] Sennosides/Docusate Sodium [Senna-S 8.6-50 mg Tablet] 2 each PO DAILY PRN #30 tablet 09/13/23 [Rx] Follow up Appointment(s)/Referral(s): Yasmani Antoine, PAC [PHYSICIAN SECURITY OPERATIONS SPECIALIST] - 09/30/23 10:30 am [facility] [NON-STAFF] - As Needed Henrik Perez MD [STAFF PHYSICIAN] - 1-2 days Patient Instructions/Handouts: Total Hip Replacement (DC), Total Hip Replacement (GEN) Activity/Diet/Wound Care/Special Instructions: Orthopedic Discharge Instructions: 1. Wound care and infection precautions, keep incision dry and covered while showering, no lotions, creams, moisturizers. No soaking, pools, hot tubs. Do not scrub over incision. 2. Weight-bear as tolerated with walker / cane until follow-up. 3. Ice and elevate when necessary. Do not exceed 20 minutes per hour with ice pack. 4. Utilize compression sleeve until seen at first follow up appointment. 5. Pain meds and anticoagulants per prescription. 6. Pain medication has potential to cause constipation. Increase oral fluid and fiber intake. Contact primary care provider if you have not had a bowel movement within 48 hours after discharge. 7. No anti-inflammatory medication until discussed at first post operative visit, this including Motrin, Aleve, Mobic, Diclofenac. 8. Follow up in office at 2 weeks postop with Fran Islas PA-C / Yasmani Antoine PA-C 9. Follow up with your primary care doctor 7-10 days after discharge. 10. Contact [facility] with any questions, . Keep incision clean, dry, intact. While showering, cover fusion tape with Saran wrap. Keep fusion tape on until follow-up appointment in office at 2 weeks. Discharge Disposition: HOME WITH HOME HEALTH SERVICES
--- NOTE | 2023-09-13 14:34 | P.PN ---
Subjective Progress Note Date: 09/13/23 88-year-old male with PMH of CAD, systolic CHF presents ED after mechanical fall and falling on his right side. Patient denies any loss of consciousness or head trauma. In the ED, he underwent extensive evaluation and workup. CBC showed WBC count 14. INR was 1.1. CMP showed sodium 134, BUN of 21, glucose 106, phosphorus 4.8. EKG shows sinus rhythm with right bundle branch block and Q waves. Chest x-ray negative. Outside imaging demonstrated a femoral neck fracture. Patient was admitted under orthopedic surgery for evaluation and further management. [facility] consulted for further management of this patient. Underwent right total hip arthroplastypress-fitlateral approach on 09/07. Plans for home vs SNF. 09/13 Patient was seen and examined. General: non toxic, no distress, appears at stated age Derm: warm, dry Head: atraumatic, normocephalic, symmetric Eyes: EOMI, no lid lag, anicteric sclera Cardiovascular: S1S2 reg, no murmur Lungs: CTA bilateral, no rhonchi, no rales , no accessory muscle use Ext: no gross muscle atrophy, no edema, no contractures Neuro: no focal neuro deficits Psych: Alert, oriented, appropriate affect Based on my assessment of this patient, this patient meets a moderate complexity level of care. Patient has an acute diagnosis of right femoral neck fracture that poses a threat to life or bodily function. Right femoral neck fracture: Management per Orthopedic surgery. Hypotonic hyponatremia: Asymptomatic. Stable. Acute blood loss anemia: Expected result of surgery. Transfuse if Hg < 7. CAD status post CABG 2020: ASA 81 mg PO QD. Lipitor 40 mg PO QD. Metoprolol 50 mg PO QD. Plans for SNF vs home with PT depending on how patient progresses. CODE STATUS: FULL CODE. DVT Prophylaxis: Lovenox SQ GI Prophylaxis: Designated medical POA if patient is not able to make medical decisions for themselves: I have reviewed the following home energy consultant notes: Orthopedic surgery note. I have reviewed the results of the following tests: I have ordered the following tests: I have discussed the care of this patient with the following independent his samantha: I have independently interpreted the following test below: I have discussed the management of this patient with the following physician: Objective - Vital Signs Vital signs: Vital Signs Temp 98.1 F 09/13/23 07:21 Pulse 75 09/13/23 07:21 Resp 20 09/13/23 07:21 BP 122/60 09/13/23 07:21 Pulse Ox 98 09/13/23 08:21 FiO2 Intake & Output 09/12/23 09/13/23 09/13/23 18:59 06:59 18:59 Output Total 280 610 Balance -280 -610 Output: Urine 280 610 Other: Voiding Method Urinal # Voids 1 - Labs CBC & Chem 7: 09/12/23 07:15 09/11/23 06:50
== END 2023-09-13 13:44 | disposition home health service (06) | DRG 522 ==
LOC: EC 16:41 → 4SSUR 18:29
PROVIDERS: ADMIT Orthopaedic Surgery; ATTEND Orthopaedic Surgery
PROC: 0SR904A Replacement of Right Hip Joint with Ceramic on Polyethylene Synthetic Substitute, Uncemented, Open Approach (ICD-10-PCS; principal; 2023-09-07 12:30)
DX: S72.011A Unspecified intracapsular fracture of right femur, initial encounter for closed fracture (principal); I50.22 Chronic systolic (congestive) heart failure; E87.1 Hypo-osmolality and hyponatremia; D62 Acute posthemorrhagic anemia; W01.0XXA Fall on same level from slipping, tripping and stumbling without subsequent striking against object, initial encounter; I25.10 Atherosclerotic heart disease of native coronary artery without angina pectoris; I25.5 Ischemic cardiomyopathy; E86.0 Dehydration; E78.5 Hyperlipidemia, unspecified; D72.829 Elevated white blood cell count, unspecified; E80.6 Other disorders of bilirubin metabolism; M17.11 Unilateral primary osteoarthritis, right knee; I48.91 Unspecified atrial fibrillation; J44.9 Chronic obstructive pulmonary disease, unspecified; I45.10 Unspecified right bundle-branch block; I08.0 Rheumatic disorders of both mitral and aortic valves; Z87.891 Personal history of nicotine dependence; I25.2 Old myocardial infarction; Z95.1 Presence of aortocoronary bypass graft; Z85.46 Personal history of malignant neoplasm of prostate; Z79.899 Other long term (current) drug therapy; Z79.82 Long term (current) use of aspirin; Z88.1 Allergy status to other antibiotic agents
CPT/HCPCS: 71045; 73501; 80048; 80053; 83735; 84100; 85025; 85610; 85730; 86850; 86900; 86901; 93005; 94760; 96361; 96374; 96376; 99285

== ENCOUNTER → 2023-10-22 | Outpatient (CLI) | payer MEDICARE, OTHER ==
--- NOTE | 2023-10-22 15:12 | US ---
EXAMINATION TYPE: US venous doppler duplex LE RT DATE OF EXAM: 10/22/2023 3:02 PM COMPARISON: NONE CLINICAL INDICATION: Male, 88 years old with history of r600 edma; Right leg edema SIDE PERFORMED: Right TECHNIQUE: The lower extremity deep venous system is examined utilizing real time linear array sonog carol with graded compression, doppler sonography and color-flow sonography. VESSELS IMAGED: Common Femoral Vein Deep Femoral Vein Greater Saphenous Vein * Femoral Vein Popliteal Vein Small Saphenous Vein * Proximal Calf Veins (* superficial vessels) Right Leg: Negative for DVT IMPRESSION: 1. Right lower extremity ultrasound negative for deep venous lordosis.
== END | disposition home or self-care (01) ==
LOC: RADUSWWP 14:38
PROVIDERS: ATTEND Family Medicine
DX: R60.0 Localized edema (principal)